=== PATIENT | male | born 1940 | race Two or more races ===

== ENCOUNTER 2023-10-10 15:05 | Outpatient (REF) | payer MEDICARE, MEDICAID, SELFPAY ==
[2023-10-10 15:31] LABS: MANUAL DIFF FLAG NO
[2023-10-10 15:42] LABS: Basophils Percent Auto 0.6 % (0-2); Eosinophils Absolute Auto 0.6 X10*3/uL (0.0-0.4); Eosinophils Percent Auto 10.6 % (0-4); Hematocrit 44.1 % (42.0-52.0); Hemoglobin 14.7 g/dl (14.0-18.0); Imm Gran Abs Auto 0.01 X10*3/uL (0.00-0.03); Imm Gran Pct Auto 0.2 % (0.0-0.4); Lymphocytes Absolute Auto 2.2 X10*3/uL (1.2-4.9); Lymphocytes Percent Auto 40.4 % (20-40); Mean Corpuscular HGB Conc 33.3 g/dl (31.0-36.0); Mean Corpuscular Hemoglobin 31.5 pg (27.0-33.0); Mean Corpuscular Volume 94.4 fL (80.0-98.0); Monocytes Absolute Auto 0.7 X10*3/uL (0.1-1.2); Monocytes Percent Auto 13.6 % (2-11); Neutrophils Absolute Auto 1.9 x10*3/uL (2.0-8.3); Neutrophils Percent Auto 34.6 % (45-73); Platelet Count 174 X10*3/uL (160-400); Red Blood Count 4.67 X10*6/uL (4.60-5.80); White Blood Count 5.4 X10*3/uL (4.8-10.8)
[2023-10-10 15:49] LABS: INTERNATIONAL NORM RATIO 1.1 (0.9-1.1); Prothrombin Time 13.1 SEC (11.1-13.3)
[2023-10-10 15:52] LABS: Partial Thromboplastin Time 32.9 SEC (26.0-36.8)
[2023-10-10 16:12] LABS: Alanine Aminotransferase 11 U/L (0-40); Albumin Level 3.9 g/dL (3.5-5.0); Alkaline Phosphatase 60 U/L (39-117); Anion Gap 10 (12-20); Aspartate Amino Transferase 18 U/L (5-37); Blood Urea Nitrogen 11 mg/dL (9-16); Calcium 8.7 mg/dL (8.4-10.2); Carbon Dioxide 26 mmol/L (22-29); Chloride 103 mmol/L (96-108); Estimated Glomerular Filt Rate 55; Glucose Random 110 mg/dL (60-115); Sodium 135 mmol/L (135-145); Total Protein 7.7 g/dL (6.5-8.0)
[2023-10-10 16:28] LABS: TSH reflex Free T4 0.76 uIU/mL (0.32-4.0)
[2023-10-10 16:44] LABS: Folate > 20.0 ng/mL (> or = 4.0); Vitamin B12 260 pg/mL (200-900)
== END 2023-10-10 15:06 | disposition home or self-care (01) ==
LOC: HO.LAB 15:05
PROVIDERS: Visit Provider Nurse Practitioner Family
DX: F03.93 Unspecified dementia, unspecified severity, with mood disturbance (principal); Z79.01 Long term (current) use of anticoagulants
CPT/HCPCS: 36415; 80053; 82607; 82746; 84443; 85025; 85610; 85730

== ENCOUNTER 2023-10-25 11:55 | Outpatient (REF) | payer MEDICAID, SELFPAY ==
[2023-10-25 12:54] LABS: INTERNATIONAL NORM RATIO 1.5 (0.9-1.1); Prothrombin Time 17.9 SEC (11.1-13.3)
[2023-10-25 12:56] LABS: Partial Thromboplastin Time 37.3 SEC (26.0-36.8)
== END 2023-10-25 11:56 | disposition home or self-care (01) ==
LOC: HO.LAB 11:55
PROVIDERS: PCP Nurse Practitioner Family; Visit Provider Nurse Practitioner Family
DX: Z79.01 Long term (current) use of anticoagulants (principal)
CPT/HCPCS: 36415; 85610; 85730

== ENCOUNTER 2023-11-01 12:58 | Outpatient (REF) | payer MEDICAID, SELFPAY ==
[2023-11-01 13:40] LABS: INTERNATIONAL NORM RATIO 3.2 (0.9-1.1); Prothrombin Time 39.1 SEC (11.1-13.3)
== END 2023-11-01 12:59 | disposition home or self-care (01) ==
LOC: HO.LABR 12:58
PROVIDERS: Visit Provider Pharmacist
DX: I26.99 Other pulmonary embolism without acute cor pulmonale (principal)
CPT/HCPCS: 36415; 85610

== ENCOUNTER 2023-11-08 12:49 | Outpatient (REF) | payer MEDICAID, SELFPAY ==
[2023-11-08 14:28] LABS: INTERNATIONAL NORM RATIO 3.3 (0.9-1.1); Prothrombin Time 39.7 SEC (11.1-13.3)
== END 2023-11-08 12:50 | disposition home or self-care (01) ==
LOC: HO.LABR 12:49
PROVIDERS: Visit Provider Pharmacist
DX: I26.99 Other pulmonary embolism without acute cor pulmonale (principal)
CPT/HCPCS: 36415; 85610

== ENCOUNTER 2023-12-02 11:50 | Outpatient (REF) | payer MEDICAID, SELFPAY ==
[2023-12-02 12:48] LABS: INTERNATIONAL NORM RATIO 2.1 (0.9-1.1); Prothrombin Time 24.4 SEC (10.9-12.4)
== END 2023-12-02 11:51 | disposition home or self-care (01) ==
LOC: HO.LABR 11:50
PROVIDERS: PCP Nurse Practitioner Family; Visit Provider Pharmacist
DX: I26.99 Other pulmonary embolism without acute cor pulmonale (principal)
CPT/HCPCS: 36415; 85610

== ENCOUNTER 2023-12-15 12:32 | Outpatient (REF) | payer MEDICAID, SELFPAY ==
[2023-12-15 13:20] LABS: INTERNATIONAL NORM RATIO 1.8 (0.9-1.1)
== END 2023-12-15 12:33 | disposition home or self-care (01) ==
LOC: HO.LABR 12:32
PROVIDERS: PCP Nurse Practitioner Family; Visit Provider Pharmacist
DX: I26.99 Other pulmonary embolism without acute cor pulmonale (principal)
CPT/HCPCS: 36415; 85610

== ENCOUNTER 2023-12-28 11:58 | Outpatient (REF) | payer MEDICAID, SELFPAY ==
[2023-12-28 13:03] LABS: INTERNATIONAL NORM RATIO 2.1 (0.9-1.1); Prothrombin Time 24.2 SEC (10.9-12.4)
== END 2023-12-28 11:59 | disposition home or self-care (01) ==
LOC: HO.LABR 11:58
PROVIDERS: Visit Provider Pharmacist
DX: I26.99 Other pulmonary embolism without acute cor pulmonale (principal)
CPT/HCPCS: 36415; 85610

== ENCOUNTER 2024-01-13 13:31 | Outpatient (REF) | payer MEDICAID, SELFPAY ==
[2024-01-13 14:30] LABS: INTERNATIONAL NORM RATIO 3.2 (0.9-1.1); Prothrombin Time 37.8 SEC (10.9-12.4)
== END 2024-01-13 13:32 | disposition home or self-care (01) ==
LOC: HO.LABR 13:31
PROVIDERS: Visit Provider Pharmacist
DX: I26.99 Other pulmonary embolism without acute cor pulmonale (principal)
CPT/HCPCS: 36415; 85610

== ENCOUNTER 2024-02-07 12:54 | Outpatient (REF) | payer MEDICAID, SELFPAY ==
[2024-02-07 14:11] LABS: INTERNATIONAL NORM RATIO 1.8 (0.9-1.1); Prothrombin Time 21.4 SEC (10.9-12.4)
--- OUTSIDE RECORDS SUMMARY | 2024-02-14 13:52 | XMS_ITS | Continuity of Care Document ---
Author Organization [facility] Address [address] [place] [address]- Care Team Providers Care Tie Worker Name Role Phone Jv MEI, Francy Proctor Primary Care Physician Encounter [facility] Date(s): 01/03/24 - 02/02/24 [facility] [address] [place], [place] [address] Attending Physician: Ephraim Vo Admitting Physician: AdmtrEphraim Referring Physician: Admtr, [id number] Encounter Type: Triage Allergies, Adverse Reactions, Alerts No Known Medication Allergies Immunizations Given and Recorded Vaccine Date Status Refusal Reason influenza virus vaccine, inactivated 12/29/22 Justino rded influenza virus vaccine, inactivated 12/17/21 Justino rded influenza virus vaccine, inactivated 12/10/20 Justino rded influenza virus vaccine, inactivated 12/18/19 Justino rded SARS-CoV-2 (COVID-19) mRNA-1273 vaccine 08/13/21 R ecorded SARS-CoV-2 (COVID-19) mRNA-1273 vaccine 01/23/21 R ecorded SARS-CoV-2 (COVID-19) mRNA BNT-162b2 vac 05/10/20 Recorded SARS-CoV-2 (COVID-19) mRNA BNT-162b2 vac 04/19/20 Recorded tetanus/diphtheria/pertussis, acel(Tdap) 01/17/20 Recorded pneumococcal 23-valent vaccine 10/22/19 Recorded Medications atorvastatin 20 mg oral tablet 1 tablet = 20 mg, By Mouth, Daily, 0 Refills, Maintenance, 10/04/23 9:18:00 AM EDT, Partial fill upon patient request if the prescription is for a schedule II opioid drug. Start Date: 10/04/23 Status: Ordered Repeat number: 1 Breo Ellipta 100 mcg-25 mcg/inh inhalation powder 1 puffs, Inhalation, Daily, # 30 each, 0 Refills, Maintenance, 10/04/23 9:15:00 AM EDT, Powder, Partial fill upon patient request if the prescription is for a schedule II opioid drug. Start Date: 10/04/23 Status: Ordered Quantity: 30.0 Unit: each Repeat number: 1 cetirizine 10 mg oral capsule 1 capsule = 10 mg, By Mouth, Daily, # 90 capsule, 1 Refills, Maintenance, 11/22/23 12:20:00 PM EDT, Capsule, [facility], Partial fill upon patient request if the prescription is for a schedule II opioid drug., 162, cm, 11/22/23 12:04:00 EDT, Height Start Date: 11/22/23 Status: Ordered Quantity: 90.0 Unit: capsule Repeat number: 2 Indication: Allergic rhinitis, unspecified donepezil 10 mg oral tablet 10 mg, 1, tablet, By Mouth, Daily at bedtime, # 90 tablet, Refills 1, Tot. Refills 1, Maintenance, 11/22/23 12:22:00 PM EDT, Route to Pharmacy Electronically, [facility], Partial fill upon patient request if the prescription is for a schedule II opioid drug., 162, cm, 11/22/23 12:04:00 EDT, Height Start Date: 11/22/23 Status: Ordered Quantity: 90.0 Unit: tablet Repeat number: 2 Indication: Unspecified dementia, unspecified severity, with mood disturbance Dulcolax Stool Softener = 100 mg, By Mouth, 2 times a day, 0 Refills, Maintenance, 10/04/23 9:17:00 AM EDT, Partial fill upon patient request if the prescription is for a schedule II opioid drug. Start Date: 10/04/23 Status: Ordered Repeat number: 1 escitalopram 20 mg oral tablet 1 tablet = 20 mg, By Mouth, Daily, # 90 tablet, 1 Refills, Maintenance, 11/22/23 12:20:00 PM EDT, Tablet, [facility], Partial fill upon patient request if the prescription is for a schedule II opioid drug., 162, cm, 11/22/23 12:04:00 EDT, Height Start Date: 11/22/23 Status: Ordered Quantity: 90.0 Unit: tablet Repeat number: 2 Indication: Unspecified dementia, unspecified severity, with mood disturbance folic acid 1 mg oral tablet 1 mg, 1, tablet, By Mouth, Daily, Refills 0, Maintenance, 10/04/23 9:16:00 AM EDT, Partial fill uponpatient request if the prescription is for a schedule II opioid drug. 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 Psoriasis Confirmed Active Pulmonary embolism Confirmed Active Social History Social History Type Response Smoking Status Never (less than 100 in lifetime) entered on: 10/04/23 Sex Sex Representation Male (finding) Laboratory * Event Display: PT/INR Laboratory Results Scanned Authored Date: * Event Display: Non [facility] Lab Results Authored Date: * Event Display: Laboratory Result Scanned Authored Date: * Event Display: Non [facility] Lab Results Authored Date: Patient Care team information Care Team Personnel Name: Jv MEI, Francy Proctor Position: S PCO Associate Professional Member Role: PCP Address: [address] [place] [address]- Telecom: Insurance Providers Guarantor name: MARCELO Health Plan Information #: 1 Payer: MEDICARE PART B OUTPT Member Number: MARCELO Policy Number: MARCELO Group Number: MARCELO Health Plan Information #: 2 Payer: [facility] Member Number: MARCELO Policy Number: MARCELO Group Number: [id number]
--- OUTSIDE RECORDS SUMMARY | 2024-02-14 13:53 | XMS_ITS | Continuity of Care Document ---
Author Organization [facility] Address [address] [place] [address]- Care Team Providers Care Denture Finisher Name Role Phone Jv MEI, Francy Proctor Primary Care Physician [id number] Date(s): 11/22/23 - 02/02/24 [facility] [address] [place] [address]- Attending Physician: Francy Carias NP Encounter Type: Pre Office Visit Allergies, Adverse Reactions, Alerts No Known Medication [...] 30.0 Unit: tablet Repeat number: 4 Indication: retirement (current) use of anticoagulants methotrexate 2.5 mg [...] on: 10/04/23 Sex Sex Representation Male (finding) Patient Care team information Care Team Personnel Name: Francy Carias NP Position: S PCO Associate Professional Member Role: PCP Address: [address] [place] [address] Telecom: Insurance Providers Guarantor name: MARCELO Health Plan Information #: 2 Payer: [employer] Member Number: [id number] Policy Number: MARCELO Group Number: MARCELO Health Plan Information #: 1 Payer: MEDICARE PART B OUTPT Member Number: [id number] Policy Number: MARCELO Group Number: [id number]
--- OUTSIDE RECORDS SUMMARY | 2024-02-14 13:53 | XMS_ITS | Continuity of Care Document ---
Author Organization [facility] Address [address] [place] [address] Phone Care Team Providers Care Singe Winder Name Role Phone Genet Spear PA-C Unavailable Unavailable Allergies, Adverse Reactions, Alerts Substance Reaction Status Criticality Fish Containing Products Active No Information egg Itching Active No Information Medications Medication Instructions Dosage Effective Dates (start - stop) Status Comments ACETAMINOPHEN ER 650MG TBCR TAKE ONE TABLET BY MOUTH TWICE A DAY 1 - Active Singulair 10 mg tablet TAKE ONE TABLET BY MOUTH EVERY EVENING - Active Ventolin HFA 90 mcg/actuation aerosol inhaler INHALE TWO PUFFS BY MOUTH EVERY 4 TO 6 HOURS NEEDED - Active multivitamin tablet TAKE ONE TABLET BY MOUTH EVERY DAY WITH FOOD - Active Senna Lax 8.6 mg tablet take 2 tablet by ORAL route every evening as neededfor constipation 2 tablet - Active Colace 100 mg capsule TAKE ONE CAPSULE BY MOUTH TWICE A DAY NEEDED - Active COUMADIN 2MG TABS TAKE ONE-TWO [...] OZ OF WATER 1 Tablespoon - Active fluticasone 50 mcg/actuation nasal spray,suspension inhale 1 spray by intranasal route every day in each nostril 50 MCG - Active polyethylene glycol 3350 17 gram/dose oral powder take (17G) by oral route every day mixed with 8 oz. water, juice, soda, coffee or tea - Active Advil Liqui-Gel 200 mg capsule take 1 capsule by oral route every 6 hours as needed 200 MG - Active Lip [place] Natural - Active LIP KENYA BALM AP+ CeraVe topical cream - Active methotrexate sodium 2.5 mg tablet take 5 tablets by oral route every Tuesday - Active ketoconazole 2 % shampoo Apply to scalp externally twice a week - Active folic acid 1 mg tablet [...] in gently and completely 0.00 - Active Procedures Procedure Date OFFICE VISIT ESTAB PT 15 MIN Case Management Case Management Case Management OFFICE VISIT ESTAB PT 15 MIN OFFICE VISIT ESTAB PT 25 MIN OFFICE VISIT ESTAB PT 15 MIN IMMUNIZATION ADMIN FLU VACC PRSV FREE INC ANTIG OFFICE VISIT ESTAB PT 15 MIN PREVENT VISIT EST 65+ OFFICE VISIT ESTAB PT 15 MIN OFFICE VISIT ESTAB PT 25 MIN Case Management OFFICE VISIT ESTAB PT 25 MIN OFFICE VISIT ESTAB PT 15 MIN OFFICE VISIT ESTAB PT 25 MIN IMMUNIZATION ADMIN FLU VACC PRSV FREE INC ANTIG IMMUNIZATION ADMIN ADDITIONAL VACCINE Oc PREVNAR 13 PREVENT VISIT EST 65+ Case Management OFFICE VISIT ESTAB PT 25 MIN New Dental Patient Radiograph Frst Film Bitewing, Single Film Limit Oral Exam PREVENT VISIT EST 65+ OFFICE VISIT ESTAB PT 15 MIN Case Management Case Management URINE DIP NON-AUTO WITHOUT MICRO 2015 PREVENT VISIT EST 65+ Case Management Case Management OFFICE VISIT ESTAB PT 25 MIN Case Management Case Management PREVENT VISIT EST 65+ OFFICE VISIT ESTAB PT 15 MIN Case Management OFFICE VISIT ESTAB PT 15 MIN OFFICE VISIT ESTAB PT 15 MIN Case Management Case Management PPD INTERDERMAL URINE DIP NON-AUTO WITHOUT MICRO 2013 HEPATISTIS A ADULT IMMUNIZATION ADMIN TDAP IMMUNIZATION ADMIN ADDITIONAL VACCINE PREVENT VISIT EST 65+ OFFICE VISIT ESTAB PT 15 MIN OFFICE VISIT ESTAB PT 15 MIN Case Management Case Management Case Management Case Management Case Management OFFICE VISIT ESTAB PT 25 MIN Case Management Case Management PREVENT VISIT EST 65+ OCCULT BLOOD STOOL CARD - Colorectal Cx Screening Case Management Case Management OFFICE VISIT ESTAB PT 25 MIN OFFICE VISIT ESTAB PT 15 MIN Case Management OFFICE VISIT ESTAB PT 25 MIN OFFICE VISIT ESTAB PT 25 MIN Case Management OFFICE VISIT ESTAB PT 25 MIN Case Management OFFICE VISIT ESTAB PT 25 MIN OFFICE/OUTPATIENT VISIT, EST OFFICE VISIT ESTAB PT 25 MIN URINE DIP NON-AUTO WITHOUT MICRO 2008 OFFICE VISIT ESTAB PT 25 MIN OFFICE VISIT ESTAB PT 15 MIN OFFICE VISIT ESTAB PT 15 MIN Advance Directives Directive Yes / No Effective Date File Name No Information Encounters Encounter Description Practice Location Reason(s) For Visit Diagnoses Date Provider Providers Copied on Encounter [facility], [address] [place], [place], [id number] , [place] tel:+ [phone] Counts Include [facility] No Information 0 Vebber Genet. [address], [place], [address], [place]. tel: [phone] [facility], [address] [place], [place], [address] , [place] tel:+ [phone] Counts Include [facility] Long-term Use of Anticoagulant sPortal vein thrombosis 0 Vebber Genet. [address], [place], [address], [place]. tel: [phone] [facility], [address] [place], [place], [address] , [place] tel:+ [phone] Counts Include [facility] Long-term Use of Anticoagulant sPortal vein thrombosis 0 Dannie Shah. [address], [place], [address], [place]. tel: [phone] OFFICE VISIT ESTAB PT 15 MIN [facility], [address] [place], [place], [address] , [place] tel:[phone] [facility] TeleHealth (chief complaint) Advice given about COVID-19 virus by telephoneMese nteric thrombosis 0 Dannie Shah. [address], [place], [address], [place]. tel: [phone] [facility], [address] [place], [place], [address] , [place] tel:+ [phone] Counts Include [facility] Long-term Use of Anticoagulant sPortal vein thrombosis 0 Dannie Shah. [address], [place], [address], [place]. tel: [phone] [facility], [address] [place], [place], [address] , [place] tel:+ [phone] Counts Include [facility] No Information Aug-0 0 Management Case. . Referring Provider: Gera Kumar, [address], [place], [address]. tel:+ [phone] [facility], [address], [place], [place], [address] , [place] tel:+ [phone] Counts Include [facility] Long-term Use of Anticoagulant sPortal vein thrombosis 0 [place] Edward. [address], [place], [address], [place]. tel: [phone] [facility], [address], [place], [place], [address] , [place] tel:+ [phone] Counts Include [facility] No Information 0 Management Case. . Referring Provider: Gera Kumar, [address], [place], [address]. tel: [phone] [facility], [address], [place], [place], [address] , [place] tel:+ [phone] Counts Include [facility] Long-term Use of Anticoagulant sPortal vein thrombosisLon g-term Use of Anticoagulant sPortal vein thrombosis 0 [facility] Edward. [address], [place], [address], [place]. tel: [phone] [facility], [address], [place], [place], [address] , [place] tel:+ [phone] Counts Include [facility] Long-term Use of Anticoagulant sPortal vein thrombosis 0 0 [place] Edward. [address], [place], [address], [place]. tel: [phone] [facility], [address], [place], [place], [address] , [place] tel:[phone] Counts Include [facility] Long-term Use of Anticoagulant sPortal vein thrombosis Jun-3 0-202 0 [facility] Edward. [address], [place], [address], [place]. tel: [phone] [facility], [address], [place], [place], [address] , [place] tel: [phone] [facility] Long-term Use of Anticoagulant sPortal vein thrombosis Jun- 0 [facility] Pablo. [address], [place], [address], [place]. tel: [phone] [facility], [address], [place], [place], [address] , [place] tel: [phone] [facility] No Information 0 Management Case. . Referring Provider: Gera Kumar, [address] [facility], [place], [address]. tel: [phone] [facility], [address], [place], [place], [address] , [place] tel: [phone] [facility] Long-term Use of Anticoagulant sPortal vein thrombosisLon g-term Use of Anticoagulant sPortal vein thrombosis 0 [facility] Pablo. [address], [place], [address], [place]. tel: [phone] OFFICE VISIT ESTAB PT 15 MIN [facility], [address], [place], [place], [address] , [place] tel:+ [phone] Tele[facility] Medical TeleHealth (chief complaint) Chronic constipationM esenteric thrombosisAst hma, persistent controlledAdv ice given about COVID-19 virus by telephone 0 [facility] Pablo. [address], [place], [address], [place]. tel: [phone] Referring Provider: Gera Kumar, [address], [place], [address]. tel: [phone] [facility], [address], [place], [place], [address] , [place] tel: [phone] [facility] No Information [facility] [address], [place], [address], [place]. tel: [phone] [facility], [address], [place], [place], [address] , [place] tel:+ [phone] Counts Include [facility] Long-term Use of Anticoagulant sPortal vein thrombosis Apr-0 9-202 0 Nikolas Hicks. [address], [place], [address], [place]. tel:+ [phone] [facility], [address], [place], [place], [address] , [place] tel:[phone] Counts Include [facility] No Information Apr-0 8-202 0 [facility] Edward. [address], [place], [address], [place]. tel:+ [phone] [facility], [address], [place], [place], [address] , [place] tel:[phone] [facility] Long-term Use of Anticoagulant sPortal vein thrombosis Apr-0 3-202 0 [facility] Pablo. [address], [place], [address], [place]. tel: [phone] [facility], [address], [place], [place], [address] , [place] tel:[phone] Counts Include [facility] Long-term Use of Anticoagulant sPortal vein thrombosis Mar-2 6-202 0 [facility] Edward. [address], [place], [address], [place]. tel: [phone] [facility], [address], [place], [place], [address] , [place] tel:[phone] Counts Include [facility] No Information May-1 8-202 0 [facility] Edward. [address], [place], [address], [place]. tel:+ [phone] [facility], [address], [place], [place], [address] , [place] tel:[phone] Counts Include [facility] Long-term Use of Anticoagulant sPortal vein thrombosis Mar-1 0-202 0 [facility] Edward. [address], [place], [address], [place]. tel:+ [phone] [facility], [address], [place], [place], [address] , [place] tel:[phone] Counts Include [facility] Long-term Use of Anticoagulant sPortal vein thrombosis Mar-0 3-202 0 [facility] Pablo. [address], [place], [address], [place]. tel:+ [phone] [facility], [address], [place], [place], [address] , [place] tel:[phone] [facility] Long-term Use of Anticoagulant sPortal vein thrombosis 0 Giovanni Salguero. [address], [place], [place], [address], [place]. tel:+ [phone] [facility], [address], [place], [place], [address] , [place] tel:[phone] Counts Include [facility] Long-term Use of Anticoagulant sPortal vein thrombosis 0 Dannie Silasjuliana. [address], [place], [address], [place]. tel: [phone] [facility], [address], [place], [place], [address] , [place] tel:[phone] Counts Include [facility] Long-term Use of Anticoagulant sPortal vein thrombosisLon g-term Use of Anticoagulant sPortal vein thrombosis 0 0 Tino Wagner. [address], [place], [address], [place]. tel: [phone] [facility], [address], [place], [place], [address] , [place] tel:[phone] Counts Include [facility] No Information 0 0 [place] Pablo. [address], [place], [address], [place]. tel: [phone] [facility], [address], [place], [place], [address] , [place] tel:[phone] Counts Include [facility] Long-term Use of Anticoagulant sPortal vein thrombosis 0 Dannie Pablo. [address], [place], [address], [place]. tel: [phone] [facility], [address], [place], [place], [address] , [place] tel:[phone] Counts Include [facility] Long-term Use of Anticoagulant sPortal vein thrombosis 0 [place] Shah. [address], [place], [address], [place]. tel: [phone] OFFICE VISIT ESTAB PT 25 MIN [facility], [address], [place], [place], [address] , [place] tel:+ [phone] Counts Include [facility] multiple problems (chief complaint) Essential (primary) hypertensionM esenteric thrombosisChr onic constipationU nspecified asthma, uncomplicated 0 [place] Shah. [address], [place], [address], [place]. tel:[phone] Referring Provider: Gera Kumar, [address], [place], [address]. tel: [phone] [facility], [address], [place], [place], [address] , [place] tel:+ [phone] [facility] Long-term Use of Anticoagulant sPortal vein thrombosis 0 [place] Shah. [address], [place], [address], [place]. tel: [phone] [facility], [address], [place], [place], [address] , [place] tel:+ [phone] Counts Include [facility] Long-term Use of Anticoagulant sPortal vein thrombosis 9 [place] juliana. [address], [place], [address], [place]. tel: [phone] [facility], [address], [place], [place], [address] , [place] tel:+ [phone] Counts Include [facility] Long-term Use of Anticoagulant sPortal vein thrombosis 9 [facility]. [address], [place], [address], [place]. tel: [phone] [facility], [address], [place], [place], [address] , [place] tel:[phone] Counts Include [facility] Long-term Use of Anticoagulant sPortal vein thrombosis 0 9 [facility]. [address], [place], [address], [place]. tel: [phone] [facility], [address], [place], [place], [address] , [place] tel: [phone] Counts Include [facility] Long-term Use of Anticoagulant sPortal vein thrombosis 9 [facility]. [address], [place], [address], . tel: [phone] [facility], [address], [place], [place], [address] , [place] tel: [phone] [facility] Long-term Use of Anticoagulant sPortal vein thrombosis 9 [facility]. [address], [place], [address], . tel: [phone] [facility], [address], [place], [place], [address] , [place] tel: [phone] Counts Include [facility] Long-term Use of Anticoagulant sPortal vein thrombosis 9 [facility]. [address], [place], [address], . tel: [phone] [facility], [address], [place], [place], [address] , [place] tel: [phone] Counts Include [facility] Long-term Use of Anticoagulant sPortal vein thrombosis 9 [facility]. [address], [place], [address], . tel: [phone] [facility], [address], [place], [place], [address] , [place] tel: [phone] [facility] Long-term Use of Anticoagulant sPortal vein thrombosisLon g-term Use of Anticoagulant sPortal vein thrombosis 9 Cullion Robyn. [address], [place], [place], [address], [place]. tel: [phone] OFFICE VISIT ESTAB PT 15 MIN [facility], [address], [place], [place], [address] , [place] tel:+ [phone] Counts Include [facility] multiple problems (chief complaint) Chronic vascular disorders of intestineAnti coagulation goal of INR 2 to 3Asthma, persistent controlledCon stipation, unspecified 9 [facility]. [address], [place], [address], . tel: [phone] Referring Provider: Gera Kumar, [address], [place], [address]. tel: [phone] [facility], [address], [place], [place], [address] , [place] tel:+ [phone] Counts Include [facility] Long-term Use of Anticoagulant sPortal vein thrombosis 9 [facility]. [address], [place], [address], [place]. tel: [phone] [facility], [address], [place], [place], [address] , [place] tel:+ [phone] [facility] Long-term Use of Anticoagulant sPortal vein thrombosis Nov- 9 [facility]. [address], [place], [address], [place]. tel: [phone] [facility], [address], [place], [place], [address] , [place] tel:+ [phone] Counts Include [facility] Long-term Use of Anticoagulant sPortal vein thrombosis Nov- 9 [facility]. [address], [place], [address], [place]. tel: [phone] [facility], [address], [place], [place], [address] , [place] tel:+ [phone] Counts Include [facility] Long-term Use of Anticoagulant sPortal vein thrombosis Nov- 9 [facility]. [address], [place], [address], [place]. tel: [phone] OFFICE VISIT ESTAB PT 15 MIN [facility], [address], [place], [place], [address] , [place] tel:+ [phone] Counts Include [address] [facility] Anticoagulati on (chief complaint) Chronic vascular disorders of intestineAnti coagulation goal of INR 2 to 3Long term (current) use of anticoagulant sAsthma, persistent controlled [facility]. [address], [place], [address], [place]. tel:[phone] Referring Provider: Gera Kumar, [address] [facility], [place], [address]. tel: [phone] [facility], [address], [place], [place], [address] , [place] tel:+ [phone] Counts Include [address] [facility] Long-term Use of Anticoagulant sPortal vein thrombosis [facility]. [address], [place], [address], [place]. tel:[phone] [facility], [address], [place], [place], [address] , [place] tel:+ [phone] Counts Include [address] [facility] Long-term Use of Anticoagulant sPortal vein thrombosis [facility]. [address], [place], [address], [place]. tel: [phone] PREVENT VISIT EST 65+ [facility], [address], [place], [place], [address] , [place] tel:+ [phone] Counts Include [address] [facility] preventive exam (chief complaint) Essential (primary) hypertensionE ncounter for general adult medical examination with abnormal findingsAsthm a, persistent controlledMes enteric vein thrombosisUri nary frequencyCanc er screeningAden omatous polypPsoriasi s, unspecified [facility]. [address], [place], [address], [place]. tel:[phone] Referring Provider: Gera Kumar, [address], [place], [address]. tel:[phone] OFFICE VISIT ESTAB PT 15 MIN [facility], [address], [place], [place], [address] , [place] tel:+ [phone] Counts Include [address] [facility] multiple problems (chief complaint) Psoriasis, unspecifiedHi story of pulmonary embolus (PE)Mixed hyperlipidemi aPolypharmacy Asthma, persistent controlled [facility]. [address], [place], [address], [place]. tel:[phone] Referring Provider: Gera Kumar, [address] [facility], [place], [address]. tel: [phone] OFFICE VISIT ESTAB PT 25 MIN [facility], [address], [place], [place], [address] , [place] tel:+ [phone] Counts Include [address] [facility] Anticoagulati on (chief complaint) Other pulmonary embolism without acute cor pulmonalePsor iasisPolyphar boom 9 [facility]. [address], [place], [address], [place]. tel:[phone] Referring Provider: Gera Kumar, [address] [facility], [place], [address]. tel: [phone] [facility], [address], [place], [place], [address] , [place] tel:+ [phone] Counts Include [address] [facility] Long-term Use of Anticoagulant s 9 Stacy Boss. [address], [address] [facility], [place], [place], [address], [place]. tel: [phone] [facility], [address], [place], [place], [address] , [place] tel:+ [phone] Counts Include [facility] No Information 9 Stacy Boss. [address], [address] [facility], [place], [place], [address], [place]. tel: [phone] [facility], [address], [place], [place], [address] , [place] tel:[phone] [facility] Long-term Use of Anticoagulant s Jun-2 9 Stacy Boss. [address], [address] [facility], [place], [place], [address], [place]. tel: [phone] [facility], [address], [place], [place], [address] , [place] tel:+ [phone] Counts Include [address] [facility] Long-term Use of Anticoagulant s Jun-1 6-201 9 Stacy Boss. [address], [address], [place], [place], [address], [place]. tel:+ [phone] [facility], [address], [place], [place], [address] , [place] tel:[phone] Counts Include [address] [facility] Long-term Use of Anticoagulant s Apr-0 9-201 9 Stacy Boss. [address], [address], [place], [place], [address], [place]. tel:[phone] [facility], [address], [place], [place], [address] , [place] tel:[phone] [facility] Long-term Use of Anticoagulant s Apr-0 2-201 9 Giovanni Salguero. [address] [facility], [place], [place], [address], [place]. tel:[phone] [facility], [address], [place], [place], [address] , [place] tel:[phone] Counts Include [address] [facility] Long-term Use of Anticoagulant s Mar-2 5-201 9 Stacy Boss. [address], [address] [facility], [place], [place], [address], [place]. tel:[phone] [facility], [address], [place], [place], [address] , [place] tel:[phone] Counts Include [address] [facility] Long-term Use of Anticoagulant s Mar-2 0-201 9 Stacy Boss. [address], [address] [facility], [place], [place], [address], [place]. tel:+ [phone] [facility], [address], [place], [place], [address] , [place] tel:[phone] Counts Include [address] [facility] Long-term Use of Anticoagulant s Mar-0 8-201 9 Stacy Boss. [address], [address], [place], [place], [address], [place]. tel:[phone] [facility], [address], [place], [place], [address] , [place] tel:[phone] Counts Include [address] [facility] No Information Mar-0 6-201 9 Management Case. . Referring Provider: Gera Kumar, [address] [facility], [place], [address]. tel:[phone] [facility], [address], [place], [place], [address] , [place] tel:[phone] Counts Include [address] [facility] Long-term Use of Anticoagulant s 9 Stacy Boss. [address], [address] [facility], [place], [place], [address], [place]. tel:+ [phone] [facility], [address], [place], [place], [address] , [place] tel:[phone] Counts Include [address] [facility] Long-term Use of Anticoagulant s Apr- 9 Stacy Boss. [address], [address] [facility], [place], [place], [address], . tel:+ [phone] [facility], [address], [place], [place], [address] , [place] tel:[phone] Counts Include [address] [facility] Long-term Use of Anticoagulant s Apr- 9 Stacy Boss. [address], [address] [facility], [place], [place], [address], [place]. tel:+ [phone] [facility], [address], [place], [place], [address] , [place] tel:[phone] Counts Include [address] [facility] Long-term Use of Anticoagulant s 9 Stacy Boss. [address], [address] [facility], [place], [place], [address], [place]. tel:[phone] [facility], [address], [place], [place], [address] , [place] tel:[phone] Counts Include [address] [facility] No Information 9 Stacy Boss. [address], [address] [facility], [place], [place], [address], [place]. tel:[phone] OFFICE VISIT ESTAB PT 25 MIN [facility], [address], [place], [place], [address] , [place] tel:[phone] Counts Include [address] [facility] asthma (chief complaint) Body mass index (BMI) 25.0-25.9, adultUnspecif ied asthma, uncomplicated Chronic constipation 9 Satcy Boss. [address], [address] [facility], [place], [place], [address], [place]. tel:[phone] Referring Provider: Gera Kumar, [address] [facility], [place], [address]. tel: [phone] [facility], [address], [place], [place], [address] , [place] tel:+ [phone] Counts Include [address] [facility] Long-term Use of Anticoagulant s 9 Stacy Boss. [address], [address] [facility], [place], [place], [address], [place]. tel: [phone] [facility], [address], [place], [place], [address] , [place] tel: [phone] Counts Include [address] [facility] Long-term Use of Anticoagulant s 9 Management Case. . [facility], [address], [place], [place], [address] , [place] tel:+ [phone] Counts Include [address] [facility] Long-term Use of Anticoagulant s 8 Stacy Boss. [address], [address] [facility], [place], [place], [address], [place]. tel: [phone] OFFICE VISIT ESTAB PT 15 MIN [facility], [address], [place], [place], [address] , [place] tel:+ [phone] Counts Include 234 [facility] right eye bleeding (chief complaint) Body mass index (BMI) 25.0-25.9, adultUlcer of right corneaScleral hemorrhage of right eye Feb- 8 Stacy Boss. [address], [address] [facility], [place], [place], [address], [place]. tel: [phone] Referring Provider: Gera Kumar, [address] [facility], [place], [address]. tel: [phone] [facility], [address], [place], [place], [address] , [place] tel:+ [phone] [facility] Long-term Use of Anticoagulant s Dec-0 7-201 8 Cullion Robyn. [address], [address] [facility], [place], [place], [address], [place]. tel:+ [phone] [facility], [address], [place], [place], [address] , [place] tel:[phone] Counts Include 234 [facility] Long-term Use of Anticoagulant s Nov-0 9-201 8 Stacy Boss. [address], [address], [place], [place], [address], [place]. tel: [phone] [facility], [address], [place], [place], [address] , [place] tel:[phone] Counts Include 234 [facility] Long-term Use of Anticoagulant s Dec-2 5- 8 Stacy Boss. [address], [address] [facility], [place], [place], [address], [place]. tel: [phone] [facility], [address], [place], [place], [address] , [place] tel:[phone] Counts Include 234 [facility] Long-term Use of Anticoagulant s Dec-1 3-201 8 Stacy Boss. [address], [address] [facility], [place], [place], [address], [place]. tel:+ [phone] OFFICE VISIT ESTAB PT 25 MIN [facility], [address], [place], [place], [address] , [place] tel:[phone] Counts Include 234 [facility] psoriasis (chief complaint)ast hma (chief complaint) Body mass index (BMI) 25.0-25.9, adultMixed hyperlipidemi aUnspecified asthma, uncomplicated PsoriasisOthe r pulmonary embolism without acute cor pulmonale Dec-1 2-201 8 Stacy Boss. [address], [address] [facility], [place], [place], [address], [place]. tel:+ [phone] Referring Provider: Gera Kumar, [address], [place], [address]. tel: [phone] [facility], [address], [place], [place], [address] , [place] tel:[phone] [facility] Long-term Use of Anticoagulant s Oct-0 5-201 8 Stacy Boss. [address], [address] [place] [address], [id number], [place]. tel:+ [phone] [facility], [address], [place], [place], [address] , [place] tel:[phone] Counts Include 234 [facility] Long-term Use of Anticoagulant s Oct-0 2-201 8 Stacy Boss. [address], [address] [facility], [place], [place], [address], [place]. tel:+ [phone] [facility], [address], [place], [place], [address] , [place] tel:[phone] Counts Include 234 [facility] Long-term Use of Anticoagulant s Sep-2 1-201 8 Stacy Boss. [address], [place] [address], [place], [place], [address], [place]. tel:+ [phone] [facility], [address], [place], [place], [address] , [place] tel:[phone] Counts Include 234 [facility] Long-term Use of Anticoagulant s Aug-2 3-201 8 Stacy Boss. [address], [address] [facility], [place], [place], [address], [place]. tel:+ [phone] [facility], [address], [place], [place], [address] , [place] tel:[phone] Counts Include 234 [facility] Long-term Use of Anticoagulant s Aug-0 9-201 8 Stacy Boss. [address], [address] [facility], [place], [place], [address], [place]. tel:+ [phone] [facility], [address], [place], [place], [address] , [place] tel:[phone] Counts Include 234 [facility] Long-term Use of Anticoagulant s Constantin-3 1-201 8 Stacy Boss. [address], [address] [facility], [place], [place], [address], [place]. tel:+ [phone] [facility], [address], [place], [place], [address] , [place] tel:[phone] Counts Include 234 [facility] Long-term Use of Anticoagulant s Constantin-2 5-201 8 Stacy Boss. [address], [address] [facility], [place], [place], [address], [place]. tel:+ [phone] [facility], [address], [place], [place], [address] , [place] tel:[phone] Counts Include 234 [facility] Long-term Use of Anticoagulant s Constantin-1 0-201 8 Stacy Boss. [address], [address] [facility], [place], [place], [address], [place]. tel:+ [phone] [facility], [address], [place], [place], [address] , [place] tel:[phone] Counts Include 234 [facility] Long-term Use of Anticoagulant s Constantin-0 5-201 8 Stacy Boss. [address], [address] [facility], [place], [place], [address], [place]. tel:+ [phone] [facility], [address], [place], [place], [address] , [place] tel:[phone] Counts Include 234 [facility] Long-term Use of Anticoagulant s Jadon-2 6-201 8 Stacy Boss. [address], [address] [facility], [place], [place], [address], [place]. tel:+ [phone] [facility], [address], [place], [place], [address] , [place] tel:[phone] Counts Include 234 [facility] Long-term Use of Anticoagulant s Jadon-2 0-201 8 Stacy Boss. [address], [address] [facility], [place], [place], [address], [place]. tel:+ [phone] [facility], [address], [place], [place], [address] , [place] tel:[phone] Counts Include 234 [facility] Long-term Use of Anticoagulant s Jadon-1 2-201 8 Stacy Boss. [address], [address] [facility], [place], [place], [address], [place]. tel:+ [phone] [facility], [address], [place], [place], [address] , [place] tel:[phone] Counts Include 234 [facility] Long-term Use of Anticoagulant s Jadon-0 1-201 8 Stacy Boss. [address], [address] [facility], [place], [place], [address], [place]. tel:+ [phone] [facility], [address], [place], [place], [address] , [place] tel:[phone] Counts Include 234 [facility] Long-term Use of Anticoagulant s July-1 7-201 8 Stacy Boss. [address], [address] [facility], [place], [place], [address], [place]. tel:+ [phone] [facility], [address], [place], [place], [address] , [place] tel:[phone] Counts Include 234 [facility] Long-term Use of Anticoagulant s July-0 4-201 8 Stacy Boss. [address], [address] [facility], [place], [place], [address], [place]. tel:+ [phone] [facility], [address], [place], [place], [address] , [place] tel:[phone] Counts Include 234 [facility] Long-term Use of Anticoagulant s Apr-2 6-201 8 Stacy Boss. [address], [address] [facility], [place], [place], [address], [place]. tel:+ [phone] [facility], [address], [place], [place], [address] , [place] tel:[phone] Counts Include 234 [facility] No Information Apr-2 4-201 8 Stacy Boss. [address], [address] [facility], [place], [place], [address], [place]. tel:+ [phone] [facility], [address], [place], [place], [address] , [place] tel:[phone] Counts Include 234 [facility] Long-term Use of Anticoagulant s Apr-1 9-201 8 Stacy Boss. [address], [address] [facility], [place], [place], [address], [place]. tel:+ [phone] [facility], [address], [place], [place], [address] , [place] tel:[phone] Counts Include 234 [facility] Long-term Use of Anticoagulant s Apr-1 3-201 8 Stacy Boss. [address], [address], [place], [place], [address], [place]. tel: [phone] [facility], [address], [place], [place], [address] , [place] tel:+ [phone] Counts Include 234 [facility] Long-term Use of Anticoagulant s Apr-0 8 Stacy Boss. [address], [address], [place], [place], [address], [place]. tel: [phone] [facility], [address], [place], [place], [address] , [place] tel:+ [phone] Counts Include 234 [facility] Long-term Use of Anticoagulant s May- 8 Management Case. . Referring Provider: Gera Kumar, [address] [facility], [place], [address]. tel: [phone] PREVENT VISIT EST 65+ [facility], [address], [place], [place], [address] , [place] tel:+ [phone] Counts Include [address] [facility] preventive exam (chief complaint)pso riasis (chief complaint)ast hma (chief complaint)ang icoagulation (chief complaint) Encntr for general adult medical exam w/o abnormal findingsBody mass index (BMI) 26.0-26.9, adultMixed hyperlipidemi aUnspecified asthma, uncomplicated Other pulmonary embolism without acute cor pulmonalePsor iasis May- 8 Stacy Boss. [address], [address] [facility], [place], [place], [address], [place]. tel: [phone] Referring Provider: Gera Kumar, [address] [facility], [place], [address]. tel: [phone] [facility], [address], [place], [place], [address] , [place] tel:[phone] Counts Include 234 [facility] Long-term Use of Anticoagulant s May- 8 Stacy Boss. [address], [address] [facility], [place], [place], [address], [place]. tel: [phone] [facility], [address], [place], [place], [address] , [place] tel:+ [phone] Counts Include 234 [facility] Long-term Use of Anticoagulant s Mar-0 9- 8 Stacy Boss. [address], [address] [facility], [place], [place], [address], . tel:+ [phone] [facility], [address], [place], [place], [address] , [place] tel:[phone] Counts Include 234 [facility] Long-term Use of Anticoagulant s Mar-0 1-201 8 Stacy Boss. [address], [address] [facility], [place], [place], [address], [place]. tel:+ [phone] [facility], [address], [place], [place], [address] , [place] tel:[phone] Counts Include 234 [facility] Long-term Use of Anticoagulant s Apr-2 - 8 Stacy Boss. [address], [address] [facility], [place], [place], [address], [place]. tel:+ [phone] [facility], [address], [place], [place], [address] , [place] tel:[phone] Counts Include 234 [facility] Long-term Use of Anticoagulant s Apr- 8 Stacy Boss. [address], [address] [facility], [place], [place], [address], [place]. tel:+ [phone] [facility], [address], [place], [place], [address] , [place] tel:[phone] Counts Include 234 [facility] Long-term Use of Anticoagulant s Mar- 6- 8 Stacy Boss. [address], [address] [facility], [place], [place], [address], [place]. tel:[phone] [facility], [address], [place], [place], [address] , [place] tel:[phone] Counts Include 234 [facility] Long-term Use of Anticoagulant s Mar-0 2-201 8 Management Case. . [facility], [address], [place], [place], [address] , [place] tel:[phone] Counts Include 234 [facility] Long-term Use of Anticoagulant s Dec-1 8-201 7 Stacy Boss. [address], [address] [facility], [place], [place], [address], [place]. tel:+ [phone] [facility], [address], [place], [place], [address] , [place] tel:[phone] Counts Include 234 [facility] Long-term Use of Anticoagulant s Dec-0 7-201 7 Stacy Boss. [address], [address] [facility], [place], [place], [address], [place]. tel:+ [phone] [facility], [address], [place], [place], [address] , [place] tel:[phone] Counts Include 234 [facility] Long-term Use of Anticoagulant s Nov-2 8-201 7 Stacy Boss. [address], [address] [facility], [place], [place], [address], [place]. tel:+ [phone] [facility], [address], [place], [place], [address] , [place] tel:[phone] Counts Include 234 [facility] Long-term Use of Anticoagulant s Oct-2 5-201 7 Stacy Boss. [address], [address] [facility], [place], [place], [address], [place]. tel:+ [phone] [facility], [address], [place], [place], [address] , [place] tel:[phone] Counts Include 234 [facility]eds At [facility] Encounter for screening colonoscopy Oct-1 2-201 7 Stacy Boss. [address], [address] [facility], [place], [place], [address], [place]. tel:+ [phone] [facility], [address], [place], [place], [address] , [place] tel:[phone] Counts Include 234 [facility] Long-term Use of Anticoagulant s Oct-1 1-201 7 Stacy Boss. [address], [address] [facility], [place], [place], [address], [place]. tel:+ [phone] [facility], [address], [place], [place], [address] , [place] tel:[phone] Counts Include 234 [facility] Long-term Use of Anticoagulant s Oct-0 4-201 7 Stacy Boss. [address], [address] [facility], [place], [place], [address], [place]. tel:+ [phone] [facility], [address], [place], [place], [address] , [place] tel:[phone] Counts Include 234 [facility] No Information Dec-0 3 7 Management Case. . Referring Provider: Gera Kumar, [address] [facility], [place], [address]. tel:+ [phone] [facility], [address], [place], [place], [address] , [place] tel:+ [phone] Counts Include 234 [facility]eds At [facility] Long-term Use of Anticoagulant s Nov-2 7 Stacy Boss. [address] [facility], [address] [facility], [place], [place], [address], [place]. tel:+ [phone] OFFICE VISIT ESTAB PT 25 MIN [facility], [address], [place], [place], [address] , [place] tel:[phone] Counts Include 234 [facility]eds [facility] asthma (chief complaint)hyp erlipidemia (chief complaint)chr onic anticoagulati on (chief complaint)Eye problems (chief complaint)pso riasis (chief complaint) Body mass index (BMI) 27.0-27.9, adultMixed hyperlipidemi aUnspecified asthma, uncomplicated Oth disrd of the skin and subcutaneous tissueLong-te rm Use of Anticoagulant sEye problemOther pulmonary embolism without acute cor pulmonale Nov-2 7 Stacy Boss. [address], [address] [facility], [place], [place], [address], [place]. tel:+ [phone] Referring Provider: Gera Kumar, [address] [facility], [place], [address]. tel:+ [phone] [facility], [address], [place], [place], [address] , [place] tel:[phone] Counts Include 234 [facility] At [facility] Long-term Use of Anticoagulant s Sep-0 7 Stacy Boss. [address] [facility], [address] [facility], [place], [place], [address], [place]. tel: [phone] [facility], [address], [place], [place], [address] , [place] tel:[phone] Counts Include 234 [facility] At [facility] Long-term Use of Anticoagulant s Aug-0 8-201 7 Stacy Boss. [address], [address] [facility], [place], [place], [address], [place]. tel: [phone] [facility], [address], [place], [place], [address] , [place] tel:[phone] Counts Include 234 [facility] Long-term Use of Anticoagulant s Sep-2 4-201 7 Stacy Boss. [address], [address] [facility], [place], [place], [address], [place]. tel: [phone] [facility], [address], [place], [place], [address] , [place] tel:[phone] Counts Include 234 [facility] Long-term Use of Anticoagulant s Sep-1 7-201 7 Stacy Boss. [address], [address] [facility], [place], [place], [address], [place]. tel: [phone] [facility], [address], [place], [place], [address] , [place] tel:[phone] Counts Include 234 [facility] Long-term Use of Anticoagulant s Sep-0 3-201 7 Stacy Boss. [address], [place] [address], [place], [place], [address], [place]. tel: [phone] [facility], [address], [place], [place], [address] , [place] tel:[phone] Counts Include 234 [facility] Long-term Use of Anticoagulant s Jadon-2 0-201 7 Stacy Boss. [address], [address] [facility], [place], [place], [address], [place]. tel: [phone] [facility], [address], [place], [place], [address] , [place] tel:[phone] Counts Include 234 [facility] Long-term Use of Anticoagulant s Jadon-1 3-201 7 Stacy Boss. [address], [address] [facility], [place], [place], [address], [place]. tel: [phone] [facility], [address], [place], [place], [address] , [place] tel: [phone] Counts Include 234 [facility] Long-term Use of Anticoagulant s 7 Stacy Boss. [address], [address], [place], [place], [address], [place]. tel: [phone] [facility], [address], [place], [place], [address] , [place] tel:+ [phone] Counts Include 234 [facility]eds At [facility] Long-term Use of Anticoagulant s 7 [facility]. [address], [place], [address], [place]. tel: [phone] [facility], [address], [place], [place], [address] , [place] tel: [phone] Counts Include 234 [facility]eds At [facility] Long-term Use of Anticoagulant s 7 Stacy Boss. [address], [address], [place], [place], [address], [place]. tel: [phone] [facility], [address], [place], [place], [address] , [place] tel: [phone] Counts Include 234 [facility] Long-term Use of Anticoagulant s 7 [facility]. [address], [place], [address], [place]. tel: [phone] [facility], [address], [place], [place], [address] , [place] tel:+ [phone] Counts Include 234 [facility] Long-term Use of Anticoagulant s 7 [facility]. [address], [place], [address], [place]. tel: [phone] [facility], [address], [place], [place], [address] , [place] tel:[phone] [facility] Encounter for dental exam and cleaning w/o abnormal findings 7 Patrick Ku. [address], [place], [address], [place]. tel: [phone] Referring Provider: Gera Kumar, [address] [facility], [place], [address]. tel:+ [phone] [facility], [address], [place], [place], [address] , [place] tel:[phone] Counts Include 234 [facility] At [facility] Long-term Use of Anticoagulant s Apr-2 0-201 7 Stacy Boss. [address], [address] [facility], [place], [place], [address], [place]. tel:+ [phone] [facility], [address], [place], [place], [address] , [place] tel:[phone] Counts Include 234 [facility] At [facility] Long-term Use of Anticoagulant s Apr-0 6-201 7 Stacy Boss. [address], [address] [facility], [place], [place], [address], [place]. tel:+ [phone] [facility], [address], [address] , [place] tel:[phone] Counts Include 234 [facility]eds At [facility] Long-term Use of Anticoagulant s Mar-3 0-201 7 Stacy Boss. [address] [facility], [address] [facility], [place], [place], [address], [place]. tel:+ [phone] PREVENT VISIT EST 66+ [facility], [address], [place], [place], [address] , [place] tel:[phone] Counts Include 234 [facility] At [facility] preventive exam (chief complaint)ast hma (chief complaint)pso riasis (chief complaint)hyp erlipidemia (chief complaint)chr onic anticoagulati on (chief complaint) Encntr for general adult medical exam w/o abnormal findingsBody mass index (BMI) 30.0-30.9, adultOther specified disorders of the skin and subcutaneous tissueMixed hyperlipidemi aUnspecified asthma, uncomplicated Other pulmonary embolism without acute cor pulmonaleEnco unter for screening for malignant neoplasm of colonLong-ter m Use of Anticoagulant s Mar-2 2-201 7 Stacy Boss. [address], [address] [place] [address], [id number], [place]. tel:[phone] Referring Provider: Gera Kumar, [address] [facility], [place], [address]. tel:[phone] [facility], [address], [place], [place], [address] , [place] tel:[phone] Counts Include 234 [facility] At [facility] Long-term Use of Anticoagulant s Mar-1 6-201 7 Stacy Boss. [address], [address] [facility], [place], [place], [address], [place]. tel: [phone] [facility], [address], [place], [place], [address] , [place] tel:[phone] Counts Include 234 [facility] Long-term Use of Anticoagulant s Mar-0 9-201 7 Stacy Boss. [address], [address] [facility], [place], [place], [address], [place]. tel: [phone] [facility], [address], [place], [place], [address] , [place] tel:[phone] Counts Include 234 [facility]eds [facility] Long-term Use of Anticoagulant s Mar-0 3-201 7 Stacy Boss. [address], [address] [facility], [place], [place], [address], [place]. tel: [phone] [facility], [address], [place], [place], [address] , [place] tel:[phone] Counts Include 234 [facility]eds At [facility] Long-term Use of Anticoagulant s Feb-1 0-201 7 Stacy Boss. [address], [address] [facility], [place], [place], [address], . tel: [phone] [facility], [address], [place], [place], [address] , [place] tel:[phone] Counts Include 234 [facility]eds At [facility] Long-term Use of Anticoagulant s Feb-0 2-201 7 Stacy Boss. [address], [address] [facility], [place], [place], [address], [place]. tel: [phone] [facility], [address], [place], [place], [address] , [place] tel:[phone] Counts Include 234 [facility] At [facility] Long-term Use of Anticoagulant s Mar-2 5-201 7 Stacy Boss. [address], [address] [facility], [place], [place], [address], [place]. tel:[phone] [facility], [address], [place], [place], [address] , [place] tel:[phone] Counts Include 234 [facility] Long-term Use of Anticoagulant s Reggie-1 2-201 7 Stacy Boss. [address], [address] [facility], [place], [place], [address], [place]. tel: [phone] [facility], [address], [place], [place], [address] , [place] tel:[phone] Counts Include 234 [facility]eds [facility] Long-term Use of Anticoagulant s Dec-1 5-201 6 Stacy Boss. [address], [address] [facility], [place], [place], [address], [place]. tel: [phone] [facility], [address], [place], [place], [address] , [place] tel:[phone] Counts Include 234 [facility]eds At [facility] Long-term Use of Anticoagulant s Nov-3 0-201 6 Stacy Boss. [address], [address] [facility], [place], [place], [address], [place]. tel: [phone] [facility], [address], [place], [place], [address] , [place] tel:[phone] Counts Include 234 [facility]eds At [facility] Long-term Use of Anticoagulant s Nov-1 8-201 6 Stacy Boss. [address], [address] [facility], [place], [place], [address], [place]. tel: [phone] [facility], [address], [place], [place], [address] , [place] tel:[phone] [facility] Long-term Use of Anticoagulant s Nov-1 0-201 6 Stacy Boss. [address], [address] [facility], [place], [place], [address], [place]. tel: [phone] [facility], [address], [place], [place], [address] , [place] tel:[phone] Counts Include 234 [facility]eds [facility] Long-term Use of Anticoagulant s Nov-0 3-201 6 Stacy Boss. [address], [address] [facility], [place], [place], [address], [place]. tel:+ [phone] OFFICE VISIT ESTAB PT 15 MIN [facility], [address], [place], [place], [address] , [place] tel:+ [phone] Counts Include 234 [facility]eds At [facility] asthma (chief complaint) Unspecified asthma, uncomplicated Dec-2 0- 6 Stacy Boss. [address], [address] [facility], [place], [place], [address], . tel:+ [phone] Referring Provider: Gera Kumar, [address] [facility], [place], [address]. tel:+ [phone] [facility], [address], [place], [place], [address] , [place] tel:+ [phone] Counts Include 234 [facility] Long-term Use of Anticoagulant s Dec- 3- 6 Stacy Boss. [address], [address] [facility], [place], [place], [address], . tel:+ [phone] [facility], [address], [place], [place], [address] , [place] tel:[phone] Counts Include 234 [facility] At [facility] Long-term Use of Anticoagulant s Dec-0 6- 6 Stacy Boss. [address], [address] [facility], [place], [place], [address], . tel:+ [phone] [facility], [address], [place], [place], [address] , [place] tel:[phone] Counts Include 234 [facility] Long-term Use of Anticoagulant s Nov- 6 Stacy Boss. [address], [address] [facility], [place], [place], [address], [place]. tel:[phone] [facility], [address], [place], [place], [address] , [place] tel:[phone] Counts Include 234 [facility] At [facility] No Information Nov- 6 Management Case. . Referring Provider: Gera Kumar, [address] [facility], [place], [address]. tel:+ [phone] [facility], [address], [place], [place], [address] , [place] tel:[phone] Counts Include 234 [facility] Long-term Use of Anticoagulant s Sep-0 6 Stacy David. [address] [address], [address] [facility], [place], [place], [address], . tel:+ [phone] [facility], [address], [place], [place], [address] , [place] tel:+ [phone] Counts Include 234 Beds At [facility] Long-term Use of Anticoagulant s 6 Stacy Boss. [address], [address] [facility], [place], [place], [address], [place]. tel:+ [phone] [facility], [address], [place], [place], [address] , [place] tel:+ [phone] Counts Include [address] [facility]eds At [facility] No Information 6 Management Case. . Referring Provider: Gera Kumar, [address] [facility], [place], [address]. tel:+ [phone] [facility], [address], [place], [place], [address] , [place] tel:+ [phone] Counts Include 234 Beds At [facility] Long-term Use of Anticoagulant s 6 Stacy David. [address], [address] [facility], [place], [place], [address], . tel:+ [phone] [facility], [address], [place], [place], [address] , [place] tel:[phone] Counts Include 234 Beds At [facility] Long-term Use of Anticoagulant s 6 Stacy Boss. [address], [address] [facility], [place], [place], [address], [place]. tel:+ [phone] [facility], [address], [place], [place], [address] , [place] tel:[phone] Counts Include 234 Beds At [facility] No Information 6 Stacy Boss. [address], [address] [facility], [place], [place], [address], . tel:+ [phone] [facility], [address], [place], [place], [address] , [place] tel:[phone] Counts Include 234 Beds At [facility] Long-term Use of Anticoagulant s Jadon-3 0-201 6 Stacy Boss. [address], [address] [facility], [place], [place], [address], [place]. tel:+ [phone] [facility], [address], [place], [place], [address] , [place] tel:[phone] Counts Include 234 Beds At [facility] Long-term Use of Anticoagulant s Jadon-1 5-201 6 Stacy Boss. [address], [address] [facility], [place], [place], [address], [place]. tel:+ [phone] [facility], [address], [place], [place], [address] , [place] tel:[phone] Counts Include 234 Beds At [facility] Long-term Use of Anticoagulant s Jadon-0 2-201 6 Stacy Boss. [address], [address] [facility], [place], [place], [address], [place]. tel:+ [phone] [facility], [address], [place], [place], [address] , [place] tel:[phone] Counts Include 234 Beds At [facility] Long-term Use of Anticoagulant s July-1 9-201 6 Stacy Boss. [address], [address] [facility], [place], [place], [address], [place]. tel:+ [phone] [facility], [address], [place], [place], [address] , [place] tel:[phone] Counts Include 234 Beds At [facility] Long-term Use of Anticoagulant s July-1 1-201 6 Stacy Boss. [address], [address] [facility], [place], [place], [address], [place]. tel:+ [phone] [facility], [address], [place], [place], [address] , [place] tel:[phone] Counts Include 234 Beds At [facility] Long-term Use of Anticoagulant s May-0 5-201 6 Stacy Boss. [address], [address] [facility], [place], [place], [address], [place]. tel:+ [phone] [facility], [address], [place], [place], [address] , [place] tel:[phone] Counts Include 234 Beds At [facility] Long-term Use of Anticoagulant s Apr-2 1-201 6 Stacy Boss. [address], [address] [facility], [place], [place], [address], [place]. tel:+ [phone] [facility], [address], [place], [place], [address] , [place] tel:[phone] Counts Include 234 [facility]eds At [facility] Hematuria Apr-1 3-201 6 Stacy Boss. [address], [address] [facility], [place], [place], [address], [place]. tel:+ [phone] [facility], [address], [place], [place], [address] , [place] tel:[phone] Counts Include 234 Beds At [facility] Long-term Use of Anticoagulant s Apr-1 2-201 6 Stacy Boss. [address], [address] [facility], [place], [place], [address], [place]. tel:+ [phone] [facility], [address], [place], [place], [address] , [place] tel:[phone] Counts Include 234 Beds At [facility] Long-term Use of Anticoagulant s Apr-0 5-201 6 Stacy Boss. [address], [address] [facility], [place], [place], [address], [place]. tel:[phone] [facility], [address], [place], [place], [address] , [place] tel:[phone] Counts Include 234 Beds At [facility] Hematuria May-2 4-201 6 Stacy Boss. [address], [address] [facility], [place], [place], [address], [place]. tel:+ [phone] PREVENT VISIT EST 65+ [facility], [address], [place], [place], [address] , [place] tel:[phone] Counts Include 234 Beds At [facility] Preventive exam (chief complaint)ast hma (chief complaint)hyp erlipidemia (chief complaint)ant icoagulation (chief complaint) Encntr for general adult medical exam w/o abnormal findingsBody mass index (BMI) 28.0-28.9, adultPsoriasi sMixed hyperlipidemi aChronic vascular disorders of intestineUnsp ecified asthma, uncomplicated Other pulmonary embolism without acute cor pulmonale May-2 2-201 6 Stacy Boss. [address], [address] [facility], [place], [place], [address], [place]. tel:+ [phone] Referring Provider: Gera Kumar, [address] [facility], [place], [address]. tel:+ [phone] [facility], [address], [place], [place], [address] , [place] tel:[phone] Counts Include 234 Beds At [facility] Long-term Use of Anticoagulant s Mar-1 5-201 6 Stacy Boss. [address], [address] [facility], [place], [place], [address], [place]. tel:+ [phone] [facility], [address], [place], [place], [address] , [place] tel:[phone] Counts Include 234 Beds At [facility] Long-term Use of Anticoagulant s May-0 8 6 Stacy Boss. [address], [address] [facility], [place], [place], [address], [place]. tel:+ [phone] [facility], [address], [place], [place], [address] , [place] tel:[phone] Counts Include 234 Beds At [facility] Long-term Use of Anticoagulant s Mar- 6 Stacy Boss. [address], [address] [facility], [place], [place], [address], [place]. tel:+ [phone] [facility], [address], [place], [place], [address] , [place] tel:[phone] Counts Include 234 Beds At [facility] Long-term Use of Anticoagulant s Mar- 9201 6 Stacy Boss. [address], [address] [facility], [place], [place], [address], [place]. tel:+ [phone] [facility], [address], [place], [place], [address] , [place] tel:[phone] Counts Include 234 Beds At [facility] Long-term Use of Anticoagulant s Feb-2 201 5 Stacy Boss. [address], [address] [facility], [place], [place], [address], [place]. tel:+ [phone] [facility], [address], [place], [place], [address] , [place] tel:+ [phone] Counts Include 234 Beds At [facility] Long-term Use of Anticoagulant sLong-term Use of Anticoagulant s Dec-0 1-201 5 Nurse [facility]. [address], [place], [place], [address]. tel: [facility], [address], [place], [place], [address] , [place] tel:+ [phone] Counts Include 234 Beds At [facility] Long-term Use of Anticoagulant s Nov-2 4-201 5 Stacy Boss. [address], [address] [facility], [place], [place], [address], [place]. tel: [phone] [facility], [address], [place], [place], [address] , [place] tel:+ [phone] Counts Include 234 Beds At [facility] Long-term Use of Anticoagulant s Nov-1 0-201 5 Stacy Gera. [address], [address] [place] [address], [id number], [place]. tel: [phone] [facility], [address], [place], [place], [address] , [place] tel:+ [phone] Counts Include 234 Beds At [facility] Long-term Use of Anticoagulant s Nov-0 3-201 5 Rubio Mendes. [address], [place], [address], [place]. tel: [phone] [facility], [address], [place], [place], [address] , [place] tel:+ [phone] Counts Include 234 Beds At [facility] Long-term Use of Anticoagulant s Oct-0 7-201 5 Stacy Boss. [address], [address] [facility], [place], [place], [address], [place]. tel: [phone] [facility], [address], [place], [place], [address] , [place] tel:+ [phone] Counts Include 234 Beds At [facility] No Information Oct-0 2-201 5 Management Case. . Referring Provider: Gera Kumar, [address] [facility], [place], [address]. tel: [phone] [facility], [address], [place], [place], [address] , [place] tel:+ [phone] Counts Include 234 Beds At [facility] Long-term Use of Anticoagulant s Nov- 5 Stacy Boss. [address], [address] [facility], [place], [place], [address], . tel: [phone] [facility], [address], [place], [place], [address] , [place] tel:+ [phone] Counts Include 234 Beds At [facility] No Information Nov- 5 Management Case. . Referring Provider: Gera Kumar, [address] [facility], [place], [address]. tel: [phone] [facility], [address], [place], [place], [address] , [place] tel:+ [phone] Counts Include 234 Beds At [facility] Long-term Use of Anticoagulant s Nov-0 5 Stacy Boss. [address] [facility], [place] [address], [place], [place], [address], . tel: [phone] OFFICE VISIT ESTAB PT 25 MIN [facility], [address], [place], [place], [address] , [place] tel:+ [phone] Counts Include 234 Beds At [facility] hyperlipidemi a (chief complaint)abel h (chief complaint) Unspecified keratitisMixe d hyperlipidemi aAcute vascular insufficiency of intestineOthe r pulmonary embolism and infarctionFoo d allergyLong-t erm Use of Anticoagulant s 5 Stacy Boss. [address] [facility], [place] [address], [place], [place], [address], . tel: [phone] Referring Provider: Gera Kumar, [address] [facility], [place], [address]. tel: [phone] [facility], [address], [place], [place], [address] , [place] tel:+ [phone] Counts Include 234 Beds At [facility] Long-term Use of Anticoagulant s Oct- 5 Stacy Boss. [address], [address] [facility], [place], [place], [address], . tel: [phone] [facility], [address], [place], [place], [address] , [place] tel:+ [phone] Counts Include 234 Beds At [facility] Long-term Use of Anticoagulant s 5 Stacy Boss. [address], [address] [facility], [place], [place], [address], . tel: [phone] [facility], [address], [place], [place], [address] , [place] tel:+ [phone] Counts Include 234 Beds At [facility] No Information 5 Management Case. . Referring Provider: Gera Kumar, [address] [facility], [place], [address]. tel: [phone] [facility], [address], [place], [place], [address] , [place] tel:+ [phone] Counts Include 234 Beds At [facility] Long-term Use of Anticoagulant s 5 Stacy Boss. [address], [place] [address], [place], [place], [address], . tel: [phone] [facility], [address], [place], [place], [address] , [place] tel:+ [phone] Counts Include 234 Beds At [facility] Long-term Use of Anticoagulant s 5 Stacy Boss. [address], [address] [facility], [place], [place], [address], [place]. tel: [phone] [facility], [address], [place], [place], [address] , [place] tel:[phone] [facility] Long-term Use of Anticoagulant s 5 Giovanni Salguero. [address], [place], [address], [place]. tel: [phone] [facility], [address], [place], [place], [address] , [place] tel:[phone] Counts Include 234 Beds At [facility] Long-term Use of Anticoagulant s 5 Dannie Shah. [address], [place], [address], [place]. tel: [phone] [facility], [address], [place], [place], [address] , [place] tel:[phone] Counts Include 234 Beds At [facility] No Information 5 Management Case. . Referring Provider: Gera Kumar, [address] [facility], [place], [address]. tel:+ [phone] [facility], [address], [place], [place], [address] , [place] tel:[phone] Counts Include 234 Beds At [facility] Long-term Use of Anticoagulant s 5 Stacy Boss. [address], [address] [facility], [place], [place], [address], [place]. tel:+ [phone] [facility], [address], [place], [place], [address] , [place] tel:[phone] Counts Include 234 Beds At [facility] Long-term Use of Anticoagulant s 5 Stacy Boss. [address] [facility], [place] [address], [place], [place], [address], . tel:+ [phone] [facility], [address], [place], [place], [address] , [place] tel:[phone] Counts Include 234 Beds At [facility] Long-term Use of Anticoagulant s 5 Stacy Boss. [address] [facility], [place] [address], [place], [place], [address], . tel:+ [phone] [facility], [address], [place], [place], [address] , [place] tel:[phone] Counts Include 234 Beds At [facility] Long-term Use of Anticoagulant s 5 Stacy Boss. [address] [facility], [place] [address], [place], [place], [address], [place]. tel:+ [phone] PREVENT VISIT EST 66+ [facility], [address], [place], [place], [address] , [place] tel:[phone] Counts Include 234 Beds At [facility] Preventive exam (chief complaint)ast hma (chief complaint)ecz taqueria (chief complaint)hyp erlipidemia (chief complaint)ant icoagulation (chief complaint)con stipation (chief complaint) ROUTINE MEDICAL EXAMUnspecifi ed keratitisMixe d hyperlipidemi aAcute vascular insufficiency of intestineAsth ma, unspecified 9-201 5 Stacy Boss. [address], [address] [facility], [place], [place], [address], [place]. tel:+ [phone] Referring Provider: Gera Kumar, [address], [place], [address]. tel:+ [phone] [facility], [address], [place], [place], [address] , [place] tel:[phone] Counts Include 234 Beds At [facility] Long-term Use of Anticoagulant s 3- 5 Stacy Boss. [address], [address] [facility], [place], [place], [address], [place]. tel:+ [phone] [facility], [address], [place], [place], [address] , [place] tel:[phone] [place] [facility] Long-term Use of Anticoagulant s Apr- 7 5 Management Case. . [facility], [address], [place], [place], [address] , [place] tel:[phone] Counts Include 234 Beds At [facility] Long-term Use of Anticoagulant s 5 Stacy Boss. [address], [address] [facility], [place], [place], [address], [place]. tel:+ [phone] [facility], [address], [place], [place], [address] , [place] tel:[phone] Counts Include 234 Beds At [facility] Long-term Use of Anticoagulant s Apr-0 - 5 Stacy Boss. [address], [address] [facility], [place], [place], [address], [place]. tel:+ [phone] [facility], [address], [place], [place], [address] , [place] tel:[phone] Counts Include 234 Beds At [facility] Long-term Use of Anticoagulant s 0- 5 Stacy Boss. [address], [address] [facility], [place], [place], [address], [place]. tel:+ [phone] [facility], [address], [place], [place], [address] , [place] tel:[phone] Counts Include 234 Beds At [facility] Long-term Use of Anticoagulant s 5 Stacy Boss. [address], [address] [facility], [place], [place], [address], . tel: [phone] [facility], [address], [place], [place], [address] , [place] tel:+ [phone] Counts Include 234 Beds At [facility] Long-term Use of Anticoagulant s 5 Stacy Boss. [address], [address] [facility], [place], [place], [address], [place]. tel: [phone] OFFICE VISIT ESTAB PT 15 MIN [facility], [address], [place], [place], [address] , [place] tel:+ [phone] Counts Include 234 Beds At [facility] asthma (chief complaint)Hyp erlipidemia (chief complaint)Abel h (chief complaint) Unspecified keratitisMixe d hyperlipidemi aAsthma, unspecified Feb-3 0 4 Stacy Boss. [address], [place] [address], [place], [place], [address], . tel:+ [phone] Referring Provider: Gera Kumar, [address] [facility], [place], [address]. tel: [phone] [facility], [address], [place], [place], [address] , [place] tel:+ [phone] Counts Include 234 Beds At [facility] Long-term Use of Anticoagulant s 4 Giovanni Salguero. [address], [place], [address], [place]. tel: [phone] [facility], [address], [place], [place], [address] , [place] tel:[phone] Counts Include 234 Beds At [facility] Long-term Use of Anticoagulant s Feb- 4 Stacy Boss. [address], [place] [address], [place], [place], [address], [place]. tel: [phone] [facility], [address], [place], [place], [address] , [place] tel:+ [phone] Counts Include 234 Beds At [facility] Long-term Use of Anticoagulant s 4 Stacy Boss. [address], [address] [facility], [place], [place], [address], . tel: [phone] [facility], [address], [place], [place], [address] , [place] tel:[phone] Counts Include 234 Beds At [facility] Long-term Use of Anticoagulant s 4 Stacy Boss. [address] [facility], [place] [address], [place], [place], [address], [place]. tel:+ [phone] [facility], [address], [place], [place], [address] , [place] tel:+ [phone] Counts Include 234 Beds At [facility] No Information Management Case. . Referring Provider: Gera Kumar, [address] [place] [address], [place], [address]. tel:[phone] OFFICE VISIT ESTAB PT 15 MIN [facility], [address], [place], [place], [address] , [place] tel:+ [phone] Counts Include 234 Beds At [facility] constipation (chief complaint) Constipation 4 Stacy Boss. [address] [facility], [place] [address], [place], [place], [address], . tel:+ [phone] Referring Provider: Gera Kumar, [address] [address], [place], [address]. tel:+ [phone] OFFICE VISIT ESTAB PT 15 MIN [facility], [address], [place], [place], [address] , [place] tel:[phone] Counts Include 234 Beds At [facility] Follow Up of asthma (chief complaint)hyp erlipidema (chief complaint) AsthmaOther psoriasis and similar disordersMixe d Hyperlipidemi aIatrogenic pulmonary embolism and infarction 4 Stacy Boss. [address] [facility], [place] [address], [place], [place], [address], . tel:+ [phone] Referring Provider: Gera Kumar, [address] [place] [address], [place], [address]. tel: [phone] [facility], [address], [place], [place], [address] , [place] tel: [phone] Counts Include 234 Beds At [facility] No Information Management Case. . Referring Provider: Gera Kumar, [address] [facility], [place], [address]. tel: [phone] [facility], [address] [place], [place], [address] , [place] tel: [phone] Counts Include 234 Beds At [facility] No Information Management Case. . Referring Provider: Gera Kumar, [address], [place], [address]. tel: [phone] [facility], [address] [place], [place], [address] , [place] tel: [phone] Counts Include 234 Beds At [facility] PPD plant (chief complaint) Screening examination for pulmonary tuberculosis Nurse [facility]. [address] [place], [place], [address]. tel: Referring Provider: Gera Kumar, [address] [facility], [place], [address]. tel: [phone] PREVENT VISIT EST 65+ [facility], [address] [place], [place], [address] , [place] tel: [phone] Counts Include 234 Beds At [facility] preventive exam (chief complaint)cou gh/wheezing (chief complaint)Pso riasis (chief complaint) AsthmaAbdomin al PainNeed for prophylactic vaccination and inoculation against viralhepatiti Traci FOR PROPHYLACTIC VACCINATION WITH COMBINED DIPHTHERIA-TE TANUS-PERTUSS IS (DTP) (DTAP) VACCINEVisit for preventive health examinationDy suriaOther psoriasis and similar disordersRout ine Medical Exam 4 Stacy Boss. [address], [address] [facility], [place], [place], [address], [place]. tel: [phone] Referring Provider: Gera Kumar, [address] [facility], [place], [address]. tel: [phone] OFFICE VISIT ESTAB PT 15 MIN [facility], [address] [place], [place], [address] , [place] tel:+ [phone] Counts Include 234 Beds At [facility] Follow Up of asthma (chief complaint) AsthmaLong-te rm Use of Anticoagulant sOther psoriasis and similar disorders 4 Stacy Boss. [address], [address] [facility], [place], [place], [address], [place]. tel: [phone] Referring Provider: Gera Kumar, [address] [facility], [place], [address]. tel: [phone] OFFICE VISIT ESTAB PT 15 MIN [facility], [address], [place], [place], [address] , [place] tel:+ [phone] Counts Include 234 Beds At [facility] cough (chief complaint) Asthma Feb- 3 Stacy Boss. [address] [facility], [address] [facility], [place], [place], [address], [place]. tel: [phone] Referring Provider: Gera Kumar, [address] [facility], [place], [address]. tel: [phone] [facility], [address], [place], [place], [address] , [place] tel:+ [phone] Counts Include 234 Beds At [facility] No Information Feb- 3 Management Case. . Referring Provider: Gera Kumar, [address] [facility], [place], [address]. tel: [phone] [facility], [address], [place], [place], [address] , [place] tel:+ [phone] Counts Include 234 [address]eds At [facility] Pulmonary embolus, right Sep-0 3 Management Case. . Referring Provider: Gera Kumar, [address], [place], [address]. tel: [phone] [facility], [address], [place], [place], [address] , [place] tel:+ [phone] Counts Include 234 Beds At [facility] No Information 3 Management Case. . Referring Provider: Gera Kumar, [address], [place], [address]. tel: [phone] [facility], [address], [place], [place], [address] , [place] tel:+ [phone] Counts Include [address] At [facility] Iatrogenic pulmonary embolism and infarction Management Case. . Referring Provider: Gera Kumar, [address], [place], [address]. tel: [phone] [facility], [address], [place], [place], [address] , [place] tel:+ [phone] [facility] No Information 3 Management Case. . Referring Provider: Isabell K[facility] [address] [place], [address]. tel:[phone] OFFICE VISIT ESTAB PT 25 MIN [facility], [address], [place], [place], [address] , [place] tel:+ [phone] Counts Include 234 Beds At [facility] rash (chief complaint)cou madin (chief complaint) Other psoriasis and similar disordersChro yin anticoagulati on Stacy Boss. [address], [address], [place], [place], [address], [place]. tel: [phone] Referring Provider: Gera Kumar, [address], [place], [address]. tel: [phone] [facility], [address], [place], [place], [address] , [place] tel:+ [phone] [facility] No Information 3 Management Case. . Referring Provider: Isabell [facility] [address] [place], [address]. tel:[phone] [facility], [address], [place], [place], [address] , [place] tel:+ [phone] [facility] No Information Management Case. . Referring Provider: Isabell [facility] [address] [place], [address]. tel:[phone] PREVENT VISIT EST 65+ [facility], [address], [place], [place], [address] , [place] tel:+ [phone] Counts Include 234 [address]eds At [facility] physical exam (chief complaint)pavithra k pain (chief complaint) Routine Medical ExamRoutine Medical ExamMixed Hyperlipidemi aGERDAcute vascular insufficiency of intestineOthe r psoriasis and similar disordersRout ine Medical Exam 0 2 Stacy Boss. [address], [address], [place], [place], [address], [place]. tel: [phone] Referring Provider: Gera Kumar, [address], [place], [address]. tel: [phone] [facility], [address], [place], [place], [address] , [place] tel: [phone] Counts Include 234 [address]eds At [facility] No Information 2 Management Case. . Referring Provider: Isabell Kiser [facility] [address] [place], [address]. tel: [phone] [facility], [address], [place], [place], [address] , [place] tel:+ [phone] Counts Include 234 Beds At [facility] Long-term Use of Anticoagulant s 2 Quinteros Zoë. [address], [place], [address]. tel: [phone] [facility], [address], [place], [place], [address] , [place] tel:+ [phone] Counts Include 234 Beds At [facility] Acute vascular insufficiency of intestineAcut e vascular insufficiency of intestine 2 [facility], [address] [place], [address], [place]. tel: [phone] [facility], [address], [place], [place], [id number] , [place] tel:[phone] Counts Include 234 Beds At [facility] No Information 2 Management Case. . Referring Provider: [facility] [address] [place], [address]. tel:[phone] OFFICE VISIT ESTAB PT 25 MIN [facility], [address], [place], [place], [id number] , [place] tel:+ [phone] Counts Include 234 Beds At [facility] hypertension (chief complaint) Iatrogenic pulmonary embolism and infarctionIat rogenic pulmonary embolism and infarctionUns pecified essential hypertensionA llergic rhinitis, cause unspecified 2 [facility], [address] [place], [place], [facility], [place]. tel:[phone] Referring Provider: [facility] [address] [place] [address]. tel:[phone] OFFICE VISIT ESTAB PT 15 MIN [facility], [address], [place], [place], [id number] , [place] tel:+ [phone] Counts Include 234 Beds At [facility] er (chief complaint) Iatrogenic pulmonary embolism and infarctionIat rogenic pulmonary embolism and infarctionAcu te vascular insufficiency of intestineGERD 2 [facility], [address] [place], [place], [facility], [place]. tel:[phone] Referring Provider: [facility] [address] [place], [place], [facility]. tel:[phone] [facility], [address], [place], [place], [id number] , [place] tel:[phone] Counts Include 234 Beds At [facility] No Information 2 Management Case. . Referring Provider: [facility] [address] [place], [place], [facility]. tel:[phone] OFFICE VISIT ESTAB PT 25 MIN [facility], [address], [place], [place], [id number] , [place] tel:[phone] Counts Include 234 Beds At [facility] back pain (chief complaint) Allergic rhinitis, cause unspecifiedLu mbagoAllergic rhinitis, cause unspecified 1 [facility], [address] [place] [address], [place]. tel: [phone] Referring Provider: [facility] [address] [place] [address]. tel:[phone] [facility], [address], [place], [place], [id number] , [place] tel:[phone] [facility] No Information 1 [facility], [address] [place], [place], [facility], [place]. tel:[phone] OFFICE VISIT ESTAB PT 25 MIN [facility], [address], [place], [place], [id number] , [place] tel: [phone] [facility] asthma (chief complaint) Other psoriasis and similar disordersAlle rgic rhinitis, cause unspecified 1 [facility], [address] [place], [place], [facility], [place]. tel:[phone] Referring Provider: [facility] [address] [place], [facility]. tel:[phone] [facility], [address], [place], [place], [id number] , [place] tel: [phone] [facility] No Information 1 Management Case. . OFFICE VISIT ESTAB PT 25 MIN [facility], [address], [place], [place], [id number] , [place] tel:[phone] [facility] cough (chief complaint) Viral syndromeViral Infection, Unspecified 0 [facility], [address] [place], [facility], [place]. tel:[phone] [facility], [address], [place], [place], [id number] , [place] tel:[phone] [facility] No Information 0 Management Case. . OFFICE VISIT ESTAB PT 25 MIN [facility], [address], [place], [place], [id number] , [place] tel:[phone] [facility] allergies (chief complaint) Allergic rhinitis, cause unspecified 0 [facility], [address] [place], [facility], [place]. tel: [phone] OFFICE/OUTPA TIENT VISIT, EST [facility], [address], [place], [place], [id number] , [place] tel:[phone] Counts Include 234 Beds At [facility] cough (chief complaint)con stipation (chief complaint)bur ping (chief complaint) Allergic rhinitis, cause unspecifiedGE RDDermatophyt osis of unspecified site 0 [facility], [address] [place], [place], [facility], . tel: [phone] OFFICE VISIT ESTAB PT 25 MIN [facility], [address] [place], [id number] , [place] tel: [phone] Counts Include 234 Beds At [facility] BP check (chief complaint) Elevated blood pressure reading without diagnosis of hypertensionO ther psoriasis and similar disorders 9 [facility], [address] [place], [place], [facility], . tel: [phone] OFFICE VISIT ESTAB PT 25 MIN [facility], [address] [place], [id number] , [place] tel: [phone] Counts Include 234 Beds At [facility] cold symptoms (chief complaint) Other psoriasis and similar disordersUrin florencia tract infection, site not specifiedElev ated blood pressure reading without diagnosis of hypertension 9 [facility], [address] [place], [facility], . tel:[phone] Referring Provider: [facility] [address] [place], [place], [facility]. tel: [phone] OFFICE VISIT ESTAB PT 15 MIN [facility], [address], [place], [place], [id number] , [place] tel:[phone] Counts Include 234 Beds At [facility] cough (chief complaint) Acute bronchitisAcu te upper respiratory infections of unspecified site 9 [facility]ir [facility]. [address] [place], [address]. tel:[phone] OFFICE VISIT ESTAB PT 15 MIN [facility], [address], [place], [place], [address] , [place] tel:[phone] Counts Include 234 Beds At [facility] No Information 8 [facility], [address] [place], [address], [place]. tel:[phone] [facility], [address] [place], [id number] , tel: [phone] Counts Include 234 Beds At [facility] Allergic rhinitis, cause unspecifiedEs ophageal refluxDermato phytosis of unspecified site 8 [facility], [address] [place], [address], [place]. tel:[phone] Family History Family Member Type Diagnosis Age At Onset No Information Immunizations Vaccine Date Status Comments Influenza, high dose, injectable, split virus, preservative free, Fluzone High-Dose administered Source: New Immuniza tion Record Pneumococcal [...] Record Payers Payer name Insurance type Covered green party ID Authoriza tion(s) NHP Integrity CI [id number] NHP Integrity CI [id number] NHP Integrity CI [id number] NHP [place] CI [id number] Medicare MB [id number] Social History Type Description Quantity Date Captured Comments Alcohol Use Details Unknown Caffeine Use Details Unknown Tobacco Use Status No Information Smoking Status No Information Sex Male Sexual Orientation Straight or heterosexual Gender Identity Male Chief Complaint And Reason For Visit No Information Reason For Referral Reason For Referral No Information Plan Of Treatment Date Type Action Status Goal Hep C Screening. Due on due Goal Depression screening. Due on due Goal Dental Exam. Due on due Goal Glaucoma Exam. Due on due Goal Tdap due Goal Lipid panel. Due on due Goal Zoster vaccine (). Due on due Goal Influenza vaccine. Due [...] panel. Due on due Goal Zoster vaccine (). Due on due Goal Hep C Screening. [...] due Goal Tdap due Goal Zoster vaccine (1st). Due on due Goal Lipid panel. Due [...] vaccine. Due on Oc t due Goal Hep C Screening. Due on [...] on Oc due Goal Tdap due Goal Lipid panel. [...] Goal Glaucoma Exam. Due on due Goal Glaucoma Exam. [...] Goal Depression screening. Due on due Goal Depression screening. Due [...] due Goal H&P. Due on due Goal H&P. Due on [...] completed Goal Colonoscopy. Due on due Goal Glaucoma [...] Goal Colonoscopy. Due on 027 due Goal Glaucoma Exam. Due on due [...] Goal Pneumococcal vaccine. Due on due Goal Pneumococcal vaccine. [...] on due Goal Lipid panel. Due on 024 due Goal H&P. Due on due Goal Influenza vaccine. Due on Oc due Goal Colonoscopy. Due on 027 due Goal Zoster vaccine. Due on due [...] Lipid panel. Due on 023 due Goal H&P. Due on due Goal Pneumococcal vaccine. Due on due Goal Influenza vaccine. Due on Oc due Goal Tdap due Goal Depression screening. Due on due Goal Glaucoma Exam. Due on due Goal Zoster vaccine. Due on due Goal Colonoscopy. Due on 027 due Goal Pneumococcal vaccine. Due on due Goal Lipid panel. Due on due Goal H&P. Due on due Goal Influenza vaccine. Due on Oc due Goal Tdap due Goal Depression screening. [...] on due Goal Lipid panel. Due on 022 due Goal Depression screening. Due on due [...] on due Goal Influenza vaccine. Due on Se due Goal FOBT. Due on due Goal [...] Influenza vaccine. Due on No due Goal FOBT. Due on due Goal Zoster vaccine. Due on due Goal Colonoscopy. Due on due Goal Influenza vaccine. Due on No due Goal FOBT. Due on due Goal Zoster vaccine. Due on due Goal Glaucoma Referral. Due on No due Goal Colonoscopy. Due on due Goal FOBT. Due on due Goal Influenza vaccine. Due on No due Goal Zoster vaccine. Due on due Goal Glaucoma Referral. Due on No due Goal FOBT. Due on due Goal Colonoscopy. Due on due Goal Zoster vaccine. Due on due Goal Influenza vaccine. Due on No due Goal Glaucoma Referral. Due on No due Goal Colonoscopy. Due on due Goal Influenza vaccine. Due on Oc due Goal Glaucoma Referral. Due on Oc due Goal FOBT. Due on due Goal Zoster vaccine. Due on due Goal Dietary manageme nt education, guidance, and counseling completed Goal Colonoscopy. Due on due Goal Glaucoma [...] Goal Glaucoma Referral. Due on due Goal Zoster vaccine. Due [...] Goal Glaucoma Referral. Due on due Goal Zoster vaccine. Due on due Goal FOBT. Due on due Goal Colonoscopy. Due on due Goal Influenza vaccine. Due on due Goal Glaucoma Referral. Due on due Goal Colonoscopy. Due on due Goal FOBT. Due on due Goal Zoster vaccine. Due on due Goal Influenza vaccine. Due on due Goal Glaucoma Referral. Due on due Goal Zoster vaccine. Due [...] due Goal FOBT. Due on due Goal Abdominal ultrasound. Due on due Goal Influenza vaccine. Due [...] Due on due Goal Tdap due Goal Dietary manageme nt education, guidance, and counseling completed Goal Tobacco cessation counseling completed Goal Tobacco cessation counseling completed Goal Tobacco cessation counseling completed Referral Referred To: Hematology & Oncology Ordered: Referrals: Hematology. [facility]. Location: T:[phone] ordered Referral Referred To: [facility] Ordered: Referrals: Ophthalmology. [facility]. Location: T: [phone] F: [phone]. Evaluate and treat ordered Referral Ordered: Colonoscopy, [...] located at: HomeThe Provider is located at: [facility] role[facility]s) of any other participant on the telehealth visit: TeleHealth The patient has verbally consented to participate in this Telehealth Visit and has been advised that co-payments, co-insurance, and/or deductibles may apply as subject to specific insurance plan regulations.The Patient is located at: HomeThe Provider is located at: [facility] & role(s) of any other participant [...] regimen that does not require testing. asthma (comments) No trouble marianela athing, using inhalers as prescribed. No smoking. Denies cough, wheeze, SOB, chronic cough, phlegm, allergic rhinitis. No pets. No smoking.Kimly to order pill packing. asthma The initial visi t date was [...] cough, reflux, seasonal rhinitis symptoms and wheezing. right eye bleeding The symptoms are reported [...] symptoms are chronic. Followed by derm on clobetasol and light therapy. Using lotion, [...] well controlled w warfarin.Followed by Dr Shah. Eye problems The severity of the problem [...] symptoms are chronic and are controlled. INRs lobsterman stable with mild fluctuations. Tolerates warfarin well. [...] week for SOB. Denies cough. No smoking. chronic anticoagulation The symp toms are reported as being mild. The symptoms occur constantly. He states the symptoms are chronic. Chronic anticoagulation, PE. Fairly well controlled w warfarin.Has appt with Dr Shah next month. psoriasis The symptoms are reported as being severe. The symptoms occur constantly. He states the symptoms are chronic. Followed by derm on methotrexate, topical steroids. Fairly controlled. Need to get latest note.Next apt tomorrow. Need to get notes. asthma The initial visi t date was [...] symbacort, montelukast, cetirizine. No smoking. Denies cough. preventive exam Men's preventive visit. Here for CPE. Due for colonoscopy. Refuses vaccinations. No smoking. No dentist. Hasn't seen eye doc in 2 years denies vision changes. Eating mostly Hungarian diet some fried. No junk or fast food. Due for routine labs, can have them done with next INR. hyperlipidemia Risk factors inc lude age over 50, poor diet, race and sedentary life style. The patient is adhering to medication, follow-up and diet for their hyperlipidemia. The patient is not adhering to exercise for their hyperlipidemia. Hyperlipidemia management includes statins. Additional information: Using atorvastatin 20mg QHS, no smoking. No exercise. Some Fried foods. asthma The initial visi t date was [...] CPE. No colonoscopy, FOBT. Feels well otherwise. Hungarian diet, no greens, vision is okay sees [...] no thrush. Using singulair and cetirizine daily. Hyperlipidemia Risk factors inc lude age over 50 and sedentary life style. The patient is adhering to medication, follow-up and diet for their hyperlipidemia. The patient is not adhering to exercise for their hyperlipidemia. Hyperlipidemia management includes statins. There are no associated symptoms. Additional information: USing atorvastatin 20mg qhs. Little fried foods, no junk food or fast food. Rash The patient pres ents for Rash. Additional information: Followed by derm for psoriasis on upper and lower extremities. Using triamcinlone 2x daily. constipation He is also exper iencing change [...] hard, dry. Brown, no blood or mucus. 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 Functional Status Date Functional Assessmen t No Information Instructions Date Instruction Additional Infor harry Asymptomatic. Juan Luis led on infection control, alarm symptoms. Related to Advice given about COVID-19 virus by telephone Asymptomatic on warf lesvia. Awaiting INR from this morning. Planning to find new PCP in [place]. Will manage anticoag until new PCP takes [...] Managed by derm. Related to Psoriasis, unspecified On atorvastatin Related to Mixed hyperlipidemia Asymptomatic on eliq uis, off warfarin. Awaiting hematol consult to determine lobsterman anticoag plan. Related to History of pulmonary embolus (PE) Symptomatically cont rolled on symbicort, singular. Uses albuterol as needed about once weekly. Related to Asthma, persistent controlled Dietary management e ducation, guidance, and counseling Related to Body mass index (BMI) 26.0-26.9, adult Giving encouragement to exercise Related to Body mass index (BMI) 26.0-26.9, adult RTO 1 month for simp lification of medication regimen. Related to Polypharmacy Managed by derm. 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 Requesting change to anticoag regimen that doesn't require testing. Renal function normal, asymptomatic. INR 1.28 earlier this week. Change to apixiban. Refer to hematol for advice on lobsterman anticoagulation duration. Related to Other pulmonary embolism [...] for tomorrow at 9:30 AM with [facility] [id number] [facility] [address] [address] [address]uop. [phone] the pt a copy of his last [...] Related to Mixed hyperlipidemia Stable. Follow up [facility] j[facility] as scheduled. Continue warfarin management.Didn't get home [...] (BMI) 25.0-25.9, adult Stable. Follow up wi th pulmo as scheduled. Continue warfarin management.Review red [...] RTC 6 mo. 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 Review and agree with plan LESLIE Swan- Related to Body mass index (BMI) 27.0-27.9, adult Continue anticoagulation. INR st able. Related to Other pulmonary embolism without acute cor pulmonale Will consult with pedro mead worker to help find transportation to eye [...] of intestine Refuses offer to go see stage manager. He adamantly denies any oral issues, only [...] unspecified Assessments Type Assessment Date No Information Patient Care Teams Name Effective Dates (start - stop) Status Members No Information
== END 2024-02-07 12:55 | disposition home or self-care (01) ==
LOC: HO.LABR 12:54
PROVIDERS: Visit Provider Pharmacist
DX: I26.99 Other pulmonary embolism without acute cor pulmonale (principal)
CPT/HCPCS: 36415; 85610

== ENCOUNTER 2024-04-04 20:40 | Inpatient (IN) | payer MEDICARE, MEDICAID, SELFPAY ==
--- NOTE | ~2024-04-04 | XR_ITS ---
CLINICAL HISTORY: sob 1 view chest x-ray Comparison: None Findings: Lungs are clear without acute infiltrates. No pneumothorax. Heart size enlarged. No acute bony abnormalities. Impression: No acute processes This document has been electronically signed by: Matthew Burgess MD on 04/04/2024 21:44:15
[2024-04-04 20:42] VITALS: BP 132/82; PULSE 80; O2SAT 93
[2024-04-04 20:48] VITALS: BP 130/71; PULSE 100; RESP 19; TEMP 37; O2SAT 96; BMI 32.4
--- NOTE | 2024-04-04 20:54 | ED.SOB ---
HPI - SOB/Dyspnea General Chief Complaint: Dyspnea Stated Complaint: dyspnea, cough, duo neb, IV placed per ems Time Seen by Provider: 04/04/24 20:49 Source: patient and EMS Limitations: language barrier and other (Patient has a poor historian) History of Present Illness ED Provider: Galilea Merrill PA-C HPI Narrative: 83-year-old male with a history of Parkinson's and asthma presents with shortness of breath since earlier today. Patient states he has felt short of breath today. He denies preceding cough or cold symptoms or fever. Per EMS, the patient does not have family, he has VNA services to his home. The individual who was at home with the patient, could not offer details as to his comorbidities and medications that he takes. They were not helpful. History is limited as the patient is also a poor historian. Related Data Allergies Allergy/AdvReac Type Severity Reaction Status Date / Time No Known Allergies Allergy Verified 04/04/24 20:55 Review of Systems Review of Systems: Yes all other systems are reviewed and are negative Constitutional: Constitutional: Denies fatigue and Denies fever(s) Cardiovascular: Cardiovascular: Denies chest pain and Reports dyspnea Respiratory: Respiratory: Reports cough, Reports dyspnea and Reports wheezing Endocrine: Endocrine: Denies fatigue Allergic/Immunologic: Allergic/Immunologic: Reports wheezing PMFSH Past Medical History Attestation statement: The following information was validated with the patient. Social History Social History Smoked in Last 30 Days: No Use of substances other than those prescribed or required for medical reasons: No Advance Directives: No Advance Directives Information Provided: Yes Do you have a plan to hurt others: No Plan Physical Exam Vital Signs: Vital Signs: Last Vital Signs Temp 98.8 F 04/04/24 23:35 Pulse 117 H 04/04/24 23:35 Resp 18 04/04/24 23:35 BP 101/68 04/04/24 23:35 Pulse Ox 93 04/04/24 23:35 O2 Del Method Room Air 04/04/24 23:35 BMI result Body Mass Index 32.4 Const: Other: Alert Orientation/consciousness: patient oriented x3 Resp: Other: Tachypneic, expiratory wheezes posterior arroyo Cardio: Other: Normal peripheral perfusion Skin: Other: Warm dry no rash Neuro: Other: Very unsteady on his feet, resting tremor General: patient oriented x3, no focal motor deficits and CN's II-XI intact bilaterally Psych: Other: Flat affect, cooperative Course Reevaluation(s) Reevaluation #1: Patient was ambulated to see if he dropped his oxygen saturation, his heart rate elevated to 120, his oxygen dropped to 88% RA , we will be admitting Medications Administered Discontinued Medications Generic Name Dose Route Start Last Admin Trade Name Giselle PRN Reason Stop Dose Admin Albuterol Sulfate 7.5 mg/ 10 mg 04/04/24 20:57 04/04/24 20:59 Albuterol Sulfate 2.5 mg INHALE 04/04/24 20:58 10 mg ONCE ONE Administration Albuterol Sulfate 7.5 mg/ 0 mg 04/04/24 21:59 04/04/24 23:21 Albuterol/Ipratropium 3 ml INHALE 04/04/24 22:00 10 each ONCE ONE Administration Magnesium Sulfate 2 gm in 50 mls @ 25 mls/hr 04/04/24 20:52 04/04/24 23:19 Magnesium Sulfate/H2o IV 04/04/24 22:51 Infused ONCE ONE Infusion Acetaminophen 1,000 mg in 100 mls @ 400 mls/hr 04/04/24 23:32 04/04/24 23:53 Ofirmev IV 04/04/24 23:46 Not Given ONCE ONE Methylprednisolone Sodium Succinate 125 mg 04/04/24 20:52 04/04/24 21:09 Methylprednisolone Sod Succ 125 Mg/2 Ml Vial IVPUSH 04/04/24 20:53 125 mg ONCE ONE Administration Medical Decision Making Medical Decision Making MDM Narrative: 83-year-old male with a history of Parkinson's and asthma presents with shortness of breath since earlier today. Patient states he has felt short of breath today. He denies preceding cough or cold symptoms or fever. Per EMS, the patient does not have family, he has VNA services to his home. The individual who was at home with the patient, could not offer details as to his comorbidities and medications that he takes. They were not helpful. History is limited as the patient is also a poor historian. Problem: Age Parkinson's and asthma History: Per patient and EMS I have considered the following differential diagnoses: Asthma exacerbation, viral syndrome, pneumonia Plan: Patient here with asthma exacerbation, unclear with the trigger is. We will be screening basic labs, viral panel, chest x-ray. We will be giving an updraft, Solu-Medrol and magnesium. I have independently reviewed the following tests: Labs: No leukocytosis, not anemic, no electrolyte abnormality, positive for RSV Chest x-ray:indings: Lungs are clear without acute infiltrates. No pneumothorax. Heart size enlarged. No acute bony abnormalities. Impression: No acute processes This document has been electronically signed by: Matthew Burgess MD on 04/04/2024 21:44:15 Lab Data 04/04/24 21:03 04/04/24 21:03 Labs: Lab Results 04/04/24 Range/Units 21:03 WBC 6.2 (4.8-10.8) X10*3/uL RBC 4.54 L (4.60-5.80) X10*6/uL Hgb 13.9 L (14.0-18.0) g/dl Hct 41.6 L (42.0-52.0) % MCV 91.6 (80.0-98.0) fL MCH 30.6 (27.0-33.0) pg MCHC 33.4 (31.0-36.0) g/dl RDW 13.2 (11.0-16.0) % Plt Count 148 L (160-400) X10*3/uL MPV 10.6 (9.4-12.4) fL Immature Gran % (Auto) 0.2 (0.0-0.4) % Neut % (Auto) 48.1 (45-73) % Lymph % (Auto) 24.4 (20-40) % Delta % (Auto) 16.5 H (2-11) % Eos % (Auto) 10.0 H (0-4) % Baso % (Auto) 0.8 (0-2) % Lymph # (Auto) 1.5 (1.2-4.9) X10*3/uL Delta # (Auto) 1.0 (0.1-1.2) X10*3/uL Eos # (Auto) 0.6 H (0.0-0.4) X10*3/uL Baso # (Auto) 0.1 (0.0-0.2) X10*3/uL Abs Immat Gran (auto) 0.01 (0.00-0.03) X10*3/uL Absolute Neuts (auto) 3.0 (2.0-8.3) x10*3/uL Absolute Nucleated RBC 0.000 (0.0-0.012) X10*3/uL Nucleated RBC % (auto) 0.0 (0.0-0.2) /100WBC Sodium 136 (135-145) mmol/L Potassium 4.0 (3.3-5.1) mmol/L Chloride 107 (96-108) mmol/L Carbon Dioxide 22 (22-29) mmol/L Anion Gap 11 L (12-20) BUN 12 (9-16) mg/dL Creatinine 1.25 (0.5-1.4) mg/dL Estim Creat Clear Calc 38.7 Estimated GFR 55 Random Glucose 90 (60-115) mg/dL Lactic Acid 1.7 (0.5-2.0) mmol/L Calcium 8.2 L (8.4-10.2) mg/dL Magnesium 2.2 (1.6-2.6) mg/dL Influenza Type A (PCR) NEGATIVE (Negative) Influenza Type B (PCR) NEGATIVE (Negative) RSV RNA Qual (PCR) POSITIVE A (Negative) SARS-CoV-2 RNA (RT-PCR) NEGATIVE (Negative) Discharge Plan Discharge Clinical Impression: Asthma with exacerbation, Respiratory syncytial virus (RSV) Patient Disposition: Admitted As Inpatient Print Language: [place]an (Mary)
[2024-04-04] MEDS: Albuterol Sulfate 7.5 MG, Albuterol Sulfate (0.083%) 2.5 MG 10 MG INHALE (20:59)
[2024-04-04 21:02] VITALS: PULSE 87; RESP 18; O2SAT 96
[2024-04-04] MEDS: methylPREDNISolone Sod Succ 125 MG/2 ML VIAL IVPUSH (21:09)
[2024-04-04] MEDS: Magnesium Sulfate/H2O 2 GM/50 ML PIGGYBACK IV (21:09)
[2024-04-04 21:12] LABS: MANUAL DIFF FLAG NO
[2024-04-04 21:15] LABS: Basophils Absolute Auto 0.1 X10*3/uL (0.0-0.2); Basophils Percent Auto 0.8 % (0-2); Eosinophils Absolute Auto 0.6 X10*3/uL (0.0-0.4); Hematocrit 41.6 % (42.0-52.0); Hemoglobin 13.9 g/dl (14.0-18.0); Imm Gran Abs Auto 0.01 X10*3/uL (0.00-0.03); Imm Gran Pct Auto 0.2 % (0.0-0.4); Lymphocytes Absolute Auto 1.5 X10*3/uL (1.2-4.9); Lymphocytes Percent Auto 24.4 % (20-40); Mean Corpuscular HGB Conc 33.4 g/dl (31.0-36.0); Mean Corpuscular Hemoglobin 30.6 pg (27.0-33.0); Mean Corpuscular Volume 91.6 fL (80.0-98.0); Mean Platelet Volume 10.6 fL (9.4-12.4); Monocytes Percent Auto 16.5 % (2-11); Neutrophils Percent Auto 48.1 % (45-73); Platelet Count 148 X10*3/uL (160-400); Red Blood Count 4.54 X10*6/uL (4.60-5.80); Red Cell Distribution Width 13.2 % (11.0-16.0); White Blood Count 6.2 X10*3/uL (4.8-10.8)
[2024-04-04 21:22] VITALS: TEMP 37.3
[2024-04-04 21:29] LABS: Lactic Acid 1.7 mmol/L (0.5-2.0)
[2024-04-04 21:30] LABS: Anion Gap 11 (12-20); Blood Urea Nitrogen 12 mg/dL (9-16); Calcium 8.2 mg/dL (8.4-10.2); Carbon Dioxide 22 mmol/L (22-29); Chloride 107 mmol/L (96-108); Creatinine Clr Calc Pharmacy 38.7; Estimated Glomerular Filt Rate 55; Glucose Random 90 mg/dL (60-115); Magnesium 2.2 mg/dL (1.6-2.6); Sodium 136 mmol/L (135-145)
--- NOTE | 2024-04-04 21:39 | PC.NURSE ---
video cement finishing supervisor for faisal at bedside. pt a&ox4, respirations even but labored, with upper expiratory wheezing. ems gave one duoneb in ambulance. pt reports sudden onset of sob and wheezing x1 day. pt reports he did not use any at home inhaler. pt denies chest pain, n/v/d. 20G placed in left ac by ems and 20G placed in right forearm by this rn. labs obtained, pt 98% on room air, normal sinus on tele.
--- NOTE | 2024-04-04 21:46 | PC.NURSE ---
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
[2024-04-04 21:50] LABS: Influenza A PCR NEGATIVE (Negative); Influenza B PCR NEGATIVE (Negative); Resp Syncy Virus RNA Qual PCR POSITIVE (Negative); SARS COV2 PCR INHOUSE NEGATIVE (Negative)
[2024-04-04 22:03] VITALS: PULSE 106; RESP 18; O2SAT 92
--- NOTE | 2024-04-04 22:10 | PC.NURSE ---
pt noted to be wheezing at this time, respiratory called to bedside, duoneb given.
[2024-04-04] MEDS: Albuterol Sulfate 7.5 MG, Albuterol/Iprat 2.5/0.5MG 3 ML 3 ML INHALE (23:21)
[2024-04-04 23:35] VITALS: BP 101/68; PULSE 117; PULSE 120; RESP 18; TEMP 37.1; O2SAT 88; O2SAT 93
--- NOTE | 2024-04-04 23:39 | PC.NURSE ---
attempted to take pt for ambulation trial, pt sat up in bed and de sat to 88% on room air, became tachy 120. pt placed back into bed, new vs obtained, while resting pt 95% on ra. joanie antonio aware.
[2024-04-05] VITALS (8 sets, daily range): BP systolic 104–142; BP diastolic 61–67; PULSE 85–103; RESP 16–20; TEMP 36.4–36.8; O2SAT 92–95
--- NOTE | 2024-04-05 00:46 | P.HPHOSP_ITS ---
History of Present Illness Date of Service: 04/05/24 Chief Complaint: sob 83M PMH Parkinson's, dementia, unprovoked pulmonary embolism on Coumadin, mood disorder, hyperlipidemia, psoriasis, moderate persistent asthma presented with shortness of breath. Patient lives with his niece, Melissa, who provided history. Reports patient having several days of worsening shortness of breath, wheezing. No fevers. Patient himself minimizes symptoms. Came at behest of his family. In ED chest x-ray unremarkable, viral swab positive for RSV, became hypoxic on ambulation, recovered at rest. Review of Systems 2 Review of Systems: Yes all other systems are reviewed and are negative [facility] Medical History (Updated 04/05/24 @ 00:49 by Darrius Cheung MD) Pulmonary embolism Moderate persistent asthma Social History Smoked in Last 30 Days: No Use of substances other than those prescribed or required for medical reasons: No Advance Directives: No Advance Directives Information Provided: Yes Do you have a plan to hurt others: No Plan Meds Allergies Allergy/AdvReac Type Severity Reaction Status Date / Time No Known Allergies Allergy Verified 04/04/24 20:55 Active Medications: Current Medications Acetaminophen (Acetaminophen 325 Mg Tablet) 650 mg PO Q6H PRN PRN Reason: Pain, Mild 1-3,fever,headache Albuterol/Ipratropium (Albuterol/Iprat 2.5/0.5mg 3 Ml Ampul.Neb) 3 ml INHALE RQ4H WHILE AWAKE [facility] Calcium Carbonate (Calcium Carbonate 750 Mg Tab.Chew) 750 mg PO Q4H PRN PRN Reason: Heartburn Magnesium Hydroxide (Milk Of Magnesia 30 Ml Oral.Susp) 30 ml PO DAILY PRN PRN Reason: Constipation Melatonin (Melatonin 3 Mg Tablet) 6 mg PO BEDTIME PRN PRN Reason: Insomnia Sodium Chloride (0.9 % Sodium Chloride Flush 3 Ml Syringe) 3 ml IVFLUSH QSHIFT [facility] Physical Exam 2 Vital Signs and Narrative: Vital Signs: Last Vital Signs Temp 98.8 F 04/04/24 23:35 Pulse 117 H 04/04/24 23:35 Resp 18 04/04/24 23:35 BP 101/68 04/04/24 23:35 Pulse Ox 93 04/04/24 23:35 O2 Del Method Room Air 04/04/24 23:35 BMI result Body Mass Index 32.4 Alert oriented to person and place, no acute distress, expiratory wheezes Results Labs 04/04/24 21:03 04/04/24 21:03 Labs: Laboratory Results - last 24 hr 04/04/24 21:03 MCV 91.6 MCH 30.6 MCHC 33.4 RDW 13.2 Plt Count 148 L MPV 10.6 Immature Gran % (Auto) 0.2 Neut % (Auto) 48.1 Lymph % (Auto) 24.4 Swisher % (Auto) 16.5 H Eos % (Auto) 10.0 H Baso % (Auto) 0.8 Lymph # (Auto) 1.5 Swisher # (Auto) 1.0 Eos # (Auto) 0.6 H Baso # (Auto) 0.1 Abs Immat Gran (auto) 0.01 Absolute Neuts (auto) 3.0 Absolute Nucleated RBC 0.000 Nucleated RBC % (auto) 0.0 Anion Gap 11 L Estim Creat Clear Calc 38.7 Estimated GFR 55 Random Glucose 90 Lactic Acid 1.7 Calcium 8.2 L Magnesium 2.2 Influenza Type A (PCR) NEGATIVE Influenza Type B (PCR) NEGATIVE RSV RNA Qual (PCR) POSITIVE A SARS-CoV-2 RNA (RT-PCR) NEGATIVE Assessment and Plan (1) Asthma with exacerbation: Status: Acute Plan 83M PMH Parkinson's, dementia, unprovoked pulmonary embolism on Coumadin, mood disorder, hyperlipidemia, psoriasis, moderate persistent asthma presented with shortness of breath Moderate persistent asthma with acute decompensation due to RSV complicated by acute hypoxia on ambulation Steroids, DuoNebs Wean O2 as tolerated Continue Breo History of unprovoked pulmonary embolism on Coumadin Monitor INR Continue Coumadin Unspecified Dementia with behavior disturbances Continue olanzapine, Aricept Psoriasis No longer on methotrexate Depression Lexapro Hyperlipidemia Continue statin Parkinson's Does not appear to be on meds DVT prophylaxis with Coumadin Full Code Given persistent wheezes and hypoxia ambulation expected require at least 2 midnights inpatient Quality Stroke Does the patient have a stroke diagnosis?: No VTE Prior VTE?: Yes VTE Risk Level:: Medical - moderate - high VTE Device Contraindication: Treatment Not Indicated VTE Drug Contraindication: N/A - Med Ordered
--- NOTE | 2024-04-05 01:59 | PC.NURSE ---
urinal provided for pt at this time, pt voided 200ml yellow urine.
[2024-04-05 05:40] LABS: INTERNATIONAL NORM RATIO 1.8 (0.9-1.1); Prothrombin Time 21.4 SEC (10.9-12.4)
[2024-04-05] MEDS: Donepezil HCl 10 MG TABLET PO (07:59)
[2024-04-05] MEDS: Escitalopram Oxalate 20 MG TABLET PO (07:59)
[2024-04-05] MEDS: 0.9 % Sodium Chloride Flush 3 ML SYRINGE IVFLUSH ×3 (07:59→20:11)
[2024-04-05] MEDS: Fluticasone/Vilanterol 100/25 BLST.W.DEV 1 PUFF INHALE (07:59)
[2024-04-05] MEDS: Albuterol/Iprat 2.5/0.5MG 3 ML AMPUL.NEB INHALE ×4 (08:07→19:03)
--- NOTE | 2024-04-05 08:12 | PC.NURSE ---
Via [place] tankroom tender: pt reports feeling SOB; audible upper field bilateral wheezes noted; SAO2 95% RA; Albuterol neb admin per orders with decreased wheezes/ work of breathing
--- NOTE | 2024-04-05 08:33 | PM.EVENT ---
Event Note Date of Service: 04/05/24 Event Note: 83M PMH Parkinson's, dementia, unprovoked pulmonary embolism on Coumadin, mood disorder, hyperlipidemia, psoriasis, moderate persistent asthma presented with shortness of breath. Patient lives with his niece, Melissa, who provided history. Reports patient having several days of worsening shortness of breath, wheezing. No fevers. Patient himself minimizes symptoms. Came at behest of his family. In ED chest x-ray unremarkable, viral swab positive for RSV, became hypoxic on ambulation, recovered at rest. Resting in bed, in no acute distress Lungs scattered wheeze 83M PMH Parkinson's, dementia, unprovoked pulmonary embolism on Coumadin, mood disorder, hyperlipidemia, psoriasis, moderate persistent asthma presented with shortness of breath Moderate persistent asthma with acute decompensation due to RSV complicated by acute hypoxia on ambulation Continue IV Steroids, DuoNebs Wean O2 as tolerated Continue Breo History of unprovoked pulmonary embolism on Coumadin INR 1.8, Monitor INR Continue Coumadin Unspecified Dementia with behavior disturbances Continue olanzapine, Aricept Psoriasis No longer on methotrexate Depression Lexapro Hyperlipidemia Continue Lipitor Parkinson's Does not appear to be on meds DVT prophylaxis with Coumadin Full Code Given persistent wheezes and hypoxia ambulation expected require at least 2 midnights inpatient Time Spent With Patient Time: Total time managing care of this patient today ____ minutes.
--- NOTE | 2024-04-05 09:22 | PHA.MEDREC ---
Addendum entered by Ines Newton 04/05/24 11:29: Patients ambulatory care coordinator Bee at patients bedside with patients Rx bottles on hand. Had Escitalopram 20mg tabs once daily, Cetirizine 10mg tabs once daily and a bottle of Docusate 100mg tabs that the patients ambulatory care coordinator confirmed he is taking once daily. She also stated she was not sure if the patient took his morning medications yesterday morning since he usually takes them before she gets there but the patient did not remember either taking them but she knew he took all his medications 2 days ago. Original Note: Pharmacy Consult ? Medication Reconciliation Pharmacy has completed the medication reconciliation. Spoke with patients ambulatory care coordinator Ashley over the phone and she was able to confirm the patients medications except for Cetirizine 10mg tabs and Escitalopram 20mg tabs. She confirmed the patients Warfarin 2mg tab and confirmed the patient started taking 1 and 1/2 tablets right now and states he has not taken any medications in 2 days. She stated she is coming in today and will bring a copy of the patients medication list and we will follow up with her when she comes in.
--- NOTE | 2024-04-05 10:38 | PC.NURSE ---
Report called to GILBERTO Wynn in overflow; pt remains wheezy in upper airways with stable SAO2; Dr Cassidy contacted; will tx per orders
[2024-04-05] MEDS: methylPREDNISolone Sod Succ 40 MG/ML VIAL IVPUSH ×2 (11:04→20:05)
--- NOTE | 2024-04-05 12:47 | MHC.CM.PN ---
POWER AND RECOVERY SUPERVISOR MET WITH PT AND PT'S NIECE. PT'S NIECE IS PT'S HCP. HCP ON FILE AT [facility] PT LIVES AT HOME WITH FAMILY PT RECEIVES 77 HOURS OF [employer]PER[employer] SERVICES EVERY 2 WEEKS PT USES [facility], SHOWER CHAIR PT'S PCP GONZALEZ CUNNINGHAM FROM [facility] PT'S INSURANCE IS MEDICARE IMM DELIVERED TO PT'S HCP DCP- PENDING FURTHER REVIEW.
[2024-04-05] MEDS: Warfarin Sodium 3 MG TABLET PO (17:34)
[2024-04-05] MEDS: OLANZapine 5 MG TABLET PO (20:05)
[2024-04-05] MEDS: Acetaminophen 325 MG TABLET 650 MG PO (20:06)
--- NOTE | 2024-04-05 23:50 | PC.NURSE ---
2240- patient noted with no recent void, denied urge to urinate, bladder scanned for verification of not retaining, amount was for 130ml, will continue to monitor.
[2024-04-06] VITALS (8 sets, daily range): BP systolic 113–157; BP diastolic 65–75; PULSE 73–89; RESP 16–20; TEMP 36–37.3; O2SAT 92–94
[2024-04-06 06:55] LABS: Hematocrit 41.1 % (42.0-52.0); Hemoglobin 13.3 g/dl (14.0-18.0); Mean Corpuscular HGB Conc 32.4 g/dl (31.0-36.0); Mean Corpuscular Hemoglobin 29.9 pg (27.0-33.0); Mean Corpuscular Volume 92.4 fL (80.0-98.0); Mean Platelet Volume 11.1 fL (9.4-12.4); Platelet Count 149 X10*3/uL (160-400); Red Blood Count 4.45 X10*6/uL (4.60-5.80); Red Cell Distribution Width 13.2 % (11.0-16.0); White Blood Count 11.1 X10*3/uL (4.8-10.8)
[2024-04-06 07:11] LABS: Anion Gap 13 (12-20); Blood Urea Nitrogen 26 mg/dL (9-16); Calcium 8.3 mg/dL (8.4-10.2); Carbon Dioxide 21 mmol/L (22-29); Chloride 108 mmol/L (96-108); Creatinine Clr Calc Pharmacy 38.4; Estimated Glomerular Filt Rate 55; Glucose Random 139 mg/dL (60-115); Magnesium 2.7 mg/dL (1.6-2.6); Potassium 4.9 mmol/L (3.3-5.1); Sodium 137 mmol/L (135-145)
[2024-04-06 07:15] LABS: INTERNATIONAL NORM RATIO 2.4 (0.9-1.1); Prothrombin Time 27.9 SEC (10.9-12.4)
[2024-04-06] MEDS: Albuterol/Iprat 2.5/0.5MG 3 ML AMPUL.NEB INHALE ×4 (08:31→19:22)
[2024-04-06] MEDS: Folic Acid 1 MG TABLET PO (09:23)
[2024-04-06] MEDS: Atorvastatin Calcium 20 MG TABLET PO (09:23)
[2024-04-06] MEDS: methylPREDNISolone Sod Succ 40 MG/ML VIAL IVPUSH ×2 (09:23→20:11)
[2024-04-06] MEDS: Escitalopram Oxalate 20 MG TABLET PO (09:23)
[2024-04-06] MEDS: 0.9 % Sodium Chloride Flush 3 ML SYRINGE IVFLUSH ×3 (09:23→20:11)
[2024-04-06] MEDS: Docusate Sodium 100 MG CAPSULE PO (09:23)
[2024-04-06] MEDS: Acetaminophen 325 MG TABLET 650 MG PO ×2 (09:41→22:13)
--- NOTE | 2024-04-06 11:06 | MHC.CM.PN ---
Addendum entered by Rachana Beltran RN 04/06/24 11:47: HCP received and added to paper chart. Original Note: Per MD rounds patient not medically cleared for dc. Copy of HCP requested from [facility] medical records.
--- NOTE | 2024-04-06 12:22 | HO.PM.IMPN ---
Subjective Subjective Date of Service: 04/06/24 Interval History: History obtained via family patient's niece at bedside Patient denies headache, no dizziness, complaining of persistent shortness of breath and mild cough, no chest pain, has chronic generalized shakiness unchanged, lives home with knees, not on home oxygen. Review of Systems All other system reviewed and are negative Physical Exam Vital Signs: Vital Signs: Last Vital Signs Temp 98.2 F 04/06/24 08:00 Pulse 78 04/06/24 11:39 Resp 18 04/06/24 11:39 BP 113/72 04/06/24 08:00 Pulse Ox 93 04/06/24 08:00 O2 Del Method Room Air 04/06/24 08:00 BMI result Body Mass Index 32.4 Const: Other: General resting comfortably in no acute distress. Neck no JVD. CVS regular rate rhythm, Respiratory lungs expiratory wheeze, no respiratory distress Gastrointestinal abdomen soft, non tender, bowel sounds audible,no guarding , no rigidity. Extremities no edema. Neuro generalized shakiness, speech clear. Objective Data Active Medications Acetaminophen (Acetaminophen 325 Mg Tablet) 650 mg PO Q6H PRN PRN Reason: Pain, Mild 1-3,fever,headache Last Admin: 04/06/24 09:41 Dose: 650 mg Documented By: LEIDY Albuterol/Ipratropium (Albuterol/Iprat 2.5/0.5mg 3 Ml Ampul.Neb) 3 ml INHALE RQ4H WHILE AWAKE [facility] Last Admin: 04/06/24 11:39 Dose: 3 ml Documented By: FUAD Atorvastatin Calcium (Atorvastatin Calcium 20 Mg Tablet) 20 mg PO DAILY [facility] Last Admin: 04/06/24 09:23 Dose: 20 mg Documented By: LEIDY Calcium Carbonate (Calcium Carbonate 750 Mg Tab.Chew) 750 mg PO Q4H PRN PRN Reason: Heartburn Docusate Sodium (Docusate Sodium 100 Mg Capsule) 100 mg PO DAILY [facility] Last Admin: 04/06/24 09:23 Dose: 100 mg Documented By: LEIDY Donepezil HCl (Donepezil Hcl 10 Mg Tablet) 10 mg PO BEDTIME [facility] Escitalopram Oxalate (Escitalopram Oxalate 20 Mg Tablet) 20 mg PO DAILY [facility] Last Admin: 04/06/24 09:23 Dose: 20 mg Documented By: LEIDY Escitalopram Oxalate (Escitalopram Oxalate 20 Mg Tablet) 20 mg PO DAILY [facility] Last Admin: 04/06/24 09:24 Dose: Not Given Documented By: LEIDY Non-Admin Reason: Duplicate Order Fluticasone/Vilanterol (Fluticasone/Vilanterol Blst.W.Dev) 1 puff INHALE RDAILY [facility] Last Admin: 04/06/24 09:41 Dose: Not Given Documented By: FUAD Non-Admin Reason: Patient Refused Folic Acid (Folic Acid 1 Mg Tablet) 1 mg PO DAILY [facility] Last Admin: 04/06/24 09:23 Dose: 1 mg Documented By: LEIDY Magnesium Hydroxide (Milk Of Magnesia 30 Ml Oral.Susp) 30 ml PO DAILY PRN PRN Reason: Constipation Melatonin (Melatonin 3 Mg Tablet) 6 mg PO BEDTIME PRN PRN Reason: Insomnia Methylprednisolone Sodium Succinate (Methylprednisolone Sod Succ 40 Mg/Ml Vial) 40 mg IVPUSH BID [facility] Last Admin: 04/06/24 09:23 Dose: 40 mg Documented By: LEIDY Olanzapine (Olanzapine 5 Mg Tablet) 5 mg PO BEDTIME [facility] Last Admin: 04/05/24 20:05 Dose: 5 mg Documented By: PARUL Sodium Chloride (0.9 % Sodium Chloride Flush 3 Ml Syringe) 3 ml IVFLUSH QSHIFT [facility] Last Admin: 04/06/24 09:23 Dose: 3 ml Documented By: LEIDY Warfarin Sodium (Warfarin Sodium 3 Mg Tablet) 3 mg PO DAILY@1800 [facility] Last Admin: 04/05/24 17:34 Dose: 3 mg Documented By: GREGORYIC Labs 04/06/24 05:27 04/06/24 05:27 Labs: Laboratory Results - last 24 hr 04/06/24 05:27 MCV 92.4 MCH 29.9 MCHC 32.4 RDW 13.2 Plt Count 149 L MPV 11.1 Absolute Nucleated RBC 0.000 Nucleated RBC % (auto) 0.0 PT 27.9 H D INR 2.4 H Anion Gap 13 Estim Creat Clear Calc 38.4 Estimated GFR 55 Random Glucose 139 H Calcium 8.3 L Magnesium 2.7 H Microbiology Microbiology Results: Microbiology 04/04/24 21:07 Blood Culture - Preliminary Blood - Venous No growth after 24 hours. 04/04/24 21:03 Blood Culture - Preliminary Blood - Venous No growth after 24 hours. Assessment and Plan (1) Moderate persistent asthma: Status: Acute (2) Respiratory syncytial virus (RSV): Status: Acute (3) Asthma with exacerbation: Status: Acute Plan 83M PMH Parkinson's, dementia, unprovoked pulmonary embolism on Coumadin, mood disorder, hyperlipidemia, psoriasis, moderate persistent asthma presented with shortness of breath Moderate persistent asthma with acute decompensation due to RSV complicated by acute hypoxia on ambulation Continue IV Steroids, DuoNebs, continue Breo, add cough medication cxr neg,93% on room air Will obtain home O2 eval prior to discharge History of unprovoked pulmonary embolism on Coumadin INR 1.8, was not taking Coumadin 2 days prior to presentation, INR 2.4 Continue Coumadin 3mg/d Unspecified Dementia with behavior disturbances Continue olanzapine, and Aricept Psoriasis No longer on methotrexate Depression Lexapro Hyperlipidemia Continue Lipitor Parkinson's dz Not on meds, chronic generalized shakiness as per niece DVT prophylaxis with Coumadin Full Code Given persistent wheezes and hypoxia with ambulation therefore requiring continued inpatient hospitalization Quality Stroke Does the patient have a stroke diagnosis?: No VTE Prior VTE?: Yes VTE Risk Level:: Medical - moderate - high VTE Device Contraindication: Treatment Not Indicated VTE Drug Contraindication: N/A - Med Ordered
[2024-04-06] MEDS: guaiFENesin DM 100/10/5 ML 5 ML SYRUP 10 ML PO ×2 (15:40→20:12)
[2024-04-06] MEDS: Milk of Magnesia 30 ML ORAL.SUSP PO (15:50)
--- NOTE | 2024-04-06 16:54 | PC.NURSE ---
Pt with urge to defecate 4 times throughout shift but only able to pass scant BM. Given scheduled colace and PRN Milk of Mag. Results pending.
[2024-04-06] MEDS: Warfarin Sodium 3 MG TABLET PO (17:53)
[2024-04-06] MEDS: Donepezil HCl 10 MG TABLET PO (20:12)
[2024-04-06] MEDS: OLANZapine 5 MG TABLET PO (20:12)
[2024-04-07] VITALS (8 sets, daily range): BP systolic 118–151; BP diastolic 67–75; PULSE 64–86; RESP 16–20; TEMP 36.7–37.4; O2SAT 04–98
[2024-04-07 06:28] LABS: INTERNATIONAL NORM RATIO 3.7 (0.9-1.1); Prothrombin Time 42.9 SEC (10.9-12.4)
[2024-04-07 06:32] LABS: Anion Gap 10 (12-20); Blood Urea Nitrogen 33 mg/dL (9-16); Calcium 8.4 mg/dL (8.4-10.2); Carbon Dioxide 23 mmol/L (22-29); Chloride 107 mmol/L (96-108); Creatinine Clr Calc Pharmacy 38.1; Estimated Glomerular Filt Rate 54; Glucose Random 128 mg/dL (60-115); Magnesium 2.8 mg/dL (1.6-2.6); Potassium 5.1 mmol/L (3.3-5.1); Sodium 135 mmol/L (135-145)
[2024-04-07] MEDS: Fluticasone/Vilanterol 100/25 BLST.W.DEV 1 PUFF INHALE (08:09)
[2024-04-07] MEDS: Albuterol/Iprat 2.5/0.5MG 3 ML AMPUL.NEB INHALE ×4 (08:09→19:03)
[2024-04-07] MEDS: Atorvastatin Calcium 20 MG TABLET PO (08:32)
[2024-04-07] MEDS: methylPREDNISolone Sod Succ 40 MG/ML VIAL IVPUSH ×2 (08:32→20:08)
[2024-04-07] MEDS: 0.9 % Sodium Chloride Flush 3 ML SYRINGE IVFLUSH ×3 (08:32→20:08)
[2024-04-07] MEDS: guaiFENesin DM 100/10/5 ML 5 ML SYRUP 10 ML PO ×3 (08:32→20:08)
[2024-04-07] MEDS: Escitalopram Oxalate 20 MG TABLET PO (08:33)
[2024-04-07] MEDS: Docusate Sodium 100 MG CAPSULE PO (08:33)
[2024-04-07] MEDS: Folic Acid 1 MG TABLET PO (08:33)
--- NOTE | 2024-04-07 09:25 | P.PNIM_ITS ---
Subjective Subjective Date of Service: 04/07/24 Physical Exam 2 Vital Signs: Vital Signs: Last Vital Signs Temp 98.0 F 04/07/24 08:00 Pulse 68 04/07/24 08:09 Resp 18 04/07/24 08:09 BP 138/75 04/07/24 08:00 Pulse Ox 93 04/07/24 08:00 O2 Del Method Room Air 04/07/24 08:00 BMI result Body Mass Index 32.4 Objective Data Active Medications Acetaminophen (Acetaminophen 325 Mg Tablet) 650 mg PO Q6H PRN PRN Reason: Pain, Mild 1-3,fever,headache Last Admin: 04/06/24 22:13 Dose: 650 mg Documented By: MARCO A Albuterol/Ipratropium (Albuterol/Iprat 2.5/0.5mg 3 Ml Ampul.Neb) 3 ml INHALE RQ4H WHILE AWAKE [facility] Last Admin: 04/07/24 08:09 Dose: 3 ml Documented By: ANNIE Atorvastatin Calcium (Atorvastatin Calcium 20 Mg Tablet) 20 mg PO DAILY [facility] Last Admin: 04/07/24 08:32 Dose: 20 mg Documented By: DAJUAN Calcium Carbonate (Calcium Carbonate 750 Mg Tab.Chew) 750 mg PO Q4H PRN PRN Reason: Heartburn Docusate Sodium (Docusate Sodium 100 Mg Capsule) 100 mg PO DAILY [facility] Last Admin: 04/07/24 08:33 Dose: 100 mg Documented By: DAJUAN Donepezil HCl (Donepezil Hcl 10 Mg Tablet) 10 mg PO BEDTIME [facility] Last Admin: 04/06/24 20:12 Dose: 10 mg Documented By: MARCO A Escitalopram Oxalate (Escitalopram Oxalate 20 Mg Tablet) 20 mg PO DAILY [facility] Last Admin: 04/07/24 08:33 Dose: 20 mg Documented By: DAJUAN Fluticasone/Vilanterol (Fluticasone/Vilanterol 100/25 Blst.W.Dev) 1 puff INHALE RDAILY [facility] Last Admin: 04/07/24 08:09 Dose: 1 puff Documented By: ANNIE Folic Acid (Folic Acid 1 Mg Tablet) 1 mg PO DAILY [facility] Last Admin: 04/07/24 08:33 Dose: 1 mg Documented By: DAJUAN Guaifenesin/Dextromethorphan (Guaifenesin Dm 100/10/5 Ml 5 Ml Syrup) 10 ml PO TID [facility] Last Admin: 04/07/24 08:32 Dose: 10 ml Documented By: DAJUAN Magnesium Hydroxide (Milk Of Magnesia 30 Ml Oral.Susp) 30 ml PO DAILY PRN PRN Reason: Constipation Last Admin: 04/06/24 15:50 Dose: 30 ml Documented By: LEIDY Melatonin (Melatonin 3 Mg Tablet) 6 mg PO BEDTIME PRN PRN Reason: Insomnia Methylprednisolone Sodium Succinate (Methylprednisolone Sod Succ 40 Mg/Ml Vial) 40 mg IVPUSH BID [facility] Last Admin: 04/07/24 08:32 Dose: 40 mg Documented By: DAJUAN Olanzapine (Olanzapine 5 Mg Tablet) 5 mg PO BEDTIME [facility] Last Admin: 04/06/24 20:12 Dose: 5 mg Documented By: MARCO A Sodium Chloride (0.9 % Sodium Chloride Flush 3 Ml Syringe) 3 ml IVFLUSH QSHIFT [facility] Last Admin: 04/07/24 08:32 Dose: 3 ml Documented By: DAJUAN Warfarin Sodium (Warfarin Sodium 3 Mg Tablet) 3 mg PO DAILY@1800 [facility] Last Admin: 04/06/24 17:53 Dose: 3 mg Documented By: LEIDY Labs 04/06/24 05:27 04/07/24 05:40 Labs: Laboratory Results - last 24 hr 04/07/24 05:40 Hold Purple Top SEE NOTE PT 42.9 H D INR 3.7 H Anion Gap 10 L Estim Creat Clear Calc 38.1 Estimated GFR 54 Random Glucose 128 H Calcium 8.4 Magnesium 2.8 H Microbiology Microbiology Results: Microbiology 04/04/24 21:07 Blood Culture - Preliminary Blood - Venous No growth after 48 hours. 04/04/24 21:03 Blood Culture - Preliminary Blood - Venous No growth after 48 hours. Assessment and Plan (1) Respiratory syncytial virus (RSV): Status: Acute Plan 83M PMH Parkinson's, dementia, unprovoked pulmonary embolism on Coumadin, mood disorder, hyperlipidemia, psoriasis, moderate persistent asthma presented with shortness of breath Moderate persistent asthma with acute decompensation due to RSV complicated by acute hypoxia on ambulation Continue IV Steroids, DuoNebs, continue Breo, add cough medication cxr neg for consolidation or effusion Will obtain home O2 eval prior to discharge Supratherapeutic INR. 3.7 initally subtherapeutic due to missed doses for 4 days hold warfarin for today History of unprovoked pulmonary embolism Continue Coumadin when INR therapeutic Unspecified Dementia with behavior disturbances Continue olanzapine, and Aricept Psoriasis No longer on methotrexate Depression Lexapro Hyperlipidemia Continue Lipitor Parkinson's dz Not on meds, chronic generalized shakiness as per niece DVT prophylaxis with Coumadin Full Code Given persistent wheezes and hypoxia with ambulation therefore requiring continued inpatient hospitalization Quality Stroke Does the patient have a stroke diagnosis?: No VTE Prior VTE?: Yes VTE Risk Level:: Medical - moderate - high VTE Device Contraindication: Treatment Not Indicated VTE Drug Contraindication: N/A - Med Ordered
[2024-04-07] MEDS: Milk of Magnesia 30 ML ORAL.SUSP PO (14:07)
[2024-04-07] MEDS: OLANZapine 5 MG TABLET PO (20:08)
[2024-04-07] MEDS: Donepezil HCl 10 MG TABLET PO (20:15)
[2024-04-08 03:50] VITALS: BP 157/73; PULSE 65; RESP 18; TEMP 36.7; O2SAT 96
[2024-04-08 07:23] VITALS: BP 155/75; PULSE 73; RESP 18; TEMP 36.4; O2SAT 96
[2024-04-08 07:48] LABS: INTERNATIONAL NORM RATIO 3.5 (0.9-1.1); Prothrombin Time 40.9 SEC (10.9-12.4)
[2024-04-08 07:57] LABS: Anion Gap 13 (12-20); Blood Urea Nitrogen 32 mg/dL (9-16); Calcium 8.5 mg/dL (8.4-10.2); Carbon Dioxide 19 mmol/L (22-29); Chloride 107 mmol/L (96-108); Creatinine Clr Calc Pharmacy 41.7; Estimated Glomerular Filt Rate > 60; Glucose Random 111 mg/dL (60-115); Potassium 4.7 mmol/L (3.3-5.1); Sodium 134 mmol/L (135-145)
[2024-04-08 07:58] LABS: Magnesium 2.8 mg/dL (1.6-2.6)
[2024-04-08] MEDS: Fluticasone/Vilanterol 100/25 BLST.W.DEV 1 PUFF INHALE (08:16)
[2024-04-08] MEDS: Albuterol/Iprat 2.5/0.5MG 3 ML AMPUL.NEB INHALE ×2 (08:16→15:04)
[2024-04-08 08:18] VITALS: PULSE 60; RESP 16; O2SAT 98
[2024-04-08] MEDS: guaiFENesin DM 100/10/5 ML 5 ML SYRUP 10 ML PO (08:40)
[2024-04-08] MEDS: Docusate Sodium 100 MG CAPSULE PO (08:41)
[2024-04-08] MEDS: Atorvastatin Calcium 20 MG TABLET PO (08:41)
[2024-04-08] MEDS: Folic Acid 1 MG TABLET PO (08:41)
[2024-04-08] MEDS: Escitalopram Oxalate 20 MG TABLET PO (08:41)
[2024-04-08] MEDS: predniSONE 20 MG TABLET 40 MG PO (08:41)
[2024-04-08] MEDS: 0.9 % Sodium Chloride Flush 3 ML SYRINGE IVFLUSH (08:44)
--- NOTE | 2024-04-08 09:36 | PM.DS ---
DS: Providers Provider Date of Service: 04/08/24 Date of admission: 04/05/24 00:44 Date of discharge: 04/08/24 Primary care physician: Francy Carias NP DS: Diagnosis Discharge Diagnosis (1) Respiratory syncytial virus (RSV): Status: Acute DS: Summary Hospital Course Hospital Course: HP as per admitting provider. 83M PMH Parkinson's, dementia, unprovoked pulmonary embolism on Coumadin, mood disorder, hyperlipidemia, psoriasis, moderate persistent asthma presented with shortness of breath. Patient lives with his niece, Melissa, who provided history. Reports patient having several days of worsening shortness of breath, wheezing. No fevers. Patient himself minimizes symptoms. Came at behest of his family. In ED chest x-ray unremarkable, viral swab positive for RSV, became hypoxic on ambulation, recovered at rest Moderate persistent asthma with acute decompensation due to RSV complicated by acute hypoxia on ambulation treated with IV Steroids, DuoNebs, Breo and cough medication cxr neg for consolidation or effusion home O2 eval, no need for home oxygen prednisone taper Supratherapeutic INR. 3.5. initally subtherapeutic due to missed doses for 4 days prior to admission. hold warfarin for today. History of unprovoked pulmonary embolism. Continue Coumadin when INR therapeutic Unspecified Dementia with behavior disturbances. Continue olanzapine, and Aricept Psoriasis. No longer on methotrexate Depression. Lexapro Hyperlipidemia. Continue Lipitor Parkinson's dz. Not on meds, chronic generalized shakiness as per niece Time Attestation Discharge Coordination Time (in mins): 40 Quality: Safe Use of Opioids Does Pt have an Active Cancer Diagnosis on the Problem List?: No Quality: Stroke Does the patient have a stroke diagnosis?: No Physical Exam Vital Signs: Vital Signs: Last Vital Signs Temp 97.6 F 04/08/24 07:23 Pulse 60 04/08/24 08:18 Resp 16 04/08/24 08:18 BP 155/75 H 04/08/24 07:23 Pulse Ox 96 04/08/24 07:23 O2 Del Method Room Air 04/08/24 07:23 BMI result Body Mass Index 32.4 Appearing in no acute distress head is normocephalic atraumatic eyes pupils are PERRLA sclera is anicteric mouth throat mucous membranes are intact and moist neck is supple no lymphadenopathy, no JVD noted lung sounds are clear to auscultation heart regular rate rhythm, clear S1, S2 positive bowel sounds, abdomen is soft, nontender neuro patient is alert x3, no focal deficits DS: Data Data Completed and Pending Labs on day of discharge: Laboratory Results - last 24 hr 04/08/24 07:12 PT 40.9 H INR 3.5 H Sodium 134 L Potassium 4.7 Chloride 107 Carbon Dioxide 19 L Anion Gap 13 BUN 32 H Creatinine 1.16 Estim Creat Clear Calc 41.7 Estimated GFR > 60 Random Glucose 111 Calcium 8.5 Magnesium 2.8 H Preliminary micro results at discharge 04/04/24 21:07 Blood Culture - Preliminary Blood - Venous No growth after 48 hours. 04/04/24 21:03 Blood Culture - Preliminary Blood - Venous No growth after 48 hours. Discharge Plan Discharge Anticipated Discharge Date/Time: 04/08/24 07:37 Patient Disposition: Home Health Service Discharge Diagnosis: RSV asthma exacerabation Referrals: Francy Carias NP [Primary Care Provider] - 1 Week Discharge Medications: New prednisone 10 mg tablet See Taper PO DIRECTED Qty: 20 0RF Taper: Prednisone 40 mg daily for 2 Days and 0 Hour 30 mg daily for 2 Days and 0 Hour 20 mg daily for 2 Days and 0 Hour 10 mg daily for 2 Days and 0 Hour Rx Instructions: see taper instructions Continued atorvastatin 20 mg tablet 20 mg PO DAILY cetirizine 10 mg tablet 10 mg PO DAILY donepezil 10 mg tablet 10 mg PO BEDTIME olanzapine 5 mg tablet 5 mg PO BEDTIME folic acid 1 mg tablet 1 mg PO DAILY escitalopram oxalate 20 mg tablet 20 mg PO DAILY fluticasone furoate-vilanterol [Breo Ellipta] 100-25 mcg/dose blister with device 1 ea INHALATION DAILY docusate sodium 100 mg Tablet 100 mg PO DAILY Held warfarin 2 mg tablet 3 mg PO DAILY@1800 Hold Instructions: Resume on 04/10/24. check INR 04/09/24 Discharge Orders: Discharge Order (Routine); Ordered 04/08/24 Ordered By: Genia Ewing Diet: Advance to usual diet Activity on Discharge: As tolerated Stand Alone Forms: Patient Portal Discharge page Print Language: Finnish (Mary) Care Plan Goals: complete steroid taper Health Concerns: RSV asthma exacerabation Plan of Treatment: Follow up with primary care provider as needed Take all medications as prescribed Assessment: See discharge summary
[2024-04-08 10:11] VITALS: PULSE 83; PULSE 88; O2SAT 94
--- NOTE | 2024-04-08 12:16 | MHC.CM.PN ---
Addendum entered by Helga Diehl 04/08/24 12:24: Patient has Dementia; CM spoke with Scot/Tereso @ [phone] and addressed IMM with her (the original will be mailed certified letter to Scot and a copy will be placed on the chart). Original Note: Patient has been medically cleared for dc to home today, self care.
[2024-04-08 15:06] VITALS: PULSE 67; RESP 18; O2SAT 94
[2024-04-08 15:30] VITALS: BP 134/59; PULSE 95; RESP 20; TEMP 36.4; O2SAT 95
== END 2024-04-08 16:18 | disposition home or self-care (01) | DRG 202 ==
LOC: HO.ED 04-05 00:25 → HO.EDOVER 04-05 02:32 → HO.S3 04-05 13:53
PROVIDERS: Hospitalist; Physician Assistant Medical; Admitting Provider Internal Medicine; Emergency Provider Emergency Medicine Emergency Medical Services; PCP Nurse Practitioner Family; Visit Provider Nurse Practitioner Acute Care
DX: J45.41 Moderate persistent asthma with (acute) exacerbation (principal); F02.818 Dementia in other diseases classified elsewhere, unspecified severity, with other behavioral disturbance; E78.5 Hyperlipidemia, unspecified; G20.A1 Parkinson's disease without dyskinesia, without mention of fluctuations; R09.02 Hypoxemia; E86.0 Dehydration; E83.41 Hypermagnesemia; T45.516A Underdosing of anticoagulants, initial encounter; B97.4 Respiratory syncytial virus as the cause of diseases classified elsewhere; L40.9 Psoriasis, unspecified; F32.A Depression, unspecified; Z20.822 Contact with and (suspected) exposure to COVID-19; Z86.711 Personal history of pulmonary embolism; Z79.01 Long term (current) use of anticoagulants; Z79.51 Long term (current) use of inhaled steroids; Z79.899 Other long term (current) drug therapy
CPT/HCPCS: 0241U; 36415; 71045; 80048; 83605; 83735; 85025; 85027; 85610; 87040; 94640; 99285; J2919; J3475

== ENCOUNTER → 2024-04-04 20:52 | Outpatient (BNV) | payer MEDICARE, MEDICAID, SELFPAY | PROVIDERS: Emergency Provider Emergency Medicine Emergency Medical Services; Visit Provider Radiology Diagnostic Radiology | DX: R06.02 Shortness of breath (principal) | CPT/HCPCS: 71045 ==

== ENCOUNTER → 2024-04-04 21:34 | Outpatient (BNV) | payer MEDICARE, MEDICAID, SELFPAY | PROVIDERS: Emergency Provider Emergency Medicine Emergency Medical Services; Visit Provider Internal Medicine | DX: J45.21 Mild intermittent asthma with (acute) exacerbation (principal); J96.01 Acute respiratory failure with hypoxia; B97.4 Respiratory syncytial virus as the cause of diseases classified elsewhere | CPT/HCPCS: 99222; 99499 ==

== ENCOUNTER 2024-05-02 13:21 | Outpatient (REF) | payer MEDICARE, MEDICAID, SELFPAY ==
[2024-05-02 14:01] LABS: INTERNATIONAL NORM RATIO 1.3 (0.9-1.1); Prothrombin Time 15.1 SEC (10.9-12.4)
--- OUTSIDE RECORDS SUMMARY | 2024-05-02 16:24 | XMS_ITS | Continuity of Care Document ---
Author Organization [facility] Address [address] [place] [address]- Care Team Providers Care Architectural Drafting Instructor Name Role Phone Jv MEI, Francy Proctor Primary Care Physician [place] [facility] [place]/24 [facility] [address], [place] [address] Encounter Type: Triage Allergies, Adverse Reactions, Alerts No Known Medication Allergies Immunizations Given and Recorded Vaccine Date Status Refusal Reason influenza virus vaccine, inactivated 12/29/22 Justino rded influenza virus vaccine, inactivated 12/17/21 Ujstino rded influenza virus vaccine, inactivated 12/10/20 Justino [...] mg, By Mouth, Daily, # 90 tablet, 2 Refills, Maintenance, 03/12/24 5:03:00 PM EST, Tablet, [facility], Partial fill upon patient request if the prescription is for a schedule II opioid drug., 162, cm, 11/22/23 12:04:00 EDT, Height Start Date: 03/12/24 Status: Ordered Quantity: 90.0 Unit: tablet Repeat number: 3 Breo Ellipta 100 mcg-25 mcg/inh inhalation powder 1 puffs, Inhalation, Daily, # 1 each, 2 Refills, Maintenance, 03/27/24 2:04:00 PM EST, Inhaler, [facility], Partial fill upon patient request if the prescription is for a schedule IIopioid drug., 1 puffs Inhalation Daily, 162, cm, 11/22/23 12:04:00 EDT, Height Start Date: 03/27/24 Status: Ordered Quantity: 1.0 Unit: each Repeat number: 3 cetirizine 10 mg oral capsule 1 capsule = 10 mg, By Mouth, Daily, # 90 capsule, 2 Refills, Maintenance, 04/20/24 11:41:00 AM EST, Capsule, [facility], Partial fill upon patient request if the prescription is for a schedule II opioid drug., 162, cm, 04/20/24 11:14:00 EST, Height Start Date: 04/20/24 Status: Ordered Quantity: 90.0 Unit: capsule Repeat number: 3 Indication: Allergic rhinitis, unspecified donepezil 10 mg oral tablet 10 mg, 1, tablet, By Mouth, Daily at bedtime, # 90 tablet, Refills 2, Tot. Refills 2, Maintenance, 04/20/24 11:41:00 AM EST, Route to Pharmacy Electronically, [facility], Partial fill upon patient request if the prescription is for a schedule II opioid drug., 162, cm, 04/20/24 11:14:00 EST, Height Start Date: 04/20/24 Status: Ordered Quantity: 90.0 Unit: tablet Repeat number: 3 Indication: Unspecified dementia, unspecified severity, with mood [...] mg, By Mouth, Daily, # 90 tablet, 2 Refills, Maintenance, 04/20/24 11:41:00 AM EST, Tablet, [facility], Partial fill upon patient request if the prescription is for a schedule II opioid drug., 162, cm, 04/20/24 11:14:00 EST, Height Start Date: 04/20/24 Status: Ordered Quantity: 90.0 Unit: tablet Repeat number: 3 Indication: Unspecified dementia, unspecified severity, with mood disturbance folic acid 1 mg oral tablet 1 mg, 1, tablet, By Mouth, Daily, Refills 0, Maintenance, 10/04/23 9:16:00 AM EDT, Partial fill uponpatient request if the prescription is for a schedule II opioid drug. Start Date: 10/04/23 Status: Ordered Repeat number: 1 methotrexate 2.5 mg oral tablet 1 tablet = 2.5 mg, By Mouth, 0 Refills, Maintenance, 10/04/23 9:15:00 AM EDT, Partial fill upon patient request if the prescription is for a schedule II opioid drug. 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 Psoriasis Confirmed Active Pulmonary embolism Confirmed Active Tremor Confirmed Active Social History Social History Type Response Smoking Status Never (less than 100 in lifetime) entered on: 10/04/23 Sex Sex Representation Male (finding) Patient Care team information Care Team Personnel Name: Francy Carias NP Position: S PCO Associate Professional Member Role: PCP Address: [address] [place] [address]- Telecom: Insurance Providers Guarantor name: MARCELO Health Plan Information #: 1 Payer: MEDICARE PART B OUTPT Member Number: NA Policy Number: NA Group Number: NA Health Plan Information #: 2 Payer: [employer] Member Number: NA Policy Number: NA Group Number: NA
--- OUTSIDE RECORDS SUMMARY | 2024-05-02 16:24 | XMS_ITS | Continuity of Care Document ---
Author Organization [facility] Address [address] [place] [address]- Care Team Providers Care Magazine Publisher Name Role Phone Jv MEI, Francy Proctor Primary Care Physician [place] [facility] [place] 04/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 Pulmonary embolism(Discharge Diagnosis) - 04/20/24 Asthma(Discharge Diagnosis) - 04/20/24 Anticoagulated on warfarin(Discharge Diagnosis) - 04/20/24 Tremor(Discharge Diagnosis) - 04/20/24 Allergic rhinitis(Discharge Diagnosis) - 04/20/24 Attending Physician: Francy Carias NP Encounter Type: Office Visit Allergies, Adverse Reactions, Alerts No [...] 04/20/24 11:41:00 AM EST, Tablet, [facility], Partial fill upon patient request [...] Pulmonary embolism Confirmed Active Tremor Confirmed Active Diagnosis Diagnosis Type Effective Dates Health Status Clinical Service Informant Dementia Discharge Diagnosis 04/20/24 Depression due to dementia Discharge Diagnosis 04/20/24 Pulmonary embolism Discharge Diagnosis 04/20/24 Asthma Discharge Diagnosis 04/20/24 Anticoagulated on warfarin Discharge Diagnosis 04/20/24 Tremor Discharge Diagnosis 04/20/24 Allergic rhinitis Discharge Diagnosis 04/20/24 Non-Specified Vital Signs Most recent to oldest [Reference Range]: 1 Height 162 cm (04/20/24 11:14 AM) Oxygen Saturation [94-100 %] 96 % (04/20/24 11:14 AM) Pulse Rate [55-90 bpm] 80 bpm (04/20/24 11:14 AM) Blood Pressure [90-138/55-84 mm Hg] 109/ 69mm Hg (04/20/24 11:14 AM) Mode of Delivery (Oxygen) Room air (04/20/24 11:14 AM) Blood pressure sites Arm, left (04/20/24 11:14 AM) Social History Social History Type Response Smoking Status Never (less than 100 in lifetime) entered on: 10/04/23 Sex Sex Representation Male (finding) Note * Dash Vargas: PERFORM Event Display: Patient Education/Instruction Authored Date: [id number] Ambulatory Adult Visit Summary [address] [address] Name: BRIANA REYES : 1940?? Visit: 04/20/2024 11:00?? Ambulatory Visit Instructions ?? Your Care Team Primary Care Provider Jv MEI, Francy Proctor? This Visit Provider Jv MEI, Francy Proctor Your Diagnosis Dementia Depression due to dementia Pulmonary embolism Asthma Anticoagulated on warfarin Tremor Allergic rhinitis Vitals Signs Pulse Rate: 80 bpm Height: 162 cm Systolic Blood Pressure: 109 mm Hg ?? Diastolic Blood Pressure: 69 mm Hg ?? Oxygen Saturation: 96 % ?? What to do next Future Orders Comprehensive Metabolic Panel - Routine, Once, 12/03/23 9:45:00 EDT, Future Order, [facility], Blood?? CBC w/ Differential - Routine, Once, 12/03/23 9:45:00 EDT, Future Order, [facility], Blood?? INR (PT (INR)) - Routine, Once, 10/04/23 9:45:00 EDT, Future Order, [facility], Blood?? PTT - Routine, Once, 10/04/23 9:45:00 EDT, Future Order, [facility], Blood?? TSH Rfx on Abnormal to Free T4 - Routine, Once, 12/03/23 9:45:00 EDT, Future Order, [facility], Blood?? Vitamin B12 Level - Routine, Once, 10/04/23 9:45:00 EDT, Order for Today, [facility], Blood?? Folate Level - Routine, Once, 10/04/23 9:45:00 EDT, Order for Today, [facility], Blood?? CBC w/ Differential - Routine, Once, 12/03/23 13:59:00 EDT, Future Order, [facility], Blood?? Comprehensive Metabolic Panel - Routine, Once, 12/03/23 13:59:00 EDT, Future Order, [facility], Blood?? Vitamin B12 Level - Routine, Once, 10/04/23 13:59:00 EDT, Order for Today, [facility], Blood?? Folate Level - Routine, Once, 10/04/23 13:59:00 EDT, Order for Today, [facility], Blood?? TSH Rfx on Abnormal to Free T4 - Routine, Once, 12/03/23 13:59:00 EDT, Future Order, [facility], Blood?? INR (PT (INR)) - Routine, Once, 10/04/23 15:49:00 EDT, Future Order, [facility], Blood?? INR - Routine, Once, 10/14/23 15:30:00 EDT, Future Order, [facility], Blood?? PTT - Routine, Once, 10/14/23 15:30:00 EDT, Future Order, [facility], Blood?? INR - Routine, Once, 10/17/23 3:00:00 EDT every 1 week(s) for 6 months, Single or Recurring Future Order, [facility], Blood?? INR (PT (INR)) - Routine, Once, 02/01/24 3:00:00 EST every 7 days for 6 months, Single or RecurringFuture Order, [facility], Blood?? Vitamin B12 Level - Routine, Once, 04/20/24 11:39:00 EST, Order for Today, [facility], Blood?? Folate Level - Routine, Once, 04/20/24 11:39:00 EST, Order for Today, [facility], Blood?? CBC - Routine, Once, 04/20/24 11:39:00 EST, Order for Today, [facility], Blood?? Comprehensive Metabolic Panel - Routine, Once, 04/20/24 11:39:00 EST, Order for Today, [facility], Blood?? TSH Rfx on Abnormal to Free T4 - Routine, Once, 04/20/24 11:39:00 EST, Order for Today, [facility], Blood?? INR (PT (INR)) - Routine, Once, 04/20/24 11:39:00 EST, Future Order, [facility], Blood?? Medications The list below reflects the information in our records and provided by you today along with any changes made during this visit. Please continue your medications until treatment is completed or stopped by your provider. If this is different from the information you have or there are other questions,please contact the prescribing provider. What How Much When Why Instructions Unchanged Atorvastatin (atorvastatin 20 mg oral tablet) 1 tab(s) Oral Daily Unchanged Cetirizine (cetirizine 10 mg oral capsule) 1 capsule Oral Daily Allergic rhinitis Pickup at [facility] Unchanged Docusate (Dulcolax Stool Softener) 100 Milligram Oral Twice a day Unchanged Donepezil (donepezil 10 mg oral tablet) 1 tab(s) Oral Daily at Bedtime Depression due to dementia Pickup at [facility] Unchanged Escitalopram (escitalopram 20 mg oral tablet) 1 tab(s) Oral Daily Depression due to dementia Pickup at [facility] Unchanged fluticasone-vilanterol (Breo Ellipta 100 mcg-25 mcg/ inh inhalation powder) 1 puff(s) Inhalation Daily Unchanged Folic Acid (folic acid 1 mg oral tablet) 1 tab(s) Oral Daily Unchanged Methotrexate (methotrexate 2.5 mg oral tablet) 1 tab(s) Oral Unchanged Warfarin (warfarin 2 mg oral tablet) 1 tab(s) Oral Daily Pharmacy Information [facility]: [address], [place] [id number] [phone] Test Performed Below is a partial list of the tests performed during your Visit. You may have had other tests and procedures not included in this list. Please discuss all test results with your provider. CBC?-- Results Pending -- Comprehensive Metabolic Panel?-- Results Pending -- Folate Level?-- Results Pending -- PT (INR)?-- Results Pending -- TSH Rfx on Abnormal to Free T4?-- Results Pending -- Vitamin B12 Level?-- Results Pending -- Medications and Immunizations Administered Medications Given During Visit No medications given during this visit.?? Allergies (NKA means No Known Allergies) No Known Medication Allergies Common Emergency Awareness Tips IS IT A STROKE? Act FAST and Check for these signs: FACE Does the face look uneven? ARM Does one arm drift down? SPEECH Does their speech sound strange? TIME Call at any sign of stroke ?? Heart Attack Signs Chest discomfort: Most heart attacks involve discomfort in the center of the chest and lasts more than a few minutes, or goes away and comes back. It can feel like uncomfortable pressure, squeezing, fullness or pain. Discomfort in upper body: Symptoms can include pain or discomfort in one or both arms, back, neck, jaw or stomach. Shortness of breath: With or without discomfort. Other signs: Breaking out in a cold sweat, nausea, or lightheaded. Remember, MINUTES DO MATTER. If you experience any of these heart attack warning signs, call to get immediate medical attention! ?? Smoking can increase your chances of developing chronic health problems and can cause harmful effects to other family members in your house. If you smoke, you are strongly encouraged to quit. Please call [facility] at [phone] or [phone] ([phone]) or log in to [email or web address] for referrals to smoking cessation programs. ?? The National Suicide Prevention Hotline is available 27/09 if you or someone you know needs to find a reason to keep living. By calling 5-193-264-Sellvana (7961) you'll be connected to a skilled, trained counselor at a crisis center in your area. [facility] You can view and manage your care through the patient portal or by using a health care eleno of your choosing. [employer] is a website that allows you to securely view your medical information including your hospital discharge summary, office visit summaries, medications and follow-up visits. You can also request appointments, renew medications, and request access to your medical information using a health care eleno of your choosing, or just ask a question. You can enroll at [email or web address] or register during your next office visit. [facility], in keeping with [facility] guidance, no longer requires face masks for staff, patientsor visitors in most situations. Similiar to time spent indoors at other locations, there is the chance that you were exposed to repiratory viruses during your time with us (such as flu or COVID-19). If you develop symptoms concerning for a viral respiratory infection, please seek testing (and treatment if indicated) from your medical provider or home test kit. ?? Disclaimer: The information provided is of a general nature and is intended to be used in conjunction with the recommendations and advice of your health care practitioner. Every effort has been made to ensure that the information provided is accurate and complete at the time it is provided to you however, as your needs change, or, as new information becomes available, different or additional instructions may be required. ?? If you have questions, please consult with your primary care provider or pharmacist, as appropriate. This information is not intended to serve as substitution for assessment and evaluation by a qualified health care provider. If you do not have a primary care provider, you may find a [facility] provider by calling [facility] at [phone]. Patient Care team information Care Team Personnel Name: Francy Carias NP Position: S PCO Associate Professional Member Role: PCP Address: [address] [place] [address] Telecom: Insurance Providers Guarantor name: MARCELO Health Plan Information #: 2 Payer: Tier 1 [employer] Member Number: [id number] Policy Number: NA Group Number: MARCELO Health Plan Information #: 1 Payer: MEDICARE PART B OUTPT Member Number: [id number] Policy Number: NA Group Number: NA
--- OUTSIDE RECORDS SUMMARY | 2024-05-02 16:24 | XMS_ITS | Continuity of Care Document ---
Author Organization [facility] Address [address] [place] [address] Phone Care Team Providers [facility] Professional Name Role Phone Genet Spear PA-C Unavailable [...] as needed 200 MG - Active Lip [place] Natural - Active LIP KENYA BALM AP+ [...] Copied on Encounter [facility], [address] [place], [place], [address] , [place] tel:+ [phone] [facility] No Information 0 Vebber Genet. [address], [place], [address], [place]. tel: [phone] [facility], [address] [place], [place], [address] , [place] tel:+ [phone] [facility] Long-term Use of Anticoagulant sPortal vein thrombosis 0 Vebber Genet. [address], [place], [address], [place]. tel: [phone] [facility], [address] [place], [place], [address] , [place] tel:+ [phone] [facility] Long-term Use of Anticoagulant sPortal vein thrombosis 0 Dannie Shah. [address], [place], [address], [place]. tel: [phone] OFFICE VISIT ESTAB PT 15 MIN [facility], [address] [place], [place], [address] , [place] tel:[phone] [facility] TeleHealth (chief complaint) Advice given about COVID-19 virus by telephoneMese nteric thrombosis 0 Dannie Shah. [address], [place], [address], [place]. tel: [phone] [facility], [address] [place], [place], [address] , [place] tel:+ [phone] [facility] Long-term Use of Anticoagulant sPortal vein thrombosis 0 Dannie Shah. [address], [place], [address], [place]. tel: [phone] [facility], [address] [place], [place], [address] , [place] tel:+ [phone] [facility] No Information Aug-0 0 Management Case. . Referring Provider: Gera Kumar, [address], [place], [address]. tel:+ [phone] [facility], [address], [place], [place], [address] , [place] tel:+ [phone] [facility] Long-term Use of Anticoagulant sPortal vein thrombosis 0 [place] Edward. [address], [place], [address], [place]. tel: [phone] [facility], [address], [place], [place], [address] , [place] tel:+ [phone] [facility] No Information 0 Management Case. . Referring Provider: Gera Kumar, [address], [place], [address]. tel: [phone] [facility], [address], [place], [place], [address] , [place] tel:+ [phone] [facility] Long-term Use of Anticoagulant sPortal vein thrombosisLon g-term Use of Anticoagulant sPortal vein thrombosis 0 [facility] Edward. [address], [place], [address], [place]. tel: [phone] [facility], [address], [place], [place], [address] , [place] tel:+ [phone] [facility] Long-term Use of Anticoagulant sPortal vein thrombosis 0 0 [place] Edward. [address], [place], [address], [place]. tel: [phone] [facility], [address], [place], [place], [address] , [place] tel:[phone] [facility] Long-term Use of Anticoagulant sPortal vein thrombosis Jun-3 0-202 0 [facility] Edward. [address], [place], [address], [place]. tel: [phone] [facility], [address], [place], [place], [address] , [place] tel: [phone] [facility] Long-term Use of Anticoagulant sPortal vein thrombosis Jun- 0 [facility] Pablo. [address], [place], [address], [place]. tel: [phone] [facility], [address], [place], [place], [address] , [place] tel: [phone] [facility] No Information 0 Management Case. . Referring Provider: Gera Kumar, [address] [facility], [place], [address]. tel: [phone] [facility], [address], [place], [place], [address] , [place] tel: [phone] [facility] Long-term Use of Anticoagulant sPortal vein thrombosisLon g-term Use of Anticoagulant sPortal vein thrombosis 0 [facility] Pbalo. [address], [place], [address], [place]. tel: [phone] OFFICE VISIT ESTAB PT 15 MIN [facility], [address], [place], [place], [address] , [place] tel:+ [phone] [facility] Medical TeleHealth (chief complaint) Chronic constipationM esenteric thrombosisAst hma, persistent controlledAdv ice given about COVID-19 virus by telephone 0 [facility] Pablo. [address], [place], [address], [place]. tel: [phone] Referring Provider: Gera Kumar, [address], [place], [address]. tel: [phone] [facility], [address], [place], [place], [address] , [place] tel: [phone] [facility] 0 [facility] [address], [place], [address], [place]. tel: [phone] [facility], [address], [place], [place], [address] , [place] tel:+ [phone] [facility] Long-term Use of Anticoagulant sPortal vein thrombosis Apr-0 9-202 0 Nikolas Hicks. [address], [place], [address], [place]. tel:+ [phone] [facility], [address], [place], [place], [address] , [place] tel:[phone] [facility] No Information Apr-0 8-202 0 [facility] Edward. [address], [place], [address], [place]. tel:+ [phone] [facility], [address], [place], [place], [address] , [place] tel:[phone] [facility] Long-term Use of Anticoagulant sPortal vein thrombosis Apr-0 3-202 0 [facility] Pablo. [address], [place], [address], [place]. tel: [phone] [facility], [address], [place], [place], [address] , [place] tel:[phone] [facility] Long-term Use of Anticoagulant sPortal vein thrombosis Mar-2 6-202 0 [facility] Edward. [address], [place], [address], [place]. tel: [phone] [facility], [address], [place], [place], [address] , [place] tel:[phone] [facility] No Information May-1 8-202 0 [facility] Edward. [address], [place], [address], [place]. tel:+ [phone] [facility], [address], [place], [place], [address] , [place] tel:[phone] [facility] Long-term Use of Anticoagulant sPortal vein thrombosis Mar-1 0-202 0 [facility] Edward. [address], [place], [address], [place]. tel:+ [phone] [facility], [address], [place], [place], [address] , [place] tel:[phone] [facility] Long-term Use of Anticoagulant sPortal vein thrombosis Mar-0 3-202 0 [facility] Pablo. [address], [place], [address], [place]. tel:+ [phone] [facility], [address], [place], [place], [address] , [place] tel:[phone] [facility] Long-term Use of Anticoagulant sPortal vein thrombosis 0 Giovanni Salguero. [address], [place], [place], [address], [place]. tel:+ [phone] [facility], [address], [place], [place], [address] , [place] tel:[phone] [facility] Long-term Use of Anticoagulant sPortal vein thrombosis 0 Dannie Silasjuliana. [address], [place], [address], [place]. tel: [phone] [facility], [address], [place], [place], [address] , [place] tel:[phone] [facility] Long-term Use of Anticoagulant sPortal vein thrombosisLon g-term Use of Anticoagulant sPortal vein thrombosis 0 0 Tino Wagner. [address], [place], [address], [place]. tel: [phone] [facility], [address], [place], [place], [address] , [place] tel:[phone] [facility] No Information 0 0 Quanburke Pablo. [address], [place], [address], [place]. tel: [phone] [facility], [address], [place], [place], [address] , [place] tel:[phone] [facility] Long-term Use of Anticoagulant sPortal vein thrombosis 0 Dannie Pablo. [address], [place], [address], [place]. tel: [phone] [facility], [address], [place], [place], [address] , [place] tel:[phone] [facility] Long-term Use of Anticoagulant sPortal vein thrombosis 0 [place] Shah. [address], [place], [address], [place]. tel: [phone] OFFICE VISIT ESTAB PT 25 MIN [facility], [address], [place], [place], [address] , [place] tel:+ [phone] [facility] multiple problems (chief complaint) Essential (primary) hypertensionM esenteric thrombosisChr onic constipationU nspecified asthma, uncomplicated 0 [place] Shah. [address], [place], [address], [place]. tel:[phone] Referring Provider: Gera Kumar, [address], [place], [address]. tel: [phone] [facility], [address], [place], [place], [address] , [place] tel:+ [phone] [facility] Long-term Use of Anticoagulant sPortal vein thrombosis 0 [place] Shah. [address], [place], [address], [place]. tel: [phone] [facility], [address], [place], [place], [address] , [place] tel:+ [phone] [facility] Long-term Use of Anticoagulant sPortal vein thrombosis 9 [place] juliana. [address], [place], [address], [place]. tel: [phone] [facility], [address], [place], [place], [address] , [place] tel:+ [phone] [facility] Long-term Use of Anticoagulant sPortal vein thrombosis 9 [facility]. [address], [place], [address], [place]. tel: [phone] [facility], [address], [place], [place], [address] , [place] tel:[phone] [facility] Long-term Use of Anticoagulant sPortal vein thrombosis 0 9 [facility]. [address], [place], [address], [place]. tel: [phone] [facility], [address], [place], [place], [address] , [place] tel: [phone] [facility] Long-term Use of Anticoagulant sPortal vein thrombosis 9 [facility]. [address], [place], [address], . tel: [phone] [facility], [address], [place], [place], [address] , [place] tel: [phone] [facility] Long-term Use of Anticoagulant sPortal vein thrombosis 9 [facility]. [address], [place], [address], . tel: [phone] [facility], [address], [place], [place], [address] , [place] tel: [phone] [facility] Long-term Use of Anticoagulant sPortal vein thrombosis 9 [facility]. [address], [place], [address], . tel: [phone] [facility], [address], [place], [place], [address] , [place] tel: [phone] [facility] Long-term Use of Anticoagulant sPortal vein thrombosis 9 [facility]. [address], [place], [address], . tel: [phone] [facility], [address], [place], [place], [address] , [place] tel: [phone] [facility] Long-term Use of Anticoagulant sPortal vein thrombosisLon g-term Use of Anticoagulant sPortal vein thrombosis 9 Cullion Robyn. [address], [place], [place], [address], [place]. tel: [phone] OFFICE VISIT ESTAB PT 15 MIN [facility], [address], [place], [place], [address] , [place] tel:+ [phone] [facility] multiple problems (chief complaint) Chronic vascular disorders of intestineAnti coagulation goal of INR 2 to 3Asthma, persistent controlledCon stipation, unspecified 9 [facility]. [address], [place], [address], . tel: [phone] Referring Provider: Gera Kumar, [address], [place], [address]. tel: [phone] [facility], [address], [place], [place], [address] , [place] tel:+ [phone] [facility] Long-term Use of Anticoagulant sPortal vein thrombosis 9 [facility]. [address], [place], [address], [place]. tel: [phone] [facility], [address], [place], [place], [address] , [place] tel:+ [phone] [facility] Long-term Use of Anticoagulant sPortal vein thrombosis Nov- 9 [facility]. [address], [place], [address], [place]. tel: [phone] [facility], [address], [place], [place], [address] , [place] tel:+ [phone] [facility] Long-term Use of Anticoagulant sPortal vein thrombosis Nov- 9 [facility]. [address], [place], [address], [place]. tel: [phone] [facility], [address], [place], [place], [address] , US tel:+ [phone] [facility] Long-term Use of Anticoagulant sPortal vein thrombosis Nov- 9 [facility]. [address], [place], [address], [place]. tel: [phone] OFFICE VISIT ESTAB PT 15 MIN [facility], [address], [place], [place], [address] , [place] tel:+ [phone] [facility] Anticoagulati on (chief complaint) Chronic vascular disorders of intestineAnti coagulation goal of INR 2 to 3Long term (current) use of anticoagulant sAsthma, persistent controlled [facility]. [address], [place], [address], [place]. tel:[phone] Referring Provider: Gera Kumar, [address] [facility], [place], [address]. tel: [phone] [facility], [address], [place], [place], [address] , [place] tel:+ [phone] [facility] Long-term Use of Anticoagulant sPortal vein thrombosis [facility]. [address], [place], [address], [place]. tel:[phone] [facility], [address], [place], [place], [address] , [place] tel:+ [phone] [facility] Long-term Use of Anticoagulant sPortal vein thrombosis [facility]. [address], [place], [address], [place]. tel:[phone] PREVENT VISIT EST 65+ [facility], [address], [place], [place], [address] , [place] tel:+ [phone] [facility] preventive exam (chief complaint) Essential (primary) hypertensionE ncounter for general adult medical examination with abnormal findingsAsthm a, persistent controlledMes enteric vein thrombosisUri nary frequencyCanc er screeningAden omatous polypPsoriasi s, unspecified [facility]. [address], [place], [address], [place]. tel: [phone] Referring Provider: Gera Kumar, [address], [place], [address]. tel:[phone] OFFICE VISIT ESTAB PT 15 MIN [facility], [address], [place], [place], [address] , [place] tel:+ [phone] [facility] multiple problems (chief complaint) Psoriasis, unspecifiedHi story of pulmonary embolus (PE)Mixed hyperlipidemi aPolypharmacy Asthma, persistent controlled [facility]. [address], [place], [address], [place]. tel:[phone] Referring Provider: Gera Kumar, [address] [facility], [place], [address]. tel: [phone] OFFICE VISIT ESTAB PT 25 MIN [facility], [address], [place], [place], [address] , [place] tel:+ [phone] [facility] Anticoagulati on (chief complaint) Other pulmonary embolism without acute cor pulmonalePsor iasisPolyphar boom 9 [facility]. [address], [place], [address], [place]. tel:[phone] Referring Provider: Gera Kumar, [address] [facility], [place], [address]. tel: [phone] [facility], [address], [place], [place], [address] , [place] tel:+ [phone] [facility] Long-term Use of Anticoagulant s 9 Stacy Boss. [address], [address] [facility], [place], [place], [address], [place]. tel: [phone] [facility], [address], [place], [place], [address] , [place] tel:+ [phone] [facility] No Information 9 Stacy Boss. [address], [address] [facility], [place], [place], [address], [place]. tel: [phone] [facility], [address], [place], [place], [address] , [place] tel:[phone] [facility] Long-term Use of Anticoagulant s Jun-2 9 Stacy Boss. [address], [address] [facility], [place], [place], [address], [place]. tel: [phone] [facility], [address], [place], [place], [address] , [place] tel:+ [phone] [facility] Long-term Use of Anticoagulant s Jun-1 6-201 9 Stacy Boss. [address], [address], [place], [place], [address], [place]. tel:+ [phone] [facility], [address], [place], [place], [address] , [place] tel:[phone] [facility] Long-term Use of Anticoagulant s Apr-0 9-201 9 Stacy Boss. [address], [address], [place], [place], [address], [place]. tel:+ [phone] [facility], [address], [place], [place], [address] , [place] tel:[phone] [facility] Long-term Use of Anticoagulant s Apr-0 2-201 9 Giovanni Salguero. [address] [facility], [place], [place], [address], [place]. tel:+ [phone] [facility], [address], [place], [place], [address] , [place] tel:[phone] [facility] Long-term Use of Anticoagulant s Mar-2 5-201 9 Stacy Boss. [address], [address] [facility], [place], [place], [address], [place]. tel:+ [phone] [facility], [address], [place], [place], [address] , [place] tel:[phone] [facility] Long-term Use of Anticoagulant s Mar-2 0-201 9 Stacy Boss. [address], [address] [facility], [place], [place], [address], [place]. tel:+ [phone] [facility], [address], [place], [place], [address] , [place] tel:[phone] [facility] Long-term Use of Anticoagulant s Mar-0 8-201 9 Stacy Boss. [address], [address], [place], [place], [address], [place]. tel:+ [phone] [facility], [address], [place], [place], [address] , [place] tel:[phone] [facility] No Information Mar-0 6-201 9 Management Case. . Referring Provider: Gera Kumar, [address] [facility], [place], [address]. tel:+ [phone] [facility], [address], [place], [place], [address] , [place] tel:[phone] [facility] Long-term Use of Anticoagulant s 9 Stacy Boss. [address], [address] [facility], [place], [place], [address], [place]. tel:+ [phone] [facility], [address], [place], [place], [address] , [place] tel:[phone] [facility] Long-term Use of Anticoagulant s Apr- 9 Stacy Boss. [address], [address] [facility], [place], [place], [address], . tel:+ [phone] [facility], [address], [place], [place], [address] , [place] tel:[phone] [facility] Long-term Use of Anticoagulant s Apr- 9 Stacy Boss. [address], [address] [facility], [place], [place], [address], [place]. tel:[phone] [facility], [address], [place], [place], [address] , [place] tel:[phone] [facility] Long-term Use of Anticoagulant s 9 Stacy Boss. [address], [address] [facility], [place], [place], [address], [place]. tel:[phone] [facility], [address], [place], [place], [address] , [place] tel:[phone] [facility] No Information 9 Stacy Boss. [address], [address] [facility], [place], [place], [address], [place]. tel:[phone] OFFICE VISIT ESTAB PT 25 MIN [facility], [address], [place], [place], [address] , [place] tel:[phone] [facility] asthma (chief complaint) Body mass index (BMI) 25.0-25.9, adultUnspecif ied asthma, uncomplicated Chronic constipation 9 Stacy Boss. [address], [address] [facility], [place], [place], [address], [place]. tel:[phone] Referring Provider: Gera Kumar, [address] [facility], [place], [address]. tel: [phone] [facility], [address], [place], [place], [address] , [place] tel:+ [phone] [facility] Long-term Use of Anticoagulant s 9 Stacy Boss. [address], [address] [facility], [place], [place], [address], [place]. tel: [phone] [facility], [address], [place], [place], [address] , [place] tel: [phone] [facility] Long-term Use of Anticoagulant s 9 Management Case. . [facility], [address], [place], [place], [address] , [place] tel:[phone] [facility] Long-term Use of Anticoagulant s 8 Stacy Boss. [address], [address] [facility], [place], [place], [address], [place]. tel: [phone] OFFICE VISIT ESTAB PT 15 MIN [facility], [address], [place], [place], [address] , [place] tel:+ [phone] [facility] right eye bleeding (chief complaint) Body mass index (BMI) 25.0-25.9, adultUlcer of right corneaScleral hemorrhage of right eye Feb- 8 Stacy Boss. [address], [address] [facility], [place], [place], [address], [place]. tel: [phone] Referring Provider: Gera Kumar, [address] [facility], [place], [address]. tel: [phone] [facility], [address], [place], [place], [address] , [place] tel:+ [phone] [facility] Long-term Use of Anticoagulant s Dec-0 7-201 8 Cullion Robyn. [address], [address] [facility], [place], [place], [address], [place]. tel:+ [phone] [facility], [address], [place], [place], 279[address] , [place] tel:[phone] [facility] Long-term Use of Anticoagulant s Nov-0 9-201 8 Stacy Boss. [address], [address], [place], [place], [address], [place]. tel: [phone] [facility], [address], [place], [place], [address] , [place] tel:[phone] [facility] Long-term Use of Anticoagulant s Dec-2 5- 8 Stacy Boss. [address], [address] [facility], [place], [place], [address], [place]. tel: [phone] [facility], [address], [place], [place], [address] , [place] tel:[phone] [facility] Long-term Use of Anticoagulant s Dec-1 3-201 8 Stacy Boss. [address], [address] [facility], [place], [place], [address], [place]. tel:+ [phone] OFFICE VISIT ESTAB PT 25 MIN [facility], [address], [place], [place], [address] , [place] tel:[phone] [facility] psoriasis (chief complaint)ast hma (chief complaint) Body mass index (BMI) 25.0-25.9, adultMixed hyperlipidemi aUnspecified asthma, uncomplicated PsoriasisOthe r pulmonary embolism without acute cor pulmonale Dec-1 2-201 8 Stacy Boss. [address], [address] [facility], [place], [place], [address], [place]. tel:[phone] Referring Provider: Gera Kumar, [address], [place], [address]. tel: [phone] [facility], [address], [place], [place], [address] , [place] tel:[phone] [facility] Long-term Use of Anticoagulant s Oct-0 5-201 8 Stacy Boss. [address], [address] [place] [address], [address], [place]. tel:+ [phone] [facility], [address], [place], [place], [address] , [place] tel:[phone] [facility] Long-term Use of Anticoagulant s Oct-0 2-201 8 Stacy Boss. [address], [address] [facility], [place], [place], [address]227, [place]. tel:+ [phone] [facility], [address], [place], [place], 6345[address]451 , [place] tel:[phone] [facility] Long-term Use of Anticoagulant s Sep-2 1-201 8 Stacy Boss. [address], [place] [address], [place], [place], [address], [place]. tel:+ [phone] [facility], [address], [place], [place], [address]903346 , [place] tel:[phone] [facility] Long-term Use of Anticoagulant s Aug-2 3-201 8 Stacy Boss. [address], [address] [facility], [place], [place], [address], [place]. tel:+ [phone] [facility], [address], [place], [place], [address] , [place] tel:[phone] [facility] Long-term Use of Anticoagulant s Aug-0 9-201 8 Stacy Boss. [address], [address] [facility], [place], [place], [address]25, [place]. tel:+ [phone] [facility], [address], [place], [place], [address]47 , [place] tel:[phone] [facility] Long-term Use of Anticoagulant s Constantin-3 1-201 8 Stacy Boss. [address], [address] [facility], [place], [place], [address], [place]. tel:+ [phone] [facility], [address], [place], [place], 837[address] , [place] tel:[phone] [facility] Long-term Use of Anticoagulant s Constantin-2 5-201 8 Stacy Boss. [address], [address] [facility], [place], [place], [address], [place]. tel:+ [phone] [facility], [address], [place], [place], [address]752397 , [place] tel:[phone] [facility] Long-term Use of Anticoagulant s Constantin-1 0-201 8 Stacy Boss. [address], [address] [facility], [place], [place], [address], [place]. tel:+ [phone] [facility], [address], [place], [place], [address] , [place] tel:[phone] [facility] Long-term Use of Anticoagulant s Constantin-0 5-201 8 Stacy Boss. [address], [address] [facility], [place], [place], [address], [place]. tel:+ [phone] [facility], [address], [place], [place], [address]337[address] , [place] tel:[phone] [facility] Long-term Use of Anticoagulant s Jadon-2 6-201 8 Stacy Boss. [address], [address] [facility], [place], [place], [address]8547, [place]. tel:+ [phone] [facility], [address], [place], [place], [address]39 , [place] tel:[phone] [facility] Long-term Use of Anticoagulant s Jadon-2 0-201 8 Stacy Boss. [address], [address] [facility], [place], [place], [address]6776, [place]. tel:+ [phone] [facility], [address], [place], [place], [address]74[address]758 , [place] tel:[phone] [facility] Long-term Use of Anticoagulant s Jadon-1 2-201 8 Stacy Boss. [address], [address] [facility], [place], [place], 249484767, [place]. tel:+ [phone] [facility], [address], [place], [place], [address]3662 , [place] tel:[phone] [facility] Long-term Use of Anticoagulant s Jadon-0 1-201 8 Stacy Boss. [address], [address] [facility], [place], [place], [address]8975, [place]. tel:[phone] [facility], [address], [place], [place], [address] , [place] tel:[phone] [facility] Long-term Use of Anticoagulant s July-1 7-201 8 Stacy Boss. [address], [address] [facility], [place], [place], [address]24[address], [place]. tel:+ [phone] [facility], [address], [place], [place], [address]24 , [place] tel:[phone] [facility] Long-term Use of Anticoagulant s July-0 4-201 8 Stacy Boss. [address], [address] [facility], [place], [place], [address]13, [place]. tel:+ [phone] [facility], [address], [place], [place], [address] , [place] tel:[phone] [facility] Long-term Use of Anticoagulant s Apr-2 6-201 8 Stacy Boss. [address], [address] [facility], [place], [place], [address], [place]. tel:[phone] [facility], [address], [place], [place], 6[address]7637 , [place] tel:[phone] [facility] No Information Apr-2 4-201 8 Stacy Boss. [address], [address] [facility], [place], [place], [address], [place]. tel:[phone] [facility], [address], [place], [place], [address] , [place] tel:[phone] [facility] Long-term Use of Anticoagulant s Apr-1 9-201 8 Stacy Boss. [address], [address] [facility], [place], [place], [address], [place]. tel:[phone] [facility], [address], [place], [place], [address]885043 , [place] tel:[phone] [facility] Long-term Use of Anticoagulant s Apr-1 3-201 8 Stacy Boss. [address], [address], [place], [place], [address], [place]. tel: [phone] [facility], [address], [place], [place], [address] , [place] tel:[phone] [facility] Long-term Use of Anticoagulant s Apr-0 8 Stacy Boss. [address], [address] [address], [place], [place], [address], [place]. tel: [phone] [facility], [address], [place], [place], [address] , [place] tel:+ [phone] [facility] Long-term Use of Anticoagulant s May- 8 Management Case. . Referring Provider: Gera Kumar, [address] [facility], [place], [address]. tel: [phone] PREVENT VISIT EST 65+ [facility], [address], [place], [place], [address] , [place] tel:+ [phone] [facility] preventive exam (chief complaint)pso riasis (chief complaint)ast hma (chief complaint)ang icoagulation (chief complaint) Encntr for general adult medical exam w/o abnormal findingsBody mass index (BMI) 26.0-26.9, adultMixed hyperlipidemi aUnspecified asthma, uncomplicated Other pulmonary embolism without acute cor pulmonalePsor iasis May- 8 Stacy Boss. [address], [address] [facility], [place], [place], [address], [place]. tel: [phone] Referring Provider: Gera Kumar, [address] [facility], [place], [address]. tel: [phone] [facility], [address], [place], [place], [address] , [place] tel:[phone] [facility] Long-term Use of Anticoagulant s May- 8 Stacy Boss. [address], [address] [facility], [place], [place], [address], [place]. tel: [phone] [facility], [address], [place], [place], [address] , [place] tel:+ [phone] [facility] Long-term Use of Anticoagulant s Mar-0 9- 8 Stacy Boss. [address], [address] [facility], [place], [place], [address], . tel:+ [phone] [facility], [address], [place], [place], [address] , [place] tel:[phone] [facility] Long-term Use of Anticoagulant s Mar-0 1-201 8 Stacy Boss. [address], [address] [facility], [place], [place], [address], [place]. tel:+ [phone] [facility], [address], [place], [place], [address] , [place] tel:[phone] [facility] Long-term Use of Anticoagulant s Apr-2 - 8 Stacy Boss. [address], [address] [facility], [place], [place], [address], [place]. tel:+ [phone] [facility], [address], [place], [place], [address] , [place] tel:[phone] [facility] Long-term Use of Anticoagulant s Apr- 8 Stacy Boss. [address], [address] [facility], [place], [place], [address], [place]. tel:+ [phone] [facility], [address], [place], [place], [address] , [place] tel:[phone] [facility] Long-term Use of Anticoagulant s Mar- 6- 8 Stacy Boss. [address], [address] [facility], [place], [place], [address], [place]. tel:[phone] [facility], [address], [place], [place], [address] , [place] tel:[phone] [facility] Long-term Use of Anticoagulant s Mar-0 2-201 8 Management Case. . [facility], [address], [place], [place], [address] , [place] tel:[phone] [facility] Long-term Use of Anticoagulant s Dec-1 8-201 7 Stacy Boss. [address], [address] [facility], [place], [place], [address], [place]. tel:+ [phone] [facility], [address], [place], [place], [address] , [place] tel:[phone] [facility] Long-term Use of Anticoagulant s Dec-0 7-201 7 Stacy Boss. [address], [address] [facility], [place], [place], [address], [place]. tel:+ [phone] [facility], [address], [place], [place], [address] , [place] tel:[phone] [facility] Long-term Use of Anticoagulant s Nov-2 8-201 7 Stacy Boss. [address], [address] [facility], [place], [place], [address], [place]. tel:+ [phone] [facility], [address], [place], [place], [address] , [place] tel:[phone] [facility] Long-term Use of Anticoagulant s Oct-2 5-201 7 Stacy Boss. [address], [address] [facility], [place], [place], [address], [place]. tel:+ [phone] [facility], [address], [place], [place], [address] , [place] tel:[phone] [facility] Encounter for screening colonoscopy Oct-1 2-201 7 Stacy Boss. [address], [address] [facility], [place], [place], [address], [place]. tel:+ [phone] [facility], [address], [place], [place], [address] , [place] tel:[phone] [facility] Long-term Use of Anticoagulant s Oct-1 1-201 7 Stacy Boss. [address], [address] [facility], [place], [place], [address], [place]. tel:+ [phone] [facility], [address], [place], [place], [address] , [place] tel:[phone] [facility] Long-term Use of Anticoagulant s Oct-0 4-201 7 Stacy Boss. [address], [address] [facility], [place], [place], [address], [place]. tel:+ [phone] [facility], [address], [place], [place], [address] , [place] tel:[phone] [facility] No Information Dec-0 3 7 Management Case. . Referring Provider: Gera Kumar, [address] [facility], [place], [address]. tel:+ [phone] [facility], [address], [place], [place], [address] , [place] tel:+ [phone] [facility] Long-term Use of Anticoagulant s Nov-2 7 Stacy Boss. [address] [facility], [address] [facility], [place], [place], [address], [place]. tel:+ [phone] OFFICE VISIT ESTAB PT 25 MIN [facility], [address], [place], [place], [address] , [place] tel:[phone] [facility] asthma (chief complaint)hyp erlipidemia (chief complaint)chr onic anticoagulati on (chief complaint)Eye problems (chief complaint)pso riasis (chief complaint) Body mass index (BMI) 27.0-27.9, adultMixed hyperlipidemi aUnspecified asthma, uncomplicated Oth disrd of the skin and subcutaneous tissueLong-te rm Use of Anticoagulant sEye problemOther pulmonary embolism without acute cor pulmonale Nov-2 7 Stacy Boss. [address], [address] [facility], [place], [place], [address], [place]. tel:+ [phone] Referring Provider: Gera Kumar, [address] [facility], [place], [address]. tel:+ [phone] [facility], [address], [place], [place], [address] , [place] tel:[phone] [facility] Long-term Use of Anticoagulant s Sep-0 7 Stacy Boss. [address] [facility], [address] [facility], [place], [place], [address], [place]. tel: [phone] [facility], [address], [place], [place], [address] , [place] tel:[phone] [facility] Long-term Use of Anticoagulant s Aug-0 8-201 7 Stacy Boss. [address], [address] [facility], [place], [place], [address], [place]. tel: [phone] [facility], [address], [place], [place], [address] , [place] tel:[phone] [facility] Long-term Use of Anticoagulant s Sep-2 4-201 7 Stacy Boss. [address], [address] [facility], [place], [place], [address], [place]. tel: [phone] [facility], [address], [place], [place], [address] , [place] tel:[phone] [facility] Long-term Use of Anticoagulant s Sep-1 7-201 7 Stacy Boss. [address], [address] [facility], [place], [place], [address], [place]. tel: [phone] [facility], [address], [place], [place], [address] , [place] tel:[phone] [facility] Long-term Use of Anticoagulant s Sep-0 3-201 7 Stacy Boss. [address], [place] [address], [place], [place], [address], [place]. tel: [phone] [facility], [address], [place], [place], [address] , [place] tel:[phone] [facility] Long-term Use of Anticoagulant s Jadon-2 0-201 7 Stacy Boss. [address], [address] [facility], [place], [place], [address], [place]. tel: [phone] [facility], [address], [place], [place], [address] , [place] tel:[phone] [facility] Long-term Use of Anticoagulant s Jadon-1 3-201 7 Stacy Boss. [address], [address] [facility], [place], [place], [address], [place]. tel: [phone] [facility], [address], [place], [place], [address] , [place] tel: [phone] [facility] Long-term Use of Anticoagulant s 7 Stacy Boss. [address], [address], [place], [place], [address], [place]. tel: [phone] [facility], [address], [place], [place], [address] , [place] tel:+ [phone] [facility] Long-term Use of Anticoagulant s 7 [facility]. [address], [place], [address], [place]. tel: [phone] [facility], [address], [place], [place], [address] , [place] tel: [phone] [facility] Long-term Use of Anticoagulant s 7 Stacy Boss. [address], [address], [place], [place], [address], [place]. tel: [phone] [facility], [address], [place], [place], [address] , [place] tel: [phone] [facility] Long-term Use of Anticoagulant s 7 [facility]. [address], [place], [address], [place]. tel: [phone] [facility], [address], [place], [place], [address] , [place] tel:+ [phone] [facility] Long-term Use of Anticoagulant s 7 [facility]. [address], [place], [address], [place]. tel: [phone] [facility], [address], [place], [place], [address] , [place] tel:[phone] [facility] Encounter for dental exam and cleaning w/o abnormal findings 7 Patrick Ku. [address], [place], [address], [place]. tel: [phone] Referring Provider: Gera Kumar, [address] [facility], [place], [address]. tel:+ [phone] [facility], [address], [place], [place], [address] , [place] tel:[phone] [facility] Long-term Use of Anticoagulant s Apr-2 0-201 7 Stacy Boss. [address], [address] [facility], [place], [place], [address], [place]. tel:+ [phone] [facility], [address], [place], [place], [address] , [place] tel:[phone] [facility] Long-term Use of Anticoagulant s Apr-0 6-201 7 Stacy Boss. [address], [address] [facility], [place], [place], [address], [place]. tel:+ [phone] [facility], [address], [address] , [place] tel:[phone] [facility] Long-term Use of Anticoagulant s Mar-3 0-201 7 Stacy Boss. [address] [facility], [address] [facility], [place], [place], [address], [place]. tel:+ [phone] PREVENT VISIT EST 66+ [facility], [address], [place], [place], [address] , [place] tel:[phone] [facility] preventive exam (chief complaint)ast hma (chief complaint)pso [...] 7 Stacy Boss. [address], [address] [place] [address], [id number], [place]. tel:+ [phone] Referring Provider: Gera Kumar, [address] [facility], [place], [address]. tel:[phone] [facility], [address], [place], [place], [address] , [place] tel:[phone] [facility] Long-term Use of Anticoagulant s Mar-1 6-201 7 Stacy Boss. [address], [address] [facility], [place], [place], [address], [place]. tel: [phone] [facility], [address], [place], [place], [address] , [place] tel:[phone] [facility] Long-term Use of Anticoagulant s Mar-0 9-201 7 Stacy Boss. [address], [address] [facility], [place], [place], [address], [place]. tel: [phone] [facility], [address], [place], [place], [address] , [place] tel:[phone] [facility] Long-term Use of Anticoagulant s Mar-0 3-201 7 Stacy Boss. [address], [address] [facility], [place], [place], [address], [place]. tel: [phone] [facility], [address], [place], [place], [address] , [place] tel:[phone] [facility] Long-term Use of Anticoagulant s Feb-1 0-201 7 Stacy Boss. [address], [address] [facility], [place], [place], [address], . tel: [phone] [facility], [address], [place], [place], [address] , [place] tel:[phone] [facility] Long-term Use of Anticoagulant s Feb-0 2-201 7 Stacy Boss. [address], [address] [facility], [place], [place], [address], [place]. tel: [phone] [facility], [address], [place], [place], [address] , [place] tel:[phone] [facility] Long-term Use of Anticoagulant s Mar-2 5-201 7 Stacy Boss. [address], [address] [facility], [place], [place], [address], [place]. tel:[phone] [facility], [address], [place], [place], [address] , [place] tel:[phone] [facility] Long-term Use of Anticoagulant s Reggie-1 2-201 7 Stacy Boss. [address], [address] [facility], [place], [place], [address], [place]. tel: [phone] [facility], [address], [place], [place], [address] , [place] tel:[phone] [facility] Long-term Use of Anticoagulant s Dec-1 5-201 6 Stacy Boss. [address], [address] [facility], [place], [place], [address], [place]. tel: [phone] [facility], [address], [place], [place], [address] , [place] tel:[phone] [facility] Long-term Use of Anticoagulant s Nov-3 0-201 6 Stacy Boss. [address], [address] [facility], [place], [place], [address], [place]. tel: [phone] [facility], [address], [place], [place], [address] , [place] tel:[phone] [facility] Long-term Use of Anticoagulant s Nov-1 8-201 6 Stacy Boss. [address], [address] [facility], [place], [place], [address], [place]. tel: [phone] [facility], [address], [place], [place], [address] , [place] tel:[phone] [facility] Long-term Use of Anticoagulant s Nov-1 0-201 6 Stacy Boss. [address], [address] [facility], [place], [place], [address], [place]. tel: [phone] [facility], [address], [place], [place], [address] , [place] tel:[phone] [facility] Long-term Use of Anticoagulant s Nov-0 3-201 6 Stacy Boss. [address], [address] [facility], [place], [place], [address], [place]. tel:+ [phone] OFFICE VISIT ESTAB PT 15 MIN [facility], [address], [place], [place], [address] , [place] tel:+ [phone] [facility] asthma (chief complaint) Unspecified asthma, uncomplicated Dec-2 0- 6 Stacy Boss. [address], [address] [facility], [place], [place], [address], . tel:+ [phone] Referring Provider: Gera Kumar, [address] [facility], [place], [address]. tel:+ [phone] [facility], [address], [place], [place], [address] , [place] tel:+ [phone] [facility] Long-term Use of Anticoagulant s Dec- 3- 6 Stacy Boss. [address], [address] [facility], [place], [place], [address], . tel:+ [phone] [facility], [address], [place], [place], [address] , [place] tel:[phone] [facility] Long-term Use of Anticoagulant s Dec-0 6- 6 Stacy Boss. [address], [address] [facility], [place], [place], [address], . tel:+ [phone] [facility], [address], [place], [place], [address] , [place] tel:[phone] [facility] Long-term Use of Anticoagulant s Nov- 6 Stacy Boss. [address], [address] [facility], [place], [place], [address], [place]. tel:+ [phone] [facility], [address], [place], [place], [address] , [place] tel:[phone] [facility] No Information Nov- 6 Management Case. . Referring Provider: Gera Kumar, [address] [facility], [place], [address]. tel:+ [phone] [facility], [address], [place], [place], [address] , [place] tel:[phone] [facility] Long-term Use of Anticoagulant s Sep-0 6 Stacy David. [address], [address] [facility], [place], [place], [address], . tel:+ [phone] [facility], [address], [place], [place], [address] , [place] tel:+ [phone] [facility] Long-term Use of Anticoagulant s 6 Stacy Boss. [address], [address] [facility], [place], [place], [address], [place]. tel:+ [phone] [facility], [address], [place], [place], [address] , [place] tel:+ [phone] [facility] No Information 6 Management Case. . Referring Provider: Gera Kumar, [address] [facility], [place], [address]. tel:+ [phone] [facility], [address], [place], [place], [address] , [place] tel:+ [phone] [facility] Long-term Use of Anticoagulant s 6 Stacy David. [address], [address] [facility], [place], [place], [address], . tel:+ [phone] [facility], [address], [place], [place], [address] , [place] tel:[phone] [facility] Long-term Use of Anticoagulant s 6 Stacy Boss. [address], [address] [facility], [place], [place], [address], [place]. tel:+ [phone] [facility], [address], [place], [place], [address] , [place] tel:[phone] [facility] No Information 6 Stacy Boss. [address], [address] [facility], [place], [place], [address], . tel:+ [phone] [facility], [address], [place], [place], [address] , [place] tel:[phone] [facility] Long-term Use of Anticoagulant s Jadon-3 0-201 6 Stacy Boss. [address], [address] [facility], [place], [place], [address], [place]. tel:+ [phone] [facility], [address], [place], [place], [address] , [place] tel:[phone] [facility] Long-term Use of Anticoagulant s Jadon-1 5-201 6 Stacy Boss. [address], [address] [facility], [place], [place], [address], [place]. tel:+ [phone] [facility], [address], [place], [place], [address] , [place] tel:[phone] [facility] Long-term Use of Anticoagulant s Jadon-0 2-201 6 Stacy Boss. [address], [address] [facility], [place], [place], [address], [place]. tel:+ [phone] [facility], [address], [place], [place], [address] , [place] tel:[phone] [facility] Long-term Use of Anticoagulant s July-1 9-201 6 Stacy Boss. [address], [address] [facility], [place], [place], [address], [place]. tel:+ [phone] [facility], [address], [place], [place], [address] , [place] tel:[phone] [facility] Long-term Use of Anticoagulant s July-1 1-201 6 Stacy Boss. [address], [address] [facility], [place], [place], [address], [place]. tel:+ [phone] [facility], [address], [place], [place], [address] , [place] tel:[phone] [facility] Long-term Use of Anticoagulant s May-0 5-201 6 Stacy Boss. [address], [address] [facility], [place], [place], [address], [place]. tel:+ [phone] [facility], [address], [place], [place], [address] , [place] tel:[phone] [facility] Long-term Use of Anticoagulant s Apr-2 1-201 6 Stacy Boss. [address], [address] [facility], [place], [place], [address], [place]. tel:+ [phone] [facility], [address], [place], [place], [address] , [place] tel:[phone] [facility] Hematuria Apr-1 3-201 6 Stacy Boss. [address], [address] [facility], [place], [place], [address], [place]. tel:+ [phone] [facility], [address], [place], [place], [address] , [place] tel:[phone] [facility] Long-term Use of Anticoagulant s Apr-1 2-201 6 Stacy Boss. [address], [address] [facility], [place], [place], [address], [place]. tel:+ [phone] [facility], [address], [place], [place], [address] , [place] tel:[phone] [facility] Long-term Use of Anticoagulant s Apr-0 5-201 6 Stacy Boss. [address], [address] [facility], [place], [place], [address], [place]. tel:[phone] [facility], [address], [place], [place], [address] , [place] tel:[phone] [facility] Hematuria May-2 4-201 6 Stacy Boss. [address], [address] [facility], [place], [place], [address], [place]. 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 [address], [address] [facility], [place], [place], [address], [place]. tel:+ [phone] Referring Provider: Gera Kumar, [address] [facility], [place], [address]. tel:+ [phone] [facility], [address], [place], [place], [address] , [place] tel:[phone] [facility] Long-term Use of Anticoagulant s Mar-1 5-201 6 Stacy Boss. [address], [address] [facility], [place], [place], [address]67, [place]. tel:+ [phone] [facility], [address], [place], [place], [address] , [place] tel:[phone] [facility] Long-term Use of Anticoagulant s May-0 8 6 Stacy Boss. [address], [address] [facility], [place], [place], [address], [place]. tel:+ [phone] [facility], [address], [place], [place], [address] , [place] tel:[phone] [facility] Long-term Use of Anticoagulant s Mar- 6 Stacy Boss. [address], [address] [facility], [place], [place], [address], [place]. tel:+ [phone] [facility], [address], [place], [place], [address] , [place] tel:[phone] [facility] Long-term Use of Anticoagulant s Mar- 9201 6 Stacy Boss. [address], [address] [facility], [place], [place], [address], [place]. tel:+ [phone] [facility], [address], [place], [place], [address] , [place] tel:[phone] [facility] Long-term Use of Anticoagulant s Feb-2 201 5 Stacy Boss. [address], [address] [facility], [place], [place], [address], [place]. tel:+ [phone] [facility], [address], [place], [place], [address] , [place] tel:+ [phone] [facility] Long-term Use of Anticoagulant sLong-term Use of Anticoagulant s Dec-0 1-201 5 Nurse [facility]. [address], [place], [place], [address]. tel: [facility], [address], [place], [place], [address] , [place] tel:+ [phone] [facility] Long-term Use of Anticoagulant s Nov-2 4-201 5 Stacy Boss. [address], [address] [facility], [place], [place], [address], [place]. tel: [phone] [facility], [address], [place], [place], [address] , [place] tel:+ [phone] [facility] Long-term Use of Anticoagulant s Nov-1 0-201 5 Stacy Gera. [address], [address] [place] [address], [id number], [place]. tel: [phone] [facility], [address], [place], [place], 6[address] , [place] tel:+ [phone] [facility] Long-term Use of Anticoagulant s Nov-0 3-201 5 Rubio Mendes. [address], [place], [address], [place]. tel: [phone] [facility], [address], [place], [place], 6[address]37 , [place] tel:+ [phone] [facility] Long-term Use of Anticoagulant s Oct-0 7-201 5 Stacy Boss. [address], [address] [facility], [place], [place], [address], [place]. tel: [phone] [facility], [address], [place], [place], [address] , [place] tel:+ [phone] [facility] No Information Oct-0 2-201 5 Management Case. . Referring Provider: Gera Kumar, [address] [facility], [place], [address]. tel: [phone] [facility], [address], [place], [place], [address] , [place] tel:+ [phone] [facility] Long-term Use of Anticoagulant s Nov- 5 Stacy Boss. [address], [address] [facility], [place], [place], [address], . tel: [phone] [facility], [address], [place], [place], [address] , [place] tel:+ [phone] [facility] No Information Nov- 5 Management Case. . Referring Provider: Gera Kumar, [address] [facility], [place], [address]. tel: [phone] [facility], [address], [place], [place], [address] , [place] tel:[phone] [facility] Long-term Use of Anticoagulant s Nov-0 5 Stacy Boss. [address] [facility], [place] [address], [place], [place], [address], . tel: [phone] OFFICE VISIT ESTAB PT 25 MIN [facility], [address], [place], [place], [address] , [place] tel:+ [phone] [facility] hyperlipidemi a (chief complaint)abel h (chief complaint) Unspecified keratitisMixe d hyperlipidemi aAcute vascular insufficiency of intestineOthe r pulmonary embolism and infarctionFoo d allergyLong-t erm Use of Anticoagulant s 5 Stacy Boss. [address] [facility], [place] [address], [place], [place], [address], . tel: [phone] Referring Provider: Gera Kumar, [address] [facility], [place], [address]. tel: [phone] [facility], [address], [place], [place], [address] , [place] tel:[phone] [facility] Long-term Use of Anticoagulant s Oct- 5 Stacy Boss. [address], [address] [facility], [place], [place], [address], . tel: [phone] [facility], [address], [place], [place], [address] , [place] tel:+ [phone] [facility] Long-term Use of Anticoagulant s 5 Stacy Boss. [address], [address] [facility], [place], [place], [address], . tel: [phone] [facility], [address], [place], [place], [address] , [place] tel:[phone] [facility] No Information 5 Management Case. . Referring Provider: Gera Kumar, [address] [facility], [place], [address]. tel: [phone] [facility], [address], [place], [place], [address] , [place] tel:+ [phone] [facility] Long-term Use of Anticoagulant s 5 Stacy Boss. [address], [place] [address], [place], [place], [address], . tel: [phone] [facility], [address], [place], [place], [address] , [place] tel:[phone] [facility] Long-term Use of Anticoagulant s 5 Stacy Boss. [address], [address] [facility], [place], [place], [address], [place]. tel: [phone] [facility], [address], [place], [place], [address] , [place] tel:+ [phone] [facility] Long-term Use of Anticoagulant s 5 Giovanni Salguero. [address], [place], [address], [place]. tel: [phone] [facility], [address], [place], [place], [address] , [place] tel:[phone] [facility] Long-term Use of Anticoagulant s 5 Dannie Shah. [address], [place], [address], [place]. tel: [phone] [facility], [address], [place], [place], [address]647[address] , [place] tel:[phone] [facility] No Information 5 Management Case. . Referring Provider: Gera Kumar, [address] [facility], [place], [address]. tel:+ [phone] [facility], [address], [place], [place], [address] , [place] tel:[phone] [facility] Long-term Use of Anticoagulant s 5 Stacy Boss. [address], [address] [facility], [place], [place], [address], [place]. tel:+ [phone] [facility], [address], [place], [place], 636[address] , [place] tel:[phone] [facility] Long-term Use of Anticoagulant s 5 Stacy Boss. [address] [facility], [place] [address], [place], [place], [address], . tel:+ [phone] [facility], [address], [place], [place], [address] , [place] tel:[phone] [facility] Long-term Use of Anticoagulant s 5 Stacy Boss. [address] [facility], [place] [address], [place], [place], [address], . tel:+ [phone] [facility], [address], [place], [place], [address] , [place] tel:[phone] [facility] Long-term Use of Anticoagulant s 5 Stacy Boss. [address] [facility], [place] [address], [place], [address], [place]. tel:+ [phone] PREVENT VISIT EST 65+ [facility], [address], [place], [place], [address] , [place] tel:[phone] [facility] Preventive exam (chief complaint)ast hma (chief complaint)ecz taqueria (chief complaint)hyp erlipidemia (chief complaint)ant icoagulation (chief complaint)con stipation (chief complaint) ROUTINE MEDICAL EXAMUnspecifi ed keratitisMixe d hyperlipidemi aAcute vascular insufficiency of intestineAsth ma, unspecified 9-201 5 Stacy Boss. [address], [address] [facility], [place], [place], [address], [place]. tel:[phone] Referring Provider: Gera Kumar, [address], [place], [address]. tel:[phone] [facility], [address], [place], [place], [address] , [place] tel:[phone] [facility] Long-term Use of Anticoagulant s 3- 5 Stacy Boss. [address], [address] [facility], [place], [place], [address], [place]. tel:[phone] [facility], [address], [place], [place], [address] , [place] tel:[phone] [place] [facility] Long-term Use of Anticoagulant s Apr- 7 5 Management Case. . [facility], [address], [place], [place], [id number] , [place] tel:[phone] [facility] Long-term Use of Anticoagulant s 5 Stacy Boss. [address], [address] [facility], [place], [place], [address], [place]. tel:[phone] [facility], [address], [place], [place], [address] , [place] tel:[phone] [facility] Long-term Use of Anticoagulant s Apr-0 - 5 Stacy Boss. [address], [address] [facility], [place], [place], [address], [place]. tel:[phone] [facility], [address], [place], [place], [address] , [place] tel:[phone] [facility] Long-term Use of Anticoagulant s 0- 5 Stacy Boss. [address], [address] [facility], [place], [place], [address], [place]. tel:[phone] [facility], [address], [place], [place], [address] , [place] tel:[phone] [facility] Long-term Use of Anticoagulant s 5 Stacy Boss. [address], [address] [facility], [place], [place], [address], . tel: [phone] [facility], [address], [place], [place], [address] , [place] tel:[phone] [facility] Long-term Use of Anticoagulant s 5 Stacy Boss. [address], [address] [facility], [place], [place], [address], [place]. tel: [phone] OFFICE VISIT ESTAB PT 15 MIN [facility], [address], [place], [place], [address] , [place] tel:[phone] [facility] asthma (chief complaint)Hyp erlipidemia (chief complaint)Abel h (chief complaint) Unspecified keratitisMixe d hyperlipidemi aAsthma, unspecified Feb-3 0 4 Stacy Boss. [address], [place] [address], [place], [place], [address], . tel:[phone] Referring Provider: Gera Kumar, [address] [facility], [place], [address]. tel: [phone] [facility], [address], [place], [place], [address] , [place] tel:[phone] [facility] Long-term Use of Anticoagulant s 4 Giovanni Salguero. [address], [place], [address], [place]. tel: [phone] [facility], [address], [place], [place], [address] , [place] tel:[phone] [facility] Long-term Use of Anticoagulant s Feb- 4 Stacy Boss. [address], [place] [address], [place], [place], [address], [place]. tel: [phone] [facility], [address], [place], [place], [address] , [place] tel:[phone] [facility] Long-term Use of Anticoagulant s 4 Stacy Boss. [address], [address] [facility], [place], [place], [address], . tel: [phone] [facility], [address], [place], [place], [address] , [place] tel:[phone] [facility] Long-term Use of Anticoagulant s 4 Stacy Boss. [address] [facility], [place] [address], [place], [place], [address], [place]. tel:[phone] [facility], [address], [place], [place], [address] , [place] tel:[phone] [facility] No Information Management Case. . Referring Provider: Gera Kumar, [address] [place] [address], [place], [address]. tel:[phone] OFFICE VISIT ESTAB PT 15 MIN [facility], [address], [place], [place], [address] , [place] tel:+ [phone] [facility] constipation (chief complaint) Constipation 4 Stacy Boss. [address] [facility], [place] [address], [place], [place], [address], . tel:[phone] Referring Provider: Gera Kumar, [address] [place] [address], [place], [address]. tel:[phone] OFFICE VISIT ESTAB PT 15 MIN [facility], [address], [place], [place], [address] , [place] tel:[phone] [facility] Follow Up of asthma (chief complaint)hyp erlipidema (chief complaint) AsthmaOther psoriasis and similar disordersMixe d Hyperlipidemi aIatrogenic pulmonary embolism and infarction 4 Stacy Boss. [address] [facility], [place] [address], [place], [place], [address], . tel:[phone] Referring Provider: Gera Kumar, [address] [place] [address], [place], [address]. tel: [phone] [facility], [address], [place], [place], [address] , [place] tel: [phone] [facility] No Information Management Case. . Referring Provider: Gera Kumar, [address] [facility], [place], [address]. tel: [phone] [facility], [address] [place], [place], [address] , [place] tel: [phone] [facility] No Information Management Case. . Referring Provider: Gera Kumar, [address], [place], [address]. tel: [phone] [facility], [address] [place], [place], [address] , [place] tel: [phone] [facility] PPD plant (chief complaint) Screening examination for pulmonary tuberculosis Nurse [facility]. [address] [place], [place], [address]. tel: Referring Provider: Gera Kumar, [address] [facility], [place], [address]. tel: [phone] PREVENT VISIT EST 65+ [facility], [address] [place], [place], [address] , [place] tel: [phone] [facility] preventive exam (chief complaint)cou gh/wheezing (chief complaint)Pso riasis (chief complaint) AsthmaAbdomin al PainNeed for prophylactic vaccination and inoculation against viralhepatiti Traci FOR PROPHYLACTIC VACCINATION WITH COMBINED DIPHTHERIA-TE TANUS-PERTUSS IS (DTP) (DTAP) VACCINEVisit for preventive health examinationDy suriaOther psoriasis and similar disordersRout ine Medical Exam 4 Stacy Boss. [address], [address] [facility], [place], [place], [address], [place]. tel: [phone] Referring Provider: Gera Kumar, [address] [facility], [place], [address]. tel: [phone] OFFICE VISIT ESTAB PT 15 MIN [facility], [address] [place], [place], [address] , [place] tel:[phone] [facility] Follow Up of asthma (chief complaint) AsthmaLong-te rm Use of Anticoagulant sOther psoriasis and similar disorders 4 Stacy Boss. [address], [address] [facility], [place], [place], [address], [place]. tel: [phone] Referring Provider: Gera Kumar, [address] [facility], [place], [address]. tel: [phone] OFFICE VISIT ESTAB PT 15 MIN [facility], [address], [place], [place], [address] , [place] tel:+ [phone] [facility] cough (chief complaint) Asthma Feb- 3 Stacy Boss. [address] [facility], [address] [facility], [place], [place], [address], [place]. tel: [phone] Referring Provider: Gera Kumar, [address] [facility], [place], [address]. tel: [phone] [facility], [address], [place], [place], [address] , [place] tel:+ [phone] [facility] No Information Feb- 3 Management Case. . Referring Provider: Gera Kumar, [address] [facility], [place], [address]. tel: [phone] [facility], [address], [place], [place], [address] , [place] tel:[phone] [facility] Pulmonary embolus, right Sep-0 3 Management Case. . Referring Provider: Gera Kumar, [address], [place], [address]. tel: [phone] [facility], [address], [place], [place], [address] , [place] tel:+ [phone] [facility] No Information 3 Management Case. . Referring Provider: Gera Kumar, [address], [place], [address]. tel: [phone] [facility], [address], [place], [place], [address] , [place] tel:[phone] [facility] Iatrogenic pulmonary embolism and infarction Management Case. . Referring Provider: Gera Kumar, [address], [place], [address]. tel: [phone] [facility], [address], [place], [place], [address] , [place] tel:[phone] [place] [facility] No Information 3 Management Case. . Referring Provider: [facility] [address] [place], [address]. tel:[phone] OFFICE VISIT ESTAB PT 25 MIN [facility], [address], [place], [place], [address] , [place] tel:+ [phone] [facility] rash (chief complaint)cou madin (chief complaint) Other psoriasis and similar disordersChro yin anticoagulati on Stacy Boss. [address], [address], [place], [place], [address], [place]. tel: [phone] Referring Provider: Gera Kumar, [address], [place], [address]. tel: [phone] [facility], [address], [place], [place], [address] , [place] tel:+ [phone] [place] [facility] No Information 3 Management Case. . Referring Provider: Isabell [facility] [address] [place], [address]. tel:[phone] [facility], [address], [place], [place], [address] , [place] tel:[phone] [place] [facility] No Information Management Case. . Referring Provider: Isabell [facility] [address] [place], [address]. tel:[phone] PREVENT VISIT EST 65+ [facility], [address], [place], [place], [address] , [place] tel:+ [phone] [facility] physical exam (chief complaint)pavithra k pain (chief complaint) Routine Medical ExamRoutine Medical ExamMixed Hyperlipidemi aGERDAcute vascular insufficiency of intestineOthe r psoriasis and similar disordersRout ine Medical Exam 0 2 Stacy Boss. [address], [address], [place], [place], [address], [place]. tel: [phone] Referring Provider: Gera Kumar, [address], [place], [address]. tel: [phone] [facility], [address], [place], [place], [address] , [place] tel: [phone] [facility] No Information 2 Management Case. . Referring Provider: Isabell [facility] [address] [place], [address]. tel: [phone] [facility], [address], [place], [place], [address] , [place] tel:+ [phone] [facility] Long-term Use of Anticoagulant s 2 Quinteros Zoë. [address], [place], [address]. tel: [phone] [facility], [address], [place], [place], [address] , [place] tel:+ [phone] [facility] Acute vascular insufficiency of intestineAcut e vascular insufficiency of intestine 2 Samir [facility], [address] [place], [address], [place]. tel: [phone] [facility], [address], [place], [place], [address] , [place] tel:+ [phone] [facility] No Information 2 Management Case. . Referring Provider: Isabell [facility] [address] [place], [address]. tel:[phone] OFFICE VISIT ESTAB PT 25 MIN [facility], [address], [place], [place], [address] , [place] tel:+ [phone] [facility] hypertension (chief complaint) Iatrogenic pulmonary embolism and infarctionIat rogenic pulmonary embolism and infarctionUns pecified essential hypertensionA llergic rhinitis, cause unspecified 2 [facility], [address] [place], [facility], [place]. tel:[phone] Referring Provider: Isabell [facility] [address] [place] [address]. tel:[phone] OFFICE VISIT ESTAB PT 15 MIN [facility], [address], [place], [place], [address] , [place] tel:+ [phone] [facility] er (chief complaint) Iatrogenic pulmonary embolism and infarctionIat rogenic pulmonary embolism and infarctionAcu te vascular insufficiency of intestineGERD 2 [facility], [address] [place], [facility], [place]. tel: [phone] Referring Provider: Isabell [facility] [address] [place], [facility]. tel:[phone] [facility], [address], [place], [place], [address] , [place] tel:+ [phone] [facility] No Information 2 Management Case. . Referring Provider: Isabell [facility] [address] [place], [facility]. tel:[phone] OFFICE VISIT ESTAB PT 25 MIN [facility], [address], [place], [place], [address] , [place] tel:+ [phone] [facility] back pain (chief complaint) Allergic rhinitis, cause unspecifiedLu mbagoAllergic rhinitis, cause unspecified 1 [facility], [address] [place] [address], [place]. tel: [phone] Referring Provider: Isabell [facility] [address] [place] [address]. tel:[phone] [facility], [address], [place], [place], [address] , [place] tel:+ [phone] [facility] No Information 1 [facility], [address] [place], [facility], [place]. tel:[phone] OFFICE VISIT ESTAB PT 25 MIN [facility], [address], [place], [place], [address] , [place] tel: [phone] [facility] asthma (chief complaint) Other psoriasis and similar disordersAlle rgic rhinitis, cause unspecified 1 [facility], [address] [place], [facility], [place]. tel:[phone] Referring Provider: Isabell [facility] [address] [place], [facility]. tel:[phone] [facility], [address], [place], [place], [address] , [place] tel: [phone] [facility] No Information 1 Management Case. . OFFICE VISIT ESTAB PT 25 MIN [facility], [address], [place], [place], [address] , [place] tel:+ [phone] [facility] cough (chief complaint) Viral syndromeViral Infection, Unspecified 0 [facility], [address] [place], [facility], [place]. tel:[phone] [facility], [address], [place], [place], [address] , [place] tel:+ [phone] [facility] No Information 0 Management Case. . OFFICE VISIT ESTAB PT 25 MIN [facility], [address], [place], [place], [address] , [place] tel:+ [phone] [facility] allergies (chief complaint) Allergic rhinitis, cause unspecified 0 [facility], [address] [place], [facility], [place]. tel: [phone] OFFICE/OUTPA TIENT VISIT, EST [facility], [address], [place], [place], [address] , [place] tel:+ [phone] [facility] cough (chief complaint)con stipation (chief complaint)bur ping (chief complaint) Allergic rhinitis, cause unspecifiedGE RDDermatophyt osis of unspecified site 0 [facility], [address] [place], [facility], . tel: [phone] OFFICE VISIT ESTAB PT 25 MIN [facility], [address], [address] , [place] tel: [phone] [facility] BP check (chief complaint) Elevated blood pressure reading without diagnosis of hypertensionO ther psoriasis and similar disorders 9 [facility], [address] [place], [facility], . tel: [phone] OFFICE VISIT ESTAB PT 25 MIN [facility], [address] [place], [address] , [place] tel: [phone] [facility] cold symptoms (chief complaint) Other psoriasis and similar disordersUrin florencia tract infection, site not specifiedElev ated blood pressure reading without diagnosis of hypertension 9 [facility], [address] [place], [facility], . tel:[phone] Referring Provider: Isabell [facility] [address] [place], [facility]. tel: [phone] OFFICE VISIT ESTAB PT 15 MIN [facility], [address], [place], [place], [address] , [place] tel:+ [phone] [facility] cough (chief complaint) Acute bronchitisAcu te upper respiratory infections of unspecified site 9 Samir Johnson. [address] [place], [address]. tel:[phone] OFFICE VISIT ESTAB PT 15 MIN [facility], [address], [place], [place], [address] , [place] tel:+ [phone] [facility] No Information 8 [facility], [address] [place], [address], [place]. tel:[phone] [facility], [address] [place], [address] , tel: [phone] [facility] Allergic rhinitis, cause unspecifiedEs ophageal refluxDermato phytosis of unspecified site 8 [facility], [address] [place], [address], [place]. tel:[phone] Family History Family Member Type Diagnosis Age [...] Record Payers Payer name Insurance type Covered constitution party ID Authoriza tion(s) NHP Integr[employer] [place] [id number] NHP Integr[employer] CI [id number] NHP [place] [id number] [place]P [place] CI [id number] Medicare [place] [id number] Social History Type Description Quantity Date Captured Comments Alcohol Use Details Unknown Caffeine Use Details Unknown Tobacco Use Status No Information Smoking Status No Information Sex Male Sexual Orientation Straight or heterosexual Mar Gender Identity Male Chief Complaint And Reason For Visit No Information Reason For Referral Reason For Referral No Information Plan Of Treatment Date Type Action Status Goal Depression screening. Due on due Goal Hep C Screening. Due on due Goal Lipid panel. Due [...] C Screening. Due on due Goal Zoster vaccine (1st). [...] C Screening. Due on due Goal Zoster vaccine (1st). [...] Zoster vaccine (1st). Due on due Goal Depression screening. Due [...] Goal Zoster vaccine. Due on due Goal Hep C Screening. Due on due Goal Dental Exam. Due on 020 due Goal Tdap due Goal Glaucoma Exam. [...] Goal Pneumococcal vaccine. Due on due Goal Dietary manageme nt education, guidance, and counseling completed Goal Colonoscopy. Due on due Goal Lipid [...] Oc due Goal Lipid panel. Due on 023 [...] Goal Pneumococcal vaccine. Due on due Goal Dietary manageme [...] Goal Lipid panel. Due on due Goal Lipid panel. Due [...] Goal Lipid panel. Due on due Goal Lipid panel. Due [...] Glaucoma Referral. Due on No due Goal Influenza vaccine. Due on Oc due Goal Glaucoma Referral. Due on Oc due Goal FOBT. Due on due Goal Zoster vaccine. Due on due Goal Colonoscopy. Due on due Goal Dietary manageme nt education, guidance, and counseling completed Goal FOBT. Due on due Goal Zoster vaccine. Due on due Goal Influenza vaccine. Due on Oc due Goal Colonoscopy. Due on due Goal Glaucoma Referral. Due on Oc due Goal Glaucoma Referral. Due on due [...] Goal Abdominal ultrasound. Due on due Goal Colonoscopy. Due on [...] Ordered: Referrals: Hematology. [facility] Oncology. Location: T:[phone] F:[phone] ordered Referral Referred To: [facility] Ordered: Referrals: Ophthalmology. [facility]. Location: T: [phone] F: [phone]. Evaluate and treat ordered Referral Ordered: Colonoscopy, [...] located at: HomeThe Provider is located at: [facility](s) & role(s) of any other participant on the telehealth visit: TeleHealth The patient has verbally consented to participate in this Telehealth Visit and has been advised that co-payments, co-insurance, and/or deductibles may apply as subject to specific insurance plan regulations.The Patient is located at: HomeThe Provider is located at: [facility] & role(s) of any other [...] athing, using inhalers as prescribed. No smoking. Víctor to order pill packing. Denies cough, wheeze, [...] symptoms are chronic and are controlled. INRs manager long term care stable with mild fluctuations. Tolerates warfarin well. [...] 2 years denies vision changes. Eating mostly Frisian diet some fried. No junk or fast [...] symbacort, montelukast, cetirizine. No smoking. Denies cough. psoriasis The symptoms are reported as being [...] draws every 2 weeks at this point. constipation Additional infor harry: Improved. Moving bowels daily. Preventive exam Men's preventive visit. Here for CPE. No colonoscopy, FOBT. Feels well otherwise. Frisian diet, no greens, vision is okay sees [...] fried foods. No junk or fast food. eczema Using betamethas one for skin. Much improved, not waking with itching. USing some lotion at times. asthma The initial visi t date was [...] hard, dry. Brown, no blood or mucus. 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 Planning to find new PCP in [place]. Will manage anticoag until new PCP takes [...] off warfarin. Awaiting hematol consult to determine manager long term care anticoag plan. Related to History of pulmonary [...] Managed by derm. Related to Psor iasis manager long term care anticoagul ation for history of PE. Requesting change to anticoag regimen that doesn't require testing. Renal function normal, asymptomatic. INR 1.28 earlier this week. Change to apixiban. Refer to hematol for advice on manager long term care anticoagulation duration. Related to Other pulmonary embolism [...] for tomorrow at 9:30 AM with [id number] [facility] [address] [place], [place] [address]ijb. [phone] the pt a copy of his last [...] Related to Mixed hyperlipidemia Stable. Follow up [facility] jody as scheduled. 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 Review and agree with plan Gera Stacy, SOURCING MANAGER-BC Related to Body mass index (BMI) 27.0-27.9, [...] months at CPE. Related to Mixed hyperlipidemia Giving encouragement to exercise Related to Body mass index (BMI) 27.0-27.9, adult Dietary management e ducation, guidance, and [...] acute cor pulmonale Continue atorvastati n 20mg QHS, fish oil 2 tabs BID. Recheck fasting lipids. Review food choices, weight loss, phsyical activity, fried foods.RTC 4 mo. Related to Mixed hyperlipidemia Continue chronic ant icoagulation. HAs INR draw 05/27/15. Will adjust plan with INR. 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 He adamantly denies any oral issues, only [...]
== END 2024-05-02 13:22 | disposition home or self-care (01) ==
LOC: HO.LAB 13:21
PROVIDERS: PCP Nurse Practitioner Family; Visit Provider Pharmacist
DX: I26.99 Other pulmonary embolism without acute cor pulmonale (principal)
CPT/HCPCS: 36415; 85610

== ENCOUNTER 2024-05-17 13:28 | Outpatient (REF) | payer MEDICARE, MEDICAID, SELFPAY ==
[2024-05-17 14:29] LABS: INTERNATIONAL NORM RATIO 2.6 (0.9-1.1); Prothrombin Time 30.1 SEC (10.9-12.4)
--- OUTSIDE RECORDS SUMMARY | 2024-05-17 17:03 | XMS_ITS | Continuity of Care Document ---
Author Organization [facility] Address [address] [place] [address] Phone Care Team Providers Care Activities Director Name Role Phone Genet Spear PA-C Unavailable [...] as needed 200 MG - Active Lip Flint Natural - Active LIP KENYA BALM AP+ [...] Copied on Encounter [facility], [address] [place], [place], [address] , [place] tel:+ [phone] [facility] No Information 0 Vebber Genet. [address] [place], [place], [address], [place]. tel: [phone] [facility], [address] [place], [place], [address] , [place] tel:+ [phone] [facility] Long-term Use of Anticoagulant sPortal vein thrombosis 0 Vebber Genet. [address] [place], [place], [address], [place]. tel: [phone] [facility], [address] [place], [place], [address] , [place] tel:+ [phone] [facility] Long-term Use of Anticoagulant sPortal vein thrombosis 0 Dannie Shah. [address] [place], [place], [address], [place]. tel: [phone] OFFICE VISIT ESTAB PT 15 MIN [facility], [address] [place], [place], [address] , [place] tel:[phone] [facility] TeleHealth (chief complaint) Advice given about COVID-19 virus by telephoneMese nteric thrombosis 0 Dannie Shah. [address] [place], [place], [address], [place]. tel: [phone] [facility], [address] [place], [place], [address] , [place] tel:+ [phone] [facility] Long-term Use of Anticoagulant sPortal vein thrombosis 0 Dannie Shah. [address] [place], [place], [address], [place]. tel: [phone] [facility], [address] [place], [place], [address] , [place] tel:+ [phone] [facility] No Information Aug-0 0 Management Case. . Referring Provider: Gera Kumar, [address], [place], [address]. tel:+ [phone] [facility], [address], [place], [place], [address] , [place] tel:+ [phone] [facility] Long-term Use of Anticoagulant sPortal vein thrombosis 0 Philadelphiarick Edward. [address] [place], [place], [address], [place]. tel: [phone] [facility], [address], [place], [place], [address] , [place] tel:+ [phone] [facility] No Information 0 Management Case. . Referring Provider: Gera Kumar, [address], [place], [address]. tel: [phone] [facility], [address], [place], [place], [address] , [place] tel:+ [phone] [facility] Long-term Use of Anticoagulant sPortal vein thrombosisLon g-term Use of Anticoagulant sPortal vein thrombosis 0 [facility] Edward. [address] [place], [place], [address], [place]. tel: [phone] [facility], [address], [place], [place], [address] , [place] tel:+ [phone] [facility] Long-term Use of Anticoagulant sPortal vein thrombosis 0 0 Philadelphiarick Edward. [address] [place], [place], [address], [place]. tel: [phone] [facility], [address], [place], [place], [address] , [place] tel:[phone] [facility] Long-term Use of Anticoagulant sPortal vein thrombosis Jun-3 0-202 0 [facility] Edward. [address] [place], [place], [address], [place]. tel: [phone] [facility], [address], [place], [place], [address] , [place] tel: [phone] [facility] Long-term Use of Anticoagulant sPortal vein thrombosis Jun- 0 [facility] Pablo. [address] [place], [place], [address], [place]. tel: [phone] [facility], [address], [place], [place], [address] , [place] tel: [phone] [facility] No Information 0 Management Case. . Referring Provider: Gera Kumar, [address] [facility], [place], [address]. tel: [phone] [facility], [address], [place], [place], [address] , [place] tel: [phone] [facility] [employer] Long-term Use of Anticoagulant sPortal vein thrombosisLon g-term Use of Anticoagulant sPortal vein thrombosis 0 [facility]. [address] [place], [place], [address], [place]. tel: [phone] OFFICE VISIT ESTAB PT 15 MIN [facility], [address], [place], [place], [address] , [place] tel:+ [phone] TeleHealth Medical TeleHealth (chief complaint) Chronic constipationM esenteric thrombosisAst hma, persistent controlledAdv ice given about COVID-19 virus by telephone 0 [facility]. [address] [place], [place], [address], [place]. tel: [phone] Referring Provider: Gera Kumar, [address], [place], [address]. tel: [phone] [facility], [address], [place], [place], [address] , [place] tel: [phone] [facility] [employer] [address] [place], [place], [address], [place]. tel: [phone] [facility], [address], [place], [place], [address] , [place] tel:+ [phone] [facility] Long-term Use of Anticoagulant sPortal vein thrombosis Apr-0 9-202 0 Nikolas Hicks. [address] [place], [place], [address], [place]. tel:+ [phone] [facility], [address], [place], [place], [address] , [place] tel:[phone] [facility] No Information Apr-0 8-202 0 [facility] Edward. [address] [place], [place], [address], [place]. tel:+ [phone] [facility], [address], [place], [place], [address] , [place] tel:[phone] [facility] Long-term Use of Anticoagulant sPortal vein thrombosis Apr-0 3-202 0 [facility]. [address] [place], [place], [address], [place]. tel: [phone] [facility], [address], [place], [place], [address] , [place] tel:[phone] [facility] Long-term Use of Anticoagulant sPortal vein thrombosis Mar-2 6-202 0 [facility] Edward. [address] [place], [place], [address], [place]. tel: [phone] [facility], [address], [place], [place], [address] , [place] tel:[phone] [facility] No Information May-1 8-202 0 [facility] Edward. [address] [place], [place], [address], [place]. tel:+ [phone] [facility], [address], [place], [place], [address] , [place] tel:[phone] [facility] Long-term Use of Anticoagulant sPortal vein thrombosis Mar-1 0-202 0 [facility]. [address] [place], [place], [address], [place]. tel:+ [phone] [facility], [address], [place], [place], [address] , [place] tel:[phone] [facility] Long-term Use of Anticoagulant sPortal vein thrombosis Mar-0 3-202 0 [facility]. [address] [place], [place], [address], [place]. tel:+ [phone] [facility], [address], [place], [place], [address] , [place] tel:[phone] [facility] Long-term Use of Anticoagulant sPortal vein thrombosis 0 Giovanni Salguero. [address], [place], [place], [address], [place]. tel:+ [phone] [facility], [address], [place], [place], [address] , [place] tel:[phone] [facility] Long-term Use of Anticoagulant sPortal vein thrombosis 0 Dannie Silasjuliana. [address] [place], [place], [address], [place]. tel: [phone] [facility], [address], [place], [place], [address] , [place] tel:[phone] [facility] Long-term Use of Anticoagulant sPortal vein thrombosisLon g-term Use of Anticoagulant sPortal vein thrombosis 0 0 Tino Wagner. [address] [place], [place], [address], [place]. tel: [phone] [facility], [address], [place], [place], [address] , [place] tel:[phone] [facility] No Information 0 0 Quanburke Pablo. [address] [place], [place], [address], [place]. tel: [phone] [facility], [address], [place], [place], [address] , [place] tel:[phone] [facility] Long-term Use of Anticoagulant sPortal vein thrombosis 0 Dannie Pablo. [address] [place], [place], [address], [place]. tel: [phone] [facility], [address], [place], [place], [address] , [place] tel:[phone] [facility] Long-term Use of Anticoagulant sPortal vein thrombosis 0 Philadelphiaburke Shah. [address] [place], [place], [address], [place]. tel: [phone] OFFICE VISIT ESTAB PT 25 MIN [facility], [address], [place], [place], [address] , [place] tel:+ [phone] [facility] multiple problems (chief complaint) Essential (primary) hypertensionM esenteric thrombosisChr onic constipationU nspecified asthma, uncomplicated 0 Philadelphiaburke Shah. [address] [place], [place], [address], [place]. tel:[phone] Referring Provider: Gera Kumar, [address], [place], [address]. tel: [phone] [facility], [address], [place], [place], [address] , [place] tel:+ [phone] [facility] Long-term Use of Anticoagulant sPortal vein thrombosis 0 Philadelphiaburke Shah. [address] [place], [place], [address], [place]. tel: [phone] [facility], [address], [place], [place], [address] , [place] tel:+ [phone] [facility] Long-term Use of Anticoagulant sPortal vein thrombosis 9 Philadelphiaburke juliana. [address] [place], [place], [address], [place]. tel: [phone] [facility], [address], [place], [place], [address] , [place] tel:+ [phone] [facility] Long-term Use of Anticoagulant sPortal vein thrombosis 9 [facility]. [address] [place], [place], [address], [place]. tel: [phone] [facility], [address], [place], [place], [address] , [place] tel:[phone] [facility] Long-term Use of Anticoagulant sPortal vein thrombosis 0 9 [facility]. [address] [place], [place], [address], [place]. tel: [phone] [facility], [address], [place], [place], [address] , [place] tel: [phone] [facility] Long-term Use of Anticoagulant sPortal vein thrombosis 9 [facility]. [address] [place], [place], [address], . tel: [phone] [facility], [address], [place], [place], [address] , [place] tel: [phone] Counts Include [facility] Long-term Use of Anticoagulant sPortal vein thrombosis 9 [facility]. [address] [place], [place], [address], . tel: [phone] [facility], [address], [place], [place], [address] , [place] tel: [phone] [facility] Long-term Use of Anticoagulant sPortal vein thrombosis 9 [facility]. [address] [place], [place], [address], . tel: [phone] [facility], [address], [place], [place], [address] , [place] tel: [phone] [facility] Long-term Use of Anticoagulant sPortal vein thrombosis 9 [facility]. [address] [place], [place], [address], . tel: [phone] [facility], [address], [place], [place], [address] , [place] tel: [phone] Counts Include [facility] Long-term Use of Anticoagulant sPortal vein thrombosisLon g-term Use of Anticoagulant sPortal vein thrombosis 9 Cullion Robyn. [address], [place], [place], [address], [place]. tel: [phone] OFFICE VISIT ESTAB PT 15 MIN [facility], [address], [place], [place], [address] , [place] tel:+ [phone] [facility] multiple problems (chief complaint) Chronic vascular disorders of intestineAnti coagulation goal of INR 2 to 3Asthma, persistent controlledCon stipation, unspecified 9 [facility]. [address] [place], [place], [address], . tel: [phone] Referring Provider: Gera Kumar, [address], [place], [address]. tel: [phone] [facility], [address], [place], [place], [address] , [place] tel:+ [phone] [facility] Long-term Use of Anticoagulant sPortal vein thrombosis 9 [facility]. [address] [place], [place], [address], [place]. tel: [phone] [facility], [address], [place], [place], [address] , [place] tel:+ [phone] [facility] Long-term Use of Anticoagulant sPortal vein thrombosis Nov- 9 [facility]. [address] [place], [place], [address], [place]. tel: [phone] [facility], [address], [place], [place], [address] , US tel:+ [phone] [facility] Long-term Use of Anticoagulant sPortal vein thrombosis Nov- 9 [facility]. [address] [place], [place], [address], [place]. tel: [phone] [facility], [address], [place], [place], [address] , [place] tel:+ [phone] [facility] Long-term Use of Anticoagulant sPortal vein thrombosis Nov- 9 [facility]. [address] [place], [place], [address], [place]. tel: [phone] OFFICE VISIT ESTAB PT 15 MIN [facility], [address], [place], [place], [address] , [place] tel:+ [phone] [facility] Anticoagulati on (chief complaint) Chronic vascular disorders of intestineAnti coagulation goal of INR 2 to 3Long term (current) use of anticoagulant sAsthma, persistent controlled [facility]. [address] [place], [place], [address], [place]. tel:[phone] Referring Provider: Gera Kumar, [address] [facility], [place], [address]. tel: [phone] [facility], [address], [place], [place], [address] , [place] tel:+ [phone] [facility] Long-term Use of Anticoagulant sPortal vein thrombosis [facility]. [address] [place], [place], [address], [place]. tel:[phone] [facility], [address], [place], [place], [address] , [place] tel:+ [phone] [facility] Long-term Use of Anticoagulant sPortal vein thrombosis [facility]. [address] [place], [place], [address], [place]. tel:[phone] PREVENT VISIT EST 66+ [facility], [address], [place], [place], [address] , [place] tel:+ [phone] [facility] preventive exam (chief complaint) Essential (primary) hypertensionE ncounter for general adult medical examination with abnormal findingsAsthm a, persistent controlledMes enteric vein thrombosisUri nary frequencyCanc er screeningAden omatous polypPsoriasi s, unspecified [facility]. [address] [place], [place], [address], [place]. tel: [phone] Referring Provider: Gera Kumar, [address], [place], [address]. tel:[phone] OFFICE VISIT ESTAB PT 15 MIN [facility], [address], [place], [place], [address] , [place] tel:+ [phone] [facility] multiple problems (chief complaint) Psoriasis, unspecifiedHi story of pulmonary embolus (PE)Mixed hyperlipidemi aPolypharmacy Asthma, persistent controlled [facility]. [address] [place], [place], [address], [place]. tel:[phone] Referring Provider: Gera Kumar, [address] [facility], [place], [address]. tel: [phone] OFFICE VISIT ESTAB PT 25 MIN [facility], [address], [place], [place], [address] , [place] tel:+ [phone] [facility] Anticoagulati on (chief complaint) Other pulmonary embolism without acute cor pulmonalePsor iasisPolyphar boom 9 [facility]. [address] [place], [place], [address], [place]. tel:[phone] Referring Provider: Gera Kumar, [address] [facility], [place], [address]. tel: [phone] [facility], [address], [place], [place], [address] , [place] tel:+ [phone] [facility] Long-term Use of Anticoagulant s 9 Stacy Boss. [address], [address] [facility], [place], [place], [address], [place]. tel: [phone] [facility], [address], [place], [place], [address] , [place] tel:+ [phone] [facility] No Information 9 Stacy Boss. [address], [address] [facility], [place], [place], [address], [place]. tel: [phone] [facility], [address], [place], [place], [address] , [place] tel:[phone] [facility] Long-term Use of Anticoagulant s Jun-2 9 Stacy Boss. [address], [address] [facility], [place], [place], [address], [place]. tel: [phone] [facility], [address], [place], [place], [address] , US tel:+ [phone] [facility] Long-term Use of Anticoagulant s Jun-1 6-201 9 Stacy Boss. [address], [address], [place], [place], [address], [place]. tel:+ [phone] [facility], [address], [place], [place], [address] , [place] tel:[phone] [facility] Long-term Use of Anticoagulant s Apr-0 9-201 9 Stacy Boss. [address], [address], [place], [place], [address], [place]. tel:+ [phone] [facility], [address], [place], [place], [address] , [place] tel:[phone] [facility] Long-term Use of Anticoagulant s Apr-0 2-201 9 Giovanni Salguero. [address] [facility], [place], [place], [address], [place]. tel:[phone] [facility], [address], [place], [place], [address] , [place] tel:[phone] [facility] Long-term Use of Anticoagulant s Mar-2 5-201 9 Stacy Boss. [address], [address] [facility], [place], [place], [address], [place]. tel:+ [phone] [facility], [address], [place], [place], [address] , [place] tel:[phone] [facility] Long-term Use of Anticoagulant s Mar-2 0-201 9 Stacy Boss. [address], [address] [facility], [place], [place], [address], [place]. tel:+ [phone] [facility], [address], [place], [place], [address] , [place] tel:[phone] [facility] Long-term Use of Anticoagulant s Mar-0 8-201 9 Stacy Boss. [address], [address], [place], [place], [address], [place]. tel:[phone] [facility], [address], [place], [place], [address] , [place] tel:[phone] [facility] No Information Mar-0 6-201 9 Management Case. . Referring Provider: Gera Kumar, [address] [facility], [place], [address]. tel:[phone] [facility], [address], [place], [place], [address] , [place] tel:[phone] [facility] Long-term Use of Anticoagulant s 9 Stacy Boss. [address], [address] [facility], [place], [place], [address], [place]. tel:[phone] [facility], [address], [place], [place], [address] , [place] tel:[phone] [facility] Long-term Use of Anticoagulant s Apr- 9 Stacy Boss. [address], [address] [facility], [place], [place], [address], . tel:+ [phone] [facility], [address], [place], [place], [address] , [place] tel:[phone] [facility] Long-term Use of Anticoagulant s Apr- 9 Stacy Boss. [address], [address] [facility], [place], [place], [address], [place]. tel:+ [phone] [facility], [address], [place], [place], [address] , [place] tel:[phone] [facility] Long-term Use of Anticoagulant s 9 Stacy Boss. [address], [address] [facility], [place], [place], [address], [place]. tel:[phone] [facility], [address], [place], [place], [address] , [place] tel:[phone] [facility] No Information 9 Stacy Boss. [address], [address] [facility], [place], [place], [address], [place]. tel:[phone] OFFICE VISIT ESTAB PT 25 MIN [facility], [address], [place], [place], [address] , [place] tel:[phone] [facility] asthma (chief complaint) Body mass index (BMI) 25.0-25.9, adultUnspecif ied asthma, uncomplicated Chronic constipation 9 Stacy Boss. [address], [address] [facility], [place], [place], [address], [place]. tel:[phone] Referring Provider: Gera Kumar, [address] [facility], [place], [address]. tel: [phone] [facility], [address], [place], [place], [address] , [place] tel:[phone] [facility] Long-term Use of Anticoagulant s 9 Stacy Boss. [address], [address] [facility], [place], [place], [address], [place]. tel: [phone] [facility], [address], [place], [place], [address] , [place] tel: [phone] [facility] Long-term Use of Anticoagulant s 9 Management Case. . [facility], [address], [place], [place], [address] , [place] tel:[phone] [facility] Long-term Use of Anticoagulant s 8 Stacy Boss. [address], [address] [facility], [place], [place], [address], [place]. tel: [phone] OFFICE VISIT ESTAB PT 15 MIN [facility], [address], [place], [place], [address] , [place] tel:[phone] [facility] right eye bleeding (chief complaint) Body mass index (BMI) 25.0-25.9, adultUlcer of right corneaScleral hemorrhage of right eye Feb- 8 Stacy Boss. [address], [address] [facility], [place], [place], [address], [place]. tel: [phone] Referring Provider: Gera Kumar, [address] [facility], [place], [address]. tel: [phone] [facility], [address], [place], [place], [address]13 , [place] tel:[phone] [facility] Long-term Use of Anticoagulant s Dec-0 7-201 8 Cullion Robyn. [address], [address] [facility], [place], [place], [address], [place]. tel:+ [phone] [facility], [address], [place], [place], [address] , [place] tel:[phone] [facility] Long-term Use of Anticoagulant s Nov-0 9-201 8 Stacy Boss. [address], [address], [place], [place], [address], [place]. tel: [phone] [facility], [address], [place], [place], [address] , [place] tel:+ [phone] [facility] Long-term Use of Anticoagulant s Dec-2 5- 8 Stacy Boss. [address], [address] [facility], [place], [place], [address], [place]. tel: [phone] [facility], [address], [place], [place], [address] , [place] tel:[phone] [facility] Long-term Use of Anticoagulant s Dec-1 3-201 8 Stacy Boss. [address], [address] [facility], [place], [place], [address], [place]. tel:[phone] OFFICE VISIT ESTAB PT 25 MIN [facility], [address], [place], [place], [address] , [place] tel:[phone] [facility] psoriasis (chief complaint)ast hma (chief complaint) Body mass index (BMI) 25.0-25.9, adultMixed hyperlipidemi aUnspecified asthma, uncomplicated PsoriasisOthe r pulmonary embolism without acute cor pulmonale Dec-1 2-201 8 Stacy Boss. [address], [address] [facility], [place], [place], [address], [place]. tel:[phone] Referring Provider: Gera Kumar, [address], [place], [address]. tel: [phone] [facility], [address], [place], [place], [address] , [place] tel:[phone] [facility] Long-term Use of Anticoagulant s Oct-0 5-201 8 Stacy Boss. [address], [address] [place] [address], [address], [place]. tel:[phone] [facility], [address], [place], [place], [address] , [place] tel:[phone] [facility] Long-term Use of Anticoagulant s Oct-0 2-201 8 Stacy Boss. [address], [address] [facility], [place], [place], [address], [place]. tel:+ [phone] [facility], [address], [place], [place], [address] , [place] tel:[phone] [facility] Long-term Use of Anticoagulant s Sep-2 1-201 8 Stacy Boss. [address], [place] [address], [place], [place], [address], [place]. tel:+ [phone] [facility], [address], [place], [place], [address] , [place] tel:[phone] [facility] Long-term Use of Anticoagulant s Aug-2 3-201 8 Stacy Boss. [address], [address] [facility], [place], [place], [address], [place]. tel:+ [phone] [facility], [address], [place], [place], [address] , [place] tel:[phone] [facility] Long-term Use of Anticoagulant s Aug-0 9-201 8 Stacy Boss. [address], [address] [facility], [place], [place], [address], [place]. tel:+ [phone] [facility], [address], [place], [place], [address] , [place] tel:[phone] [facility] Long-term Use of Anticoagulant s Constantin-3 1-201 8 Stacy Boss. [address], [address] [facility], [place], [place], [address], [place]. tel:+ [phone] [facility], [address], [place], [place], 287[address]73 , [place] tel:[phone] [facility] Long-term Use of Anticoagulant s Constantin-2 5-201 8 Stacy Boss. [address], [address] [facility], [place], [place], [address], [place]. tel:+ [phone] [facility], [address], [place], [place], [address] , [place] tel:[phone] [facility] Long-term Use of Anticoagulant s Constantin-1 0-201 8 Stacy Boss. [address], [address] [facility], [place], [place], [address], [place]. tel:+ [phone] [facility], [address], [place], [place], [address] , [place] tel:[phone] [facility] Long-term Use of Anticoagulant s Constantin-0 5-201 8 Stacy Boss. [address], [address] [facility], [place], [place], [address], [place]. tel:+ [phone] [facility], [address], [place], [place], [address] , [place] tel:[phone] [facility] Long-term Use of Anticoagulant s Jadon-2 6-201 8 Stacy Boss. [address], [address] [facility], [place], [place], [address], [place]. tel:+ [phone] [facility], [address], [place], [place], [address]15 , [place] tel:[phone] [facility] Long-term Use of Anticoagulant s Jadon-2 0-201 8 Stacy Boss. [address], [address] [facility], [place], [place], [address], [place]. tel:+ [phone] [facility], [address], [place], [place], [address]40[address] , [place] tel:[phone] [facility] Long-term Use of Anticoagulant s Jadon-1 2-201 8 Stacy Boss. [address], [address] [facility], [place], [place], [address], [place]. tel:+ [phone] [facility], [address], [place], [place], 803[address] , [place] tel:[phone] [facility] Long-term Use of Anticoagulant s Jadon-0 1-201 8 Stacy Boss. [address], [address] [facility], [place], [place], [address], [place]. tel:+ [phone] [facility], [address], [place], [place], [address] , [place] tel:[phone] [facility] Long-term Use of Anticoagulant s July-1 7-201 8 Stacy Boss. [address], [address] [facility], [place], [place], [address], [place]. tel:+ [phone] [facility], [address], [place], [place], [address] , [place] tel:[phone] [facility] Long-term Use of Anticoagulant s July-0 4-201 8 Stacy Boss. [address], [address] [facility], [place], [place], [address], [place]. tel:+ [phone] [facility], [address], [place], [place], [address]86[address] , [place] tel:[phone] [facility] Long-term Use of Anticoagulant s Apr-2 6-201 8 Stacy Boss. [address], [address] [facility], [place], [place], [address], [place]. tel:+ [phone] [facility], [address], [place], [place], [address] , [place] tel:[phone] Formerly [facility] No Information Apr-2 4-201 8 Stacy Boss. [address], [address] [facility], [place], [place], [address], [place]. tel:+ [phone] [facility], [address], [place], [place], [address] , [place] tel:[phone] Formerly [facility] Long-term Use of Anticoagulant s Apr-1 9-201 8 Stacy Boss. [address], [address] [facility], [place], [place], [address], [place]. tel:+ [phone] [facility], [address], [place], [place], [address] , [place] tel:[phone] [facility]ly [facility] Long-term Use of Anticoagulant s Apr-1 3-201 8 Stacy Boss. [address], [address], [place], [place], [address], [place]. tel: [phone] [facility], [address], [place], [place], [address] , [place] tel:+ [phone] [facility]ly [facility] Long-term Use of Anticoagulant s Apr-0 8 Stacy Boss. [address], [address], [place], [place], [address], [place]. tel: [phone] [facility], [address], [place], [place], [address] , [place] tel:+ [phone] Formerly [facility] Long-term Use of Anticoagulant s May- 8 Management Case. . Referring Provider: Gera Kumar, [address] [facility], [place], [address]. tel: [phone] PREVENT VISIT EST 65+ [facility], [address], [place], [place], [address] , [place] tel:+ [phone] [facility] preventive exam (chief complaint)pso riasis (chief complaint)ast hma (chief complaint)ang icoagulation (chief complaint) Encntr for general adult medical exam w/o abnormal findingsBody mass index (BMI) 26.0-26.9, adultMixed hyperlipidemi aUnspecified asthma, uncomplicated Other pulmonary embolism without acute cor pulmonalePsor iasis May- 8 Stacy Boss. [address], [address] [facility], [place], [place], [address], [place]. tel: [phone] Referring Provider: Gera Kumar, [address] [facility], [place], [address]. tel: [phone] [facility], [address], [place], [place], [address] , [place] tel:[phone] [facility] Long-term Use of Anticoagulant s May- 8 Stacy Boss. [address], [address] [facility], [place], [place], [address], [place]. tel: [phone] [facility], [address], [place], [place], [address] , [place] tel:+ [phone] [facility] Long-term Use of Anticoagulant s Mar-0 9- 8 Stacy Boss. [address], [address] [facility], [place], [place], [address], . tel:+ [phone] [facility], [address], [place], [place], [address] , [place] tel:[phone] [facility] Long-term Use of Anticoagulant s Mar-0 1-201 8 Stacy Boss. [address], [address] [facility], [place], [place], [address], [place]. tel:+ [phone] [facility], [address], [place], [place], [address] , [place] tel:[phone] [facility] Long-term Use of Anticoagulant s Apr-2 - 8 Stacy Boss. [address], [address] [facility], [place], [place], [address], [place]. tel:+ [phone] [facility], [address], [place], [place], [address] , [place] tel:[phone] [facility] Long-term Use of Anticoagulant s Apr- 8 Stacy Boss. [address], [address] [facility], [place], [place], [address], [place]. tel:+ [phone] [facility], [address], [place], [place], [address] , US tel:[phone] [facility] Long-term Use of Anticoagulant s Mar- 6- 8 Stacy Boss. [address], [address] [facility], [place], [place], [address], [place]. tel:[phone] [facility], [address], [place], [place], [address] , [place] tel:[phone] [facility] Long-term Use of Anticoagulant s Mar-0 2-201 8 Management Case. . [facility], [address], [place], [place], [address] , [place] tel:[phone] [facility] Long-term Use of Anticoagulant s Dec-1 8-201 7 Stayc Boss. [address], [address] [facility], [place], [place], [address], [place]. tel:+ [phone] [facility], [address], [place], [place], [address] , [place] tel:[phone] [facility] Long-term Use of Anticoagulant s Dec-0 7-201 7 Stacy Boss. [address], [address] [facility], [place], [place], [address], [place]. tel:+ [phone] [facility], [address], [place], [place], [address] , [place] tel:[phone] [facility] Long-term Use of Anticoagulant s Nov-2 8-201 7 Stacy Boss. [address], [address] [facility], [place], [place], [address], [place]. tel:+ [phone] [facility], [address], [place], [place], [address] , [place] tel:[phone] [facility] Long-term Use of Anticoagulant s Oct-2 5-201 7 Stacy Boss. [address], [address] [facility], [place], [place], [address], [place]. tel:+ [phone] [facility], [address], [place], [place], [address] , [place] tel:[phone] [facility] Encounter for screening colonoscopy Oct-1 2-201 7 Stacy Boss. [address], [address] [facility], [place], [place], [address], [place]. tel:+ [phone] [facility], [address], [place], [place], [address] , US tel:[phone] [facility] Long-term Use of Anticoagulant s Oct-1 1-201 7 Stacy Boss. [address], [address] [facility], [place], [place], [address], [place]. tel:+ [phone] [facility], [address], [place], [place], [address] , US tel:[phone] [facility] Long-term Use of Anticoagulant s Oct-0 4-201 7 Stacy Boss. [address], [address] [facility], [place], [place], [address], [place]. tel:+ [phone] [facility], [address], [place], [place], [address] , US tel:[phone] [facility] No Information Dec-0 3 7 Management Case. . Referring Provider: Gera Kumar, [address] [facility], [place], [address]. tel:+ [phone] [facility], [address], [place], [place], [address] , [place] tel:+ [phone] [facility] Long-term Use of Anticoagulant s Nov-2 7 Stacy Boss. [address] [facility], [address] [facility], [place], [place], [address], [place]. tel:+ [phone] OFFICE VISIT ESTAB PT 25 MIN [facility], [address], [place], [place], [address] , [place] tel:[phone] [facility] asthma (chief complaint)hyp erlipidemia (chief complaint)chr onic anticoagulati on (chief complaint)Eye problems (chief complaint)pso riasis (chief complaint) Body mass index (BMI) 27.0-27.9, adultMixed hyperlipidemi aUnspecified asthma, uncomplicated Oth disrd of the skin and subcutaneous tissueLong-te rm Use of Anticoagulant sEye problemOther pulmonary embolism without acute cor pulmonale Nov-2 7 Stacy Boss. [address], [address] [facility], [place], [place], [address], [place]. tel:+ [phone] Referring Provider: Gera Kumar, [address] [facility], [place], [address]. tel:+ [phone] [facility], [address], [place], [place], [address] , [place] tel:[phone] [facility] Long-term Use of Anticoagulant s Sep-0 7 Stacy Boss. [address] [facility], [address] [facility], [place], [place], [address], [place]. tel: [phone] [facility], [address], [place], [place], [address] , US tel:[phone] [facility] Long-term Use of Anticoagulant s Aug-0 8-201 7 Stacy Boss. [address], [address] [facility], [place], [place], [address], [place]. tel: [phone] [facility], [address], [place], [place], [address] , US tel:[phone] [facility] Long-term Use of Anticoagulant s Sep-2 4-201 7 Stacy Boss. [address], [address] [facility], [place], [place], [address], [place]. tel: [phone] [facility], [address], [place], [place], [address] , US tel:[phone] [facility] Long-term Use of Anticoagulant s Sep-1 7-201 7 Stacy Boss. [address], [address] [facility], [place], [place], [address], [place]. tel: [phone] [facility], [address], [place], [place], [address] , US tel:[phone] [facility] Long-term Use of Anticoagulant s Sep-0 3-201 7 Stacy Boss. [address], [place] [address], [place], [place], [address], [place]. tel: [phone] [facility], [address], [place], [place], [address] , [place] tel:[phone] [facility] Long-term Use of Anticoagulant s Jadon-2 0-201 7 Stacy Boss. [address], [address] [facility], [place], [place], [address], [place]. tel: [phone] [facility], [address], [place], [place], [address] , US tel:[phone] [facility] Long-term Use of Anticoagulant s Jadon-1 3-201 7 Stacy Boss. [address], [address] [facility], [place], [place], [address], [place]. tel: [phone] [facility], [address], [place], [place], [address] , US tel: [phone] [facility] Long-term Use of Anticoagulant s 7 Stacy Boss. [address], [address], [place], [place], [address], [place]. tel: [phone] [facility], [address], [place], [place], [address] , US tel:+ [phone] [facility] Long-term Use of Anticoagulant s 7 [facility]. [address], [place], [address], [place]. tel: [phone] [facility], [address], [place], [place], [address] , [place] tel: [phone] Former[facility] Long-term Use of Anticoagulant s 7 Stacy Boss. [address], [address], [place], [place], [address], [place]. tel: [phone] [facility], [address], [place], [place], [address] , US tel: [phone] [facility] Long-term Use of Anticoagulant s 7 [facility]. [address], [place], [address], [place]. tel: [phone] [facility], [address], [place], [place], [address] , US tel:+ [phone] [facility] Long-term Use of Anticoagulant s 7 [facility]. [address], [place], [address], [place]. tel: [phone] [facility], [address], [place], [place], [address] , [place] tel:[phone] [facility] Encounter for dental exam and cleaning w/o abnormal findings 7 Patrick Ku. [address], [place], [address], [place]. tel: [phone] Referring Provider: Gera Kumar, [address] [facility], [place], [address]. tel:+ [phone] [facility], [address], [place], [place], [address] , [place] tel:[phone] [facility] Long-term Use of Anticoagulant s Apr-2 0-201 7 Stacy Boss. [address], [address] [facility], [place], [place], [address], [place]. tel:+ [phone] [facility], [address], [place], [place], [address] , US tel:[phone] [facility] Long-term Use of Anticoagulant s Apr-0 6-201 7 Stacy Boss. [address], [address] [facility], [place], [place], [address], [place]. tel:+ [phone] [facility], [address], [address] , [place] tel:[phone] [facility] Long-term Use of Anticoagulant s Mar-3 0-201 7 Stacy Boss. [address] [facility], [address] [facility], [place], [place], [address], [place]. tel:+ [phone] PREVENT VISIT EST 66+ [facility], [address], [place], [place], [address] , US tel:[phone] [facility] preventive exam (chief complaint)ast hma (chief [...] 7 Stacy Boss. [address], [address] [place] [address], [address], [place]. tel:+ [phone] Referring Provider: Gera Kumar, [address] [facility], [place], [address]. tel:[phone] [facility], [address], [place], [place], [address] , [place] tel:[phone] [facility] Long-term Use of Anticoagulant s Mar-1 6-201 7 Stacy Boss. [address], [address] [facility], [place], [place], [address], [place]. tel: [phone] [facility], [address], [place], [place], [address] , US tel:[phone] [facility] Long-term Use of Anticoagulant s Mar-0 9-201 7 Stacy Boss. [address], [address] [facility], [place], [place], [address], [place]. tel: [phone] [facility], [address], [place], [place], [address] , US tel:[phone] [facility] Long-term Use of Anticoagulant s Mar-0 3-201 7 Stacy Boss. [address], [address] [facility], [place], [place], [address], [place]. tel: [phone] [facility], [address], [place], [place], [address] , [place] tel:[phone] [facility] Long-term Use of Anticoagulant s Feb-1 0-201 7 Stacy Boss. [address], [address] [facility], [place], [place], [address], . tel: [phone] [facility], [address], [place], [place], [address] , [place] tel:[phone] [facility] Long-term Use of Anticoagulant s Feb-0 2-201 7 Stacy Boss. [address], [address] [facility], [place], [place], [address], [place]. tel: [phone] [facility], [address], [place], [place], [address] , US tel:[phone] [facility] Long-term Use of Anticoagulant s Mar-2 5-201 7 Stacy Boss. [address], [address] [facility], [place], [place], [address], [place]. tel:[phone] [facility], [address], [place], [place], [address] , [place] tel:[phone] [facility] Long-term Use of Anticoagulant s Reggie-1 2-201 7 Stacy Boss. [address], [address] [facility], [place], [place], [address], [place]. tel: [phone] [facility], [address], [place], [place], [address] , US tel:[phone] [facility] Long-term Use of Anticoagulant s Dec-1 5-201 6 Stacy Boss. [address], [address] [facility], [place], [place], [address], [place]. tel: [phone] [facility], [address], [place], [place], [address] , US tel:[phone] [facility] Long-term Use of Anticoagulant s Nov-3 0-201 6 Stacy Boss. [address], [address] [facility], [place], [place], [address], [place]. tel: [phone] [facility], [address], [place], [place], [address] , US tel:[phone] [facility] Long-term Use of Anticoagulant s Nov-1 8-201 6 Stacy Boss. [address], [address] [facility], [place], [place], [address], [place]. tel: [phone] [facility], [address], [place], [place], [address] , US tel:[phone] [facility] Long-term Use of Anticoagulant s Nov-1 0-201 6 Stacy Boss. [address], [address] [facility], [place], [place], [address], [place]. tel: [phone] [facility], [address], [place], [place], [address] , US tel:[phone] [facility] Long-term Use of Anticoagulant s Nov-0 3-201 6 Stacy Boss. [address], [address] [facility], [place], [place], [address], [place]. tel:+ [phone] OFFICE VISIT ESTAB PT 15 MIN [facility], [address], [place], [place], [address] , [place] tel:+ [phone] [facility] asthma (chief complaint) Unspecified asthma, uncomplicated Dec-2 0- 6 Stacy Boss. [address], [address] [facility], [place], [place], [address], . tel:+ [phone] Referring Provider: Gera Kumar, [address] [facility], [place], [address]. tel:+ [phone] [facility], [address], [place], [place], [address] , [place] tel:+ [phone] [facility] Long-term Use of Anticoagulant s Dec- 3- 6 Stacy Boss. [address], [address] [facility], [place], [place], [address], . tel:+ [phone] [facility], [address], [place], [place], [address] , [place] tel:[phone] [facility] Long-term Use of Anticoagulant s Dec-0 6- 6 Stacy Boss. [address], [address] [facility], [place], [place], [address], . tel:+ [phone] [facility], [address], [place], [place], [address] , [place] tel:[phone] [facility] Long-term Use of Anticoagulant s Nov- 6 Stacy Boss. [address], [address] [facility], [place], [place], [address], [place]. tel:+ [phone] [facility], [address], [place], [place], [address] , [place] tel:[phone] [facility] No Information Nov- 6 Management Case. . Referring Provider: Gera Kumar, [address] [facility], [place], [address]. tel:+ [phone] [facility], [address], [place], [place], [address] , [place] tel:[phone] [facility] Long-term Use of Anticoagulant s Sep-0 6 Stacy David. [address], [address] [facility], [place], [place], [address], . tel:+ [phone] [facility], [address], [place], [place], [address] , [place] tel:+ [phone] [facility] Long-term Use of Anticoagulant s 6 Stacy Boss. [address], [address] [facility], [place], [place], [address], [place]. tel:+ [phone] [facility], [address], [place], [place], [address] , US tel:+ [phone] [facility] No Information 6 Management Case. . Referring Provider: Gera Kumar, [address] [facility], [place], [address]. tel:+ [phone] [facility], [address], [place], [place], [address] , [place] tel:+ [phone] [facility] Long-term Use of Anticoagulant s 6 Stacy David. [address], [address] [facility], [place], [place], [address], . tel:+ [phone] [facility], [address], [place], [place], [address] , [place] tel:[phone] [facility] Long-term Use of Anticoagulant s 6 Stacy Boss. [address], [address] [facility], [place], [place], [address], [place]. tel:+ [phone] [facility], [address], [place], [place], [address] , [place] tel:[phone] [facility] No Information 6 Stacy Boss. [address], [address] [facility], [place], [place], [address], . tel:+ [phone] [facility], [address], [place], [place], [address] , [place] tel:[phone] [facility] Long-term Use of Anticoagulant s Jadon-3 0-201 6 Stacy Boss. [address], [address] [facility], [place], [place], [address], [place]. tel:+ [phone] [facility], [address], [place], [place], [address] , US tel:[phone] [facility] Long-term Use of Anticoagulant s Jadon-1 5-201 6 Stacy Boss. [address], [address] [facility], [place], [place], [address], [place]. tel:+ [phone] [facility], [address], [place], [place], [address] , US tel:[phone] [facility] Long-term Use of Anticoagulant s Jadon-0 2-201 6 Stacy Boss. [address], [address] [facility], [place], [place], [address], [place]. tel:+ [phone] [facility], [address], [place], [place], [address] , US tel:[phone] [facility] Long-term Use of Anticoagulant s July-1 9-201 6 Stacy Boss. [address], [address] [facility], [place], [place], [address], [place]. tel:+ [phone] [facility], [address], [place], [place], [address] , US tel:[phone] [facility] Long-term Use of Anticoagulant s July-1 1-201 6 Stacy Boss. [address], [address] [facility], [place], [place], [address], [place]. tel:+ [phone] [facility], [address], [place], [place], [address] , [place] tel:[phone] [facility] Long-term Use of Anticoagulant s May-0 5-201 6 Stacy Boss. [address], [address] [facility], [place], [place], [address], [place]. tel:+ [phone] [facility], [address], [place], [place], [address]24 , [place] tel:[phone] [facility] Long-term Use of Anticoagulant s Apr-2 1-201 6 Stacy Boss. [address], [address] [facility], [place], [place], [address], [place]. tel:+ [phone] [facility], [address], [place], [place], [address] , [place] tel:[phone] [facility] Hematuria Apr-1 3-201 6 Stacy Boss. [address], [address] [facility], [place], [place], [address], [place]. tel:+ [phone] [facility], [address], [place], [place], [address]874 , [place] tel:[phone] [facility] Long-term Use of Anticoagulant s Apr-1 2-201 6 Stacy Boss. [address], [address] [facility], [place], [place], [address]187, [place]. tel:+ [phone] [facility], [address], [place], [place], [address] , US tel:[phone] [facility] Long-term Use of Anticoagulant s Apr-0 5-201 6 Stacy Boss. [address], [address] [facility], [place], [place], [address], [place]. tel:[phone] [facility], [address], [place], [place], [address] , [place] tel:[phone] [facility] Hematuria May-2 4-201 6 Stacy Boss. [address], [address] [facility], [place], [place], [address], [place]. tel:+ [phone] PREVENT VISIT EST 66+ [facility], [address], [place], [place], [address]99 , [place] tel:[phone] [facility] Preventive exam (chief complaint)ast hma (chief complaint)hyp erlipidemia (chief complaint)ant icoagulation (chief complaint) Encntr for general adult medical exam w/o abnormal findingsBody mass index (BMI) 28.0-28.9, adultPsoriasi sMixed hyperlipidemi aChronic vascular disorders of intestineUnsp ecified asthma, uncomplicated Other pulmonary embolism without acute cor pulmonale May-2 2-201 6 Stacy Boss. [address], [address] [facility], [place], [place], [address], [place]. tel:+ [phone] Referring Provider: Gera Kumar, [address] [facility], [place], [address]. tel:+ [phone] [facility], [address], [place], [place], [address] , [place] tel:[phone] [facility] Long-term Use of Anticoagulant s Mar-1 5-201 6 Stacy Boss. [address], [address] [facility], [place], [place], [address]97[address], [place]. tel:+ [phone] [facility], [address], [place], [place], [address]20 , US tel:[phone] [facility] Long-term Use of Anticoagulant s May-0 8 6 Stacy Boss. [address], [address] [facility], [place], [place], [address], [place]. tel:+ [phone] [facility], [address], [place], [place], 409[address]188 , US tel:[phone] [facility] Long-term Use of Anticoagulant s Mar- 6 Stacy Boss. [address], [address] [facility], [place], [place], [address]82, [place]. tel:+ [phone] [facility], [address], [place], [place], 6[address]12 , US tel:[phone] [facility] Long-term Use of Anticoagulant s Mar- 9201 6 Stacy Boss. [address], [address] [facility], [place], [place], [address], [place]. tel:+ [phone] [facility], [address], [place], [place], [address]19 , US tel:[phone] [facility] Long-term Use of Anticoagulant s Feb-2 201 5 Stacy Boss. [address], [address] [facility], [place], [place], [address]79, [place]. tel:+ [phone] [facility], [address], [place], [place], [address]117 , US tel:+ [phone] [facility] Long-term Use of Anticoagulant sLong-term Use of Anticoagulant s Dec-0 1-201 5 Nurse [facility]. [address], [place], [place], [address]. tel: [facility], [address], [place], [place], [address]39 , [place] tel:+ [phone] [facility] Long-term Use of Anticoagulant s Nov-2 4-201 5 Stacy Boss. [address], [address] [facility], [place], [place], [address], [place]. tel: [phone] [facility], [address], [place], [place], [address]12 , US tel:+ [phone] [facility] Long-term Use of Anticoagulant s Nov-1 0-201 5 Stacy Gera. [address], [address] [place] [address], [address], [place]. tel: [phone] [facility], [address], [place], [place], [address] , [place] tel:+ [phone] [facility] Long-term Use of Anticoagulant s Nov-0 3-201 5 Rubio Mendes. [address], [place], [address], [place]. tel: [phone] [facility], [address], [place], [place], [address] , US tel:+ [phone] [facility] Long-term Use of Anticoagulant s Oct-0 7-201 5 Stacy Boss. [address], [address] [facility], [place], [place], [address], [place]. tel: [phone] [facility], [address], [place], [place], [address]0033 , US tel:+ [phone] [facility] No Information Oct-0 2-201 5 Management Case. . Referring Provider: Gera Kumar, [address] [facility], [place], [address]. tel: [phone] [facility], [address], [place], [place], [address]16 , [place] tel:+ [phone] [facility] Long-term Use of Anticoagulant s Nov- 5 Stacy Boss. [address], [address] [facility], [place], [place], [address]51, . tel: [phone] [facility], [address], [place], [place], [address] , US tel:+ [phone] [facility] No Information Nov- 5 Management Case. . Referring Provider: Gera Kumar, [address] [facility], [place], [address]. tel: [phone] [facility], [address], [place], [place], [address]3967 , [place] tel:+ [phone] [facility] Long-term Use of Anticoagulant s Nov-0 5 Stacy Boss. [address] [facility], [place] [address], [place], [place], [address], . tel: [phone] OFFICE VISIT ESTAB PT 25 MIN [facility], [address], [place], [place], [address] , [place] tel:+ [phone] [facility] hyperlipidemi a (chief complaint)abel h (chief complaint) Unspecified keratitisMixe d hyperlipidemi aAcute vascular insufficiency of intestineOthe r pulmonary embolism and infarctionFoo d allergyLong-t erm Use of Anticoagulant s 5 Stacy Boss. [address] [facility], [place] [address], [place], [place], [address], . tel: [phone] Referring Provider: Gera Kumar, [address] [facility], [place], [address]. tel: [phone] [facility], [address], [place], [place], [address]8764 , [place] tel:+ [phone] [facility] Long-term Use of Anticoagulant s Oct- 5 Stacy Boss. [address], [address] [facility], [place], [place], [address], . tel: [phone] [facility], [address], [place], [place], [address] , [place] tel:+ [phone] [facility] Long-term Use of Anticoagulant s 5 Stacy Boss. [address], [address] [facility], [place], [place], [address], . tel: [phone] [facility], [address], [place], [place], [address] , [place] tel:+ [phone] [facility] No Information 5 Management Case. . Referring Provider: Gera Kumar, [address] [facility], [place], [address]. tel: [phone] [facility], [address], [place], [place], [address] , [place] tel:[phone] Formerly [facility] Long-term Use of Anticoagulant s 5 Stacy Boss. [address], [place] [address], [place], [place], [address], . tel: [phone] [facility], [address], [place], [place], [address] , [place] tel:[phone] Formerly [facility] Long-term Use of Anticoagulant s 5 Stacy Boss. [address], [address] [facility], [place], [place], [address], [place]. tel: [phone] [facility], [address], [place], [place], [address] , [place] tel:[phone] [facility] Long-term Use of Anticoagulant s 5 Giovanni Salguero. [address] [place], [place], [address], [place]. tel: [phone] [facility], [address], [place], [place], [address] , [place] tel:[phone] Formerly [facility] Long-term Use of Anticoagulant s 5 Dannie Shah. [address] [place], [place], [address], [place]. tel: [phone] [facility], [address], [place], [place], [address] , [place] tel:[phone] Formerly [facility] No Information 5 Management Case. . Referring Provider: Gera Kumar, [address] [facility], [place], [address]. tel:[phone] [facility], [address], [place], [place], [address] , [place] tel:[phone] [facility]ly [facility] Long-term Use of Anticoagulant s 5 Stacy Boss. [address], [address] [facility], [place], [place], [address], [place]. tel:[phone] [facility], [address], [place], [place], [address] , [place] tel:[phone] Formerly [facility] Long-term Use of Anticoagulant s 5 Stacy Boss. [address] [facility], [place] [address], [place], [place], [address], . tel:[phone] [facility], [address], [place], [place], [address] , [place] tel:[phone] Formerly [facility] Long-term Use of Anticoagulant s 5 Stacy Boss. [address] [facility], [place] [address], [place], [place], [address], . tel:[phone] [facility], [address], [place], [place], [address] , [place] tel:[phone] Formerly [facility] Long-term Use of Anticoagulant s 5 Stacy Boss. [address] [facility], [place] [address], [place], [place], [address], [place]. tel:[phone] PREVENT VISIT EST 65+ [facility], [address], [place], [place], [address] , [place] tel:[phone] [facility] Preventive exam (chief complaint)ast hma (chief complaint)ecz taqueria (chief complaint)hyp erlipidemia (chief complaint)ant icoagulation (chief complaint)con stipation (chief complaint) ROUTINE MEDICAL EXAMUnspecifi ed keratitisMixe d hyperlipidemi aAcute vascular insufficiency of intestineAsth ma, unspecified 9-201 5 Stacy Boss. [address], [address] [facility], [place], [place], [address], [place]. tel:[phone] Referring Provider: Gera Kumar, [address], [place], [address]. tel:[phone] [facility], [address], [place], [place], [address] , [place] tel:[phone] Formerly [facility] Long-term Use of Anticoagulant s 3- 5 Stacy Boss. [address], [address] [facility], [place], [place], [address], [place]. tel:[phone] [facility], [address], [place], [place], [address] , [place] tel:[phone] [place] [employer] Long-term Use of Anticoagulant s Apr- 7 5 Management Case. . [facility], [address], [place], [place], [address] , [place] tel:[phone] Formerly [facility] Long-term Use of Anticoagulant s 5 Stacy Boss. [address], [address] [facility], [place], [place], [address], [place]. tel:[phone] [facility], [address], [place], [place], [address] , [place] tel:[phone] [facility] Long-term Use of Anticoagulant s Apr-0 - 5 Stacy Boss. [address], [address] [facility], [place], [place], [address], [place]. tel:[phone] [facility], [address], [place], [place], [address] , [place] tel:[phone] [facility] Long-term Use of Anticoagulant s 0- 5 Stacy Boss. [address], [address] [facility], [place], [place], [address], [place]. tel:[phone] [facility], [address], [place], [place], [address] , [place] tel:[phone] Former[facility] Long-term Use of Anticoagulant s 5 Stacy Boss. [address], [address] [facility], [place], [place], [address], . tel: [phone] [facility], [address], [place], [place], [address] , [place] tel:[phone] [facility] Long-term Use of Anticoagulant s 5 Stacy Boss. [address], [address] [facility], [place], [place], [address], [place]. tel: [phone] OFFICE VISIT ESTAB PT 15 MIN [facility], [address], [place], [place], [address] , [place] tel:[phone] [facility] asthma (chief complaint)Hyp erlipidemia (chief complaint)Abel h (chief complaint) Unspecified keratitisMixe d hyperlipidemi aAsthma, unspecified Feb-3 0 4 Stacy Boss. [address], [place] [address], [place], [place], [address], . tel:[phone] Referring Provider: Gera Kumar, [address] [facility], [place], [address]. tel: [phone] [facility], [address], [place], [place], [address] , [place] tel:[phone] [facility] Long-term Use of Anticoagulant s 4 Giovanni Salguero. [address] [place], [place], [address], [place]. tel: [phone] [facility], [address], [place], [place], [address] , [place] tel:[phone] [facility] Long-term Use of Anticoagulant s Feb- 4 Stacy Boss. [address], [place] [address], [place], [place], [address], [place]. tel: [phone] [facility], [address], [place], [place], [address] , [place] tel:[phone] [facility] Long-term Use of Anticoagulant s 4 Stacy Boss. [address], [address] [facility], [place], [place], [address], . tel: [phone] [facility], [address], [place], [place], [address] , [place] tel:[phone] [facility] Long-term Use of Anticoagulant s 4 Stacy Boss. [address] [facility], [place] [address], [place], [place], [address], [place]. tel:[phone] [facility], [address], [place], [place], [address] , [place] tel:[phone] [facility] No Information Management Case. . Referring Provider: Gera Kumar, [address] [place] [address], [place], [address]. tel:[phone] OFFICE VISIT ESTAB PT 15 MIN [facility], [address], [place], [place], [address] , [place] tel:[phone] [facility] constipation (chief complaint) Constipation 4 Stacy Boss. [address] [facility], [place] [address], [place], [place], [address], . tel:[phone] Referring Provider: Gera Kumar, [address] [place] [address], [place], [address]. tel:[phone] OFFICE VISIT ESTAB PT 15 MIN [facility], [address], [place], [place], [address] , [place] tel:[phone] [facility] Follow Up of asthma (chief complaint)hyp erlipidema (chief complaint) AsthmaOther psoriasis and similar disordersMixe d Hyperlipidemi aIatrogenic pulmonary embolism and infarction 4 Stacy Boss. [address] [facility], [place] [address], [place], [place], [address], . tel:[phone] Referring Provider: Gera Kumar, [address] [place] [address], [place], [address]. tel: [phone] [facility], [address], [place], [place], [address] , [place] tel: [phone] [facility] No Information Management Case. . Referring Provider: Gera Kumar, [address] [facility], [place], [address]. tel: [phone] [facility], [address] [place], [place], [address] , [place] tel: [phone] [facility] No Information Management Case. . Referring Provider: Gera Kumar, [address], [place], [address]. 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 [address] [place], [place], [address]. tel: Referring Provider: Gera Kumar, [address] [facility], [place], [address]. tel: [phone] PREVENT VISIT EST 65+ [facility], [address] [place], [place], [address] , [place] tel: [phone] [facility] preventive exam (chief complaint)cou gh/wheezing (chief complaint)Pso riasis (chief complaint) AsthmaAbdomin al PainNeed for prophylactic vaccination and inoculation against viralhepatiti Traci FOR PROPHYLACTIC VACCINATION WITH COMBINED DIPHTHERIA-TE TANUS-PERTUSS IS (DTP) (DTAP) VACCINEVisit for preventive health examinationDy suriaOther psoriasis and similar disordersRout ine Medical Exam 4 Stacy Boss. [address], [address] [facility], [place], [place], [address], [place]. tel: [phone] Referring Provider: Gera Kumar, [address] [facility], [place], [address]. tel: [phone] OFFICE VISIT ESTAB PT 15 MIN [facility], [address] [place], [place], [address] , [place] tel:[phone] [facility] Follow Up of asthma (chief complaint) AsthmaLong-te rm Use of Anticoagulant sOther psoriasis and similar disorders 4 Stacy Boss. [address], [address] [facility], [place], [place], [address], [place]. tel: [phone] Referring Provider: Gera Kumar, [address] [facility], [place], [address]. tel: [phone] OFFICE VISIT ESTAB PT 15 MIN [facility], [address], [place], [place], [address] , [place] tel:[phone] [facility] cough (chief complaint) Asthma Feb- 3 Stacy Boss. [address] [facility], [address] [facility], [place], [place], [address], [place]. tel: [phone] Referring Provider: Gera Kumar, [address] [facility], [place], [address]. tel: [phone] [facility], [address], [place], [place], [address] , [place] tel:[phone] [facility] No Information Feb- 3 Management Case. . Referring Provider: Gera Kumar, [address] [facility], [place], [address]. tel: [phone] [facility], [address], [place], [place], [address] , [place] tel:[phone] [facility] Pulmonary embolus, right Sep-0 3 Management Case. . Referring Provider: Gera Kumar, [address], [place], [address]. tel: [phone] [facility], [address], [place], [place], [address] , [place] tel:[phone] [facility] No Information 3 Management Case. . Referring Provider: Gera Kumar, [address], [place], [address]. tel: [phone] [facility], [address], [place], [place], [address] , [place] tel:[phone] [facility] Iatrogenic pulmonary embolism and infarction Management Case. . Referring Provider: Gera Kumar, [address], [place], [address]. tel: [phone] [facility], [address], [place], [place], [address] , [place] tel:[phone] [facility] [employer] No Information 3 Management Case. . Referring Provider: [facility] [address] [place], [address]. tel:[phone] OFFICE VISIT ESTAB PT 25 MIN [facility], [address], [place], [place], [address] , [place] tel:[phone] [facility] rash (chief complaint)cou madin (chief complaint) Other psoriasis and similar disordersChro yin anticoagulati on Stacy Boss. [address], [address], [place], [place], [address], [place]. tel: [phone] Referring Provider: Gera Kumar, [address], [place], [address]. tel: [phone] [facility], [address], [place], [place], [address] , [place] tel:[phone] [facility] [employer] No Information 3 Management Case. . Referring Provider: Isabell [facility] [address] [place], [address]. tel: [phone] [facility], [address], [place], [place], [address] , [place] tel:[phone] [place] [employer] No Information Management Case. . Referring Provider: Isabell [facility] [address] [place], [address]. tel:[phone] PREVENT VISIT EST 65+ [facility], [address], [place], [place], [address] , [place] tel:+ [phone] [facility] physical exam (chief complaint)pavithra k pain (chief complaint) Routine Medical ExamRoutine Medical ExamMixed Hyperlipidemi aGERDAcute vascular insufficiency of intestineOthe r psoriasis and similar disordersRout ine Medical Exam 0 2 Stacy Boss. [address], [address], [place], [place], [address], [place]. tel: [phone] Referring Provider: Gera Kumar, [address], [place], [address]. tel: [phone] [facility], [address], [place], [place], [address] , [place] tel: [phone] [facility] No Information 2 Management Case. . Referring Provider: Isabell [facility] [address] [place], [address]. tel: [phone] [facility], [address], [place], [place], [address] , [place] tel:[phone] Former[facility] Long-term Use of Anticoagulant s 2 Quinteros Zoë. [address] [place], [place], [address]. tel: [phone] [facility], [address], [place], [place], [address] , [place] tel:+ [phone] [facility] Acute vascular insufficiency of intestineAcut e vascular insufficiency of intestine 2 Samir [facility], [address] [place], [address], [place]. tel: [phone] [facility], [address], [place], [place], [address] , [place] tel:+ [phone] [facility] No Information 2 Management Case. . Referring Provider: Isabell [facility] [address] [place], [address]. tel:[phone] OFFICE VISIT ESTAB PT 25 MIN [facility], [address], [place], [place], [address] , [place] tel:+ [phone] [facility] hypertension (chief complaint) Iatrogenic pulmonary embolism and infarctionIat rogenic pulmonary embolism and infarctionUns pecified essential hypertensionA llergic rhinitis, cause unspecified 2 [facility], [address] [place] [place], [facility], [place]. tel:[phone] Referring Provider: Isabell [facility] [address] [place] [address]. tel:[phone] OFFICE VISIT ESTAB PT 15 MIN [facility], [address], [place], [place], [address] , [place] tel:+ [phone] [facility] er (chief complaint) Iatrogenic pulmonary embolism and infarctionIat rogenic pulmonary embolism and infarctionAcu te vascular insufficiency of intestineGERD 2 [facility], [address] [place], [facility], [place]. tel:[phone] Referring Provider: Isabell [facility] [address] [place], [facility]. tel:[phone] [facility], [address], [place], [place], [address] , [place] tel:+ [phone] [facility] No Information 2 Management Case. . Referring Provider: Isabell [facility] [address] [place], [facility]. tel:[phone] OFFICE VISIT ESTAB PT 25 MIN [facility], [address], [place], [place], [address] , [place] tel:+ [phone] [facility] back pain (chief complaint) Allergic rhinitis, cause unspecifiedLu mbagoAllergic rhinitis, cause unspecified 1 [facility], [address] [place] [address], [place]. tel: [phone] Referring Provider: Isabell [facility] [address] [place] [address]. tel:[phone] [facility], [address], [place], [place], [address] , [place] tel:+ [phone] [employer] No Information 1 [facility], [address] [place], [facility], [place]. tel:[phone] OFFICE VISIT ESTAB PT 25 MIN [facility], [address], [place], [place], [address] , [place] tel: [phone] [employer] asthma (chief complaint) Other psoriasis and similar disordersAlle rgic rhinitis, cause unspecified 1 [facility], [address] [place], [facility], [place]. tel:[phone] Referring Provider: Isabell [facility] [address] [place], [facility]. tel:[phone] [facility], [address], [place], [place], [address] , [place] tel: [phone] [employer] No Information 1 Management Case. . OFFICE VISIT ESTAB PT 25 MIN [facility], [address], [place], [place], [address] , [place] tel:+ [phone] [employer] cough (chief complaint) Viral syndromeViral Infection, Unspecified 0 [facility], [address] [place], [facility], [place]. tel:[phone] [facility], [address], [place], [place], [address] , [place] tel:+ [phone] [employer] No Information 0 Management Case. . OFFICE VISIT ESTAB PT 25 MIN [facility], [address], [place], [place], [address] , [place] tel:+ [phone] [employer] allergies (chief complaint) Allergic rhinitis, cause unspecified 0 [facility], [address] [place], [facility], [place]. tel: [phone] OFFICE/OUTPA TIENT VISIT, EST [facility], [address], [place], [place], [address] , [place] tel:+ [phone] [facility] cough (chief complaint)con stipation (chief complaint)bur ping (chief complaint) Allergic rhinitis, cause unspecifiedGE RDDermatophyt osis of unspecified site 0 [facility], [address] [place], [facility], . tel: [phone] OFFICE VISIT ESTAB PT 25 MIN [facility], [address] [place], [address] , [place] tel: [phone] [facility] BP check (chief complaint) Elevated blood pressure reading without diagnosis of hypertensionO ther psoriasis and similar disorders 9 [facility], [address] [place], [facility], . tel: [phone] OFFICE VISIT ESTAB PT 25 MIN [facility], [address] [place], [address] , [place] tel: [phone] [facility] cold symptoms (chief complaint) Other psoriasis and similar disordersUrin florencia tract infection, site not specifiedElev ated blood pressure reading without diagnosis of hypertension 9 [facility], [address] [place], [facility], . tel:[phone] Referring Provider: Isabell [facility] [address] [place], [facility]. tel: [phone] OFFICE VISIT ESTAB PT 15 MIN [facility], [address], [place], [place], [address] , [place] tel:+ [phone] [facility] cough (chief complaint) Acute bronchitisAcu te upper respiratory infections of unspecified site 9 Samir Johnson. [address] [place], [address]. tel:[phone] OFFICE VISIT ESTAB PT 15 MIN [facility], [address], [place], [place], [address] , [place] tel:+ [phone] [facility] No Information 8 [facility], [address] [place], [address], [place]. tel:[phone] [facility], [address] [place], [place], [address] , tel: [phone] [facility] Allergic rhinitis, cause unspecifiedEs ophageal refluxDermato phytosis of unspecified site 8 [facility], [address] [place], [address], [place]. tel:[phone] Family History Family Member Type Diagnosis Age [...] Record Payers Payer name Insurance type Covered republican ID Authoriza tion(s) [employer] [place] [id number] [place] [place] [id number] [place] [place] [id number] [place] [id number] [place] [id number] Social History Type Description Quantity Date Captured [...] Zoster vaccine (1st). Due on due Goal Dental Exam. Due [...] Goal Dental Exam. Due on due Goal Dental Exam. [...] Goal Colonoscopy. Due on 027 due Goal Lipid panel. Due on due [...] Goal Colonoscopy. Due on 027 due Goal Tdap due Goal Dental Exam. [...] on due Goal Dental Exam. Due on 019 due Goal Hep C Screening. Due on [...] completed Goal Colonoscopy. Due on due Goal Zoster [...] on Oc due Goal Tdap due Goal Colonoscopy. Due [...] counseling completed Goal Lipid panel. Due on 024 due Goal H&P. Due on due Goal Influenza vaccine. Due on Oc due Goal Zoster vaccine. Due on due Goal Pneumococcal vaccine. Due on due Goal Tdap due Goal Depression screening. Due on due Goal Glaucoma Exam. Due on due Goal Colonoscopy. Due on 027 due Goal Influenza vaccine. Due on Oc due Goal Tdap due Goal H&P. Due on due Goal Zoster vaccine. Due on due Goal Glaucoma Exam. Due on due Goal Depression screening. Due on due Goal Pneumococcal vaccine. Due on due Goal Lipid panel. Due on 023 due Goal Tdap due Goal Depression screening. Due on due Goal Glaucoma Exam. Due on due Goal Zoster vaccine. Due on due Goal Influenza vaccine. Due on Oc due Goal Lipid panel. Due on 023 due Goal H&P. Due on due Goal Pneumococcal vaccine. Due on due Goal Colonoscopy. Due on 027 due Goal Influenza vaccine. Due on Oc [...] on due Goal Influenza vaccine. Due on Ap due Goal H&P. Due on due Goal [...] Glaucoma Referral. Due on No due Goal Zoster vaccine. Due on due Goal FOBT. Due on due Goal Influenza vaccine. Due on No due Goal Colonoscopy. Due [...] Glaucoma Referral. Due on Oc due Goal Dietary manageme [...] due Goal Colonoscopy. Due on due Goal Abdominal ultrasound. Due [...] Ordered: Referrals: Hematology. Hematology & Oncology. Location: T:[phone] [phone] ordered Referral Referred To: [facility] Ordered: Referrals: Ophthalmology. [facility]. Location: T: [phone] F: [phone]. Evaluate and treat ordered Referral Ordered: Colonoscopy, [...] located at: HomeThe Provider is located at: [facility] CenterThe name(s) & role(s) of any other participant on the telehealth visit: TeleHealth The patient has verbally consented to participate in this Telehealth Visit and has been advised that co-payments, co-insurance, and/or deductibles may apply as subject to specific insurance plan regulations.The Patient is located at: HomeThe Provider is located at: [facility] name(s) & role(s) of any other participant [...] symptoms are chronic and are controlled. INRs prison stable with mild fluctuations. Tolerates warfarin well. [...] 2 years denies vision changes. Eating mostly Croatian diet some fried. No junk or fast [...] CPE. No colonoscopy, FOBT. Feels well otherwise. Croatian diet, no greens, vision is okay sees [...] fried foods. No junk or fast food. Rash The patient pres ents for Rash. Additional information: Followed by derm for psoriasis on upper and lower extremities. Using triamcinlone 2x daily. asthma The initial visi t date was [...] hard, dry. Brown, no blood or mucus. 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 Planning to find new PCP in [place]. Will manage anticoag until new PCP takes [...] off warfarin. Awaiting hematol consult to determine prison anticoag plan. Related to History of pulmonary [...] apixiban. Refer to hematol for advice on prison anticoagulation duration. Related to Other pulmonary embolism [...] for tomorrow at 9:30 AM with [id number] [address], [place] [address]. [phone] the pt a copy of his last [...] Related to Mixed hyperlipidemia Stable. Follow up [facility] as scheduled. 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 Review and agree with plan Gera Stacy, MOTOR VEHICLE COMPLIANCE ANALYST-BC Related to Body mass index (BMI) 27.0-27.9, [...] to Body mass index (BMI) 28.0-28.9, adult As above. Related to Other pulmonary embolism without acute cor pulmonale Continue sinulair, c etirizine, albuterol, pulmacort daily.Review med use, inhalers, trigger avoidance. Review pulmo red flags, when to go to ER. Recheck 4 mo. Related to Unspecified asthma, uncomplicated Continue chronic ant icoagulation. HAs INR draw [...] of intestine Refuses offer to go see psychology technician. He adamantly denies any oral issues, only [...]
== END 2024-05-17 13:29 | disposition home or self-care (01) ==
LOC: HO.LABR 13:28
PROVIDERS: PCP Nurse Practitioner Family; Visit Provider Pharmacist
DX: I26.99 Other pulmonary embolism without acute cor pulmonale (principal)
CPT/HCPCS: 36415; 85610

== ENCOUNTER 2024-06-21 11:47 | Outpatient (REF) | payer MEDICARE, MEDICAID, SELFPAY ==
[2024-06-21 12:15] LABS: Prothrombin Time 35.3 SEC (10.9-12.4)
--- OUTSIDE RECORDS SUMMARY | 2024-06-21 14:45 | XMS_ITS | Continuity of Care Document ---
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 [address], [place], [address], [place]. tel: [phone] [facility], [address] [place], [place], [address] , [place] tel:+ [phone] [facility] Long-term Use of Anticoagulant sPortal vein thrombosis 0 Vebber Genet. [address], [place], [address], [place]. tel: [phone] [facility], [address] [place], [place], [address] , [place] tel:+ [phone] [facility] Long-term Use of Anticoagulant sPortal vein thrombosis 0 Dannie Shah. [address], [place], [address], [place]. tel: [phone] OFFICE VISIT ESTAB PT 15 MIN [facility], [address] [place], [place], [address] , [place] tel:[phone] [facility] Tele[facility] (chief complaint) Advice given about COVID-19 virus by telephoneMese nteric thrombosis 0 Dannie Shah. [address], [place], [address], [place]. tel: [phone] [facility], [address] [place], [place], [address] , [place] tel:+ [phone] [facility] Long-term Use of Anticoagulant sPortal vein thrombosis 0 Dannie Shah. [address], [place], [address], [place]. tel: [phone] [facility], [address] [place], [place], [address] , [place] tel:+ [phone] [facility] No Information Aug-0 0 Management Case. . Referring Provider: Gera Kumar, [address], [place], [address]. tel:+ [phone] [facility], [address], [place], [place], [address] , [place] tel:+ [phone] [facility] Long-term Use of Anticoagulant sPortal vein thrombosis 0 Claytonrick Edward. [address], [place], [address], [place]. tel: [phone] [facility], [address], [place], [place], [address] , [place] tel:+ [phone] [facility] No Information 0 Management Case. . Referring Provider: Gera Kumar, [address], [place], [address]. tel: [phone] [facility], [address], [place], [place], [address] , [place] tel:+ [phone] [facility] Long-term Use of Anticoagulant sPortal vein thrombosisLon g-term Use of Anticoagulant sPortal vein thrombosis 0 [facility] Edward. [address], [place], [address], [place]. tel: [phone] [facility], [address], [place], [place], [address] , [place] tel:+ [phone] [facility] Long-term Use of Anticoagulant sPortal vein thrombosis 0 0 Claytonrick Edward. [address], [place], [address], [place]. tel: [phone] [facility], [address], [place], [place], [address] , [place] tel:[phone] [facility] Long-term Use of Anticoagulant sPortal vein thrombosis Jun-3 0-202 0 [facility] Edward. [address], [place], [address], [place]. tel: [phone] [facility], [address], [place], [place], [address] , [place] tel: [phone] [facility] Long-term Use of Anticoagulant sPortal vein thrombosis Jun- 0 [facility] Pablo. [address], [place], [address], [place]. tel: [phone] [facility], [address], [place], [place], [address] , [place] tel: [phone] [facility] No Information 0 Management Case. . Referring Provider: Gera Kumar, [address] [facility], [place], [address]. tel: [phone] [facility], [address], [place], [place], [address] , [place] tel: [phone] [facility] Long-term Use of Anticoagulant sPortal vein thrombosisLon g-term Use of Anticoagulant sPortal vein thrombosis 0 [facility] Pablo. [address], [place], [address], [place]. tel: [phone] OFFICE VISIT ESTAB PT 15 MIN [facility], [address], [place], [place], [address] , [place] tel:+ [phone] [facility] TeleHealth (chief complaint) Chronic constipationM esenteric thrombosisAst hma, persistent controlledAdv ice given about COVID-19 virus by telephone 0 [facility] Pablo. [address], [place], [address], [place]. tel: [phone] Referring Provider: Gera Kumar, [address], [place], [address]. tel: [phone] [facility], [address], [place], [place], [address] , [place] tel: [phone] [facility] [address], [place], [address], [place]. tel: [phone] [facility], [address], [place], [place], [address] , [place] tel:+ [phone] [facility] Long-term Use of Anticoagulant sPortal vein thrombosis Apr-0 9-202 0 Nikolas Hicks. [address], [place], [address], [place]. tel:+ [phone] [facility], [address], [place], [place], [address] , [place] tel:[phone] [facility] No Information Apr-0 8-202 0 [facility] Edward. [address], [place], [address], [place]. tel:+ [phone] [facility], [address], [place], [place], [address] , [place] tel:[phone] [facility] Long-term Use of Anticoagulant sPortal vein thrombosis Apr-0 3-202 0 [facility] Pablo. [address], [place], [address], [place]. tel: [phone] [facility], [address], [place], [place], [address] , [place] tel:[phone] [facility] Long-term Use of Anticoagulant sPortal vein thrombosis Mar-2 6-202 0 [facility] Edward. [address], [place], [address], [place]. tel: [phone] [facility], [address], [place], [place], [address] , [place] tel:[phone] [facility] No Information May-1 8-202 0 [facility] Edward. [address], [place], [address], [place]. tel:+ [phone] [facility], [address], [place], [place], [address] , [place] tel:[phone] [facility] Long-term Use of Anticoagulant sPortal vein thrombosis Mar-1 0-202 0 [facility] Edward. [address], [place], [address], [place]. tel:+ [phone] [facility], [address], [place], [place], [address] , [place] tel:[phone] [facility] Long-term Use of Anticoagulant sPortal vein thrombosis Mar-0 3-202 0 [facility] Pablo. [address], [place], [address], [place]. tel:+ [phone] [facility], [address], [place], [place], [address] , [place] tel:[phone] [facility] Long-term Use of Anticoagulant sPortal vein thrombosis 0 Giovanni Salguero. [address], [place], [place], [address], [place]. tel:+ [phone] [facility], [address], [place], [place], [address] , [place] tel:[phone] [facility] Long-term Use of Anticoagulant sPortal vein thrombosis 0 Dannie Silasjuliana. [address], [place], [address], [place]. tel: [phone] [facility], [address], [place], [place], [address] , [place] tel:[phone] [facility] Long-term Use of Anticoagulant sPortal vein thrombosisLon g-term Use of Anticoagulant sPortal vein thrombosis 0 0 Tino Wagner. [address], [place], [address], [place]. tel: [phone] [facility], [address], [place], [place], [address] , [place] tel:[phone] [facility] No Information 0 0 Quanburke Pablo. [address], [place], [address], [place]. tel: [phone] [facility], [address], [place], [place], [address] , [place] tel:[phone] [facility] Long-term Use of Anticoagulant sPortal vein thrombosis 0 Dannie Pablo. [address], [place], [address], [place]. tel: [phone] [facility], [address], [place], [place], [address] , [place] tel:[phone] [facility] Long-term Use of Anticoagulant sPortal vein thrombosis 0 [place] Shha. [address], [place], [address], [place]. tel: [phone] OFFICE VISIT ESTAB PT 25 MIN [facility], [address], [place], [place], [address] , [place] tel:+ [phone] [facility] multiple problems (chief complaint) Essential (primary) hypertensionM esenteric thrombosisChr onic constipationU nspecified asthma, uncomplicated 0 Claytonburke Shah. [address], [place], [address], [place]. tel:[phone] Referring Provider: Gera Kumar, [address], [place], [address]. tel: [phone] [facility], [address], [place], [place], [address] , [place] tel:+ [phone] [facility] Long-term Use of Anticoagulant sPortal vein thrombosis 0 Claytonburke Shah. [address], [place], [address], [place]. tel: [phone] [facility], [address], [place], [place], [address] , [place] tel:+ [phone] [facility] Long-term Use of Anticoagulant sPortal vein thrombosis 9 [place] juliana. [address], [place], [address], [place]. tel: [phone] [facility], [address], [place], [place], [address] , [place] tel:+ [phone] [facility] Long-term Use of Anticoagulant sPortal vein thrombosis 9 [employer]. [address], [place], [address], [place]. tel: [phone] [facility], [address], [place], [place], [address] , [place] tel:[phone] [facility] Long-term Use of Anticoagulant sPortal vein thrombosis 0 9 [employer] [address], [place], [address], [place]. tel: [phone] [facility], [address], [place], [place], [address] , [place] tel: [phone] [facility] Long-term Use of Anticoagulant sPortal vein thrombosis 9 [employer] [address], [place], [address], . tel: [phone] [facility], [address], [place], [place], [address] , [place] tel: [phone] [facility] Long-term Use of Anticoagulant sPortal vein thrombosis 9 [employer] [address], [place], [address], . tel: [phone] [facility], [address], [place], [place], [address] , [place] tel: [phone] [facility] Long-term Use of Anticoagulant sPortal vein thrombosis 9 [employer] [address], [place], [address], . tel: [phone] [facility], [address], [place], [place], [address] , [place] tel: [phone] [facility] Long-term Use of Anticoagulant sPortal vein thrombosis 9 [employer] [address], [place], [address], . tel: [phone] [facility], [address], [place], [place], [address] , [place] tel: [phone] [facility] Long-term Use of Anticoagulant sPortal vein thrombosisLon g-term Use of Anticoagulant sPortal vein thrombosis 9 Cullion Robyn. [address], [place], [place], [address], [place]. tel: [phone] OFFICE VISIT ESTAB PT 15 MIN [facility], [address], [place], [place], [address] , [place] tel:+ [phone] [facility] multiple problems (chief complaint) Chronic vascular disorders of intestineAnti coagulation goal of INR 2 to 3Asthma, persistent controlledCon stipation, unspecified 9 [employer] [address], [place], [address], . tel: [phone] Referring Provider: Gera Kumar, [address], [place], [address]. tel: [phone] [facility], [address], [place], [place], [address] , [place] tel:+ [phone] [facility] Long-term Use of Anticoagulant sPortal vein thrombosis 9 [employer] [address], [place], [address], [place]. tel: [phone] [facility], [address], [place], [place], [address] , [place] tel:+ [phone] [facility] Long-term Use of Anticoagulant sPortal vein thrombosis Nov- 9 [employer] [address], [place], [address], [place]. tel: [phone] [facility], [address], [place], [place], [address] , US tel:+ [phone] [facility] Long-term Use of Anticoagulant sPortal vein thrombosis Nov- 9 [employer] [address], [place], [address], [place]. tel: [phone] [facility], [address], [place], [place], [address] , US tel:+ [phone] [facility] Long-term Use of Anticoagulant sPortal vein thrombosis Nov- 9 [employer] [address], [place], [address], [place]. tel: [phone] OFFICE VISIT ESTAB PT 15 MIN [facility], [address], [place], [place], [address] , [place] tel:+ [phone] [facility] Anticoagulati on (chief complaint) Chronic vascular disorders of intestineAnti coagulation goal of INR 2 to 3Long term (current) use of anticoagulant sAsthma, persistent controlled [employer]. [address], [place], [address], [place]. tel:[phone] Referring Provider: Gera Kumar, [address] [facility], [place], [address]. tel: [phone] [facility], [address], [place], [place], [address] , [place] tel:+ [phone] [facility] Long-term Use of Anticoagulant sPortal vein thrombosis [employer]. [address], [place], [address], [place]. tel: [phone] [facility], [address], [place], [place], [address] , US tel:+ [phone] [facility] Long-term Use of Anticoagulant sPortal vein thrombosis [employer]. [address], [place], [address], [place]. tel:[phone] PREVENT VISIT EST 65+ [facility], [address], [place], [place], [address] , [place] tel:+ [phone] [facility] preventive exam (chief complaint) Essential (primary) hypertensionE ncounter for general adult medical examination with abnormal findingsAsthm a, persistent controlledMes enteric vein thrombosisUri nary frequencyCanc er screeningAden omatous polypPsoriasi s, unspecified [employer]. [address], [place], [address], [place]. tel: [phone] Referring Provider: Gera Kumar, [address], [place], [address]. tel:[phone] OFFICE VISIT ESTAB PT 15 MIN [facility], [address], [place], [place], [address] , [place] tel:+ [phone] [facility] multiple problems (chief complaint) Psoriasis, unspecifiedHi story of pulmonary embolus (PE)Mixed hyperlipidemi aPolypharmacy Asthma, persistent controlled [employer]. [address], [place], [address], [place]. tel:[phone] Referring Provider: Gera Kumar, [address] [facility], [place], [address]. tel: [phone] OFFICE VISIT ESTAB PT 25 MIN [facility], [address], [place], [place], [address] , [place] tel:+ [phone] [facility] Anticoagulati on (chief complaint) Other pulmonary embolism without acute cor pulmonalePsor iasisPolyphar boom 9 [employer]. [address], [place], [address], [place]. tel:[phone] Referring Provider: Gera Kumar, [address] [facility], [place], [address]. tel: [phone] [facility], [address], [place], [place], [address] , [place] tel:+ [phone] [facility] Long-term Use of Anticoagulant s 9 Stacy Boss. [address], [address] [facility], [place], [place], [address], [place]. tel: [phone] [facility], [address], [place], [place], [address] , [place] tel:+ [phone] [facility] No Information 9 Stacy Boss. [address], [address] [facility], [place], [place], [address], [place]. tel: [phone] [facility], [address], [place], [place], [address] , [place] tel:[phone] [facility] Long-term Use of Anticoagulant s Jun-2 9 Stacy Boss. [address], [address] [facility], [place], [place], [address], [place]. tel: [phone] [facility], [address], [place], [place], [address] , [place] tel:+ [phone] [facility] Long-term Use of Anticoagulant s Jun-1 6-201 9 Stacy Boss. [address], [address], [place], [place], [address], [place]. tel:+ [phone] [facility], [address], [place], [place], [address] , [place] tel:[phone] [facility] Long-term Use of Anticoagulant s Apr-0 9-201 9 Stacy Boss. [address], [address], [place], [place], [address], [place]. tel:+ [phone] [facility], [address], [place], [place], [address] , [place] tel:[phone] [facility] Long-term Use of Anticoagulant s Apr-0 2-201 9 Giovanni Salguero. [address] [facility], [place], [place], [address], [place]. tel:+ [phone] [facility], [address], [place], [place], [address] , [place] tel:[phone] [facility] Long-term Use of Anticoagulant s Mar-2 5-201 9 Stacy Boss. [address], [address] [facility], [place], [place], [address], [place]. tel:+ [phone] [facility], [address], [place], [place], [address] , [place] tel:[phone] [facility] Long-term Use of Anticoagulant s Mar-2 0-201 9 Stacy Boss. [address], [address] [facility], [place], [place], [address], [place]. tel:+ [phone] [facility], [address], [place], [place], [address] , [place] tel:[phone] [facility] Long-term Use of Anticoagulant s Mar-0 8-201 9 Stacy Boss. [address], [address], [place], [place], [address], [place]. tel:[phone] [facility], [address], [place], [place], [address] , [place] tel:[phone] [facility] No Information Mar-0 6-201 9 Management Case. . Referring Provider: Gera Kumar, [address] [facility], [place], [address]. tel:+ [phone] [facility], [address], [place], [place], [address] , [place] tel:[phone] [facility] Long-term Use of Anticoagulant s 9 Stacy Boss. [address], [address] [facility], [place], [place], [address], [place]. tel:+ [phone] [facility], [address], [place], [place], [address] , [place] tel:[phone] [facility] Long-term Use of Anticoagulant s Apr- 9 Stacy Boss. [address], [address] [facility], [place], [place], [address], . tel:+ [phone] [facility], [address], [place], [place], [address] , [place] tel:[phone] [facility] Long-term Use of Anticoagulant s Apr- 9 Stacy Boss. [address], [address] [facility], [place], [place], [address], [place]. tel:+ [phone] [facility], [address], [place], [place], [address] , [place] tel:[phone] [facility] Long-term Use of Anticoagulant s 9 Stacy Boss. [address], [address] [facility], [place], [place], [address], [place]. tel:+ [phone] [facility], [address], [place], [place], [address] , [place] tel:[phone] [facility] No Information 9 Stacy Boss. [address], [address] [facility], [place], [place], [address], [place]. tel:+ [phone] OFFICE VISIT ESTAB PT 25 MIN [facility], [address], [place], [place], [address] , [place] tel:[phone] [facility] asthma (chief complaint) Body mass index (BMI) 25.0-25.9, adultUnspecif ied asthma, uncomplicated Chronic constipation 9 Stacy Boss. [address], [address] [facility], [place], [place], [address], [place]. tel:[phone] Referring Provider: Gera Kumar, [address] [facility], [place], [address]. tel: [phone] [facility], [address], [place], [place], [address] , [place] tel:+ [phone] [facility] Long-term Use of Anticoagulant s 9 Stacy Boss. [address], [address] [facility], [place], [place], [address], [place]. tel: [phone] [facility], [address], [place], [place], [address] , [place] tel: [phone] [facility] Long-term Use of Anticoagulant s 9 Management Case. . [facility], [address], [place], [place], [address] , [place] tel:+ [phone] [facility] Long-term Use of Anticoagulant s 8 Stacy Boss. [address], [address] [facility], [place], [place], [address], [place]. tel: [phone] OFFICE VISIT ESTAB PT 15 MIN [facility], [address], [place], [place], [address] , [place] tel:+ [phone] [facility] right eye bleeding (chief complaint) Body mass index (BMI) 25.0-25.9, adultUlcer of right corneaScleral hemorrhage of right eye Feb- 8 Stacy Boss. [address], [address] [facility], [place], [place], [address], [place]. tel: [phone] Referring Provider: Gera Kumar, [address] [facility], [place], [address]. tel: [phone] [facility], [address], [place], [place], [address] , [place] tel:+ [phone] [facility] Long-term Use of Anticoagulant s Dec-0 7-201 8 Cullion Robyn. [address], [address] [facility], [place], [place], [address], [place]. tel:+ [phone] [facility], [address], [place], [place], [address] , [place] tel:[phone] [facility] Long-term Use of Anticoagulant s Nov-0 9-201 8 Stacy Boss. [address], [address], [place], [place], [address], [place]. tel: [phone] [facility], [address], [place], [place], [address] , [place] tel:+ [phone] [facility] Long-term Use of Anticoagulant s Dec-2 5- 8 Stacy Boss. [address], [address] [facility], [place], [place], [address], [place]. tel: [phone] [facility], [address], [place], [place], [address] , [place] tel:[phone] [facility] Long-term Use of Anticoagulant s Dec-1 3-201 8 Stacy Boss. [address], [address] [facility], [place], [place], [address], [place]. tel:+ [phone] OFFICE VISIT ESTAB PT 25 MIN [facility], [address], [place], [place], [address] , [place] tel:[phone] [facility] psoriasis (chief complaint)ast hma (chief complaint) Body mass index (BMI) 25.0-25.9, adultMixed hyperlipidemi aUnspecified asthma, uncomplicated PsoriasisOthe r pulmonary embolism without acute cor pulmonale Dec-1 2-201 8 Stacy Boss. [address], [address] [facility], [place], [place], [address], [place]. tel:[phone] Referring Provider: Gera Kumar, [address], [place], [address]. tel: [phone] [facility], [address], [place], [place], [address] , [place] tel:[phone] [facility] Long-term Use of Anticoagulant s Oct-0 5-201 8 Stacy Boss. [address], [address] [place] [address], [address], [place]. tel:+ [phone] [facility], [address], [place], [place], [address] , [place] tel:[phone] [facility] Long-term Use of Anticoagulant s Oct-0 2-201 8 Stacy Boss. [address], [address] [facility], [place], [place], [address], [place]. tel:+ [phone] [facility], [address], [place], [place], [address] , [place] tel:[phone] [facility] Long-term Use of Anticoagulant s Sep-2 1-201 8 Stacy Boss. [address], [place] [address], [place], [place], [address], [place]. tel:+ [phone] [facility], [address], [place], [place], [address] , [place] tel:[phone] [facility] Long-term Use of Anticoagulant s Aug-2 3-201 8 Stacy Boss. [address], [address] [facility], [place], [place], [address], [place]. tel:+ [phone] [facility], [address], [place], [place], [address] , [place] tel:[phone] [facility] Long-term Use of Anticoagulant s Aug-0 9-201 8 Stacy Boss. [address], [address] [facility], [place], [place], [address], [place]. tel:+ [phone] [facility], [address], [place], [place], [address] , [place] tel:[phone] [facility] Long-term Use of Anticoagulant s Constantin-3 1-201 8 Stacy Boss. [address], [address] [facility], [place], [place], [address], [place]. tel:+ [phone] [facility], [address], [place], [place], [address] , [place] tel:[phone] [facility] Long-term Use of Anticoagulant s Constantin-2 5-201 8 Stacy Boss. [address], [address] [facility], [place], [place], [address], [place]. tel:+ [phone] [facility], [address], [place], [place], [address] , [place] tel:[phone] [facility] Long-term Use of Anticoagulant s Constantin-1 0-201 8 Stacy Boss. [address], [address] [facility], [place], [place], [address], [place]. tel:+ [phone] [facility], [address], [place], [place], [address]178[address] , [place] tel:[phone] [facility] Long-term Use of Anticoagulant s Constantin-0 5-201 8 Stacy Boss. [address], [address] [facility], [place], [place], [address], [place]. tel:+ [phone] [facility], [address], [place], [place], [address] , [place] tel:[phone] [facility] Long-term Use of Anticoagulant s Jadon-2 6-201 8 Stacy Boss. [address], [address] [facility], [place], [place], [address], [place]. tel:+ [phone] [facility], [address], [place], [place], [address] , [place] tel:[phone] [facility] Long-term Use of Anticoagulant s Jadon-2 0-201 8 Satcy Boss. [address], [address] [facility], [place], [place], [address], [place]. tel:+ [phone] [facility], [address], [place], [place], [address] , [place] tel:[phone] [facility] Long-term Use of Anticoagulant s Jadon-1 2-201 8 Stacy Boss. [address], [address] [facility], [place], [place], [address], [place]. tel:+ [phone] [facility], [address], [place], [place], [address] , [place] tel:[phone] [facility] Long-term Use of Anticoagulant s Jadon-0 1-201 8 Stacy Boss. [address], [address] [facility], [place], [place], [address], [place]. tel:+ [phone] [facility], [address], [place], [place], [address] , [place] tel:[phone] [facility] Long-term Use of Anticoagulant s July-1 7-201 8 Stacy Boss. [address], [address] [facility], [place], [place], [address], [place]. tel:+ [phone] [facility], [address], [place], [place], [address]45 , [place] tel:[phone] [facility] Long-term Use of Anticoagulant s July-0 4-201 8 Stacy Boss. [address], [address] [facility], [place], [place], [address], [place]. tel:+ [phone] [facility], [address], [place], [place], [address] , [place] tel:[phone] [facility] Long-term Use of Anticoagulant s Apr-2 6-201 8 Stacy Boss. [address], [address] [facility], [place], [place], [address], [place]. tel:+ [phone] [facility], [address], [place], [place], [address] , [place] tel:[phone] [facility] No Information Apr-2 4-201 8 Stacy Boss. [address], [address] [facility], [place], [place], [address], [place]. tel:+ [phone] [facility], [address], [place], [place], [address] , US tel:[phone] [facility] Long-term Use of Anticoagulant s Apr-1 9-201 8 Stacy Boss. [address], [address] [facility], [place], [place], [address]47, [place]. tel:+ [phone] [facility], [address], [place], [place], [address] , [place] tel:[phone] [facility] Long-term Use of Anticoagulant s Apr-1 3-201 8 Stacy Boss. [address], [address], [place], [place], [address], [place]. tel: [phone] [facility], [address], [place], [place], [address] , [place] tel:+ [phone] [facility] Long-term Use of Anticoagulant s Apr-0 8 Stacy Boss. [address], [address], [place], [place], [address], [place]. tel: [phone] [facility], [address], [place], [place], [address] , [place] tel:+ [phone] [facility] Long-term Use of Anticoagulant s May- 8 Management Case. . Referring Provider: Gera Kumar, [address] [facility], [place], [address]. tel: [phone] PREVENT VISIT EST 65+ [facility], [address], [place], [place], [address] , [place] tel:+ [phone] [facility] preventive exam (chief complaint)pso riasis (chief complaint)ast hma (chief complaint)ang icoagulation (chief complaint) Encntr for general adult medical exam w/o abnormal findingsBody mass index (BMI) 26.0-26.9, adultMixed hyperlipidemi aUnspecified asthma, uncomplicated Other pulmonary embolism without acute cor pulmonalePsor iasis May- 8 Stacy Boss. [address], Suite [facility], [place], [place], [address], [place]. tel: [phone] Referring Provider: Gera Kumar, [address] [facility], [place], [address]. tel: [phone] [facility], [address], [place], [place], [address] , [place] tel:[phone] [facility] Long-term Use of Anticoagulant s May- 8 Stacy Boss. [address], [address] [facility], [place], [place], [address], [place]. tel: [phone] [facility], [address], [place], [place], [address] , [place] tel:+ [phone] [facility] Long-term Use of Anticoagulant s Mar-0 9- 8 Stacy Boss. [address], [address] [facility], [place], [place], [address], . tel:+ [phone] [facility], [address], [place], [place], [address] , [place] tel:[phone] [facility] Long-term Use of Anticoagulant s Mar-0 1-201 8 Stacy Boss. [address], [address] [facility], [place], [place], [address], [place]. tel:+ [phone] [facility], [address], [place], [place], [address] , [place] tel:[phone] [facility] Long-term Use of Anticoagulant s Apr-2 - 8 Stacy Boss. [address], [address] [facility], [place], [place], [address], [place]. tel:+ [phone] [facility], [address], [place], [place], [address] , [place] tel:[phone] [facility] Long-term Use of Anticoagulant s Apr- 8 Stacy Boss. [address], [address] [facility], [place], [place], [address], [place]. tel:+ [phone] [facility], [address], [place], [place], [address] , [place] tel:[phone] [facility] Long-term Use of Anticoagulant s Mar- 6- 8 Stacy Boss. [address], [address] [facility], [place], [place], [address], [place]. tel:[phone] [facility], [address], [place], [place], [address] , [place] tel:[phone] [facility] Long-term Use of Anticoagulant s Mar-0 2-201 8 Management Case. . [facility], [address], [place], [place], [address] , [place] tel:[phone] [facility] Long-term Use of Anticoagulant s Dec-1 8-201 7 Stacy Boss. [address], [address] [facility], [place], [place], [address], [place]. tel:+ [phone] [facility], [address], [place], [place], [address] , [place] tel:[phone] [facility] Long-term Use of Anticoagulant s Dec-0 7-201 7 Stacy Boss. [address], [address] [facility], [place], [place], [address], [place]. tel:+ [phone] [facility], [address], [place], [place], [address] , [place] tel:[phone] [facility] Long-term Use of Anticoagulant s Nov-2 8-201 7 Stacy Boss. [address], [address] [facility], [place], [place], [address], [place]. tel:+ [phone] [facility], [address], [place], [place], [address] , [place] tel:[phone] [facility] Long-term Use of Anticoagulant s Oct-2 5-201 7 Stacy Boss. [address], [address] [facility], [place], [place], [address], [place]. tel:+ [phone] [facility], [address], [place], [place], [address] , [place] tel:[phone] [facility] Encounter for screening colonoscopy Oct-1 2-201 7 Stacy Boss. [address], [address] [facility], [place], [place], [address], [place]. tel:+ [phone] [facility], [address], [place], [place], [address] , [place] tel:[phone] [facility] Long-term Use of Anticoagulant s Oct-1 1-201 7 Stacy Boss. [address], [address] [facility], [place], [place], [address], [place]. tel:+ [phone] [facility], [address], [place], [place], [address] , [place] tel:[phone] [facility] Long-term Use of Anticoagulant s Oct-0 4-201 7 Stacy Boss. [address], [address] [facility], [place], [place], [address], [place]. tel:+ [phone] [facility], [address], [place], [place], [address] , [place] tel:[phone] [facility] No Information Dec-0 3 7 Management Case. . Referring Provider: Gera Kumar, [address] [facility], [place], [address]. tel:+ [phone] [facility], [address], [place], [place], [address] , [place] tel:+ [phone] [facility] Long-term Use of Anticoagulant s Nov-2 7 Stacy Boss. [address] [facility], [address] [facility], [place], [place], [address], [place]. tel:+ [phone] OFFICE VISIT ESTAB PT 25 MIN [facility], [address], [place], [place], [address] , [place] tel:[phone] [facility] asthma (chief complaint)hyp erlipidemia (chief complaint)chr onic anticoagulati on (chief complaint)Eye problems (chief complaint)pso riasis (chief complaint) Body mass index (BMI) 27.0-27.9, adultMixed hyperlipidemi aUnspecified asthma, uncomplicated Oth disrd of the skin and subcutaneous tissueLong-te rm Use of Anticoagulant sEye problemOther pulmonary embolism without acute cor pulmonale Nov-2 7 Stacy Boss. [address], [address] [facility], [place], [place], [address], [place]. tel:+ [phone] Referring Provider: Gera Kumar, [address] [facility], [place], [address]. tel:+ [phone] [facility], [address], [place], [place], [address] , [place] tel:[phone] [facility] Long-term Use of Anticoagulant s Sep-0 7 Stacy Boss. [address] [facility], [address] [facility], [place], [place], [address], [place]. tel: [phone] [facility], [address], [place], [place], [address] , [place] tel:[phone] [facility] Long-term Use of Anticoagulant s Aug-0 8-201 7 Stacy Boss. [address], [address] [facility], [place], [place], [address], [place]. tel: [phone] [facility], [address], [place], [place], [address] , [place] tel:[phone] [facility] Long-term Use of Anticoagulant s Sep-2 4-201 7 Stacy Boss. [address], [address] [facility], [place], [place], [address], [place]. tel: [phone] [facility], [address], [place], [place], [address] , [place] tel:[phone] [facility] Long-term Use of Anticoagulant s Sep-1 7-201 7 Stacy Boss. [address], [address] [facility], [place], [place], [address], [place]. tel: [phone] [facility], [address], [place], [place], [address] , [place] tel:[phone] [facility] Long-term Use of Anticoagulant s Sep-0 3-201 7 Stacy Boss. [address], [place] [address], [place], [place], [address], [place]. tel: [phone] [facility], [address], [place], [place], [address] , [place] tel:[phone] [facility] Long-term Use of Anticoagulant s Jadon-2 0-201 7 Stacy Boss. [address], [address] [facility], [place], [place], [address], [place]. tel: [phone] [facility], [address], [place], [place], [address] , [place] tel:[phone] [facility] Long-term Use of Anticoagulant s Jadon-1 3-201 7 Stacy Boss. [address], [address] [facility], [place], [place], [address], [place]. tel: [phone] [facility], [address], [place], [place], [address] , [place] tel: [phone] [facility] Long-term Use of Anticoagulant s 7 Stacy Boss. [address], [address], [place], [place], [address], [place]. tel: [phone] [facility], [address], [place], [place], [address] , [place] tel:+ [phone] [facility] Long-term Use of Anticoagulant s 7 [employer] [address], [place], [address], [place]. tel: [phone] [facility], [address], [place], [place], [address] , [place] tel: [phone] [facility] Long-term Use of Anticoagulant s 7 Stacy Boss. [address], [address], [place], [place], [address], [place]. tel: [phone] [facility], [address], [place], [place], [address] , [place] tel: [phone] [facility] Long-term Use of Anticoagulant s 7 [employer]. [address], [place], [address], [place]. tel: [phone] [facility], [address], [place], [place], [address] , [place] tel:+ [phone] [facility] Long-term Use of Anticoagulant s 7 [employer] [address], [place], [address], [place]. tel: [phone] [facility], [address], [place], [place], [address] , [place] tel:[phone] [facility] Encounter for dental exam and cleaning w/o abnormal findings 7 Patrick Ku. [address], [place], [address], [place]. tel: [phone] Referring Provider: Gera Kumar, [address] [facility], [place], [address]. tel:+ [phone] [facility], [address], [place], [place], [address] , [place] tel:[phone] [facility] Long-term Use of Anticoagulant s Apr-2 0-201 7 Stacy Boss. [address], [address] [facility], [place], [place], [address], [place]. tel:+ [phone] [facility], [address], [place], [place], [address] , [place] tel:[phone] [facility] Long-term Use of Anticoagulant s Apr-0 6-201 7 Stacy Boss. [address], [address] [facility], [place], [place], [address], [place]. tel:+ [phone] [facility], [address], [address] , [place] tel:[phone] [facility] Long-term Use of Anticoagulant s Mar-3 0-201 7 Stacy Boss. [address] [facility], [address] [facility], [place], [place], [address], [place]. tel:+ [phone] PREVENT VISIT EST 66+ [facility], [address], [place], [place], [address] , [place] tel:[phone] [facility] preventive exam (chief complaint)ast hma (chief [...] 7 Stacy Boss. [address], [address] [place] [address], [id number], [place]. tel:+ [phone] Referring Provider: Gera Kumar, [address] [facility], [place], [address]. tel:[phone] [facility], [address], [place], [place], [address] , [place] tel:[phone] [facility] Long-term Use of Anticoagulant s Mar-1 6-201 7 Stacy Boss. [address], [address] [facility], [place], [place], [address], [place]. tel: [phone] [facility], [address], [place], [place], [address] , [place] tel:[phone] [facility] Long-term Use of Anticoagulant s Mar-0 9-201 7 Stacy Boss. [address], [address] [facility], [place], [place], [address], [place]. tel: [phone] [facility], [address], [place], [place], [address] , [place] tel:[phone] [facility] Long-term Use of Anticoagulant s Mar-0 3-201 7 Stacy Boss. [address], [address] [facility], [place], [place], [address], [place]. tel: [phone] [facility], [address], [place], [place], [address] , [place] tel:[phone] [facility] Long-term Use of Anticoagulant s Feb-1 0-201 7 Stacy Boss. [address], [address] [facility], [place], [place], [address], . tel: [phone] [facility], [address], [place], [place], [address] , [place] tel:[phone] [facility] Long-term Use of Anticoagulant s Feb-0 2-201 7 Stacy Boss. [address], [address] [facility], [place], [place], [address], [place]. tel: [phone] [facility], [address], [place], [place], [address] , [place] tel:[phone] [facility] Long-term Use of Anticoagulant s Mar-2 5-201 7 Stacy Boss. [address], [address] [facility], [place], [place], [address], [place]. tel:[phone] [facility], [address], [place], [place], [address] , [place] tel:[phone] [facility] Long-term Use of Anticoagulant s Reggie-1 2-201 7 Stacy Boss. [address], [address] [facility], [place], [place], [address], [place]. tel: [phone] [facility], [address], [place], [place], [address] , [place] tel:[phone] [facility] Long-term Use of Anticoagulant s Dec-1 5-201 6 Stacy Boss. [address], [address] [facility], [place], [place], [address], [place]. tel: [phone] [facility], [address], [place], [place], [address] , [place] tel:[phone] [facility] Long-term Use of Anticoagulant s Nov-3 0-201 6 Stacy Boss. [address], [address] [facility], [place], [place], [address], [place]. tel: [phone] [facility], [address], [place], [place], [address] , [place] tel:[phone] [facility] Long-term Use of Anticoagulant s Nov-1 8-201 6 Stacy Boss. [address], [address] [facility], [place], [place], [address], [place]. tel: [phone] [facility], [address], [place], [place], [address] , [place] tel:[phone] [facility] Long-term Use of Anticoagulant s Nov-1 0-201 6 Stacy Boss. [address], [address] [facility], [place], [place], [address], [place]. tel: [phone] [facility], [address], [place], [place], [address] , [place] tel:[phone] [facility] Long-term Use of Anticoagulant s Nov-0 3-201 6 Stacy Boss. [address], [address] [facility], [place], [place], [address], [place]. tel:+ [phone] OFFICE VISIT ESTAB PT 15 MIN [facility], [address], [place], [place], [address] , [place] tel:+ [phone] [facility] asthma (chief complaint) Unspecified asthma, uncomplicated Dec-2 0- 6 Stacy Boss. [address], [address] [facility], [place], [place], [address], . tel:+ [phone] Referring Provider: Gera Kumar, [address] [facility], [place], [address]. tel:+ [phone] [facility], [address], [place], [place], [address] , [place] tel:+ [phone] [facility] Long-term Use of Anticoagulant s Dec- 3- 6 Stacy Boss. [address], [address] [facility], [place], [place], [address], . tel:+ [phone] [facility], [address], [place], [place], [address] , [place] tel:[phone] [facility] Long-term Use of Anticoagulant s Dec-0 6- 6 Stacy Boss. [address], [address] [facility], [place], [place], [address], . tel:+ [phone] [facility], [address], [place], [place], [address] , [place] tel:[phone] [facility] Long-term Use of Anticoagulant s Nov- 6 Stacy Boss. [address], [address] [facility], [place], [place], [address], [place]. tel:+ [phone] [facility], [address], [place], [place], [address] , [place] tel:[phone] [facility] No Information Nov- 6 Management Case. . Referring Provider: Gera Kumar, [address] [facility], [place], [address]. tel:+ [phone] [facility], [address], [place], [place], [address] , [place] tel:[phone] [facility] Long-term Use of Anticoagulant s Sep-0 6 Stacy David. [address], [address] [facility], [place], [place], [address], . tel:+ [phone] [facility], [address], [place], [place], [address] , [place] tel:+ [phone] [facility] Long-term Use of Anticoagulant s 6 Stacy Boss. [address], [address] [facility], [place], [place], [address], [place]. tel:+ [phone] [facility], [address], [place], [place], [address] , [place] tel:+ [phone] [facility] No Information 6 Management Case. . Referring Provider: Gera Kumar, [address] [facility], [place], [address]. tel:+ [phone] [facility], [address], [place], [place], [address] , [place] tel:+ [phone] [facility] Long-term Use of Anticoagulant s 6 Stacy David. [address], [address] [facility], [place], [place], [address], . tel:+ [phone] [facility], [address], [place], [place], [address] , [place] tel:[phone] [facility] Long-term Use of Anticoagulant s 6 Stacy Boss. [address], [address] [facility], [place], [place], [address], [place]. tel:+ [phone] [facility], [address], [place], [place], [address] , [place] tel:[phone] [facility] No Information 6 Stacy Boss. [address], [address] [facility], [place], [place], [address], . tel:+ [phone] [facility], [address], [place], [place], [address] , [place] tel:[phone] [facility] Long-term Use of Anticoagulant s Jadon-3 0-201 6 Stacy Boss. [address], [address] [facility], [place], [place], [address], [place]. tel:+ [phone] [facility], [address], [place], [place], [address] , [place] tel:[phone] [facility] Long-term Use of Anticoagulant s Jadon-1 5-201 6 Stacy Boss. [address], [address] [facility], [place], [place], [address], [place]. tel:+ [phone] [facility], [address], [place], [place], [address] , [place] tel:[phone] [facility] Long-term Use of Anticoagulant s Jadon-0 2-201 6 Stacy Boss. [address], [address] [facility], [place], [place], [address], [place]. tel:+ [phone] [facility], [address], [place], [place], [address] , [place] tel:[phone] [facility] Long-term Use of Anticoagulant s July-1 9-201 6 Stacy Boss. [address], [address] [facility], [place], [place], [address], [place]. tel:+ [phone] [facility], [address], [place], [place], [address] , [place] tel:[phone] [facility] Long-term Use of Anticoagulant s July-1 1-201 6 Stacy Boss. [address], [address] [facility], [place], [place], [address], [place]. tel:+ [phone] [facility], [address], [place], [place], [address] , [place] tel:[phone] [facility] Long-term Use of Anticoagulant s May-0 5-201 6 Stacy Boss. [address], [address] [facility], [place], [place], [address], [place]. tel:+ [phone] [facility], [address], [place], [place], [address] , [place] tel:[phone] [facility] Long-term Use of Anticoagulant s Apr-2 1-201 6 Stacy Boss. [address], [address] [facility], [place], [place], [address], [place]. tel:+ [phone] [facility], [address], [place], [place], [address] , [place] tel:[phone] [facility] Hematuria Apr-1 3-201 6 Stacy Boss. [address], [address] [facility], [place], [place], [address], [place]. tel:+ [phone] [facility], [address], [place], [place], [address] , [place] tel:[phone] [facility] Long-term Use of Anticoagulant s Apr-1 2-201 6 Stacy Boss. [address], [address] [facility], [place], [place], [address], [place]. tel:+ [phone] [facility], [address], [place], [place], [address] , [place] tel:[phone] [facility] Long-term Use of Anticoagulant s Apr-0 5-201 6 Stacy Boss. [address], [address] [facility], [place], [place], [address], [place]. tel:[phone] [facility], [address], [place], [place], [address] , [place] tel:[phone] [facility] Hematuria May-2 4-201 6 Stacy Boss. [address], [address] [facility], [place], [place], [address], [place]. tel:+ [phone] PREVENT VISIT EST 66+ [facility], [address], [place], [place], [address] , [place] tel:[phone] [facility] Preventive exam (chief complaint)ast hma (chief complaint)hyp erlipidemia (chief complaint)ant icoagulation (chief complaint) Encntr for general adult medical exam w/o abnormal findingsBody mass index (BMI) 28.0-28.9, adultPsoriasi sMixed hyperlipidemi aChronic vascular disorders of intestineUnsp ecified asthma, uncomplicated Other pulmonary embolism without acute cor pulmonale May-2 2-201 6 Stacy Boss. [address], [address] [facility], [place], [place], [address], [place]. tel:+ [phone] Referring Provider: Gera Kumar, [address] [facility], [place], [address]. tel:+ [phone] [facility], [address], [place], [place], [address] , [place] tel:[phone] [facility] Long-term Use of Anticoagulant s Mar-1 5-201 6 Stacy Boss. [address], [address] [facility], [place], [place], [address], [place]. tel:+ [phone] [facility], [address], [place], [place], [address] , [place] tel:[phone] [facility] Long-term Use of Anticoagulant s May-0 8 6 Stacy Boss. [address], [address] [facility], [place], [place], [address], [place]. tel:+ [phone] [facility], [address], [place], [place], [address] , [place] tel:[phone] [facility] Long-term Use of Anticoagulant s Mar- 6 Stacy Boss. [address], [address] [facility], [place], [place], [address], [place]. tel:+ [phone] [facility], [address], [place], [place], [address] , [place] tel:[phone] [facility] Long-term Use of Anticoagulant s Mar- 9201 6 Stacy Boss. [address], [address] [facility], [place], [place], [address], [place]. tel:+ [phone] [facility], [address], [place], [place], [address] , [place] tel:[phone] [facility] Long-term Use of Anticoagulant s Feb-2 201 5 Stacy Boss. [address], [address] [facility], [place], [place], [address], [place]. tel:+ [phone] [facility], [address], [place], [place], [address] , [place] tel:+ [phone] [facility] Long-term Use of Anticoagulant sLong-term Use of Anticoagulant s Dec-0 1-201 5 Nurse [facility]. [address], [place], [place], [address]. tel: [facility], [address], [place], [place], [address] , [place] tel:+ [phone] [facility] Long-term Use of Anticoagulant s Nov-2 4-201 5 Stacy Boss. [address], [address] [facility], [place], [place], [address], [place]. tel: [phone] [facility], [address], [place], [place], [address] , [place] tel:+ [phone] [facility] Long-term Use of Anticoagulant s Nov-1 0-201 5 Stacy Gera. [address], [address] [place] [address], [address], [place]. tel: [phone] [facility], [address], [place], [place], [address] , [place] tel:+ [phone] [facility] Long-term Use of Anticoagulant s Nov-0 3-201 5 Rubio Mendes. [address], [place], [address], [place]. tel: [phone] [facility], [address], [place], [place], [address] , [place] tel:+ [phone] [facility] Long-term Use of Anticoagulant s Oct-0 7-201 5 Stacy Boss. [address], [address] [facility], [place], [place], [address], [place]. tel: [phone] [facility], [address], [place], [place], [address] , [place] tel:+ [phone] [facility] No Information Oct-0 2-201 5 Management Case. . Referring Provider: Gera Kumar, [address] [facility], [place], [address]. tel: [phone] [facility], [address], [place], [place], [address] , [place] tel:[phone] [facility] Long-term Use of Anticoagulant s Nov- 5 Stacy Boss. [address], [address] [facility], [place], [place], [address], . tel: [phone] [facility], [address], [place], [place], [address] , [place] tel:+ [phone] [facility] No Information Nov- 5 Management Case. . Referring Provider: Gera Kumar, [address] [facility], [place], [address]. tel: [phone] [facility], [address], [place], [place], [address] , [place] tel:+ [phone] [facility] Long-term Use of Anticoagulant s Nov-0 5 Stacy Boss. [address] [facility], [place] [address], [place], [place], [address], . tel: [phone] OFFICE VISIT ESTAB PT 25 MIN [facility], [address], [place], [place], [address] , [place] tel:+ [phone] [facility] hyperlipidemi a (chief complaint)abel h (chief complaint) Unspecified keratitisMixe d hyperlipidemi aAcute vascular insufficiency of intestineOthe r pulmonary embolism and infarctionFoo d allergyLong-t erm Use of Anticoagulant s 5 Stacy Boss. [address] [facility], [place] [address], [place], [place], [address], . tel: [phone] Referring Provider: Gera Kumar, [address] [facility], [place], [address]. tel: [phone] [facility], [address], [place], [place], [address] , [place] tel:+ [phone] [facility] Long-term Use of Anticoagulant s Oct- 5 Stacy Boss. [address], [address] [facility], [place], [place], [address], . tel: [phone] [facility], [address], [place], [place], [address] , [place] tel:+ [phone] [facility] Long-term Use of Anticoagulant s 5 Stacy Boss. [address], [address] [facility], [place], [place], [address], . tel: [phone] [facility], [address], [place], [place], [address] , [place] tel:+ [phone] [facility] No Information 5 Management Case. . Referring Provider: Gera Kumar, [address] [facility], [place], [address]. tel: [phone] [facility], [address], [place], [place], [address] , [place] tel:+ [phone] [facility] Long-term Use of Anticoagulant s 5 Stacy Boss. [address], [place] [address], [place], [place], [address], . tel: [phone] [facility], [address], [place], [place], [address] , [place] tel:+ [phone] [facility] Long-term Use of Anticoagulant s 5 Stacy Boss. [address], [address] [facility], [place], [place], [address], [place]. tel: [phone] [facility], [address], [place], [place], [address] , [place] tel:[phone] [facility] Long-term Use of Anticoagulant s 5 Giovanni Salguero. [address], [place], [address], [place]. tel: [phone] [facility], [address], [place], [place], [address] , [place] tel:[phone] [facility] Long-term Use of Anticoagulant s 5 Dannie Shah. [address], [place], [address], [place]. tel: [phone] [facility], [address], [place], [place], [address] , [place] tel:[phone] [facility] No Information 5 Management Case. . Referring Provider: Gera Kumar, [address] [facility], [place], [address]. tel:[phone] [facility], [address], [place], [place], [address] , [place] tel:[phone] [facility] Long-term Use of Anticoagulant s 5 Stacy Boss. [address], [address] [facility], [place], [place], [address], [place]. tel:[phone] [facility], [address], [place], [place], [address] , [place] tel:[phone] [facility] Long-term Use of Anticoagulant s 5 Stacy Boss. [address] [facility], [place] [address], [place], [place], [address], . tel:[phone] [facility], [address], [place], [place], [address] , [place] tel:[phone] [facility] Long-term Use of Anticoagulant s 5 Stacy Boss. [address] [facility], [place] [address], [place], [place], [address], . tel:+ [phone] [facility], [address], [place], [place], [address] , [place] tel:[phone] [facility] Long-term Use of Anticoagulant s 5 Stacy Boss. [address] [facility], [place] [address], [place], [place], [address], [place]. tel:[phone] PREVENT VISIT EST 65+ [facility], [address], [place], [place], [address] , [place] tel:[phone] [facility] Preventive exam (chief complaint)ast hma (chief complaint)ecz taqueria (chief complaint)hyp erlipidemia (chief complaint)ant icoagulation (chief complaint)con stipation (chief complaint) ROUTINE MEDICAL EXAMUnspecifi ed keratitisMixe d hyperlipidemi aAcute vascular insufficiency of intestineAsth ma, unspecified 9-201 5 Stacy Boss. [address], [address] [facility], [place], [place], [address], [place]. tel:[phone] Referring Provider: Gera Kumar, [address], [place], [address]. tel:[phone] [facility], [address], [place], [place], [address] , [place] tel:[phone] [facility] Long-term Use of Anticoagulant s 3- 5 Stacy Boss. [address], [address] [facility], [place], [place], [address], [place]. tel:[phone] [facility], [address], [place], [place], [address] , [place] tel:[phone] [place] [facility] Long-term Use of Anticoagulant s Apr- 7 5 Management Case. . [facility], [address], [place], [place], [address] , [place] tel:[phone] [facility] Long-term Use of Anticoagulant s 5 Stacy Boss. [address], [address] [facility], [place], [place], [address], [place]. tel:[phone] [facility], [address], [place], [place], [address] , [place] tel:[phone] [facility] Long-term Use of Anticoagulant s Apr-0 - 5 Stacy Boss. [address], [address] [facility], [place], [place], [address], [place]. tel:[phone] [facility], [address], [place], [place], [address] , [place] tel:[phone] [facility] Long-term Use of Anticoagulant s 0- 5 Stacy Boss. [address], [address] [facility], [place], [place], [address], [place]. tel:[phone] [facility], [address], [place], [place], [address] , [place] tel:[phone] [facility] Long-term Use of Anticoagulant s 5 Stacy Boss. [address], [address] [facility], [place], [place], [address], . tel: [phone] [facility], [address], [place], [place], [address] , [place] tel:[phone] [facility] Long-term Use of Anticoagulant s 5 Stacy Boss. [address], [address] [facility], [place], [place], [address], [place]. tel: [phone] OFFICE VISIT ESTAB PT 15 MIN [facility], [address], [place], [place], [address] , [place] tel:[phone] [facility] asthma (chief complaint)Hyp erlipidemia (chief complaint)Abel h (chief complaint) Unspecified keratitisMixe d hyperlipidemi aAsthma, unspecified Feb-3 0 4 Stacy Boss. [address], [place] [address], [place], [place], [address], . tel:[phone] Referring Provider: Gera Kumar, [address] [facility], [place], [address]. tel: [phone] [facility], [address], [place], [place], [address] , [place] tel:[phone] [facility] Long-term Use of Anticoagulant s 4 Giovanni Salguero. [address], [place], [address], [place]. tel: [phone] [facility], [address], [place], [place], [address] , [place] tel:[phone] [facility] Long-term Use of Anticoagulant s Feb- 4 Stacy Boss. [address], [place] [address], [place], [place], [address], [place]. tel: [phone] [facility], [address], [place], [place], [address] , [place] tel:[phone] [facility] Long-term Use of Anticoagulant s 4 Stacy Boss. [address], [address] [facility], [place], [place], [address], . tel: [phone] [facility], [address], [place], [place], [address] , [place] tel:[phone] [facility] Long-term Use of Anticoagulant s 4 Stacy Boss. [address] [facility], [place] [address], [place], [place], [address], [place]. tel:[phone] [facility], [address], [place], [place], [address] , [place] tel:[phone] [facility] No Information Management Case. . Referring Provider: Gera Kumar, [address] [place] [address], [place], [address]. tel:[phone] OFFICE VISIT ESTAB PT 15 MIN [facility], [address], [place], [place], [address] , [place] tel:[phone] [facility] constipation (chief complaint) Constipation 4 Stacy Boss. [address] [facility], [place] [address], [place], [place], [address], . tel:[phone] Referring Provider: Gera Kumar, [address] [place] [address], [place], [address]. tel:[phone] OFFICE VISIT ESTAB PT 15 MIN [facility], [address], [place], [place], [address] , [place] tel:[phone] [facility] Follow Up of asthma (chief complaint)hyp erlipidema (chief complaint) AsthmaOther psoriasis and similar disordersMixe d Hyperlipidemi aIatrogenic pulmonary embolism and infarction 4 Stacy Boss. [address] [facility], [place] [address], [place], [place], [address], . tel:[phone] Referring Provider: Gera Kumar, [address] [place] [address], [place], [address]. tel: [phone] [facility], [address], [place], [place], [address] , [place] tel: [phone] [facility] No Information Management Case. . Referring Provider: Gera Kumar, [address] [facility], [place], [address]. tel: [phone] [facility], [address] [place], [address] , [place] tel: [phone] [facility] No Information Management Case. . Referring Provider: Gera Kumar, [address], [place], [address]. 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 [address] [place], [place], [address]. tel: Referring Provider: Gera Kumar, [address] [facility], [place], [address]. tel: [phone] PREVENT VISIT EST 65+ [facility], [address] [place], [place], [address] , [place] tel: [phone] [facility] preventive exam (chief complaint)cou gh/wheezing (chief complaint)Pso riasis (chief complaint) AsthmaAbdomin al PainNeed for prophylactic vaccination and inoculation against viralhepatiti Traci FOR PROPHYLACTIC VACCINATION WITH COMBINED DIPHTHERIA-TE TANUS-PERTUSS IS (DTP) (DTAP) VACCINEVisit for preventive health examinationDy suriaOther psoriasis and similar disordersRout ine Medical Exam 4 Stacy Boss. [address], [address] [facility], [place], [place], [address], [place]. tel: [phone] Referring Provider: Gera Kumar, [address] [facility], [place], [address]. tel: [phone] OFFICE VISIT ESTAB PT 15 MIN [facility], [address] [place], [place], [address] , [place] tel:[phone] [facility] Follow Up of asthma (chief complaint) AsthmaLong-te rm Use of Anticoagulant sOther psoriasis and similar disorders 4 Stacy Boss. [address], [address] [facility], [place], [place], [address], [place]. tel: [phone] Referring Provider: Gera Kumar, [address] [facility], [place], [address]. tel: [phone] OFFICE VISIT ESTAB PT 15 MIN [facility], [address], [place], [place], [address] , [place] tel:+ [phone] [facility] cough (chief complaint) Asthma Feb- 3 Stacy Boss. [address] [facility], [address] [facility], [place], [place], [address], [place]. tel: [phone] Referring Provider: Gera Kumar, [address] [facility], [place], [address]. tel: [phone] [facility], [address], [place], [place], [address] , [place] tel:+ [phone] [facility] No Information Feb- 3 Management Case. . Referring Provider: Gera Kumar, [address] [facility], [place], [address]. tel: [phone] [facility], [address], [place], [place], [address] , [place] tel:[phone] [facility] Pulmonary embolus, right Sep-0 3 Management Case. . Referring Provider: Gera Kumar, [address], [place], [address]. tel: [phone] [facility], [address], [place], [place], [address] , [place] tel:[phone] [facility] No Information 3 Management Case. . Referring Provider: Gera Kumar, [address], [place], [address]. tel: [phone] [facility], [address], [place], [place], [address] , [place] tel:[phone] [facility] Iatrogenic pulmonary embolism and infarction Management Case. . Referring Provider: Gera Kumar, [address], [place], [address]. tel: [phone] [facility], [address], [place], [place], [address] , [place] tel:[phone] [place] [facility] No Information 3 Management Case. . Referring Provider: [facility]ell [facility] [address] [place], [address]. tel:[phone] OFFICE VISIT ESTAB PT 25 MIN [facility], [address], [place], [place], [address] , [place] tel:+ [phone] [facility] rash (chief complaint)cou madin (chief complaint) Other psoriasis and similar disordersChro yin anticoagulati on Stacy Boss. [address], [address], [place], [place], [address], [place]. tel: [phone] Referring Provider: Gera Kumar, [address], [place], [address]. tel: [phone] [facility], [address], [place], [place], [address] , [place] tel:[phone] [place] [facility] No Information 3 Management Case. . Referring Provider: Isabell [facility] [address] [place], [address]. tel:[phone] [facility], [address], [place], [place], [address] , [place] tel:[phone] [place] [facility] No Information Management Case. . Referring Provider: Isabell [facility] [address] [place], [address]. tel:[phone] PREVENT VISIT EST 65+ [facility], [address], [place], [place], [address] , [place] tel:+ [phone] [facility] physical exam (chief complaint)pavithra k pain (chief complaint) Routine Medical ExamRoutine Medical ExamMixed Hyperlipidemi aGERDAcute vascular insufficiency of intestineOthe r psoriasis and similar disordersRout ine Medical Exam 0 2 Stacy Boss. [address], [address], [place], [place], [address], [place]. tel: [phone] Referring Provider: Gera Kumar, [address], [place], [address]. tel: [phone] [facility], [address], [place], [place], [address] , [place] tel: [phone] [facility] No Information 2 Management Case. . Referring Provider: Isabell [facility] [address] [place], [address]. tel: [phone] [facility], [address], [place], [place], [address] , [place] tel:[phone] [facility] Long-term Use of Anticoagulant s 2 Quinteros Zoë. [address], [place], [address]. tel: [phone] [facility], [address], [place], [place], [address] , [place] tel:+ [phone] [facility] Acute vascular insufficiency of intestineAcut e vascular insufficiency of intestine 2 Samir [facility], [address] [place], [address], [place]. tel: [phone] [facility], [address], [place], [place], [address] , [place] tel:+ [phone] [facility] No Information 2 Management Case. . Referring Provider: Isabell [facility] [address] [place], [address]. tel:[phone] OFFICE VISIT ESTAB PT 25 MIN [facility], [address], [place], [place], [address] , [place] tel:+ [phone] [facility] hypertension (chief complaint) Iatrogenic pulmonary embolism and infarctionIat rogenic pulmonary embolism and infarctionUns pecified essential hypertensionA llergic rhinitis, cause unspecified 2 [facility], [address] [place], [place], [facility], [place]. tel:[phone] Referring Provider: Isabell [facility] [address] [place] [address]. tel:[phone] OFFICE VISIT ESTAB PT 15 MIN [facility], [address], [place], [place], [address] , [place] tel:+ [phone] [facility] er (chief complaint) Iatrogenic pulmonary embolism and infarctionIat rogenic pulmonary embolism and infarctionAcu te vascular insufficiency of intestineGERD 2 [facility], [address] [place], [facility], [place]. tel:[phone] Referring Provider: Isabell [facility] [address] [place], [facility]. tel:[phone] [facility], [address], [place], [place], [address] , [place] tel:+ [phone] [facility] No Information 2 Management Case. . Referring Provider: Isabell [facility] [address] [place], [facility]. tel:[phone] OFFICE VISIT ESTAB PT 25 MIN [facility], [address], [place], [place], [address] , [place] tel:+ [phone] [facility] back pain (chief complaint) Allergic rhinitis, cause unspecifiedLu mbagoAllergic rhinitis, cause unspecified 1 [facility], [address] [place] [address], [place]. tel: [phone] Referring Provider: Isabell [facility] [address] [place] [address]. tel:[phone] [facility], [address], [place], [place], [address] , [place] tel:[phone] [facility] No Information 1 [facility], [address] [place], [facility], [place]. tel:[phone] OFFICE VISIT ESTAB PT 25 MIN [facility], [address], [place], [place], [address] , [place] tel: [phone] [facility] asthma (chief complaint) Other psoriasis and similar disordersAlle rgic rhinitis, cause unspecified 1 [facility], [address] [place], [facility], [place]. tel:[phone] Referring Provider: Isabell [facility] [address] [place], [facility]. tel:[phone] [facility], [address], [place], [place], [address] , [place] tel: [phone] [facility] No Information 1 Management Case. . OFFICE VISIT ESTAB PT 25 MIN [facility], [address], [place], [place], [address] , [place] tel:+ [phone] [facility] cough (chief complaint) Viral syndromeViral Infection, Unspecified 0 [facility], [address] [place], [facility], [place]. tel:[phone] [facility], [address], [place], [place], [address] , [place] tel:+ [phone] [facility] No Information 0 Management Case. . OFFICE VISIT ESTAB PT 25 MIN [facility], [address], [place], [place], [address] , [place] tel:+ [phone] [facility] allergies (chief complaint) Allergic rhinitis, cause unspecified 0 [facility], [address] [place], [facility], [place]. tel: [phone] OFFICE/OUTPA TIENT VISIT, EST [facility], [address], [place], [place], [address] , [place] tel:+ [phone] [facility] cough (chief complaint)con stipation (chief complaint)bur ping (chief complaint) Allergic rhinitis, cause unspecifiedGE RDDermatophyt osis of unspecified site 0 [facility], [address] [place], [facility], . tel: [phone] OFFICE VISIT ESTAB PT 25 MIN [facility], [address], [address] , [place] tel: [phone] [facility] BP check (chief complaint) Elevated blood pressure reading without diagnosis of hypertensionO ther psoriasis and similar disorders 9 [facility], [address] [place], [facility], . tel: [phone] OFFICE VISIT ESTAB PT 25 MIN [facility], [address], [address] , [place] tel: [phone] [facility] cold symptoms (chief complaint) Other psoriasis and similar disordersUrin florencia tract infection, site not specifiedElev ated blood pressure reading without diagnosis of hypertension 9 [facility], [address] [place], [facility], . tel:[phone] Referring Provider: Isabell [facility] [address] [place], [facility]. tel: [phone] OFFICE VISIT ESTAB PT 15 MIN [facility], [address], [place], [place], [address] , [place] tel:+ [phone] [facility] cough (chief complaint) Acute bronchitisAcu te upper respiratory infections of unspecified site 9 Samir Johnson. [address] [place], [address]. tel:[phone] OFFICE VISIT ESTAB PT 15 MIN [facility], [address], [place], [place], [address] , [place] tel:+ [phone] [facility] No Information 8 Brown [facility], [address] [place], [address], [place]. tel:[phone] [facility], [address], [address] , tel: [phone] [facility] Allergic rhinitis, cause unspecifiedEs ophageal refluxDermato phytosis of unspecified site 8 [facility], [address] [place], [address], [place]. tel:[phone] Family History Family Member Type Diagnosis Age [...] party ID Authoriza tion(s) NHP Integrity CI [id number] NHP Integrity CI [id number] NHP Integrity CI [id number] NHP [place] CI [id number] Medicare MB [id number] Social History Type Description Quantity Date Captured Comments Alcohol Use Details Unknown Caffeine Use Details Unknown Tobacco Use Status No Information Smoking Status No Information Sex Male Sexual Orientation Straight or heterosexual Mar Gender Identity Male Chief Complaint And Reason For Visit No Information Reason For Referral Reason For Referral No Information Plan Of Treatment Date Type Action Status Goal Glaucoma Exam. Due on due Goal [...] Influenza vaccine. Due on due Goal Zoster vaccine (). [...] Zoster vaccine (1st). Due on due Goal Influenza vaccine. Due [...] vaccine. Due on Oc t due Goal Lipid panel. Due on due [...] vaccine. Due on Oc t due Goal Depression screening. Due on due Goal Tdap due Goal Glaucoma Exam. Due on due Goal Pneumococcal vaccine. Due on due Goal Colonoscopy. Due on due Goal Tdap due Goal Influenza vaccine. Due on Oc t15 due Goal Hep C Screening. Due on [...] Lipid panel. Due on 023 due Goal Pneumococcal vaccine. Due on due [...] Goal Colonoscopy. Due on 027 due Goal H&P. Due on due Goal [...] Goal Colonoscopy. Due on 013 due Goal Dietary manageme nt education, guidance, and counseling completed Goal Tobacco cessation counseling completed Goal Tobacco cessation counseling completed Goal Tobacco cessation counseling completed Referral Referred To: Hematology & Oncology Ordered: Referrals: Hematology. [facility] On[facility]. Location: T:[phone] F:[phone] ordered Referral Referred To: [facility] Ordered: Referrals: Ophthalmology. [facility]. Location: T: [phone] F: [phone]. Evaluate and treat ordered Referral Ordered: Colonoscopy, [...] located at: HomeThe Provider is located at: [facility](s) & role(s) of any other participant on the telehealth visit: TeleHealth The patient has verbally consented to participate in this Telehealth Visit and has been advised that co-payments, co-insurance, and/or deductibles may apply as subject to specific insurance plan regulations.The Patient is located at: HomeThe Provider is located at: [facility] CenterThe name(s) & role(s) of any other [...] symptoms are chronic and are controlled. INRs long-term stable with mild fluctuations. Tolerates warfarin well. [...] 2 years denies vision changes. Eating mostly Slovak diet some fried. No junk or fast [...] CPE. No colonoscopy, FOBT. Feels well otherwise. Slovak diet, no greens, vision is okay sees [...] hard, dry. Brown, no blood or mucus. Burkinan style diet and drinking 4-5 bottles of [...] to office for PPD plant, needed for Case Fitter, so pt can receive injections for his [...] morning. Planning to find new PCP in [place]. Will manage anticoag until new PCP takes [...] off warfarin. Awaiting hematol consult to determine long-term anticoag plan. Related to History of pulmonary [...] Managed by derm. 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 Requesting change to anticoag regimen that doesn't require testing. Renal function normal, asymptomatic. INR 1.28 earlier this week. Change to apixiban. Refer to hematol for advice on long-term anticoagulation duration. Related to Other pulmonary embolism [...] for tomorrow at 9:30 AM with [facility] [id number] [facility] [address], [place] [address]pvp. [phone] the pt a copy of his last [...] index (BMI) 25.0-25.9, adult Stable. Follow up [facility] jody as scheduled. Continue warfarin management.Didn't get home draw, nurse to call and find out why. He'll go the lab today for draw. Review red flags, when to go to ER.Review diet, foods to avoid. RTC at CPE. 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 Check ALT, AST, fasting lipids before next visit. RTC at CPE. 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 He adamantly denies any oral issues, only [...]
== END 2024-06-21 11:48 | disposition home or self-care (01) ==
LOC: HO.LABR 11:47
PROVIDERS: PCP Nurse Practitioner Family; Visit Provider Pharmacist
DX: I26.99 Other pulmonary embolism without acute cor pulmonale (principal)
CPT/HCPCS: 36415; 85610

== ENCOUNTER 2024-09-25 13:25 | Outpatient (REF) | payer MEDICARE, MEDICAID, SELFPAY ==
--- OUTSIDE RECORDS SUMMARY | 2019-12-24 11:57 | XMS_ITS | Continuity of Care Document ---
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 Name Role Phone Genet Spear PA-C Unavailable Unavailable Allergies, Adverse Reactions, Alerts Substance Reaction Status Criticality Fish Containing Products Active No Information egg Itching Active No Information Medications Medication Instructions Dosage Effective Dates (start - stop) Status Comments ACETAMINOPHEN ER 650MG TBCR TAKE ONE TABLET BY MOUTH TWICE A DAY 1 - Active Colace 100 mg capsule TAKE ONE CAPSULE BY MOUTH TWICE A DAY NEEDED - Active Senna Lax 8.6 mg tablet take 2 tablet by ORAL route every evening as neededfor constipation 2 tablet - Active multivitamin tablet TAKE ONE TABLET BY MOUTH EVERY DAY WITH FOOD - Active Ventolin HFA 90 mcg/actuation aerosol inhaler INHALE TWO PUFFS BY MOUTH EVERY 4 TO 6 HOURS NEEDED - Active Singulair 10 mg tablet TAKE ONE TABLET BY MOUTH EVERY EVENING - Active COUMADIN 2MG TABS TAKE ONE-TWO TABLETS ONCE DAILY DIRECTED BY PROVIDER - Active SYMBICORT 160-4.5MCG/ACT AERO INHALE TWO PUFFS BY MOUTH EVERY MORNING AND EVERY EVENING 2 puff - Active CETIRIZINE HCL 10MG TABS TAKE ONE TABLET BY MOUTH EVERY DAY - Active ATORVASTATIN CALCIUM 20MG TABS TAKE ONE TABLET BY MOUTH EVERY DAY - Active REGULOID 28.3% POWD TAKE 1 TABLESPOON BY MOUTH EVERYDAY IN 8-10 OZ OF WATER 1 Tablespoon - Active polyethylene glycol 3350 17 gram/dose oral powder take (17G) by oral route every day mixed with 8 oz. water, juice, soda, coffee or tea - Active fluticasone 50 mcg/actuation nasal spray,suspension inhale 1 spray by intranasal route every day in each nostril 50 MCG - Active Advil Liqui-Gel 200 mg capsule take 1 capsule by oral route every 6 hours as needed 200 MG - Active CeraVe topical cream - Active Lip [place] Natural - Active LIP KENYA BALM AP+ ketoconazole 2 % shampoo Apply to scalp externally twice a week - Active methotrexate sodium 2.5 mg tablet take 5 tablets by oral route every Tuesday - Active folic acid 1 mg tablet take 1 tablet by oral route every day 1 MG - Active clobetasol 0.05 % topical cream apply by topical route 2 times every day a thin layer to the affected area(s) 0.00 - Active calcipotriene 0.005 % topical ointment apply by topical route every day a thin layer to the affected area(s) ; rub in gently and completely 0.00 - Active Advance Directives Directive Yes / No Effective Date File Name No Information Encounters Encounter Description Practice Location Reason(s) For Visit Diagnoses Date Provider [facility], [address], [place], [id number] , tel:[phone] [facility] No Information 0 Rainer De León. [address], [place], [address], [place]. tel:[phone] [facility], [address], [place], [address] , tel:+ [phone] [facility] Long-term Use of AnticoagulantsPortal vein thrombosis 0 Rainer De León. [address], [place], [address], [place]. tel:[phone] [facility], [address], [place], [address] , [place] tel:+ [phone] [facility] Long-term Use of AnticoagulantsPortal vein thrombosis 0 Dannie Shah. [address], [place], [address], . tel:[phone] [facility], [address], [place], [place], [address] , [place] tel:[phone] [facility] (chief complaint) Advice given about COVID-19 virus by telephoneMesenteric thrombosis 0 [facility] Edward. [address], [place], [address], . tel: [phone] [facility], [address], [place], [place], [address] , [place] tel:[phone] [facility] Long-term Use of AnticoagulantsPortal vein thrombosis 0 Skidmorerick Edward. [address], [place], [address], [place]. tel: [phone] [facility], [address], [place], [place], [address] , [place] tel:+ [phone] [facility] No Information 0 Management Case. . [facility], [address], [place], [place], [address] , [place] tel:+ [phone] [facility] Long-term Use of AnticoagulantsPortal vein thrombosis 0 [facility] Edward. [address], [place], [address], [place]. tel: [phone] [facility], [address], [place], [place], [address] , [place] tel:[phone] [facility] No Information 0 Management Case. . [facility], [address], [place], [place], [address] , [place] tel:[phone] [facility] Long-term Use of AnticoagulantsPortal vein thrombosisLong-term Use of AnticoagulantsPortal vein thrombosis 0 [facility] Edward. [address], [place], [address], [place]. tel: [phone] [facility], [address], [place], [place], [address] , [place] tel:[phone] [facility] Long-term Use of AnticoagulantsPortal vein thrombosis 0 Westrick Edward. [address], [place], [address], [place]. tel: [phone] [facility], [address], [place], [place], [address] , [place] tel:+ [phone] [facility] Long-term Use of AnticoagulantsPortal vein thrombosis Apr-3 0-202 0 Skidmoreburke Shah. [address], [place], [address], [place]. tel: [phone] [facility], [address], [place], [place], [address] , [place] tel:[phone] [facility] Long-term Use of AnticoagulantsPortal vein thrombosis Jun-2 - 0 Skidmoreburke Shah. [address], [place], [address], [place]. tel: [phone] [facility], [address], [place], [place], [address] , [place] tel:+ [phone] [facility] No Information Jun-04 08- 0 Management Case. . [facility], [address], [place], [place], [address] , [place] tel:+ [phone] [facility] Long-term Use of AnticoagulantsPortal vein thrombosisLong-term Use of AnticoagulantsPortal vein thrombosis Jun- 0 Dannie Shah. [address], [place], [address], [place]. tel: [phone] [facility], [address], [place], [place], [address] , [place] tel:[phone] [facility] TeleHealth (chief complaint) Chronic constipationMesenteri c thrombosisAsthma, persistent controlledAdvice given about COVID-19 virus by telephone Jun- 0 [facility] Pablo. [address], [place], [address], [place]. tel: [phone] [facility], [address], [place], [place], [address] , [place] tel:[phone] [facility] No Information 0 Dannie Shah. [address], [place], [address], [place]. tel: [phone] [facility], [address], [place], [place], [address] , [place] tel: [phone] [facility] Long-term Use of AnticoagulantsPortal vein thrombosis Jun-0 9-202 0 Nikolas Hicks. [address], [place], [address], [place]. tel: [phone] [facility], [address], [place], [place], [address] , [place] tel:+ [phone] [facility] No Information Jun-0 8-202 0 Skidmorerick Edward. [address], [place], [address], [place]. tel: [phone] [facility], [address], [place], [place], [address] , [place] tel: [phone] [facility] Long-term Use of AnticoagulantsPortal vein thrombosis Jun-0 3202 0 Skidmorerick Edward. [address], [place], [address], [place]. tel: [phone] [facility], [address], [place], [place], [address] , [place] tel: [phone] [facility] Long-term Use of AnticoagulantsPortal vein thrombosis May-2 6 0 Skidmorerick Edward. [address], [place], [address], [place]. tel: [phone] [facility], [address], [place], [place], [address] , [place] tel: [phone] [facility] No Information May- 8202 0 Skidmorerick Edward. [address], [place], [address], [place]. tel: [phone] [facility], [address], [place], [place], [address] , [place] tel: [phone] [facility] Long-term Use of AnticoagulantsPortal vein thrombosis Mar- 0-202 0 Skidmorerick Edward. [address], [place], [address], [place]. tel: [phone] [facility], [address], [place], [place], [address] , [place] tel:+ [phone] [facility] Long-term Use of AnticoagulantsPortal vein thrombosis 0 Skidmorerick Pablo. [address], [place], [address], [place]. tel: [phone] [facility], [address], [place], [place], [address] , [place] tel:+ [phone] [facility] Long-term Use of AnticoagulantsPortal vein thrombosis 0 Giovanni Salguero. [address], [place], [place], [address], [place]. tel: [phone] [facility], [address], [place], [place], [address] , [place] tel:+ [phone] [facility] Long-term Use of AnticoagulantsPortal vein thrombosis 0 Skidmoreburke Silasjuliana. [address], [place], [address], [place]. tel: [phone] [facility], [address], [place], [place], [address] , [place] tel:+ [phone] [facility] Long-term Use of AnticoagulantsPortal vein thrombosisLong-term Use of AnticoagulantsPortal vein thrombosis 0 Tino Headleyson. [address] [place], [place], [address], [place]. tel: [phone] [facility], [address], [place], [place], [address] , [place] tel:[phone] [facility] No Information 0 [facility] Silasbrackenridge. [address], [place], [address], [place]. tel: [phone] [facility], [address], [place], [place], [address] , [place] tel:[phone] [facility] Long-term Use of AnticoagulantsPortal vein thrombosis 0 [facility] Pablo. [address], [place], [address], [place]. tel: [phone] [facility], [address], [place], [place], [address] , [place] tel: [phone] [facility] Long-term Use of AnticoagulantsPortal vein thrombosis 0 Skidmoreburke Shah. [address], [place], [address], [place]. tel: [phone] [facility], [address], [place], [place], [address] , [place] tel: [phone] [facility] multiple problems (chief complaint) Essential (primary) hypertensionMesenteri c thrombosisChronic constipationUnspecifi ed asthma, uncomplicated 0 [facility]. [address], [place], [address], [place]. tel: [phone] [facility], [address], [place], [place], [address] , [place] tel: [phone] [facility] Long-term Use of AnticoagulantsPortal vein thrombosis 0 Dannie Shah. [address], [place], [address], [place]. tel: [phone] [facility], [address], [place], [place], [address] , [place] tel: [phone] [facility] Long-term Use of AnticoagulantsPortal vein thrombosis 9 [facility]. [address], [place], [address], [place]. tel: [phone] [facility], [address], [place], [place], [address] , [place] tel:+ [phone] [facility] Long-term Use of AnticoagulantsPortal vein thrombosis 9 [facility]. [address], [place], [address], [place]. tel: [phone] [facility], [address], [place], [place], [address] , [place] tel: [phone] [facility] Long-term Use of AnticoagulantsPortal vein thrombosis 0 9 [facility]. [address], [place], [address], [place]. tel: [phone] [facility], [address], [place], [place], [address] , [place] tel: [phone] [facility] Long-term Use of AnticoagulantsPortal vein thrombosis 9 [facility]. [address], [place], [address], . tel: [phone] [facility], [address], [place], [place], [address] , [place] tel: [phone] [facility] Long-term Use of AnticoagulantsPortal vein thrombosis 9 [facility]. [address], [place], [address], . tel: [phone] [facility], [address], [place], [place], [address] , [place] tel: [phone] [facility] Long-term Use of AnticoagulantsPortal vein thrombosis 9 [facility]. [address], [place], [address], . tel: [phone] [facility], [address], [place], [place], [address] , [place] tel: [phone] [facility] Long-term Use of AnticoagulantsPortal vein thrombosis 9 [facility]. [address], [place], [address], . tel: [phone] [facility], [address], [place], [place], [address] , [place] tel:+ [phone] [facility] Long-term Use of AnticoagulantsPortal vein thrombosisLong-term Use of AnticoagulantsPortal vein thrombosis 9 Cullion Robyn. [address], [place], [place], [address], [place]. tel: [phone] [facility], [address], [place], [place], [address] , [place] tel:+ [phone] [facility] multiple problems (chief complaint) Chronic vascular disorders of intestineAnticoagulat ion goal of INR 2 to 3Asthma, persistent controlledConstipatio n, unspecified Dec- 9 [facility]. [address], [place], [address], . tel: [phone] [facility], [address], [place], [place], [address] , [place] tel:[phone] [facility] Long-term Use of AnticoagulantsPortal vein thrombosis Dec-0 9 [facility]. [address], [place], [address], [place]. tel: [phone] [facility], [address], [place], [place], [address] , [place] tel:[phone] [facility] Long-term Use of AnticoagulantsPortal vein thrombosis Sep-2 9 [facility]. [address], [place], [address], [place]. tel: [phone] [facility], [address], [place], [place], [address] , [place] tel:[phone] [facility] Long-term Use of AnticoagulantsPortal vein thrombosis Sep-1 9 [facility]. [address], [place], [address], [place]. tel: [phone] [facility], [address], [place], [place], [address] , [place] tel:[phone] [facility] Long-term Use of AnticoagulantsPortal vein thrombosis Sep-1 9 [facility]. [address], [place], [address], [place]. tel: [phone] [facility], [address], [place], [place], [address] , [place] tel:[phone] [facility] Anticoagulation (chief complaint) Chronic vascular disorders of intestineAnticoagulat ion goal of INR 2 to 3Long term (current) use of anticoagulantsAsthma, persistent controlled Sep- 0 9 [facility]. [address], [place], [address], [place]. tel: [phone] [facility], [address], [place], [place], [address] , [place] tel: [phone] [facility] Long-term Use of AnticoagulantsPortal vein thrombosis [facility]. [address], [place], [address], [place]. tel: [phone] [facility], [address], [place], [place], [address] , US tel: [phone] [facility] Long-term Use of AnticoagulantsPortal vein thrombosis [facility]. [address], [place], [address], [place]. tel: [phone] [facility], [address], [place], [place], [address] , [place] tel: [phone] [facility] preventive exam (chief complaint) Essential (primary) hypertensionEncounter for general adult medical examination with abnormal findingsAsthma, persistent controlledMesenteric vein thrombosisUrinary frequencyCancer screeningAdenomatous polypPsoriasis, unspecified [facility]. [address], [place], [address], [place]. tel: [phone] [facility], [address], [place], [place], [address] , [place] tel: [phone] [facility] multiple problems (chief complaint) Psoriasis, unspecifiedHistory of pulmonary embolus (PE)Mixed hyperlipidemiaPolypha rmacyAsthma, persistent controlled [facility]. [address], [place], [address], [place]. tel: [phone] [facility], [address], [place], [place], [address] , [place] tel: [phone] [facility] Anticoagulation (chief complaint) Other pulmonary embolism without acute cor pulmonalePsoriasisPol ypharmacy [facility]. [address], [place], [address], [place]. tel: [phone] [facility], [address], [place], [place], [address] , [place] tel:+ [phone] [facility] Long-term Use of Anticoagulants July-2 3 9 Stacy Boss. [address], [place] [address], [place], [place], [address], [place]. tel:[phone] [facility], [address], [place], [place], [address] , [place] tel:[phone] [facility] No Information July-0 9 Stacy Boss. [address], [address] [facility], [place], [place], [address], [place]. tel: [phone] [facility], [address], [place], [place], [address] , [place] tel:[phone] [facility] Long-term Use of Anticoagulants Jun-2 9 Stacy Boss. [address], [place] [address], [place], [place], [address], [place]. tel: [phone] [facility], [address], [place], [place], [address] , [place] tel:[phone] [facility] Long-term Use of Anticoagulants Jun- 9 Stacy Boss. [address], [place] [address], [place], [place], [address], [place]. tel:+ [phone] [facility], [address], [place], [place], [address] , [place] tel:[phone] [facility] Long-term Use of Anticoagulants Jun-0 9 9 Stacy Boss. [address], [place] [address], [place], [place], [address], [place]. tel:+ [phone] [facility], [address], [place], [place], [address] , [place] tel:[phone] [facility] Long-term Use of Anticoagulants Jun-0 9 Giovanni Salguero. [address] [place], [place], [address], [place]. tel:+ [phone] [facility], [address], [place], [place], [address] , [place] tel:[phone] [facility] Long-term Use of Anticoagulants Mar-2 5-201 9 Stacy Boss. [address], [address], [address], [place]. tel:+ [phone] [facility], [address], [place], [place], [address] , [place] tel:[phone] [facility] Long-term Use of Anticoagulants Mar-2 0-201 9 Stacy Boss. [address], [place] [address], [place], [place], [address], [place]. tel: [phone] [facility], [address], [place], [place], [address] , [place] tel:[phone] [facility] Long-term Use of Anticoagulants Mar-0 8-201 9 Stacy Boss. [address] [facility], [address], [address], [place]. tel: [phone] [facility], [address], [place], [place], [address] , [place] tel:[phone] [facility] No Information Mar-0 6-201 9 Management Case. . [facility], [address], [place], [place], [address] , [place] tel:[phone] [facility] Long-term Use of Anticoagulants Feb-2 2-201 9 Stacy Boss. [address] [facility], [address], [address], [place]. tel: [phone] [facility], [address], [place], [place], [address] , [place] tel:[phone] [facility] Long-term Use of Anticoagulants Feb-0 7-201 9 Stacy Boss. [address] [facility], [address], [address], [place]. tel:[phone] [facility], [address], [place], [place], [address] , [place] tel:[phone] [facility] Long-term Use of Anticoagulants Feb-0 1-201 9 Stacy Boss. [address], [address] [place] [address], [place], [address], [place]. tel: [phone] [facility], [address], [place], [place], [address] , [place] tel:[phone] [facility] Long-term Use of Anticoagulants 9 Stacy Boss. [address], [address] [facility], [place], [place], [address], [place]. tel: [phone] [facility], [address], [place], [place], [address] , [place] tel:[phone] [facility] No Information 9 Stacy Boss. [address], [address] [facility], [place], [place], [address], [place]. tel: [phone] [facility], [address], [place], [place], [address] , [place] tel:+ [phone] [facility] asthma (chief complaint) Body mass index (BMI) 25.0-25.9, adultUnspecified asthma, uncomplicatedChronic constipation 9 Stacy Boss. [address], [address] [facility], [place], [place], [address], [place]. tel: [phone] [facility], [address], [place], [place], [address] , [place] tel:[phone] [facility] Long-term Use of Anticoagulants 9 Stacy Boss. [address], [address] [facility], [place], [place], [address], [place]. tel: [phone] [facility], [address], [place], [place], [address] , [place] tel:[phone] [facility] Long-term Use of Anticoagulants 9 Management Case. . [facility], [address], [place], [place], [address] , [place] tel:[phone] [facility] Long-term Use of Anticoagulants 8 Stacy Boss. [address], [address] [facility], [place], [place], [address], [place]. tel: [phone] [facility], [address], [place], [place], [address] , [place] tel:[phone] [facility] right eye bleeding (chief complaint) Body mass index (BMI) 25.0-25.9, adultUlcer of right corneaScleral hemorrhage of right eye Dec-2 0-201 8 Stacy Boss. [address], [address] [place] [address], [id number], . tel: [phone] [facility], [address], [place], [place], [address] , [place] tel:[phone] [facility] Long-term Use of Anticoagulants Dec-0 7-201 8 Cullion Robyn. [address], [address] [place] [address], [id number], [place]. tel: [phone] [facility], [address], [place], [place], [address] , [place] tel:[phone] [facility] Long-term Use of Anticoagulants Jan-0 9-201 8 Stacy Boss. [address], [address] [facility], [place], [place], [address], [place]. tel: [phone] [facility], [address], [place], [place], [address] , [place] tel:[phone] [facility] Long-term Use of Anticoagulants Dec-2 5-201 8 Stacy Boss. [address], [address], [address], . tel: [phone] [facility], [address], [place], [place], [address] , [place] tel:[phone] [facility] Long-term Use of Anticoagulants Dec- 3-201 8 [facility]. [address], [address] [facility], [place], [place], [address], . tel: [phone] [facility], [address], [place], [place], [address] , [place] tel:[phone] [facility] psoriasis (chief complaint)asthma (chief complaint) Body mass index (BMI) 25.0-25.9, adultMixed hyperlipidemiaUnspeci fied asthma, uncomplicatedPsoriasi sOther pulmonary embolism without acute cor pulmonale Dec- 8 Stacy Boss. [address], [place] [address], [place], [place], [address], [place]. tel:[phone] [facility], [address], [place], [place], [address] , [place] tel:[phone] [facility] Long-term Use of Anticoagulants 0 8 Stacy Boss. [address], [address] [facility], [place], [place], [address], [place]. tel:[phone] [facility], [address], [place], [place], [address] , [place] tel:[phone] [facility] Long-term Use of Anticoagulants 0 8 Stacy Boss. [address], [address], [address], [place]. tel: [phone] [facility], [address], [place], [place], [address] , [place] tel:[phone] [facility] Long-term Use of Anticoagulants 8 Stacy Boss. [address], [address], [address], [place]. tel:[phone] [facility], [address], [place], [place], [address] , [place] tel:[phone] [facility] Long-term Use of Anticoagulants 8 Stacy Boss. [address], [address] [place] [address], [address], [place]. tel:[phone] [facility], [address], [place], [place], [address] , [place] tel:[phone] [facility] Long-term Use of Anticoagulants 8 Stacy Boss. [address], [address] [place] [address], [address], [place]. tel:[phone] [facility], [address], [place], [place], [address] , [place] tel:[phone] [facility] Long-term Use of Anticoagulants 8 Stacy Boss. [address], [address] [facility], [place], [place], [address], . tel: [phone] [facility], [address], [place], [place], [address] , [place] tel:[phone] [facility] Long-term Use of Anticoagulants 8 Stacy Boss. [address], [address] [facility], [place], [place], [address], [place]. tel: [phone] [facility], [address], [place], [place], [address] , [place] tel:[phone] [facility] Long-term Use of Anticoagulants 8 Stacy Boss. [address], [address] [facility], [place], [place], [address], . tel: [phone] [facility], [address], [place], [place], [address] , [place] tel:[phone] [facility] Long-term Use of Anticoagulants 8 Stacy Boss. [address], [address] [facility], [place], [place], [address], . tel: [phone] [facility], [address], [place], [place], [address] , [place] tel:[phone] [facility] Long-term Use of Anticoagulants 8 Stacy Boss. [address], [address] [facility], [place], [place], [address], [place]. tel: [phone] [facility], [address], [place], [place], [address] , US tel:[phone] [facility] Long-term Use of Anticoagulants 8 Stacy Boss. [address], [address] [facility], [place], [place], [address], . tel: [phone] [facility], [address], [place], [place], [address] , [place] tel:[phone] [facility] Long-term Use of Anticoagulants 2 8 Stacy Boss. [address], [address] [facility], [place], [place], [address], [place]. tel:[phone] [facility], [address], [place], [place], 417[address]186 , [place] tel:[phone] [facility] Long-term Use of Anticoagulants 8 Stacy Boss. [address], [address] [facility], [place], [place], [address], [place]. tel: [phone] [facility], [address], [place], [place], [address] , US tel:[phone] [facility] Long-term Use of Anticoagulants 8 Stacy Boss. [address], [address] [facility], [place], [place], [address], [place]. tel: [phone] [facility], [address], [place], [place], [address]64[address]33 , US tel:[phone] [facility] Long-term Use of Anticoagulants 8 Stacy Boss. [address], [address] [facility], [place], [place], [address], [place]. tel: [phone] [facility], [address], [place], [place], [address] , [place] tel:[phone] [facility] Long-term Use of Anticoagulants 8 Stacy Boss. [address], [address] [facility], [place], [place], [address], [place]. tel: [phone] [facility], [address], [place], [place], [address] , [place] tel:[phone] [facility] No Information 8 Stacy Boss. [address], [address] [facility], [place], [place], [address], . tel: [phone] [facility], [address], [place], [place], [address]25678[address] , [place] tel:[phone] [facility] Long-term Use of Anticoagulants 8 Stacy Boss. [address], [address], [place], [place], [address], [place]. tel:[phone] [facility], [address], [place], [place], [address] , [place] tel:[phone] [facility] Long-term Use of Anticoagulants 8 Stacy Boss. [address], [address], [place], [place], [address], [place]. tel:+ [phone] [facility], [address], [facility] [place], [address] , [place] tel:[phone] [facility] Long-term Use of Anticoagulants 0 8 Stacy Boss. [address], [address], [place], [place], [address], [place]. tel: [phone] [facility], [address], [place], [place], [address] , [place] tel:[phone] [facility] Long-term Use of Anticoagulants 8 Management Case. . [facility], [address], [place], [place], [address] , [place] tel:[phone] [facility] preventive exam (chief complaint)psoria sis (chief complaint)asthma (chief complaint)angico agulation (chief complaint) Encntr for general adult medical exam w/o abnormal findingsBody mass index (BMI) 26.0-26.9, adultMixed hyperlipidemiaUnspeci fied asthma, uncomplicatedOther pulmonary embolism without acute cor pulmonalePsoriasis 8 Stacy Boss. [address], [address], [place], [place], [address], [place]. tel:+ [phone] [facility], [address], [place], [place], [address] , [place] tel:[phone] [facility] Long-term Use of Anticoagulants 8 Stacy Boss. [address], [address], [place], [place], [address], [place]. tel:+ [phone] [facility], [address], [place], [place], [address] , [place] tel:[phone] [facility] Long-term Use of Anticoagulants 0 9 8 Stacy Boss. [address], [address], [address], . tel:+ [phone] [facility], [address], [place], [place], [address] , [place] tel:[phone] [facility] Long-term Use of Anticoagulants 8 Stacy Boss. [address], Suite [facility], [place], [place], [address], [place]. tel:+ [phone] [facility], [address], [place], [place], [address] , [place] tel:[phone] [facility] Long-term Use of Anticoagulants 8 Stacy Boss. [address], [address], [address], . tel:+ [phone] [facility], [address], [place], [place], [address] , [place] tel:[phone] [facility] Long-term Use of Anticoagulants 8 Stacy Boss. [address] [facility], [address], [id number], . tel:+ [phone] [facility], [address], [place], [place], [address] , [place] tel:[phone] [facility] Long-term Use of Anticoagulants 8 Stacy Boss. [address], [address], [address], [place]. tel:+ [phone] [facility], [address], [place], [place], [address] , [place] tel:[phone] [facility] Long-term Use of Anticoagulants 8 Management Case. . [facility], [address], [place], [place], [address] , [place] tel:[phone] [facility] Long-term Use of Anticoagulants 8 7 Stacy Boss. [address], Suite [facility], [place], [place], [address], [place]. tel:+ [phone] [facility], [address], [place], [place], [address] , [place] tel:[phone] [facility] Long-term Use of Anticoagulants Dec-0 7-201 7 Stacy oBss. [address], Suite [facility], [place], [place], [address], [place]. tel:+ [phone] [facility], [address], [place], [place], [address] , [place] tel:[phone] [facility] Long-term Use of Anticoagulants Nov-2 8-201 7 Stacy Boss. [address], Suite [facility], [place], [place], [address], [place]. tel:+ [phone] [facility], [address], [place], [place], [address] , [place] tel:[phone] [facility] Long-term Use of Anticoagulants Oct-2 5-201 7 Stacy Boss. [address], Suite [facility], [place], [place], [address], [place]. tel:+ [phone] [facility], [address], [place], [place], [address] , [place] tel:[phone] [facility] Encounter for screening colonoscopy Oct-1 2-201 7 Stacy Boss. [address], [address] [place] [address], [id number], [place]. tel:+ [phone] [facility], [address], [place], [place], [address] , [place] tel:[phone] [facility] Long-term Use of Anticoagulants Oct-1 1-201 7 Stacy Boss. [address], Suite [facility], [place], [place], [address], [place]. tel:+ [phone] [facility], [address], [place], [place], [address] , [place] tel:[phone] [facility] Long-term Use of Anticoagulants Oct-0 4-201 7 Stacy Boss. [address], Suite [facility], [place], [place], [address], . tel:+ [phone] [facility], [address], [place], [place], [address] , [place] tel:+ [phone] [facility] No Information 7 Management Case. . [facility], [address], [place], [place], [address] , [place] tel:+ [phone] [facility] Long-term Use of Anticoagulants 7 Stacy Gera. [address], [address], [address], [place]. tel: [phone] [facility], [address], [place], [place], [address] , [place] tel:+ [phone] [facility] asthma (chief complaint)hyperl ipidemia (chief complaint)chroni c anticoagulation (chief complaint)Eye problems (chief complaint)psoria sis (chief complaint) Body mass index (BMI) 27.0-27.9, adultMixed hyperlipidemiaUnspeci fied asthma, uncomplicatedOth disrd of the skin and subcutaneous tissueLong-term Use of AnticoagulantsEye problemOther pulmonary embolism without acute cor pulmonale 7 Stacy Gera. [address] [facility], [place] [address], [place], [place], [address], . tel: [phone] [facility], [address], [place], [place], [address] , [place] tel:[phone] [facility] Long-term Use of Anticoagulants 7 [facility]. [address], Suite [facility], [place], [place], [address], [place]. tel: [phone] [facility], [address], [place], [place], [address] , [place] tel:[phone] [facility] Long-term Use of Anticoagulants 7 Stacy Gera. [address], Suite [facility], [place], [place], [address], [place]. tel: [phone] [facility], [address], [place], [place], [address] , [place] tel:[phone] [facility] Long-term Use of Anticoagulants 7 Stacy Boss. [address], Suite [facility], [place], [place], [address], . tel: [phone] [facility], [address], [place], [place], [address] , [place] tel:[phone] [facility] Long-term Use of Anticoagulants 7 Stacy Boss. [address], [address] [facility], [place], [place], [address], [place]. tel: [phone] [facility], [address], [place], [place], [address] , [place] tel:[phone] [facility] Long-term Use of Anticoagulants 7 Stacy Boss. [address], [address] [facility], [place], [place], [address], . tel: [phone] [facility], [address], [place], [place], [address] , [place] tel:[phone] [facility] Long-term Use of Anticoagulants 7 Stacy Boss. [address], Suite [facility], [place], [place], [address], . tel: [phone] [facility], [address], [place], [place], [address] , [place] tel:[phone] [facility] Long-term Use of Anticoagulants 7 Stacy Boss. [address], [address] [facility], [place], [place], [address], [place]. tel: [phone] [facility], [address], [place], [place], [address] , [place] tel:[phone] [facility] Long-term Use of Anticoagulants 7 Stacy Boss. [address], Suite [facility], [place], [place], [address], . tel: [phone] [facility], [address], [place], [place], [address] , [place] tel:[phone] [facility] Long-term Use of Anticoagulants 7 [facility]. [address], [place], [address], . tel: [phone] [facility], [address], [place], [place], [address] , [place] tel: [phone] [facility] Long-term Use of Anticoagulants 7 Stacy Boss. [address], [address], [place], [place], [address], [place]. tel: [phone] [facility], [address], [place], [place], [address] , [place] tel: [phone] [facility] Long-term Use of Anticoagulants 7 [facility]. [address], [place], [address], . tel: [phone] [facility], [address], [place], [place], [address] , [place] tel: [phone] [facility] Long-term Use of Anticoagulants 7 [facility]. [address], [place], [address], [place]. tel: [phone] [facility], [address], [place], [place], [address] , [place] tel:[phone] [facility] Encounter for dental exam and cleaning w/o abnormal findings 7 Patrick Ku. [address], [place], [address], [place]. tel: [phone] [facility], [address], [place], [place], [address] , [place] tel: [phone] [facility] Long-term Use of Anticoagulants Jun-2 0 7 Stacy Boss. [address], [address], [place], [place], [address], [place]. tel: [phone] [facility], [address], [place], [place], [address] , [place] tel: [phone] [facility] Long-term Use of Anticoagulants Apr-0 7 Stacy Boss. [address], [address], [place], [place], [address], [place]. tel:+ [phone] [facility], [address], [place], [place], [address] , [place] tel:+ [phone] [facility] Long-term Use of Anticoagulants May-3 0- 7 Stacy Boss. [address], [address], [place], [place], [address], [place]. tel:+ [phone] [facility], [address], [place], [place], [address] , [place] tel:+ [phone] [facility] preventive exam (chief complaint)asthma (chief complaint)psoria sis (chief complaint)hyperl ipidemia (chief complaint)chroni c anticoagulation (chief complaint) Encntr for general adult medical exam w/o abnormal findingsBody mass index (BMI) 30.0-30.9, adultOther specified disorders of the skin and subcutaneous tissueMixed hyperlipidemiaUnspeci fied asthma, uncomplicatedOther pulmonary embolism without acute cor pulmonaleEncounter for screening for malignant neoplasm of colonLong-term Use of Anticoagulants May-2 2- 7 Stacy Boss. [address], Suite [facility], [place], [place], [address], [place]. tel:+ [phone] [facility], [address], [place], [place], [address] , [place] tel:[phone] [facility] Long-term Use of Anticoagulants May- 7 Stacy Boss. [address], [address], [place], [place], [address], [place]. tel:+ [phone] [facility], [address], [place], [place], [address] , [place] tel:[phone] [facility] Long-term Use of Anticoagulants May-0 7 Stacy Boss. [address], [address], [place], [place], [address], [place]. tel:+ [phone] [facility], [address], [place], [place], [address] , [place] tel:[phone] [facility] Long-term Use of Anticoagulants May-0 3- 7 Stacy Boss. [address], [address] [place] [address], [address], [place]. tel:+ [phone] [facility], [address], [place], [place], [address] , [place] tel:[phone] [facility] Long-term Use of Anticoagulants 0 7 Stacy Boss. [address], [address] [facility], [place], [place], [address], [place]. tel:+ [phone] [facility], [address], [place], [place], [address] , [place] tel:[phone] [facility] Long-term Use of Anticoagulants 7 Stacy Boss. [address], [address], [address], [place]. tel:+ [phone] [facility], [address], [place], [place], [address] , [place] tel:[phone] [facility] Long-term Use of Anticoagulants 7 Stacy Boss. [address], [address] [place] [address], [address], [place]. tel:+ [phone] [facility], [address], [place], [place], [address] , [place] tel:[phone] [facility] Long-term Use of Anticoagulants 7 Stacy Boss. [address], [address] [place] [address], [address], [place]. tel:+ [phone] [facility], [address], [place], [place], [address] , [place] tel:[phone] [facility] Long-term Use of Anticoagulants 6 Stacy Boss. [address], Suite [facility], [place], [place], [address], [place]. tel:+ [phone] [facility], [address], [place], [place], [address] , [place] tel:[phone] [facility] Long-term Use of Anticoagulants Nov-3 0-201 6 Stacy Boss. [address], [address] [facility], [place], [place], [address], [place]. tel:+ [phone] [facility], [address], [place], [place], [address] , [place] tel:[phone] [facility] Long-term Use of Anticoagulants Nov-1 8-201 6 Stacy Boss. [address], [address] [facility], [place], [place], [address], [place]. tel:+ [phone] [facility], [address], [place], [place], [address] , [place] tel:[phone] [facility] Long-term Use of Anticoagulants Nov-1 0-201 6 Stacy Boss. [address], [address] [facility], [place], [place], [address], [place]. tel: [phone] [facility], [address], [place], [place], [address] , [place] tel:[phone] [facility] Long-term Use of Anticoagulants Nov-0 3-201 6 Stacy Boss. [address], [address] [facility], [place], [place], [address], [place]. tel: [phone] [facility], [address], [place], [place], [address] , [place] tel:[phone] [facility] asthma (chief complaint) Unspecified asthma, uncomplicated Oct-2 0-201 6 Stacy Boss. [address], [address] [facility], [place], [place], [address], [place]. tel: [phone] [facility], [address], [place], [place], [address] , [place] tel:[phone] [facility] Long-term Use of Anticoagulants Oct-1 3-201 6 Stacy Boss. [address], [address] [facility], [place], [place], [address], [place]. tel:+ [phone] [facility], [address], [place], [place], [address] , [place] tel:[phone] [facility] Long-term Use of Anticoagulants Oct-0 6-201 6 Stacy Boss. [address], [address] [facility], [place], [place], [address], [place]. tel: [phone] [facility], [address], [place], [place], [address] , [place] tel:[phone] [facility] Long-term Use of Anticoagulants 6 Stacy Boss. [address], Suite [facility], [place], [place], [address], [place]. tel: [phone] [facility], [address], [place], [place], [address] , [place] tel:+ [phone] [facility] No Information 6 Management Case. . [facility], [address], [place], [place], [address] , [place] tel:[phone] [facility] Long-term Use of Anticoagulants 6 Stacy Boss. [address], [address] [facility], [place], [place], [address], [place]. tel: [phone] [facility], [address], [place], [place], [address] , [place] tel:[phone] [facility] Long-term Use of Anticoagulants 6 Stacy Boss. [address], [address] [facility], [place], [place], [address], [place]. tel: [phone] [facility], [address], [place], [place], [address] , [place] tel:[phone] [facility] No Information 6 Management Case. . [facility], [address], [place], [place], [address] , [place] tel:[phone] [facility] Long-term Use of Anticoagulants 6 Stacy Boss. [address], [address] [facility], [place], [place], [address], [place]. tel: [phone] [facility], [address], [place], [place], [address] , [place] tel:[phone] [facility] Long-term Use of Anticoagulants 6 Stacy Boss. [address], [address] [facility], [place], [place], [address], . tel:+ [phone] [facility], [address], [place], [place], [address] , [place] tel:[phone] [facility] No Information 6 Stacy Boss. [address], [address] [facility], [place], [place], [address], [place]. tel:+ [phone] [facility], [address], [place], [place], [address] , [place] tel:[phone] [facility] Long-term Use of Anticoagulants 0 6 Stacy Boss. [address], [address] [facility], [place], [place], [address], [place]. tel:+ [phone] [facility], [address], [place], [place], [address] , [place] tel:[phone] [facility] Long-term Use of Anticoagulants 6 Stacy Boss. [address], [address] [facility], [place], [place], [address], [place]. tel:+ [phone] [facility], [address], [place], [place], [address] , [place] tel:[phone] [facility] Long-term Use of Anticoagulants 6 Stacy Boss. [address], [address] [facility], [place], [place], [address], [place]. tel:+ [phone] [facility], [address], [place], [place], [address] , [place] tel:[phone] [facility] Long-term Use of Anticoagulants 6 Stacy Boss. [address], [address] [facility], [place], [place], [address]7, [place]. tel:+ [phone] [facility], [address], [place], [place], [address] , [place] tel:[phone] [facility] Long-term Use of Anticoagulants 6 Stacy Boss. [address], Suite [facility], [place], [place], [address], [place]. tel:+ [phone] [facility], [address], [place], [place], [address] , [place] tel:[phone] [facility] Long-term Use of Anticoagulants July-0 5-201 6 Stacy Boss. [address], [address] [facility], [place], [place], [address], [place]. tel:+ [phone] [facility], [address], [place], [place], [address]186 , [place] tel:[phone] [facility] Long-term Use of Anticoagulants Jun-2 1- 6 Stacy Boss. [address], Suite [facility], [place], [place], [address], [place]. tel:+ [phone] [facility], [address], [place], [place], [address] , [place] tel:[phone] [facility] Jun-1 3-201 6 Stacy Boss. [address], [address] [facility], [place], [place], [address], [place]. tel:+ [phone] [facility], [address], [place], [place], [address] , [place] tel:[phone] [facility] Long-term Use of Anticoagulants Jun-1 2-201 6 Stacy Boss. [address], [address] [facility], [place], [place], [address], [place]. tel:+ [phone] [facility], [address], [place], [place], [address]79[address]12[address] , [place] tel:[phone] [facility] Long-term Use of Anticoagulants Jun-0 5-201 6 Stacy Boss. [address], [address] [facility], [place], [place], [address], [place]. tel:+ [phone] [facility], [address], [place], [place], [address]114[address] , [place] tel:[phone] [facility] May-2 4-201 6 Stacy Boss. [address], Suite [facility], [place], [place], [address], [place]. tel: [phone] [facility], [address], [place], [place], [address]41 , US tel:[phone] [facility] Preventive exam (chief complaint)asthma (chief complaint)hyperl ipidemia (chief complaint)antico agulation (chief complaint) Encntr for general adult medical exam w/o abnormal findingsBody mass index (BMI) 28.0-28.9, adultPsoriasisMixed hyperlipidemiaChronic vascular disorders of intestineUnspecified asthma, uncomplicatedOther pulmonary embolism without acute cor pulmonale 6 Stacy Boss. [address], Suite [facility], [place], [place], [address]88, [place]. tel: [phone] [facility], [address], [place], [place], [address]6896 , [place] tel:[phone] [facility] Long-term Use of Anticoagulants 6 Stacy Boss. [address], Suite [facility], [place], [place], [address]99[address]22, [place]. tel: [phone] [facility], [address], [place], [place], [address]66[address] , [place] tel:[phone] [facility] Long-term Use of Anticoagulants 6 Stacy Boss. [address], Suite [facility], [place], [place], [address]807, [place]. tel: [phone] [facility], [address], [place], [place], [address]7586782 , [place] tel:[phone] [facility] Long-term Use of Anticoagulants 6 Stacy Boss. [address], [address] [facility], [place], [place], [address]606[address]39, [place]. tel: [phone] [facility], [address], [place], [place], 795797030 , [place] tel:[phone] [facility] Long-term Use of Anticoagulants 6 Stacy Boss. [address], [address] [facility], [place], [place], [address]32, [place]. tel:[phone] [facility], [address], [place], [place], 8915[address]208 , [place] tel:[phone] [facility] Long-term Use of Anticoagulants Dec-2 3-201 5 Stacy Boss. [address], [address], [address], [place]. tel: [phone] [facility], [address], [place], [place], 762[address]396 , [place] tel:[phone] [facility] Long-term Use of AnticoagulantsLong-te rm Use of Anticoagulants Dec-0 1-201 5 Nurse [facility]. [address], [place], [place], [address]. tel: [facility], [address], [place], [place], [address]307 , [place] tel:[phone] [facility] Long-term Use of Anticoagulants Nov-2 4-201 5 Stacy Boss. [address], [address], [address], [place]. tel: [phone] [facility], [address], [place], [place], 193180347 , [place] tel:[phone] [facility] Long-term Use of Anticoagulants Jan-1 0-201 5 Stacy Boss. [address] [facility], [address], [address], [place]. tel: [phone] [facility], [address], [place], [place], 528[address]199 , US tel:[phone] [facility] Long-term Use of Anticoagulants Nov-0 3-201 5 Rubio Mendes. [address], [place], [address], [place]. tel: [phone] [facility], [address], [place], [place], 186226551 , [place] tel:[phone] [facility] Long-term Use of Anticoagulants Oct-0 7-201 5 Stacy Boss. [address], [address], [address], [place]. tel: [phone] [facility], [address], [place], [place], 317436690 , US tel:[phone] [facility] No Information Dec-0 2 5 Management Case. . [facility], [address] [place], [address] , [place] tel:[phone] [facility] Long-term Use of Anticoagulants Nov-2 5 Stacy Gera. [address], [address] [facility], [place], [place], [address]393664, . tel: [phone] [facility], [address], [place], [address] , [place] tel:+ [phone] [facility] No Information Nov- 0 5 Management Case. . [facility], [address] [place], [address] , [place] tel:[phone] [facility] Long-term Use of Anticoagulants Nov-0 5 [facility]. [address], [address] [facility], [place], [place], [address]24[address]243, . tel: [phone] [facility], [address], [address] , [place] tel: [phone] [facility] hyperlipidemia (chief complaint)rash (chief complaint) Unspecified keratitisMixed hyperlipidemiaAcute vascular insufficiency of intestineOther pulmonary embolism and infarctionFood allergyLong-term Use of Anticoagulants Oct- 5 Stacy Gera. [address], [address] [place] [address], [address], . tel: [phone] [facility], [address], [place], [place], [address]40[address] , [place] tel:+ [phone] [facility] Long-term Use of Anticoagulants Oct- 5 [facility]. [address], [address] [facility], [place], [place], [address]4850, . tel: [phone] [facility], [address], [place], [place], [address]463748 , [place] tel:[phone] [facility] Long-term Use of Anticoagulants 5 [facility]. [address], [address], [place], [place], 384[address]146, [place]. tel:[phone] [facility], [address], [place], [place], [address]2512 , [place] tel:[phone] [facility] No Information Management Case. . [facility], [address], [place], [place], 614[address]143 , [place] tel:[phone] [facility] Long-term Use of Anticoagulants Stacy Gera. [address], [address] [place] [address], [address], [place]. tel:+ [phone] [facility], [address], [place], [place], 200026715 , [place] tel:[phone] [facility] Long-term Use of Anticoagulants Stacy Gera. [address], [address] [place] [address], [address], . tel:+ [phone] [facility], [address], [place], [place], 686603337 , [place] tel:[phone] [facility] Long-term Use of Anticoagulants Giovanni Salguero. [address], [place], [address], [place]. tel:+ [phone] [facility], [address], [place], [place], 700728628 , [place] tel:[phone] [facility] Long-term Use of Anticoagulants 5 [facility]. [address], [place], [address], [place]. tel:[phone] [facility], [address], [place], [place], 246056030 , US tel:[phone] [facility] No Information Management Case. . [facility], [address], [place], [place], [address]776775 , US tel:[phone] [facility] Long-term Use of Anticoagulants 5 Stacy Gera. [address], [address], [place], [place], [address]99[address]956, . tel:+ [phone] [facility], [address], [place], [place], 830177588 , [place] tel:[phone] [facility] Long-term Use of Anticoagulants 5 Stacy Gera. [address], [address] [facility], [place], [place], [address], . tel: [phone] [facility], [address], [place], [place], 218[address]385 , [place] tel:[phone] [facility] Long-term Use of Anticoagulants 5 Stacy Gera. [address], [address] [facility], [place], [place], [address]75[address], [place]. tel: [phone] [facility], [address], [place], [place], 572[address] , US tel:[phone] [facility] Long-term Use of Anticoagulants 5 Stacy Gera. [address], [address] [facility], [place], [place], [address]83[address], [place]. tel: [phone] [facility], [address], [place], [place], 935159047 , US tel:[phone] [facility] Preventive exam (chief complaint)asthma (chief complaint)eczema (chief complaint)hyperl ipidemia (chief complaint)antico agulation (chief complaint)consti pation (chief complaint) ROUTINE MEDICAL EXAMUnspecified keratitisMixed hyperlipidemiaAcute vascular insufficiency of intestineAsthma, unspecified 5 Stacy Gera. [address], [address] [facility], [place], [place], [address]88[address], [place]. tel: [phone] [facility], [address], [place], [place], 716352100 , [place] tel:[phone] [facility] Long-term Use of Anticoagulants 5 Stacy Gera. [address], [address] [facility], [place], [place], [address]2207, [place]. tel: [phone] [facility], [address], [place], [place], 7926[address]563 , [place] tel:[phone] [facility] Long-term Use of Anticoagulants 7 5 Management Case. . [facility], [address], [place], [id number] , [place] tel:[phone] [facility] Long-term Use of Anticoagulants 3-201 5 Stacy Boss. [address], [address], [id number], . tel: [phone] [facility], [address], [place], [place], [address] , [place] tel:[phone] [facility] Long-term Use of Anticoagulants 3 5 Stacy Boss. [address], [address], [id number], . tel: [phone] [facility], [address], [place], [place], [address] , [place] tel:[phone] [facility] Long-term Use of Anticoagulants 0- 5 Stacy Boss. [address], [address], [id number], . tel: [phone] [facility], [address], [place], [place], [address] , [place] tel:[phone] [facility] Long-term Use of Anticoagulants 2- 5 Stacy Boss. [address], [address], [id number], . tel: [phone] [facility], [address], [place], [place], [address] , [place] tel:[phone] [facility] Long-term Use of Anticoagulants 5 Stacy Boss. [address], [address], [id number], . tel: [phone] [facility], [address], [place], [place], [address] , [place] tel:[phone] [facility] asthma (chief complaint)Hyperl ipidemia (chief complaint)Rash (chief complaint) Unspecified keratitisMixed hyperlipidemiaAsthma, unspecified Feb-3 0 4 Stacy Boss. [address], [address] [facility], [place], [place], [address], [place]. tel: [phone] [facility], [address], [place], [place], [address] , [place] tel:[phone] [facility] Long-term Use of Anticoagulants 4 Giovanni Salguero. [address] [place], [place], [address], [place]. tel: [phone] [facility], [address], [place], [place], [address] , [place] tel:[phone] [facility] Long-term Use of Anticoagulants 4 Stacy Boss. [address], [address] [facility], [place], [place], [address], [place]. tel: [phone] [facility], [address], [place], [place], [address] , [place] tel:[phone] [facility] Long-term Use of Anticoagulants 4 Stacy Boss. [address], [address] [place] [address], [id number], [place]. tel: [phone] [facility], [address], [place], [place], [address] , [place] tel:[phone] [facility] Long-term Use of Anticoagulants 4 Stacy Boss. [address], [address] [place] [address], [id number], [place]. tel: [phone] [facility], [address], [place], [place], [address] , [place] tel:[phone] [facility] No Information 4 Management Case. . [facility], [address], [place], [place], [address] , [place] tel:[phone] [facility] constipation (chief complaint) Constipation 4 Stacy Boss. [address], [address] [facility], [place], [place], [address], [place]. tel:[phone] [facility], [address] [place], [address] , [place] tel: [phone] [facility] Follow Up of asthma (chief complaint)hyperl ipidema (chief complaint) AsthmaOther psoriasis and similar disordersMixed HyperlipidemiaIatroge yin pulmonary embolism and infarction 0 4 Stacy Boss. [address], [address], [place], [place], [address], [place]. tel: [phone] [facility], [address] [place], [address] , [place] tel: [phone] [facility] No Information Management Case. . [facility], [address] [place], [address] , [place] tel:[phone] [facility] No Information 4 Management Case. . 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 [address] [place], [id number]. tel: [facility], [address] [place], [address] , [place] tel:[phone] [facility] preventive exam (chief complaint)cough/ wheezing (chief complaint)Psoria sis (chief complaint) AsthmaAbdominal PainNeed for prophylactic vaccination and inoculation against viralhepatitisNEED FOR PROPHYLACTIC VACCINATION WITH COMBINED [id number] RTUSSIS (DTP) (DTAP) VACCINEVisit for preventive health examinationDysuriaOth er psoriasis and similar disordersRoutine Medical Exam 4 Stacy Boss. [address], [address], [place], [place], [address], . tel: [phone] [facility], [address] [place], [address] , [place] tel: [phone] [facility] Follow Up of asthma (chief complaint) AsthmaLong-term Use of AnticoagulantsOther psoriasis and similar disorders 4 Stacy Boss. [address], [address], [place], [place], [address], [place]. tel:[phone] [facility], [address], [place], [place], [address] , [place] tel:[phone] [facility] cough (chief complaint) Asthma 3 Stacy Boss. [address], [address], [place], [place], [address], [place]. tel:[phone] [facility], [address], [place], [place], [address] , [place] tel:[phone] [facility] No Information 3 Management Case. . [facility], [address], [place], [place], [address] , [place] tel:[phone] [facility] Pulmonary embolus, right Nov- 3 Management Case. . [facility], [address], [place], [place], [address] , [place] tel:[phone] [facility] No Information 3 Management Case. . [facility], [address], [place], [place], [address] , [place] tel:[phone] [facility] Iatrogenic pulmonary embolism and infarction 3 Management Case. . [facility], [address], [place], [place], [address] , [place] tel:[phone] [facility] No Information 3 Management Case. . [facility], [address], [place], [place], [address] , [place] tel:[phone] [facility] rash (chief complaint)coumad in (chief complaint) Other psoriasis and similar disordersChronic anticoagulation 3 Stacy Boss. [address], [address], [place], [place], [address], [place]. tel:[phone] [facility], [address], [place], [place], [address] , [place] tel:[phone] [facility] No Information 3 Management Case. . [facility], [address] [place], [address] , US tel:[phone] [facility] No Information 3 Management Case. . [facility], [address] [place], [address] , [place] tel:[phone] [facility] physical exam (chief complaint)back pain (chief complaint) Routine Medical ExamRoutine Medical ExamMixed HyperlipidemiaGERDAcu te vascular insufficiency of intestineOther psoriasis and similar disordersRoutine Medical Exam 2 Stacy Boss. [address], [address], [place], [place], [address], [place]. tel:[phone] [facility], [place], [address] , [place] tel:[phone] [facility] No Information 2 Management Case. . [facility], [place], [address] , [place] tel:[phone] [facility] Long-term Use of Anticoagulants 2 Quinteros Zoë. [address] [place], [place], [address]. tel:[phone] [facility], [place], [address] , [place] tel:[phone] [facility] Acute vascular insufficiency of intestineAcute vascular insufficiency of intestine 2 Samir Yoder. [facility], [address] [place], [address], [place]. tel:[phone] [facility], [place], [address] , [place] tel:[phone] [facility] No Information 2 Management Case. . [facility], [address] [place], [address] , [place] tel:[phone] [facility] hypertension (chief complaint) Iatrogenic pulmonary embolism and infarctionIatrogenic pulmonary embolism and infarctionUnspecified essential hypertensionAllergic rhinitis, cause unspecified 2 Samir Brown [facility], [address] [place], [place], [facility], . tel:[phone] [facility], [address], [address] , [place] tel:[phone] [facility] er (chief complaint) Iatrogenic pulmonary embolism and infarctionIatrogenic pulmonary embolism and infarctionAcute vascular insufficiency of intestineGERD 2 Samir Brown [facility], [address] [place], [facility], [place]. tel:[phone] [facility], [address], [place], [place], [address] , [place] tel: [phone] [facility] No Information 2 Management Case. . [facility], [address], [place], [place], [address] , US tel:[phone] [facility] back pain (chief complaint) Allergic rhinitis, cause unspecifiedLumbagoAll ergic rhinitis, cause unspecified 1 Samir Brown [facility], [address] [place], [facility], [place]. tel:[phone] [facility], [address], [place], [place], [address] , [place] tel: [phone] [facility] No Information 1 Samir Brown [facility], [address] [place], [facility], . tel:[phone] [facility], [address], [place], [place], [address] , [place] tel:[phone] [facility] asthma (chief complaint) Other psoriasis and similar disordersAllergic rhinitis, cause unspecified 1 Samir Brown [facility], [address] [place], [facility], . tel:[phone] [facility], [address], [place], [place], [address] , US tel:[phone] [facility] No Information 1 Management Case. . [facility], [address], [place], [place], [address] , [place] tel:[phone] [facility] cough (chief complaint) Viral syndromeViral Infection, Unspecified 0 Samir Brown [facility], [address] [place], [facility], . tel: [phone] [facility], [address] [place], [address] , [place] tel: [phone] [facility] No Information 0 Management Case. . [facility], [address], [address] , [place] tel: [phone] [facility] allergies (chief complaint) Allergic rhinitis, cause unspecified 0 Samir Brown [facility], [address] [place], [facility], . tel: [phone] [facility], [address] [place], [address] , [place] tel: [phone] [facility] cough (chief complaint)consti pation (chief complaint)burpin g (chief complaint) Allergic rhinitis, cause unspecifiedGERDDermat ophytosis of unspecified site 0 Samir Brown [facility], [address] [place], [facility], . tel: [phone] [facility], [address] [place], [address] , [place] tel: [phone] [facility] BP check (chief complaint) Elevated blood pressure reading without diagnosis of hypertensionOther psoriasis and similar disorders 9 Samir Brown [facility], [address] [place], [facility], . tel:[phone] [facility], [address] [place], [address] , [place] tel:[phone] [facility] cold symptoms (chief complaint) Other psoriasis and similar disordersUrinary tract infection, site not specifiedElevated blood pressure reading without diagnosis of hypertension 9 Brown Beba. [facility], [address] [place], [address], . tel:[phone] [facility], [address] [place], [place], [address] , [place] tel:[phone] [facility] cough (chief complaint) Acute bronchitisAcute upper respiratory infections of unspecified site 9 Samir Johnson. [address] [place], [address]. tel:[phone] [facility], [address], [place], [place], [address] , [place] tel: [phone] [facility] No Information 8 Samir Yoder. [facility], [address] [place], [address], . tel:[phone] [facility], [address] [place], [place], [address] , [place] tel: [phone] [facility] Allergic rhinitis, cause unspecifiedEsophageal refluxDermatophytosis of unspecified site 8 Samir Yoder. [facility], [address] [place], [address], . tel:[phone] Family History Family Member Type Diagnosis Age At Onset No Information Immunizations Vaccine Date Status Comments Influenza, high dose, injectable, split virus, preservative free, Fluzone High-Dose 5301-3146 administered Source: New Immuniza tion Record Pneumococcal conjugate PCV 13 administere d Source: New Immunization Record Influenza, high dose seasonal administere d Source: New Immunization Record Influenza, injectable, quadrivalent, preservative free, 3 yrs or older refused Source: New Immuniz ation Record Tdap (Adult & Pedi) administered Source: New Immunization Record Hep A (adult) administered Source: New Im munization Record Pneumo (2 yrs or older) (PPV23) administered Source: New Immuniza tion Record Typhoid, ViCPs administered Source: New I mmunization Record malaria/malarone administered Source: New Immunization Record hep A (adult) administered Source: New Im munization Record Payers Payer name Insurance type Covered democrat ID Kita dempsey(s) NHP Integrity CI [id number] NHP Integrity CI [id number] NHP Integrity CI [id number] FLP [place] CI [id number] Medicare MB [id number] Social History Type Description Quantity Date Captured Comments Alcohol Use Details Unknown Caffeine Use Details Unknown Tobacco Use Status No Information Smoking Status No Information Sex Male Sexual Orientation Straight or heterosexual Mar Gender Identity Male Chief Complaint And Reason For Visit No Information Plan Of Treatment Date Type Action Status Goal Influenza vaccine. Due on Oc due Goal Tdap due Goal Hep C Screening. Due on due Goal Depression screening. Due on due Goal Lipid panel. Due on due Goal Zoster vaccine (1st). Due on due Goal Pneumococcal vaccine. Due on due Goal Zoster vaccine. Due on due Goal H&P. Due on due Goal Glaucoma Exam. Due on due Goal Dental Exam. Due on due Goal Glaucoma Exam. Due on due Goal Lipid panel. Due on due Goal Influenza vaccine. Due on Oc due Goal Zoster vaccine (1st). Due on due Goal H&P. Due on due Goal Hep C Screening. Due on due Goal Zoster vaccine. Due on due Goal Depression screening. Due on due Goal Pneumococcal vaccine. Due on due Goal Dental Exam. Due on due Goal Tdap due Goal Glaucoma Exam. Due on due Goal Pneumococcal vaccine. Due on due Goal Zoster vaccine. Due on due Goal Tdap due Goal Depression screening. Due on due Goal Influenza vaccine. Due on Oc due Goal Lipid panel. Due on due Goal Hep C Screening. Due on due Goal Colonoscopy. Due on due Goal Dental Exam. Due on due Goal Zoster vaccine (). Due on due Goal H&P. Due on due Goal Colonoscopy. Due on due Goal Tdap due Goal Depression screening. Due on due Goal Lipid panel. Due on due Goal Hep C Screening. Due on due Goal Pneumococcal vaccine. Due on due Goal Dental Exam. Due on due Goal Glaucoma Exam. Due on due Goal Zoster vaccine. Due on due Goal Influenza vaccine. Due on Oc due Goal Zoster vaccine (). Due on due Goal H&P. Due on due Goal Glaucoma Exam. Due on due Goal Hep C Screening. Due on due Goal H&P. Due on due Goal Influenza vaccine. Due on Oc due Goal Zoster vaccine. Due on due Goal Depression screening. Due on due Goal Zoster vaccine (1st). Due on due Goal Pneumococcal vaccine. Due on due Goal Lipid panel. Due on due Goal Dental Exam. Due on due Goal Tdap due Goal Depression screening. Due on due Goal H&P. Due on due Goal Influenza vaccine. Due on Oc due Goal Colonoscopy. Due on due Goal Zoster vaccine. Due on due Goal Lipid panel. Due on due Goal Zoster vaccine (1st). Due on due Goal Hep C Screening. Due on due Goal Dental Exam. Due on due Goal Tdap due Goal Glaucoma Exam. Due on due Goal Pneumococcal vaccine. Due on due Goal Influenza vaccine. Due on Oc due Goal Depression screening. Due on due Goal H&P. Due on due Goal Lipid panel. Due on due Goal Hep C Screening. Due on due Goal Dental Exam. Due on due Goal Zoster vaccine (1st). Due on due Goal Tdap due Goal Glaucoma Exam. Due on due Goal Pneumococcal vaccine. Due on due Goal Zoster vaccine. Due on due Goal Colonoscopy. Due on due Goal Pneumococcal vaccine. Due on due Goal Influenza vaccine. Due on Oc due Goal Depression screening. Due on due Goal Hep C Screening. Due on due Goal Tdap due Goal Zoster vaccine (). Due on due Goal Lipid panel. Due on due Goal Zoster vaccine. Due on due Goal Glaucoma Exam. Due on due Goal Dental Exam. Due on due Goal H&P. Due on due Goal Colonoscopy. Due on due Goal Tdap due Goal Glaucoma Exam. Due on due Goal Influenza vaccine. Due on Oc due Goal Hep C Screening. Due on due Goal Pneumococcal vaccine. Due on due Goal Lipid panel. Due on due Goal Zoster vaccine. Due on due Goal Depression screening. Due on due Goal H&P. Due on due Goal Dental Exam. Due on due Goal Tdap due Goal Glaucoma Exam. Due on due Goal Influenza vaccine. Due on Oc due Goal Depression screening. Due on due Goal Pneumococcal vaccine. Due on due Goal Dental Exam. Due on due Goal Lipid panel. Due on due Goal Hep C Screening. Due on due Goal H&P. Due on due Goal Zoster vaccine. Due on due Goal Colonoscopy. Due on due Goal Hep C Screening. Due on due Goal H&P. Due on due Goal Zoster vaccine. Due on due Goal Depression screening. Due on due Goal Pneumococcal vaccine. Due on due Goal Glaucoma Exam. Due on due Goal Lipid panel. Due on due Goal Tdap due Goal Influenza vaccine. Due on Oc due Goal Dental Exam. Due on due Goal H&P. Due on due Goal Tdap due Goal Dental Exam. Due on due Goal Colonoscopy. Due on due Goal Depression screening. Due on due Goal Glaucoma Exam. Due on due Goal Pneumococcal vaccine. Due on due Goal Zoster vaccine. Due on due Goal Lipid panel. Due on due Goal Hep C Screening. Due on due Goal Influenza vaccine. Due on Oc due Goal Tdap due Goal Hep C Screening. Due on due Goal Pneumococcal vaccine. Due on due Goal H&P. Due on due Goal Dental Exam. Due on due Goal Glaucoma Exam. Due on due Goal Lipid panel. Due on due Goal Colonoscopy. Due on due Goal Depression screening. Due on due Goal Influenza vaccine. Due on Oc due Goal Zoster vaccine. Due on due Goal Tdap due Goal Pneumococcal vaccine. Due on due Goal Lipid panel. Due on due Goal Glaucoma Exam. Due on due Goal Colonoscopy. Due on due Goal Zoster vaccine. Due on due Goal Influenza vaccine. Due on Oc due Goal Depression screening. Due on due Goal H&P. Due on due Goal Dental Exam. Due on due Goal Hep C Screening. Due on due Goal Depression screening. Due on due Goal Dental Exam. Due on due Goal Lipid panel. Due on due Goal H&P. Due on due Goal Influenza vaccine. Due on Oc t due Goal Tdap due Goal Pneumococcal vaccine. Due on due Goal Hep C Screening. Due on due Goal Zoster vaccine. Due on due Goal Glaucoma Exam. Due on due Goal Hep C Screening. Due on due Goal Dental Exam. Due on due Goal Glaucoma Exam. Due on due Goal Zoster vaccine. Due on due Goal H&P. Due on due Goal Influenza vaccine. Due on Oc due Goal Pneumococcal vaccine. Due on due Goal Lipid panel. Due on due Goal Tdap due Goal Depression screening. Due on due Goal Colonoscopy. Due on due Goal Colonoscopy. Due on due Goal Dental Exam. Due on due Goal Tdap due Goal Glaucoma Exam. Due on due Goal Hep C Screening. Due on due Goal Zoster vaccine. Due on due Goal Lipid panel. Due on due Goal Depression screening. Due on due Goal Influenza vaccine. Due on Oc due Goal Pneumococcal vaccine. Due on due Goal H&P. Due on due Goal Colonoscopy. Due on due Goal Pneumococcal vaccine. Due on due Goal Dental Exam. Due on due Goal Tdap due Goal H&P. Due on due Goal Hep C Screening. Due on due Goal Glaucoma Exam. Due on due Goal Influenza vaccine. Due on Oc due Goal Zoster vaccine. Due on due Goal Lipid panel. Due on due Goal Depression screening. Due on due Goal Lipid panel. Due on due Goal Glaucoma Exam. Due on due Goal Depression screening. Due on due Goal Tdap due Goal Zoster vaccine. Due on due Goal Pneumococcal vaccine. Due on due Goal Influenza vaccine. Due on Oc due Goal Hep C Screening. Due on due Goal Dental Exam. Due on due Goal H&P. Due on due Goal Dental Exam. Due on due Goal Tdap due Goal Hep C Screening. Due on due Goal Pneumococcal vaccine. Due on due Goal Lipid panel. Due on due Goal Zoster vaccine. Due on due Goal Glaucoma Exam. Due on due Goal Colonoscopy. Due on due Goal H&P. Due on due Goal Influenza vaccine. Due on Oc due Goal Depression screening. Due on due Goal Dental Exam. Due on 020 due Goal H&P. Due on due Goal Hep C Screening. Due on due Goal Tdap due Goal Pneumococcal vaccine. Due on due Goal Zoster vaccine. Due on due Goal Depression screening. Due on due Goal Influenza vaccine. Due on Oc due Goal Colonoscopy. Due on due Goal Lipid panel. Due on due Goal Glaucoma Exam. Due on due Goal Lipid panel. Due on due Goal Glaucoma Exam. Due on due Goal Zoster vaccine. Due on due Goal Depression screening. Due on due Goal Influenza vaccine. Due on Oc due Goal Tdap due Goal Dental Exam. Due on due Goal Pneumococcal vaccine. Due on due Goal Hep C Screening. Due on due Goal H&P. Due on due Goal Pneumococcal vaccine. Due on due Goal Tdap due Goal H&P. Due on due Goal Hep C Screening. Due on due Goal Influenza vaccine. Due on Oc due Goal Glaucoma Exam. Due on due Goal Dental Exam. Due on due Goal Colonoscopy. Due on due Goal Lipid panel. Due on due Goal Zoster vaccine. Due on due Goal Depression screening. Due on due Goal Hep C Screening. Due on due Goal Pneumococcal vaccine. Due on due Goal Glaucoma Exam. Due on due Goal Dental Exam. Due on due Goal Influenza vaccine. Due on Oc due Goal Zoster vaccine. Due on due Goal Lipid panel. Due on due Goal Tdap due Goal Depression screening. Due on due Goal H&P. Due on due Goal Colonoscopy. Due on due Goal Lipid panel. Due on due Goal Depression screening. Due on due Goal Glaucoma Exam. Due on due Goal Zoster vaccine. Due on due Goal Dental Exam. Due on due Goal Pneumococcal vaccine. Due on due Goal Hep C Screening. Due on due Goal Tdap due Goal H&P. Due on due Goal Influenza vaccine. Due on due Goal Tdap due Goal Pneumococcal vaccine. Due on due Goal Depression screening. Due on due Goal Lipid panel. Due on due Goal Glaucoma Exam. Due on due Goal Hep C Screening. Due on due Goal Zoster vaccine. Due on due Goal H&P. Due on due Goal Dental Exam. Due on 020 due Goal Influenza vaccine. Due on Oc due Goal Colonoscopy. Due on due Goal Glaucoma Exam. Due on due Goal Dental Exam. Due on due Goal Hep C Screening. Due on due Goal H&P. Due on due Goal Tdap due Goal Lipid panel. Due on due Goal Pneumococcal vaccine. Due on due Goal Depression screening. Due on due Goal Zoster vaccine. Due on due Goal Influenza vaccine. Due on Oc due Goal H&P. Due on due Goal Hep C Screening. Due on due Goal Influenza vaccine. Due on due Goal Lipid panel. Due on due Goal Depression screening. Due on due Goal Tdap due Goal Zoster vaccine. Due on due Goal Dental Exam. Due on due Goal Glaucoma Exam. Due on due Goal Pneumococcal vaccine. Due on due Goal Depression screening. Due on due Goal Hep C Screening. Due on due Goal Tdap due Goal Zoster vaccine. Due on due Goal Dental Exam. Due on due Goal H&P. Due on due Goal Influenza vaccine. Due on Oc due Goal Lipid panel. Due on due Goal Glaucoma Exam. Due on due Goal Pneumococcal vaccine. Due on due Goal Dental Exam. Due on due Goal Pneumococcal vaccine. Due on due Goal Lipid panel. Due on due Goal Colonoscopy. Due on due Goal Influenza vaccine. Due on Oc due Goal Tdap due Goal H&P. Due on due Goal Depression screening. Due on due Goal Glaucoma Exam. Due on due Goal Hep C Screening. Due on due Goal Zoster vaccine. Due on due Goal Pneumococcal vaccine. Due on due Goal Lipid panel. Due on due Goal Influenza vaccine. Due on Oc due Goal Colonoscopy. Due on due Goal H&P. Due on due Goal Depression screening. Due on due Goal Dental Exam. Due on due Goal Zoster vaccine. Due on due Goal Tdap due Goal Glaucoma Exam. Due on due Goal Zoster vaccine. Due on due Goal Pneumococcal vaccine. Due on due Goal Influenza vaccine. Due on Oc due Goal Dental Exam. Due on due Goal Tdap due Goal Glaucoma Exam. Due on due Goal Lipid panel. Due on due Goal Depression screening. Due on due Goal H&P. Due on due Goal Tdap due Goal Dental Exam. Due on due Goal Pneumococcal vaccine. Due on due Goal Influenza vaccine. Due on Oc due Goal Lipid panel. Due on due Goal Depression screening. Due on due Goal Zoster vaccine. Due on due Goal H&P. Due on due Goal Glaucoma Exam. Due on due Goal Zoster vaccine. Due on due Goal H&P. Due on due Goal Depression screening. Due on due Goal Dental Exam. Due on due Goal Influenza vaccine. Due on Oc due Goal Tdap due Goal Pneumococcal vaccine. Due on due Goal Glaucoma Exam. Due on due Goal Lipid panel. Due on due Goal H&P. Due on due Goal Dental Exam. Due on due Goal Tdap due Goal Colonoscopy. Due on due Goal Pneumococcal vaccine. Due on due Goal Zoster vaccine. Due on due Goal Lipid panel. Due on due Goal Influenza vaccine. Due on Oc due Goal Depression screening. Due on due Goal Glaucoma Exam. Due on due Goal Influenza vaccine. Due on Oc due Goal Colonoscopy. Due on due Goal H&P. Due on due Goal Tdap due Goal Depression screening. Due on due Goal Dental Exam. Due on due Goal Pneumococcal vaccine. Due on due Goal Lipid panel. Due on due Goal Zoster vaccine. Due on due Goal Glaucoma Exam. Due on due Goal Colonoscopy. Due on due Goal Influenza vaccine. Due on Oc due Goal Lipid panel. Due on due Goal Depression screening. Due on due Goal H&P. Due on due Goal Zoster vaccine. Due on due Goal Dental Exam. Due on due Goal Tdap due Goal Glaucoma Exam. Due on due Goal Pneumococcal vaccine. Due on due Goal Influenza vaccine. Due on Oc due Goal Zoster vaccine. Due on due Goal Colonoscopy. Due on due Goal H&P. Due on due Goal Tdap due Goal Dental Exam. Due on due Goal Pneumococcal vaccine. Due on due Goal Lipid panel. Due on due Goal Glaucoma Exam. Due on due Goal Depression screening. Due on due Goal Zoster vaccine. Due on due Goal Tdap due Goal Influenza vaccine. Due on Oc due Goal Glaucoma Exam. Due on due Goal Lipid panel. Due on due Goal Dental Exam. Due on due Goal Pneumococcal vaccine. Due on due Goal Depression screening. Due on due Goal H&P. Due on due Goal Colonoscopy. Due on due Goal Tdap due Goal Zoster vaccine. Due on due Goal Lipid panel. Due on due Goal H&P. Due on due Goal Glaucoma Exam. Due on due Goal Depression screening. Due on due Goal Dental Exam. Due on due Goal Pneumococcal vaccine. Due on due Goal Influenza vaccine. Due on Oc due Goal Zoster vaccine. Due on due Goal Glaucoma Exam. Due on due Goal Depression screening. Due on due Goal Colonoscopy. Due on due Goal Dental Exam. Due on due Goal Pneumococcal vaccine. Due on due Goal H&P. Due on due Goal Tdap due Goal Influenza vaccine. Due on Oc due Goal Lipid panel. Due on due Goal Zoster vaccine. Due on due Goal Lipid panel. Due on due Goal Influenza vaccine. Due on Oc due Goal Tdap due Goal Pneumococcal vaccine. Due on due Goal H&P. Due on due Goal Depression screening. Due on due Goal Glaucoma Exam. Due on due Goal Dental Exam. Due on due Goal Colonoscopy. Due on due Goal Influenza vaccine. Due on due Goal Zoster vaccine. Due on due Goal Pneumococcal vaccine. Due on due Goal Depression screening. Due on due Goal H&P. Due on due Goal Tdap due Goal Dental Exam. Due on due Goal Glaucoma Exam. Due on due Goal Lipid panel. Due on due Goal Colonoscopy. Due on due Goal Glaucoma Exam. Due on due Goal Dental Exam. Due on due Goal Lipid panel. Due on due Goal Dental exam. Due on due Goal Pneumococcal vaccine. Due on due Goal Tdap due Goal H&P. Due on due Goal Depression screening. Due on due Goal Zoster vaccine. Due on due Goal Influenza vaccine. Due on Oc t due Goal Dietary manageme nt education, guidance, and counseling completed Goal Colonoscopy. Due on due Goal Tdap due Goal Pneumococcal vaccine. Due on due Goal Depression screening. Due on due Goal Influenza vaccine. Due on Oc t due Goal Zoster vaccine. Due on due Goal H&P. Due on due Goal Glaucoma Exam. Due on due Goal Lipid panel. Due on due Goal H&P. Due on due Goal Tdap due Goal Lipid panel. Due on due Goal Influenza vaccine. Due on Oc due Goal Zoster vaccine. Due on due Goal Glaucoma Exam. Due on due Goal Depression screening. Due on due Goal Pneumococcal vaccine. Due on due Goal Depression screening. Due on due Goal Tdap due Goal Lipid panel. Due on due Goal Glaucoma Exam. Due on due Goal H&P. Due on due Goal Zoster vaccine. Due on due Goal Pneumococcal vaccine. Due on due Goal Influenza vaccine. Due on Oc due Goal Depression screening. Due on due Goal Tdap due Goal Glaucoma Exam. Due on due Goal Influenza vaccine. Due on Oc due Goal Zoster vaccine. Due on due Goal Lipid panel. Due on due Goal Pneumococcal vaccine. Due on due Goal H&P. Due on due Goal Colonoscopy. Due on due Goal Lipid panel. Due on due Goal Pneumococcal vaccine. Due on due Goal H&P. Due on due Goal Tdap due Goal Influenza vaccine. Due on Oc due Goal Glaucoma Exam. Due on due Goal Zoster vaccine. Due on due Goal Depression screening. Due on due Goal Tdap due Goal Pneumococcal vaccine. Due on due Goal H&P. Due on due Goal Glaucoma Exam. Due on due Goal Depression screening. Due on due Goal Influenza vaccine. Due on Oc due Goal Zoster vaccine. Due on due Goal Lipid panel. Due on due Goal Zoster vaccine. Due on due Goal Tdap due Goal Lipid panel. Due on due Goal Pneumococcal vaccine. Due on due Goal Glaucoma Exam. Due on due Goal Depression screening. Due on due Goal Influenza vaccine. Due on Oc due Goal H&P. Due on due Goal Tdap due Goal Lipid panel. Due on due Goal Colonoscopy. Due on due Goal Glaucoma Exam. Due on due Goal Pneumococcal vaccine. Due on due Goal H&P. Due on due Goal Zoster vaccine. Due on due Goal Depression screening. Due on due Goal Influenza vaccine. Due on Oc due Goal Colonoscopy. Due on due Goal Pneumococcal vaccine. Due on due Goal Zoster vaccine. Due on due Goal Influenza vaccine. Due on Oc due Goal H&P. Due on due Goal Tdap due Goal Depression screening. Due on due Goal Lipid panel. Due on due Goal Glaucoma Exam. Due on due Goal Zoster vaccine. Due on due Goal Pneumococcal vaccine. Due on due Goal H&P. Due on due Goal Influenza vaccine. Due on Oc due Goal Glaucoma Exam. Due on due Goal Depression screening. Due on due Goal Lipid panel. Due on due Goal Tdap due Goal Influenza vaccine. Due on Oc due Goal Glaucoma Exam. Due on due Goal Lipid panel. Due on due Goal Zoster vaccine. Due on due Goal Depression screening. Due on due Goal Pneumococcal vaccine. Due on due Goal Tdap due Goal H&P. Due on due Goal Zoster vaccine. Due on due Goal Lipid panel. Due on due Goal Tdap due Goal Influenza vaccine. Due on Oc due Goal Pneumococcal vaccine. Due on due Goal H&P. Due on due Goal Glaucoma Exam. Due on due Goal Depression screening. Due on due Goal Influenza vaccine. Due on Oc due Goal Lipid panel. Due on due Goal H&P. Due on due Goal Glaucoma Exam. Due on due Goal Zoster vaccine. Due on due Goal Colonoscopy. Due on 027 due Goal Pneumococcal vaccine. Due on due Goal Depression screening. Due on due Goal Tdap due Goal Pneumococcal vaccine. Due on due Goal Depression screening. Due on due Goal Zoster vaccine. Due on due Goal H&P. Due on due Goal Glaucoma Exam. Due on due Goal Tdap due Goal Influenza vaccine. Due on Oc due Goal Lipid panel. Due on due Goal Colonoscopy. Due on due Goal Lipid panel. Due on due Goal Depression screening. Due on due Goal Influenza vaccine. Due on Oc due Goal Pneumococcal vaccine. Due on due Goal Tdap due Goal Glaucoma Exam. Due on due Goal H&P. Due on due Goal Zoster vaccine. Due on due Goal Dietary manageme nt education, guidance, and counseling completed Goal Lipid panel. Due on due Goal H&P. Due on due Goal Influenza vaccine. Due on Oc due Goal Glaucoma Exam. Due on due Goal Colonoscopy. Due on due Goal Zoster vaccine. Due on due Goal Pneumococcal vaccine. Due on due Goal Tdap due Goal Depression screening. Due on due Goal Zoster vaccine. Due on due Goal Glaucoma Exam. Due on due Goal Depression screening. Due on due Goal Pneumococcal vaccine. Due on due Goal Lipid panel. Due on 023 due Goal Influenza vaccine. Due on Oc due Goal Tdap due Goal H&P. Due on due Goal Pneumococcal vaccine. Due on due Goal Depression screening. Due on due Goal Glaucoma Exam. Due on due Goal Zoster vaccine. Due on due Goal Influenza vaccine. Due on Oc due Goal Lipid panel. Due on due Goal H&P. Due on due Goal Tdap due Goal Colonoscopy. Due on 027 due Goal Pneumococcal vaccine. Due on due Goal Lipid panel. Due on due Goal H&P. Due on due Goal Depression screening. Due on due Goal Influenza vaccine. Due on Oc due Goal Tdap due Goal Zoster vaccine. Due on due Goal Glaucoma Exam. Due on due Goal Dietary manageme nt education, guidance, and counseling completed Goal Lipid panel. Due on due Goal Depression screening. Due on due Goal H&P. Due on due Goal Glaucoma Exam. Due on due Goal Pneumococcal vaccine. Due on due Goal Zoster vaccine. Due on due Goal Tdap due Goal Influenza vaccine. Due on Oc due Goal Depression screening. Due on due Goal Tdap due Goal Zoster vaccine. Due on due Goal Glaucoma Exam. Due on due Goal Influenza vaccine. Due on Oc due Goal Lipid panel. Due on due Goal Pneumococcal vaccine. Due on due Goal H&P. Due on due Goal Lipid panel. Due on due Goal Pneumococcal vaccine. Due on due Goal Depression screening. Due on due Goal Glaucoma Exam. Due on due Goal H&P. Due on due Goal Tdap due Goal Influenza vaccine. Due on Oc due Goal Zoster vaccine. Due on due Goal Pneumococcal vaccine. Due on due Goal H&P. Due on due Goal Depression screening. Due on due Goal Influenza vaccine. Due on Oc due Goal Tdap due Goal Glaucoma Exam. Due on due Goal Lipid panel. Due on due Goal Zoster vaccine. Due on due Goal H&P. Due on due Goal Zoster vaccine. Due on due Goal Lipid panel. Due on due Goal Pneumococcal vaccine. Due on due Goal Colonoscopy. Due on 027 due Goal Depression screening. Due on due Goal Tdap due Goal Glaucoma Exam. Due on due Goal Influenza vaccine. Due on Oc due Goal Dietary manageme nt education, guidance, and counseling completed Goal Glaucoma Exam. Due on due Goal Tdap due Goal Depression screening. Due on due Goal Influenza vaccine. Due on Oc due Goal Lipid panel. Due on due Goal Pneumococcal vaccine. Due on due Goal H&P. Due on due Goal Zoster vaccine. Due on due Goal Pneumococcal vaccine. Due on due Goal Depression screening. Due on due Goal Colonoscopy. Due on due Goal H&P. Due on due Goal Lipid panel. Due on due Goal Zoster vaccine. Due on due Goal Glaucoma Exam. Due on due Goal Influenza vaccine. Due on Oc due Goal Tdap due Goal Pneumococcal vaccine. Due on due Goal Lipid panel. Due on due Goal Zoster vaccine. Due on due Goal Influenza vaccine. Due on due Goal H&P. Due on due Goal Depression screening. Due on due Goal H&P. Due on due Goal Depression screening. Due on due Goal Lipid panel. Due on due Goal Zoster vaccine. Due on due Goal Pneumococcal vaccine. Due on due Goal Influenza vaccine. Due on due Goal Zoster vaccine. Due on due Goal Pneumococcal vaccine. Due on due Goal H&P. Due on due Goal Depression screening. Due on due Goal Influenza vaccine. Due on due Goal Lipid panel. Due on due Goal H&P. Due on due Goal Pneumococcal vaccine. Due on due Goal Zoster vaccine. Due on due Goal Lipid panel. Due on due Goal Depression screening. Due on due Goal Influenza vaccine. Due on due Goal H&P. Due on due Goal Lipid panel. Due on due Goal Pneumococcal vaccine. Due on due Goal Depression screening. Due on due Goal Influenza vaccine. Due on due Goal Zoster vaccine. Due on due Goal Depression screening. Due on due Goal Influenza vaccine. Due on due Goal Pneumococcal vaccine. Due on due Goal Lipid panel. Due on due Goal Zoster vaccine. Due on due Goal H&P. Due on due Goal Lipid panel. Due on due Goal Pneumococcal vaccine. Due on due Goal H&P. Due on due Goal Influenza vaccine. Due on due Goal Depression screening. Due on due Goal Zoster vaccine. Due on due Goal Lipid panel. Due on due Goal Pneumococcal vaccine. Due on due Goal Influenza vaccine. Due on due Goal Zoster vaccine. Due on due Goal Depression screening. Due on due Goal H&P. Due on due Goal Lipid panel. Due on due Goal Zoster vaccine. Due on due Goal Influenza vaccine. Due on due Goal H&P. Due on due Goal Depression screening. Due on due Goal Pneumococcal vaccine. Due on due Goal Influenza vaccine. Due on due Goal H&P. Due on due Goal Zoster vaccine. Due on due Goal Depression screening. Due on due Goal Pneumococcal vaccine. Due on due Goal Lipid panel. Due on due Goal Zoster vaccine. Due on due Goal Lipid panel. Due on due Goal Pneumococcal vaccine. Due on due Goal H&P. Due on due Goal Depression screening. Due on due Goal Influenza vaccine. Due on due Goal Influenza vaccine. Due on due Goal Zoster vaccine. Due on due Goal Pneumococcal vaccine. Due on due Goal Lipid panel. Due on due Goal H&P. Due on due Goal Depression screening. Due on due Goal Zoster vaccine. Due on due Goal Pneumococcal vaccine. Due on due Goal Depression screening. Due on due Goal Influenza vaccine. Due on due Goal Lipid panel. Due on due Goal H&P. Due on due Goal Lipid panel. Due on due Goal Depression screening. Due on due Goal Zoster vaccine. Due on due Goal Influenza vaccine. Due on due Goal Pneumococcal vaccine. Due on due Goal H&P. Due on due Goal Lipid panel. Due on due Goal Depression screening. Due on due Goal H&P. Due on due Goal Pneumococcal vaccine. Due on due Goal Zoster vaccine. Due on due Goal Influenza vaccine. Due on due Goal Pneumococcal vaccine. Due on due Goal Lipid panel. Due on due Goal Depression screening. Due on due Goal Zoster vaccine. Due on due Goal Influenza vaccine. Due on due Goal H&P. Due on due Goal Lipid panel. Due on due Goal Depression screening. Due on due Goal Influenza vaccine. Due on due Goal Pneumococcal vaccine. Due on due Goal Zoster vaccine. Due on due Goal H&P. Due on due Goal Zoster vaccine. Due on due Goal Lipid panel. Due on due Goal Depression screening. Due on due Goal Pneumococcal vaccine. Due on due Goal Influenza vaccine. Due on due Goal H&P. Due on due Goal Depression screening. Due on due Goal Pneumococcal vaccine. Due on due Goal Zoster vaccine. Due on due Goal H&P. Due on due Goal Influenza vaccine. Due on due Goal Lipid panel. Due on due Goal Influenza vaccine. Due on due Goal Zoster vaccine. Due on due Goal Dietary manageme nt education, guidance, and counseling completed Goal Zoster vaccine. Due on due Goal Influenza vaccine. Due on due Goal Zoster vaccine. Due on due Goal Influenza vaccine. Due on due Goal Influenza vaccine. Due on due Goal Zoster vaccine. Due on due Goal Zoster vaccine. Due on due Goal Influenza vaccine. Due on due Goal Zoster vaccine. Due on due Goal Influenza vaccine. Due on due Goal Influenza vaccine. Due on due Goal Zoster vaccine. Due on due Goal Influenza vaccine. Due on due Goal Zoster vaccine. Due on due Goal Influenza vaccine. Due on due Goal Zoster vaccine. Due on due Goal Zoster vaccine. Due on due Goal Influenza vaccine. Due on due Goal Zoster vaccine. Due on due Goal Influenza vaccine. Due on due Goal Influenza vaccine. Due on Oc due Goal Zoster vaccine. Due on due Goal Zoster vaccine. Due on due Goal Influenza vaccine. Due on Oc due Goal Influenza vaccine. Due on Oc due Goal Zoster vaccine. Due on due Goal Colonoscopy. Due on 013 due Goal Zoster vaccine. Due on due Goal FOBT. Due on due Goal Influenza vaccine. Due on Oc due Goal FOBT. Due on due Goal Colonoscopy. Due on 013 due Goal Zoster vaccine. Due on due Goal Influenza vaccine. Due on due Goal FOBT. Due on due Goal Zoster vaccine. Due on due Goal Colonoscopy. Due on due Goal Influenza vaccine. Due on due Goal Dietary manageme nt education, guidance, and counseling completed Goal Zoster vaccine. Due on due Goal FOBT. Due on due Goal Colonoscopy. Due on due Goal Influenza vaccine. Due on due Goal Influenza vaccine. Due on due Goal Colonoscopy. Due on due Goal Zoster vaccine. Due on due Goal FOBT. Due on due Goal FOBT. Due on due Goal Influenza vaccine. Due on due Goal Colonoscopy. Due on due Goal Zoster vaccine. Due on due Goal FOBT. Due on due Goal Zoster vaccine. Due on due Goal Influenza vaccine. Due on due Goal Colonoscopy. Due on due Goal Influenza vaccine. Due on due Goal Colonoscopy. Due on due Goal FOBT. Due on due Goal Zoster vaccine. Due on due Goal Colonoscopy. Due on due Goal FOBT. Due on due Goal Influenza vaccine. Due on due Goal Zoster vaccine. Due on due Goal Influenza vaccine. Due on due Goal FOBT. Due on due Goal Zoster vaccine. Due on due Goal Colonoscopy. Due on due Goal Colonoscopy. Due on due Goal Influenza vaccine. Due on due Goal Zoster vaccine. Due on due Goal FOBT. Due on due Goal Zoster vaccine. Due on due Goal Influenza vaccine. Due on due Goal Colonoscopy. Due on due Goal FOBT. Due on due Goal Zoster vaccine. Due on due Goal Influenza vaccine. Due on due Goal Colonoscopy. Due on due Goal FOBT. Due on due Goal Zoster vaccine. Due on due Goal FOBT. Due on due Goal Colonoscopy. Due on due Goal Influenza vaccine. Due on due Goal Colonoscopy. Due on due Goal Zoster vaccine. Due on due Goal Influenza vaccine. Due on due Goal FOBT. Due on due Goal Colonoscopy. Due on due Goal FOBT. Due on due Goal Influenza vaccine. Due on due Goal Zoster vaccine. Due on due Goal Colonoscopy. Due on due Goal FOBT. Due on due Goal Influenza vaccine. Due on due Goal Zoster vaccine. Due on due Goal Zoster vaccine. Due on due Goal Influenza vaccine. Due on due Goal Colonoscopy. Due on due Goal FOBT. Due on due Goal Zoster vaccine. Due on due Goal Influenza vaccine. Due on due Goal FOBT. Due on due Goal Colonoscopy. Due on due Goal Dietary manageme nt education, guidance, and counseling completed Goal Influenza vaccine. Due on due Goal FOBT. Due on due Goal Zoster vaccine. Due on due Goal Colonoscopy. Due on due Goal Influenza vaccine. Due on due Goal Zoster vaccine. Due on due Goal FOBT. Due on due Goal Colonoscopy. Due on due Goal Colonoscopy. Due on due Goal FOBT. Due on due Goal Zoster vaccine. Due on due Goal Influenza vaccine. Due on due Goal Zoster vaccine. Due on due Goal FOBT. Due on due Goal Colonoscopy. Due on due Goal Influenza vaccine. Due on due Goal FOBT. Due on due Goal Colonoscopy. Due on due Goal Influenza vaccine. Due on due Goal Zoster vaccine. Due on due Goal FOBT. Due on due Goal Colonoscopy. Due on due Goal Zoster vaccine. Due on due Goal Influenza vaccine. Due on due Goal Colonoscopy. Due on due Goal Zoster vaccine. Due on due Goal Influenza vaccine. Due on due Goal FOBT. Due on due Goal FOBT. Due on due Goal Zoster vaccine. Due on due Goal Influenza vaccine. Due on due Goal Colonoscopy. Due on due Goal Influenza vaccine. Due on due Goal FOBT. Due on due Goal Zoster vaccine. Due on due Goal Colonoscopy. Due on due Goal Colonoscopy. Due on due Goal Influenza vaccine. Due on due Goal FOBT. Due on due Goal Zoster vaccine. Due on due Goal Glaucoma Referral. Due on No due Goal Glaucoma Referral. Due on due Goal FOBT. Due on due Goal Influenza vaccine. Due on No due Goal Zoster vaccine. Due on due Goal Colonoscopy. Due on due Goal FOBT. Due on due Goal Colonoscopy. Due on due Goal Zoster vaccine. Due on due Goal Influenza vaccine. Due on due Goal Glaucoma Referral. Due on due Goal Colonoscopy. Due on due Goal Influenza vaccine. Due on Oc due Goal Glaucoma Referral. Due on Oc due Goal Zoster vaccine. Due on due Goal FOBT. Due on due Goal Dietary manageme nt education, guidance, and counseling completed Goal Influenza vaccine. Due on Oc due Goal Colonoscopy. Due on due Goal Glaucoma Referral. Due on Oc due Goal FOBT. Due on due Goal Zoster vaccine. Due on due Goal Influenza vaccine. Due on Oc due Goal Glaucoma Referral. Due on Oc due Goal FOBT. Due on due Goal Colonoscopy. Due on due Goal Zoster vaccine. Due on due Goal Zoster vaccine. Due on due Goal FOBT. Due on due Goal Glaucoma Referral. Due on due Goal Influenza vaccine. Due on due Goal Colonoscopy. Due on due Goal Glaucoma Referral. Due on due Goal Colonoscopy. Due on due Goal Zoster vaccine. Due on due Goal Influenza vaccine. Due on due Goal FOBT. Due on due Goal Zoster vaccine. Due on due Goal Glaucoma Referral. Due on due Goal FOBT. Due on due Goal Influenza vaccine. Due on due Goal Colonoscopy. Due on due Goal Zoster vaccine. Due on due Goal FOBT. Due on due Goal Colonoscopy. Due on due Goal Influenza vaccine. Due on due Goal Glaucoma Referral. Due on due Goal Glaucoma Referral. Due on due Goal Colonoscopy. Due on due Goal FOBT. Due on due Goal Zoster vaccine. Due on due Goal Influenza vaccine. Due on due Goal Colonoscopy. Due on due Goal Influenza vaccine. Due on due Goal Zoster vaccine. Due on due Goal Glaucoma Referral. Due on due Goal FOBT. Due on due Goal Colonoscopy. Due on due Goal Influenza vaccine. Due on due Goal Zoster vaccine. Due on due Goal FOBT. Due on due Goal Glaucoma Referral. Due on due Goal Colonoscopy. Due on due Goal Influenza vaccine. Due on due Goal Zoster vaccine. Due on due Goal Glaucoma Referral. Due on due Goal FOBT. Due on due Goal Colonoscopy. Due on 013 due Goal Abdominal ultrasound. Due on due Goal Glaucoma Exam. Due on due Goal Zoster vaccine. Due on due Goal Influenza vaccine. Due on due Goal FOBT. Due on due Goal Zoster vaccine. Due on due Goal Colonoscopy. Due on 013 due Goal Abdominal ultrasound. Due on due Goal FOBT. Due on due Goal Tdap due Goal Influenza vaccine. Due on due Goal Glaucoma Exam. Due on due Goal Dietary manageme nt education, guidance, and counseling completed Goal Tobacco cessation counseling completed Goal Tobacco cessation counseling completed Goal Tobacco cessation counseling completed Referral Referred To: Hematology & Oncology Ordered: Referrals: Hematology. [facility] Oncology. Location: [phone] [phone] ordered Referral Referred To: [facility] Ordered: Referrals: Ophthalmology. [facility]. Location: T: [phone] F: [phone]. Evaluate and treat ordered Referral Ordered: Colonoscopy, Surgical (Sigmoidoscopy) ordered Referral Ordered: CT, AB & PELVIS; W/O & W/ CONTRAST ordered Referral Ordered: CT abdomen, w/o contrast ordered Referral Ordered: Referral: Pulmonary Diseases. Evaluate and treat. ordered Referral Referred To: Dr. Rodrigues Ordered: Referral: Dr. Rodrigues. Appointment date/timeframe: 12/20/2012 ordered Referral Ordered: Referral: Pulmo. Evaluate and treat. ordered Patient Education Taking Warfarin Safely (Long-Term): Af completed History Of Present Illness Encounter Date Complaint History Of Prese nt Illness TeleHealth The patient has verbally consented to participate in this Telehealth Visit and has been advised that co-payments, co-insurance, and/or deductibles may apply as subject to specific insurance plan regulations.The Patient is located at: HomeThe [facility] role([facility] of any other participant on the telehealth visit: TeleHealth The patient has verbally consented to participate in this Telehealth Visit and has been advised that co-payments, co-insurance, and/or deductibles may apply as subject to specific insurance plan regulations.The Patient is located at: HomeThe [facility] & role(s) of any other participant on the telehealth visit:Staying at home, no sick contracts. Denies any sob, cough, fever, chills, nausea, vomiting, diarrhea, body aches, GASPAR, sore throat. multiple problems multiple problems Doing well wit h anticoagulation, denies any bleeding or bruising. Using albuterol and symbicort twice daily. Moving bowels regularly. Anticoagulation preventive exam Men's preventive visit. Patient Health Questionnaire (PHQ-2) is negative. Patient is on a healthy diet. He has weight loss. Marital status: single. Relevant history is negative for tobacco use, passive smoke exposure, alcohol use. multiple problems Feels better o n eliquis. Denies any bleeding, bruising, SOB, chest pain, wheezing, cough. Anticoagulation Taking warfarin since 2010 for blood clot after surgery. He does not recall if it was DVT, PE or other. He has not seen hematol since then. He denies any bleeding, brusing, SOB, chest pain, palpitations. He has trouble with frequent INR testing, would like a more convenient regimen that does not require testing. asthma The initial visi t date was 03/19/2013. The symptoms have stabilized. Context: daytime and nocturnal. Aggravating factors include change in weather, dust/dust mites, environmental allergens, molds, pollen, respiratory infection and smoke. Symptom relief is noted with beta-agonist inhaler, exposure to fresh air, intra-nasal steroid spray and steroid inhaler. Pertinent negatives include awakening with cough, awakening with dyspnea, awakening with wheeze, dyspnea at rest, dyspnea with intense exercise, dyspnea with moderate exercise, irregular heartbeat/palpitations, post nasal drainage, productive cough, reflux, seasonal rhinitis symptoms and wheezing. asthma (comments) No trouble marianela athing, using inhalers as prescribed. No smoking. Denies cough, wheeze, SOB, chronic cough, phlegm, allergic rhinitis. No pets. No smoking.Kimly to order pill packing. right eye bleeding The symptoms are reported as being mild. The symptoms occur constantly. He states the symptoms are acute. States his right eye has been bleeding for a day. Has had some coughing, exertional force. No injury. Denies any pain. Had drips of sin blood from the edge of his eye lid. No vision change, pain. asthma The initial visi t date was 03/19/2013. The symptoms have stabilized. Context: allergic. Aggravating factors include animals, change in weather, environmental allergens and smoke. Symptom relief is noted with beta-agonist inhaler and steroid inhaler. Pertinent negatives include awakening with cough, awakening with dyspnea, awakening with wheeze, dyspnea with intense exercise, dyspnea with moderate exercise, irregular heartbeat/palpitations, post nasal drainage, productive cough, sinusitis, stridor and wheezing. asthma (comments) No trouble marianela athing, using inhalers as prescribed. No smoking. Kimly to order pill packing. Denies cough, wheeze, SOB, chronic cough, phlegm, allergic rhinitis. No pets. No smoking. psoriasis (comments) Derm stoppe d methotrexate, continued folic acid. We need notes, called but the office is closed. F/u with derm in 1 mo. Víctor to order pill pack. She will notify the derm office so that they use the same pharmacy. psoriasis The symptoms are reported as being severe. The symptoms occur constantly. He states the symptoms are chronic. psoriasis The symptoms are reported as being mild. The symptoms occur constantly. He states the symptoms are chronic. Followed by shannan on clobetasol and light therapy. Using lotion, has been improving. No longer on methotrexate. preventive exam Men's preventive visit. Here for CPE. No new complaints. Due for routine labs. Had colonoscopy 02/2017, need to get final result. No smoking, etoh, MJ. Exerising, walking daily. Eating mostly home cooked foods, no junk or fast food. Decline flu, pneumonia. Not sexually active. No dentist, but does see the eye doc. Wearing distance glasses. asthma The initial visi t date was 03/19/2013. Additional information: Using symbacort, montelukast, cetirizine. No smoking. Denies cough. angicoagulation The symptoms are reported as being mild. The symptoms occur constantly. He states the symptoms are chronic. Chronic anticoagulation, PE. Fairly well controlled w warfarin.Followed by Dr Shah. psoriasis The symptoms are reported as being severe. The symptoms occur constantly. He states the symptoms are chronic. Reports taking topical steroids daily. Reports continued itchiness and poor control of rash. Reports problem area on lower back. Would like to restart methotrexate. chronic anticoagulation The symp toms are reported as being mild. The symptoms occur constantly. He states the symptoms are chronic and are controlled. INRs mcc stable with mild fluctuations. Tolerates warfarin well. Mild bruising on pressure points along spine, shins, and elbows. Denies difficulty breathing, SOB, chest pain, or heart palpitations. Reports mild leg cramping in the evenings that is relieved with massage and rest, denies swelling, heat, or erythema. hyperlipidemia Risk factors inc lude age over 50, poor diet, race and sedentary life style. The patient is adhering to medication, follow-up and exercise for their hyperlipidemia. Other hyperlipidemia compliance information: long walk 1x per week. Pertinent negatives include chest pain, claudication, constipation and heartburn. Additional information: Takes atorvastatin 20mg QHS. Denies eating red meat. Reports eating fried food daily. Denies eating junk food or fast food. No smoking. asthma The initial visi t date was 03/19/2013. The symptoms have stabilized. 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 Symptom relief is noted with beta-agonist inhaler, LA beta-agonist/steroid inhaler and taking OTC medications. Pertinent negatives include awakening with cough, awakening with dyspnea, awakening with wheeze, dry cough, post nasal drainage, productive cough, seasonal rhinitis symptoms, tremor after inhaler use and wheezing. Additional information: Using symbacort, montelukast, ventolin, cetirizine. Report use of of ventolin 2-3 times per week for SOB. Denies cough. No smoking. Eye problems The severity of the problem is moderate. The problem has worsened. The symptoms are persistent. Patient reports no discomfort. Patient reports no discharge. Associated symptoms include blurred vision and bilateral vision loss. Pertinent negatives include eye pain, fever or tearing. Additional information: Reports worsening vision, especially distance. Wears corrective lenses. psoriasis The symptoms are reported as being severe. The symptoms occur constantly. He states the symptoms are chronic. Followed by derm on methotrexate, topical steroids. Fairly controlled. Need to get latest note.Next apt tomorrow. Need to get notes. chronic anticoagulation The symp toms are reported as being mild. The symptoms occur constantly. He states the symptoms are chronic. Chronic anticoagulation, PE. Fairly well controlled w warfarin.Has appt with Dr Shah next month. hyperlipidemia Risk factors inc lude age over 50, poor diet, race and sedentary life style. The patient is adhering to medication, follow-up and diet for their hyperlipidemia. The patient is not adhering to exercise for their hyperlipidemia. Hyperlipidemia management includes statins. Additional information: Using atorvastatin 20mg QHS, no smoking. No exercise. Some Fried foods. preventive exam Men's preventive visit. Here for CPE. Due for colonoscopy. Refuses vaccinations. No smoking. No dentist. Hasn't seen eye doc in 2 years denies vision changes. Eating mostly Kiswahili diet some fried. No junk or fast food. Due for routine labs, can have them done with next INR. asthma The initial visi t date was 03/19/2013. The symptoms have stabilized. 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 Context: nocturnal and seasonal. Aggravating factors include change in weather, environmental allergens and pollen. Symptom relief is noted with beta-agonist inhaler, LA beta-agonist/steroid inhaler and taking OTC medications. Pertinent negatives include awakening with cough, awakening with dyspnea, awakening with wheeze, dry cough, post nasal drainage, productive cough, seasonal rhinitis symptoms, tremor after inhaler use and wheezing. Additional information: Using symbacort, montelukast, cetirizine. No smoking. Denies cough. asthma The initial visi t date was 03/19/2013. The symptoms have improved. Context: non-allergic. Aggravating factors include change in weather, dust/dust mites, environmental allergens, molds, pollen and respiratory infection. Symptom relief is noted with beta-agonist inhaler, LA beta-agonist/steroid inhaler and rest. There are no associated symptoms. asthma (comments) Refuses flu, a llergy to egg. Statess he using singulair, cetirizine daily. Using the symbicort as needed when he gets out of the shower or climbing stairs. Was confused as to what it was for. Doesn't have an albuterol rescue inhaler with him. Denies any tobacco exposure, wheezing, cough, persistent SOB. Preventive exam Men's preventive visit. Here for CPE. Has never had colonoscopy, doesn't want to do it. Is aware of risks. Due for routine labs. Is on chronic anticoagulation therapy that is generally controlled. No dentist, no recent eye doc but denies changes to his vision. hyperlipidemia Risk factors inc lude age over 50, family history of DM, family history of HTN and sedentary life style. The patient is adhering to medication, follow-up and diet for their hyperlipidemia. The patient is not adhering to exercise for their hyperlipidemia. Hyperlipidemia management includes statins. Additional information: Using fish oil 2 tabs BID, atorvastatin 20mg qhs. No smoking. Some fried foods. anticoagulation The symptoms are reported as being moderate. The symptoms occur constantly. He states the symptoms are chronic. Using warfarin daily, INRs generally stable. He was seen by heme and vascular but told to remain on warfarin. asthma The initial visi t date was 03/19/2013. The symptoms have improved. Context: daytime, non-allergic and seasonal. Aggravating factors include change in weather, dust/dust mites, environmental allergens, molds, pollen, respiratory infection and stress. Symptom relief is noted with exposure to fresh air and LA beta-agonist/steroid inhaler. Associated symptoms include dyspnea with intense exercise, dyspnea with moderate exercise and seasonal rhinitis symptoms. Pertinent negatives include awakening with cough, awakening with dyspnea, awakening with wheeze, dry cough, dyspnea at rest, excessive sputum, post nasal drainage, productive cough, reflux, sinusitis and wheezing. Additional information: Using singular, cetirizine, symbacort, and albtuerol as needed. Stable. No smoking. hyperlipidemia Risk factors inc lude age over 50, family history of DM, family history of HTN and sedentary life style. The patient is adhering to medication, follow-up and diet for their hyperlipidemia. The patient is not adhering to exercise for their hyperlipidemia. The patient is adhering to medication and follow-up and diet for their diabetes management. The patient is not adhering to exercise for their diabetes management. The patient is managing diabetes with injected insulin and oral medication. Hyperlipidemia management includes statins. Pertinent negatives include chest pain, hypoglycemic episodes and polydipsia. Additional information: Using atorvastatin 20mg QHS. Some fried foods, no exercise, no smoking. rash (comments) states he psoria sis worsens and flairs up if he eats any fish or turkey. denies oral involvement, itch in his mouth, etc. but only at the sites of his psorasis.doesnt want allergy testing right now, will consider. rash The patient pres ents for rash. The symptom(s) are described as improving and occurs continuously. Affected area(s) are scattered on the body. The patient describes the affected area(s) as dry, itchy and scaly. Relieving factors include elimination diet, skin lubricants, sun exposure and topical steroids. Associated symptoms include cracking, dry skin, pruritus and scaling. Additional information: Treated for psoriasis with clobetasol topical, doesnt recall what type of soap he uses, getting sun exposure in the summer. Using moisturizers daily. anticoagulation Well controlled. Getting draws every 2 weeks at this point. eczema Using betamethas one for skin. Much improved, not waking with itching. USing some lotion at times. constipation Additional infor mation: Improved. Moving bowels daily. Preventive exam Men's preventive visit. Here for CPE. No colonoscopy, FOBT. Feels well otherwise. Kiswahili diet, no greens, vision is okay sees otho. No dentist. asthma The initial visi t date was 03/19/2013. Context: allergic, nocturnal and seasonal. Aggravating factors include change in weather, environmental allergens, respiratory infection and smoke. Symptom relief is noted with beta-agonist inhaler, exposure to fresh air, intra-nasal steroid spray and LA beta-agonist/steroid inhaler. There are no associated symptoms. Additional information: No changes, no smoking. Using citirizine, singulair, betamethasone, albuterol. No smoking. hyperlipidemia Risk factors inc lude age over 50 and sedentary life style. The patient is adhering to medication, follow-up and diet for their hyperlipidemia. The patient is not adhering to exercise for their hyperlipidemia. Additional information: Using atorvastatin 20mg qhs. Some fried foods. No junk or fast food. asthma The initial visi t date was 03/19/2013. Context: allergic and seasonal. Aggravating factors include change in weather, environmental allergens, respiratory infection and smoke. Symptom relief is noted with beta-agonist inhaler and LA beta-agonist/steroid inhaler. There are no associated symptoms. Additional information: Doing well, no cough or wheezing. Using inhalers as prescribed, no thrush. Using singulair and cetirizine daily. Rash The patient pres ents for Rash. Additional information: Followed by derm for psoriasis on upper and lower extremities. Using triamcinlone 2x daily. Hyperlipidemia Risk factors inc lude age over 50 and sedentary life style. The patient is adhering to medication, follow-up and diet for their hyperlipidemia. The patient is not adhering to exercise for their hyperlipidemia. Hyperlipidemia management includes statins. There are no associated symptoms. Additional information: USing atorvastatin 20mg qhs. Little fried foods, no junk food or fast food. constipation He is also exper iencing change in stool caliber and sedentary activity. Pertinent negatives include abdominal pain, anorexia, back pain, black tarry stools, bleeding with bowel movement, bloating, change in appetite, change in stool pattern, flatulence, nausea, pain with passing stool, vomiting, weight gain and weight loss. Additional information: constipation for a long time , moving bowels daily, small amount, hard, dry. Brown, no blood or mucus. Salvadorean style diet and drinking 4-5 bottles of water daily.. hyperlipidema Using pravastati n 20mg QHS. Fishoil. No change to diet or activity. Follow Up of asthma The initial visit date was 03/19/2013. Pertinent negatives include awakening with cough, awakening with dyspnea, awakening with wheeze, dry cough, dyspnea at rest, dyspnea with intense exercise, dyspnea with moderate exercise and wheezing. Additional information: Using symbacort, albuterol, singulair, cetirizine. Hasn't used albuterol in a few weeks. Is also followed by derm for psoriasis, using steroid cream and injections. 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 Pt denies hx of positive PPD, never tx'd for TB. preventive exam Men's preventive visit. Due for Flu, Tdap and second Hep A, needs colonoscopy. All other vaccinations up to date. Did not have blood work drawn at last visit. states I was supposed to get a lab sheet in the mail and I never got one . Diet consists of rice, a little bit of chicken and pork but it makes me itchy , little fruits and vegetables. No change to activity level, I walk around the house a little . He does not smoke or drink alcohol. cough/wheezing The symptoms beg an 1 week ago. The symptoms occur at night. This week he has been feeling stuffy and is coughing especially at night when he lays down. The cough is not so bad during the day. He is coughing up just a little white phelgm . States he has been using his inhalers as prescribed and is taking his albuterol q4 hours during the day and q2 hours at night. States that the inhalers are helping . After medication review it is unclear if he is taking his inhalers correctly as both inhalers he brought in today were empty. O2 sat today 96% on RA. Psoriasis Aggravating fact ors include prok, chicken, eggs, dairy- makes him feel itchy . He states the symptoms are poorly controlled. Diagnosed in 2007. States that it seems to be getting worse. Plaques on his legs, arms, and back. Followed by dermatology, was seen yesterday and was put on a new topical medication, he does not know the name. He has also been receiving UV treatment but does not believe that this is helping. Follow Up of asthma The initial visit date was 03/19/2013. Context: nocturnal, non-allergic and seasonal. Aggravating factors include change in weather, dust/dust mites, environmental allergens and exercise. Symptom relief is noted with beta-agonist inhaler, exposure to fresh air, intra-nasal steroid spray, steroid inhaler and rest. Associated symptoms include dry cough. Pertinent negatives include awakening with cough, awakening with dyspnea, awakening with wheeze, dyspnea at rest, dyspnea with intense exercise, dyspnea with moderate exercise, excessive sputum, hoarseness, oral thrush, reflux, seasonal rhinitis symptoms, sinusitis and wheezing. Additional information: States he is much improved, breathing well, occ cough in the AM when he wakes up. Does not smoke. Using inhalers and singulair/cetirizine as prescribed, rinses mouth after. cough The patient desc ribes the cough as dry. Context: allergies and behavioral. There are no aggravating factors. There are no relieving factors. Associated symptoms include cough, dyspnea, fatigue and wheezing. Pertinent negatives include chills, dyspnea on exertion, epistaxis, fever, heartburn, hemoptysis, hoarseness, nasal congestion, night sweats, pleuritic pain, post-nasal drainage, rhinitis, sore throat and weight loss. The patient does not have a history of allergies or asthma. Additional information: Cough and SOB for 2 weeks. Phlegm at night cough at night. Has been to pulmo for eval of PE, continue coumadin. Using proair and fluticasone. No fever, no chills. No history of asthma, quit smoking >30 years ago.. Instructions Date Instruction Additional Infor harry Asymptomatic. Juan Luis led on infection control, alarm symptoms. Related to Advice given about COVID-19 virus by telephone Asymptomatic on warf lesvia. Awaiting INR from this morning. Planning to [place] new [place] in [place]. Will manage anticoag until new PCP takes over. 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 Juan Luis led on infection control, alarm symptoms. Related to Advice given about COVID-19 virus by telephone Well controlled on s ymbicort, singulair. Related to Asthma, persistent controlled Responding to miralax, metamucil . Related to Chronic constipation Asymptomatic on warfarin. Relate d to Mesenteric thrombosis Symptomatically cont rolled on symbicort, singulair. Related to Unspecified asthma, uncomplicated Well controlled with out medication. RTO 3 months. Related to Essential (primary) hypertension Symptomatically cont rolled on polydrug regimen. Clarified use of powders. Related to Chronic constipation Asymptomatic on warfarin. Relate d to Mesenteric thrombosis Using senna twice da lashawn. Advised to decrease to as needed. Related to Constipation, unspecified Controlled on symbic ort, singulair. Uses albuterol twice daily at night and before shower. Related to Asthma, persistent controlled Anticoag on warfarin , asymptomatic. Due for INR today. RTO 3 months. 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 Related to Asthma, persistent controlled Asymptomatic on warf lesvia. Due for INR. 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 R elated to Essential (primary) hypertension On methotrexate, managed by derm . Related to Psoriasis, unspecified Controlled on singul air, symbicort. Using albuterol once or twice daily as needed. Related to Asthma, persistent controlled Counseled on lifesty le modification. RTO 1 month to discuss medication management. Related to Urinary frequency Colonoscopy 1 year a go with adenomatous polyp. Repeat in 2020. Related to Cancer screening Reviewed indications , risks/benefits of anticgag options as outlined by hematol. Recommended warfarin as evidence base of benefit is substantial. Evidence for other options inadequate. Will resume warfarin for indefinite anticoagulation. Advised against NSAIDs for pain due to increased bleeding risk. Advised acetaminophen as needed. 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 Di scontinue fish oil. Related to Polypharmacy On MTX, steroid crea m. Managed by derm. Related to Psoriasis, unspecified Asymptomatic on eliq uis, off warfarin. Awaiting hematol consult to determine mcc anticoag plan. Related to History of pulmonary embolus (PE) On atorvastatin Related to Mixed hyperlipidemia Symptomatically cont rolled on symbicort, singular. Uses albuterol as needed about once weekly. Related to Asthma, persistent controlled Giving encouragement to exercise Related to Body mass index (BMI) 26.0-26.9, adult Dietary management e ducation, guidance, and counseling Related to Body mass index (BMI) 26.0-26.9, adult RTO 1 month for simp lification of medication regimen. Related to Polypharmacy Managed by derm. Related to Psor iasis continuous churn buttermaker anticoagul ation for history of PE. Requesting change to anticoag regimen that doesn't require testing. Renal function normal, asymptomatic. INR 1.28 earlier this week. Change to apixiban. 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 Related to Other pulmonary embolism without acute cor pulmonale Colace colace 100mg 1-2 times a day PRN, senna at bed, miralax 17g in 8oz water once daily until empty, fiber supplement once daily. Encourage prunes, pear juice, apple juice as needed. Increase hydration and fluid intake to at least 2L daily. Encourage high fiber diet, fruit and vegetables. Avoid consitpating foods like cheese, bananas, rice. RTC if ssx worsen or don't improve in 7-10 days.Next step: Linzess Related to Chronic constipation O2 sat 99%/RA. Rd nue montelukast 10mg QHS, cetirizine 10mg QAM, Symbicort 2 puffs QD, albuterol 2 puffs Q4-6H PRN. . Review trigger avoidance, avoid smoke, pollens, and small particulates. Review inhaler use. Discussed red flags, go to ED for respiratory distress. Has appt with pulmo scheduled 05/24/17 to reassess and determine if we can stop the warfarin in exchange for another anticoagulant.RTC at CPE. Related to Unspecified asthma, uncomplicated Dietary management e ducation, guidance, and counseling Related to Body mass index (BMI) 25.0-25.9, adult Giving encouragement to exercise Related to Body mass index (BMI) 25.0-25.9, adult Booked the pt an eleno t for tomorrow at 9:30 AM with [facility], [place] [address]rmj. [phone] the pt a copy of his last labs, med list, and last note. Will fax referral to their office.Start erythromycin 1cm TID until tomorrow. Bring med with you to the visit. Review red flags, when to go to ER vs calling office. Recheck 2 weeks. 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 Check ALT, AST, fasting lipids before next visit. RTC at CPE. Related to Mixed hyperlipidemia Stable. Follow up wi th pulmo as scheduled. Continue warfarin management.Didn't get home draw, nurse to call and find out why. He'll go the lab today for draw. Review red flags, when to go to ER.Review diet, foods to avoid. RTC at CPE. 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 They stopped methotrexate but continues folic acid.Wash with warm water only, non soap cleansers, pat dry don't rub. Use moisturizer daily. Wash hands after use. RTC at CPE. Related to Psoriasis O2 sat 97%/RA. Rd nue Montelukast, Symbicort, albuterol. Review trigger avoidance, avoid smoke, pollens, and small particulates. Review inhaler use. Discussed red flags, go to ED for respiratory distress. Agrees to flu and pneumonia shot today. Has egg allergy, causes a rash. No anaphylaxis. RTC at CPE. Related to Unspecified asthma, uncomplicated Giving encouragement to exercise Related to Body mass index (BMI) 25.0-25.9, adult Dietary management e ducation, guidance, and counseling Related to Body mass index (BMI) 25.0-25.9, adult Stable. Follow up wi pulmo as scheduled. Continue warfarin management.Review red flags, whe to go to ER.Review diet, foods to avoid. Recheck 6 mo. 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 Use moisturizer daily. Wash hands after use. RTC 6 mo recheck. Related to Psoriasis O2 sat 98%/RA. Rd nue Montelukast, symbicort, albuterol. Follow up with pulmo as scheduled. Review trigger avoidance, avoid smoke, pollens, and small particulates. Review inhaler use. Discussed red flags, go to ED for respiratory distress. Declines flu and pnumo. RTC 6 month. Related to Unspecified asthma, uncomplicated Well adult exam. Dis cussed routine health maintenance. Discussed diet, activity level, maintain healthy weight. Get colonoscopy result. .Reviewed medications and refilled as needed. Declines flu, pneumonia. Gave patient fasting lab sheet for draw, will call with results and adjust treatment plan accordingly. Answered all questions, reviewed upcoming appointments. RTC 1 year CPE, sooner for acute illness. Related to Encntr for general adult medical exam w/o abnormal findings Continue atorvastati n 20mg QD.Review lifestyle, diet, food choices, fat, cholesterol, physical activity, weight loss. Check ALT, AST, fasting lipids before next visit. RTC 6 mo. Related to Mixed hyperlipidemia Giving encouragement to exercise Related to Body mass index (BMI) 26.0-26.9, adult Dietary management e ducation, guidance, and counseling Related to Body mass index (BMI) 26.0-26.9, adult Seen and evaluated Samuel Parker [facility] IMPLEMENT MECHANIC Student. Review and agree with plan LESLIE Swan- Related to Body mass index (BMI) 27.0-27.9, adult Continue anticoagulation. INR st able. 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 Related to Eye problem Multiple skin lesion s due to psoriasis. Continue clobetasol 0.05% topical cream and calcipotriene 0.005% topical cream. Patient will follow-up with dermatology regarding request to restart methotrexate for better control of symptoms. Related to Oth disrd of the skin and subcutaneous tissue O2 sat 98% RA. Rd nue symbacort, cetirizine, singulair, ventolin. Refused flu and pnemococcal vaccines. Related to Unspecified asthma, uncomplicated Continue atorvastati n 20mg QHS. Educated patient on lifestyle modification, diet exercise. Lipid panel WNL, low HDL.Continue taking fish oil for HDL improvement. Re-check ALT, AST, and lipids at CPE. Follow-up in 6 months at CPE. Related to Mixed hyperlipidemia Dietary management e ducation, guidance, and counseling Related to Body mass index (BMI) 27.0-27.9, adult Giving encouragement to exercise Related to Body mass index (BMI) 27.0-27.9, adult O2 sat 94%/RA. Rd nue symbacort, cetirizine, singulair, albutrol PRN. Review trigger avoidance, avoid smoke, pollens, and small particulates. Discussed red flags, go to ED for respiratory distress. Encourage regular physical activity. Refuses flu and pneumonia vax up to date. Get notes from Dr Shah after next visit. RTC 6 month. Related to Unspecified asthma, uncomplicated Encourage increased physical activity caloric deficit, decreased fat and cholesterol intake, avoid snacking. Recheck 6 month for weight check. Related to Body mass index (BMI) 30.0-30.9, adult Continue anticoagulation. Relate d to Other pulmonary embolism without acute cor pulmonale Continue atorvastati n 20mg QHS. Review lifestyle, diet, food choices, fat, cholesterol, physical activity, weight loss. Check ALT, AST, fasting lipids before next visit. RTC 6 mo. Related to Mixed hyperlipidemia Continue methotrexat e, betamethasome topical to affected area. Ask him to have derm send us notes after tomorrow's visit. Looking much better, well controlled. RTC 6 mo. Related to Other specified disorders of the skin and subcutaneous tissue Well adult exam. Dis cussed routine health maintenance. Discussed diet, activity level, maintain healthy weight. Reviewed medications and refilled as needed. Refuses flu, pneumonia. Order colonoscopy. Gave patient fasting lab sheet for draw, will call with results and adjust treatment plan accordingly. Answered all questions, reviewed upcoming appointments. RTC 1 year CPE, sooner for acute illness. Related to Encntr for general adult medical exam w/o abnormal findings Giving encouragement to exercise Related to Body mass index (BMI) 30.0-30.9, adult Dietary management e ducation, guidance, and counseling Related to Body mass index (BMI) 30.0-30.9, adult O2 sat 98%/RA. Revie w proper use of ssymbicort, cetirizine, singulair. Add albuterol inhler for rescue PRN. Review trigger avoidance, avoid smoke, pollens, and small particulates. Review inhaler use. Discussed red flags, go to ED for respiratory distress. Left before he could get PCV13. Refuses flu egg allergy.RTC 3 month. Related to Unspecified asthma, uncomplicated Giving encouragement to exercise Related to Body mass index (BMI) 28.0-28.9, adult Dietary management e ducation, guidance, and counseling Related to Body mass index (BMI) 28.0-28.9, adult Continue sinulair, c etirizine, albuterol, pulmacort daily.Review med use, inhalers, trigger avoidance. Review pulmo red flags, when to go to ER. Recheck 4 mo. Related to Unspecified asthma, uncomplicated As above. Related to Other pulmonary embolism without acute cor pulmonale Continue chronic ant icoagulation. HAs INR draw 05/27/15. Will adjust plan with INR. 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 Recheck fasting lipids. Review food choices, weight loss, phsyical activity, fried foods.RTC 4 mo. Related to Mixed hyperlipidemia Well adult exam. Dis cussed routine health maintenance. Discussed diet, activity level, maintain healthy weight. Reviewed medications and refilled as needed. Vaccinations up to date. Refuses colonoscopy and is aware of risks. Gave patient fasting lab sheet for draw, will call with results and adjust treatment plan accordingly. Answered all questions, reviewed upcoming appointments. RTC 1 year CPE, sooner for acute illness. Related to Encntr for general adult medical exam w/o abnormal findings Continue betamethoso ne topical. Review self management, wash with non soap cleansers. Wash hands after using steroid, avoid contact with children. Follow up with derm as scheduled. Recheck next visit. Related to Psoriasis Giving encouragement to exercise Related to Body mass index (BMI) 28.0-28.9, adult Dietary management e ducation, guidance, and counseling Related to Body mass index (BMI) 28.0-28.9, adult Stop fish oil, see # 5 about questionable allergy. COntinue atorvastatin 20mg QHS. Review lifestyle, diet, food choices, sodium, physical activity, weight loss. Check fasting lipids today. RTC 3 mo. Related to Mixed hyperlipidemia Continue clobetasol topical BID to affected area twice daily. Wash with warm water only, non soap cleansers, pat dry don't rub. Use moisturizer daily. Discussed risk of systemic absorption of topical steroids, use sparingly. Wash hands after use and avoid touching children or infants. Discussed possible allergic component and trigger avoidance. Answered questions as they arise. Patient verbalizes understanding and agreement with treatment plan. RTC at next visit. Related to Unspecified keratitis Continue anticoagulation therapy . 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 He adamantly denies any oral issues, only his psoriasis flairs up with his consumption of fish. Has no trouble with the fish oil supplemet but will stop it today. Review red flag, when to go to ER. Related to Food allergy As above. 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 We should work to get him on a montly schedule, he is a little up and down each week but maintains over all on his dose. Avoiding green foods. Feels well. Related to Acute vascular insufficiency of intestine Well controlled. COn tinue albuterol, montelukast, symbadcort. Review trigger avoidance, avoid smoke, pollens, and small particulates. Review inhaler use. Discussed red flags, go to ED for respiratory distress. Encourage regular physical activity. Flu and pneumonia vax up to date. RTC 3 month. Related to Asthma, unspecified Continue atorvaztati n 20mg QHS. Review lifestyle, diet, food choices, sodium, physical activity, weight loss. Check ALT, AST, fasting lipids. RTC 3 mo. Related to Mixed hyperlipidemia Continue clobetasol BID as needed to affected area twice daily. Wash with warm water only, non soap cleansers, pat dry don't rub. Use moisturizer daily. Discussed risk of systemic absorption of topical steroids, use sparingly. Wash hands after use and avoid touching children or infants. Discussed possible allergic component and trigger avoidance. Answered questions as they arise. Patient verbalizes understanding and agreement with treatment plan. RTC 4 mo recheck. Related to Unspecified keratitis Well adult exam. Dis cussed routine health maintenance. Discussed diet, activity level, maintain healthy weight. Reviewed medications and refilled as needed. Vaccinations up to date. Refuses colonoscipy but will do FOBT cards. Gave patient fasting lab sheet for draw, will call with results and adjust treatment plan accordingly. Answered all questions, reviewed upcoming appointments. RTC 1 year CPE, sooner for acute illness. Related to ROUTINE MEDICAL EXAM Continue atorvastati n 20mg QHS. Review lifestyle, diet, food choices, sodium, physical activity, weight loss. Check ALT, AST, fasting lipids. RTC3 mo. Related to Mixed hyperlipidemia Continue triancolone 0.1% to affected area twice daily. Wash with warm water only, non soap cleansers, pat dry don't rub. Use moisturizer daily. Discussed risk of systemic absorption of topical steroids, use sparingly. Wash hands after use and avoid touching children or infants. Discussed possible allergic component and trigger avoidance. Answered questions as they arise. Patient verbalizes understanding and agreement with treatment plan. RTC 3 mo recheck. Related to Unspecified keratitis O2 sat 98%/RA. Rd nue symbicort, albuterol, montelukasst, cetirizine. Review trigger avoidance, avoid smoke, pollens, and small particulates. Review inhaler use. Discussed red flags, go to ED for respiratory distress. Encourage regular physical activity. Fu and pneumonia vax up to date. RTC 3 month. Related to Asthma, unspecified Assessments Type Assessment Date No Information
[2024-09-25 14:22] LABS: INTERNATIONAL NORM RATIO 1.6 (0.9-1.1); Prothrombin Time 18.1 SEC (10.9-12.4)
== END 2024-09-25 13:26 | disposition home or self-care (01) ==
LOC: HO.LABR 13:25
PROVIDERS: PCP Nurse Practitioner Family; Visit Provider Pharmacist
DX: I26.99 Other pulmonary embolism without acute cor pulmonale (principal)
CPT/HCPCS: 36415; 85610

== ENCOUNTER 2024-10-23 11:44 | Outpatient (REF) | payer MEDICARE, MEDICAID, SELFPAY ==
[2024-10-23 12:33] LABS: Prothrombin Time 57.5 SEC (10.9-12.4)
[2024-10-23 12:35] LABS: INTERNATIONAL NORM RATIO 5.0 (0.9-1.1)
== END 2024-10-23 11:45 | disposition home or self-care (01) ==
LOC: HO.LABR 11:44
PROVIDERS: PCP Nurse Practitioner Family; Visit Provider Pharmacist
DX: I26.99 Other pulmonary embolism without acute cor pulmonale (principal)
CPT/HCPCS: 36415; 85610